=== PATIENT | female | born 1935 | race Caucasian/White ===

== ENCOUNTER 2021-10-17 15:21 | Outpatient (REF) | payer MEDICARE, SELFPAY | END 2021-10-17 15:22 | disposition home or self-care (01) | LOC: HO.LNP 15:21 | PROVIDERS: Visit Provider Physician Assistant | DX: N39.0 Urinary tract infection, site not specified (principal) | CPT/HCPCS: 87086; 87088; 87186 ==

== ENCOUNTER 2024-06-19 14:21 | Outpatient (REF) | payer MEDICARE, SELFPAY ==
[2024-06-19 15:59] LABS: MANUAL DIFF FLAG NO
[2024-06-19 16:23] LABS: Basophils Absolute Auto 0.1 X10*3/uL (0.0-0.2); Basophils Percent Auto 0.7 % (0-2); Eosinophils Absolute Auto 0.1 X10*3/uL (0.0-0.4); Hematocrit 36.9 % (37.0-47.0); Hemoglobin 12.2 g/dl (12.0-16.0); Imm Gran Abs Auto 0.04 X10*3/uL (0.00-0.03); Imm Gran Pct Auto 0.6 % (0.0-0.4); Lymphocytes Absolute Auto 2.6 X10*3/uL (1.2-4.9); Lymphocytes Percent Auto 37.7 % (20-40); Mean Corpuscular HGB Conc 33.1 g/dl (31.0-35.0); Mean Corpuscular Hemoglobin 30.6 pg (27.0-33.0); Mean Corpuscular Volume 92.5 fL (80.0-98.0); Mean Platelet Volume 10.1 fL (9.4-12.3); Monocytes Absolute Auto 0.6 X10*3/uL (0.1-1.2); Monocytes Percent Auto 8.4 % (2-11); Neutrophils Absolute Auto 3.5 x10*3/uL (2.0-8.3); Neutrophils Percent Auto 51.6 % (45-73); Platelet Count 253 X10*3/uL (160-400); Red Blood Count 3.99 X10*6/uL (4.20-5.50); Red Cell Distribution Width 12.6 % (11.0-16.0); White Blood Count 6.8 X10*3/uL (4.8-10.8)
[2024-06-19 16:49] LABS: Alanine Aminotransferase 10 U/L (0-31); Alkaline Phosphatase 59 U/L (39-117); Anion Gap 12 (12-20); Aspartate Amino Transferase 15 U/L (5-31); Bilirubin Total 0.5 mg/dL (0.0-1.0); Blood Urea Nitrogen 24 mg/dL (9-16); Calcium 9.3 mg/dL (8.4-10.2); Carbon Dioxide 30 mmol/L (22-29); Chloride 103 mmol/L (96-108); Estimated Glomerular Filt Rate > 60; Glucose Random 89 mg/dL (60-115); Potassium 3.6 mmol/L (3.3-5.1); Sodium 141 mmol/L (135-145); Total Protein 6.5 g/dL (6.5-8.0)
[2024-06-19 16:55] LABS: Vitamin D 25-OH Total 59.9 ng/mL (>30)
== END 2024-06-19 14:22 | disposition home or self-care (01) ==
LOC: HO.HMGCLDS 14:21
PROVIDERS: PCP Internal Medicine; Visit Provider Internal Medicine
DX: I10 Essential (primary) hypertension (principal); E78.00 Pure hypercholesterolemia, unspecified; K21.9 Gastro-esophageal reflux disease without esophagitis; R63.4 Abnormal weight loss; M81.0 Age-related osteoporosis without current pathological fracture
CPT/HCPCS: 36415; 80053; 82306; 85025

== ENCOUNTER 2024-07-31 12:57 | Outpatient (RCR) | payer MEDICARE, SELFPAY | END 2024-09-21 13:42 | disposition home or self-care (01) | LOC: HO.WCC 12:57 | PROVIDERS: PCP Internal Medicine; Visit Provider Surgery | DX: I87.332 Chronic venous hypertension (idiopathic) with ulcer and inflammation of left lower extremity (principal); L97.822 Non-pressure chronic ulcer of other part of left lower leg with fat layer exposed; G62.9 Polyneuropathy, unspecified; I10 Essential (primary) hypertension; Z79.2 Long term (current) use of antibiotics; Z79.899 Other long term (current) drug therapy | CPT/HCPCS: 11042; 99213 ==

== ENCOUNTER 2024-11-28 10:18 | Outpatient (REF) | payer MEDICARE, OTHER, SELFPAY ==
--- OUTSIDE RECORDS SUMMARY | 2024-11-28 12:21 | XMS_ITS | Data Portability ---
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 labs 11/05/2022 LDL 117; hdl 63; trig 100 bun 19, cr 0.62 hgb 13.0 vit D 42 tsh 2.07; T4 1.0 b12 > 2000 hgb 5.3 ppoling Not available 03/02/2023 10:30:47 11/16/2023 11/16/2023 Patient here tod ay for follow-up after urgent care visit on 11/11/2023. Patient tested positive for influenza A, negative for COVID, negative for RSV. Her x-ray was read as normal with no pneumonia. She was prescribed Tamiflu, Zofran, benzonatate Perles, she currently continues taking the benzonatate only. The patient did not take tamiflu due to symptoms starting 5 days prior to Urgent Care Visit. Patient nausea has mostly resolved. There is notation in the urgent care note and the patient does present with edema of the right lower leg and was advised to go to ER. I will order a stat ultrasound to rule out DVT and patient should proceed to have this testing done immediately. Patient does report she did recently travel on a plane was sitting for several hours. In the past on the right leg she had phlebitis, vein ligation, liset due to compound fracture in 1992. increase activity as tolerated RTO if symptoms do not improve. I will reach out based on DVT results if needed. Labs 11/08/2023 vit d 28 tsh 2.93 hdl 56 trig 100 ldl 100 gfr 85 cr 0.66 bun 18 wbc 6.3 hgb 12.1 covid in sep 2023 Provided patient with memory loss support group information on [facility]. Patient reports her has memory loss and she is having challenges managing. ksmarsh Not available 11/16/2023 10:20:35 01/03/2024 01/03/2024 Patient here tod dyllan with complaints of cough, sinus drainage, headache for 2 weeks. Patient had COVID in September 2023 and influenza A in October 2023 and now has a recent new virus causing upper respiratory symptoms. Patient has been taking her vitamin D as it was noted low on last lab work, and reports taking B12 hydrating and eating well. She does report chronic stress due to taking care of her . She does request antibiotic today for upper respiratory symptoms and to rule out UTI with her chronic incontinence. had covid sep 2023 influenza a oct 2023 ksmarsh Not available 01/03/2024 09:10:58 01/25/2024 01/25/2024 Patient here daniella mijares with her daughter for follow-up after emergency room visit for right knee pain. Patient has history of right side tibial liset from compound fracture in 1994. Patient had x-ray done of the right knee that indicated mild to moderate osteoarthritis, chondrocalcinosis of meniscal cartilage, possibly related to DJD, gout, or hydroxyapatite deposition disease, and partial visualization of a tibial intramedullary liset. On exam today pain is improved from UC visit with meloxicam. She still is positive for bakers cyst and has tenderness in posterior and medial knee, full extension, flexion to 90 degrees with some pain. Referral given to [facility] - requests new one today. pt vomited one time in office, declines nausea meds, took meloxicam with banana and has not felt good since. ksmarsh Not available 01/25/2024 12:38:51 Plan of Treatment Reminders Order Date Submit Date Provider Last Modified By Organization Details Last Modified Time Details Appointments None recorded. Lab CBC - to be done 6 months after order date 2022 023 [facility], [address], [place], [address], 3 19:07:35 venipunctu re - to be done 6 months after order date 2022 023 [facility], [address], [place], [address], 3 09:13:30 TSH, serum or plasma - to be done 6 months after order date 2022 023 [facility], [address], [place], [address], 3 19:07:33 T4, free, serum - to be done 6 months after order date 2022 023 [facility], [address], [place], [address], 3 19:07:32 CMP, serum or plasma - to be done 6 months after order date 2022 023 [facility], [address], [place], [address], 3 19:07:36 CK (creatine kinase), total, serum - to be done 6 months after order date 2022 023 [facility], [address], [place], [address], 3 19:07:36 lipid panel, serum - to be done 6 months after order date 2022 023 [facility], [address], [place], [address], 3 19:07:37 HbA1c (hemoglobi n A1c), blood - to be done 6 months after order date 2022 023 [facility], [address], [place], [address], 3 19:07:30 urinalysis , complete 2022 023 [facility], [address], [place], [address], 3 09:58:56 vitamin B12, serum - to be done 6 months after order date 2022 023 [facility], [address], [place], [address], 3 19:07:31 vitamin D, 25-hydroxy , total, serum - to be done 6 months after order date 2022 023 [facility], [address], [place], [address], 3 19:07:34 CMP, serum or plasma - to be done 6 months after order date 2022 023 [facility], [address], [place], [address], 4 12:33:33 lipid panel, serum - to be done 6 months after order date 2022 023 [facility], [address], [place], [address], 4 12:33:34 TSH, serum or plasma - to be done 6 months after order date 2022 023 [facility], [address], [place], [address], 4 12:33:36 CBC - to be done 6 months after order date 2022 023 [facility], [address], [place], [address], 4 12:33:32 venipunctu re - to be done 6 months after order date 2022 023 [facility], [address], [place], [address], 4 08:09:27 vitamin D, 25-hydroxy , total, serum - to be done 6 months after order date 2022 023 [facility], [address], [place], [address], 4 12:33:37 urinalysis , complete 2023 024 [facility], [address], [place], [address], 4 13:36:47 Referral orthopedic surgeon referral 2023 024 ATHENAFAX Not available 4 12:56:54 Procedures None recorded. Surgeries None recorded. Imaging MAMMO, screening, digital, bilateral - 3 D mammogram 2022 023 [email or web address] [facility] (Central Scheduling), [address], [address], [place], [address], 3 11:17:32 MAMMO, screening, digital, bilateral - 3 D mammogram 2022 023 [facility] (Central Scheduling), [address], [address], [place], [address], 4 08:03:13 US, duplex, venous, lower extremity, unilateral 2023 024 [place] [facility], [address], [address], [place], [address], 4 14:46:08 Medication Orders hydrochlor othiazide 12.5 mg tablet 2022 023 [place] [facility], [address], [address], [place], [place], [id number], 3 11:02:14 omeprazole 20 mg capsule,de layed release 2022 023 [place] [facility], [address], [address], [place], [place], [id number], 3 11:02:17 losartan 100 mg tablet 2022 023 [place] [facility], [address], [address], [place], [place], [id number], 3 11:02:16 dicyclomin e 10 mg capsule 2022 023 [facility], [address], [address], [place], [place], [id number], 3 11:02:17 estradiol 0.01% (0.1 mg/gram) vaginal cream 2022 023 [email or web address] [facility], [address], [address], [place], [place], [id number], 3 08:26:51 lovastatin 40 mg tablet 2022 023 [facility] [facility], [address], [address], [place], [place], [id number], 3 11:02:14 magnesium 100 mg (as glycinate) capsule 2022 023 ppoling Not available 3 10:38:11 Estrace 0.01% (0.1 mg/gram) vaginal cream 2022 023 [facility], [address] [place] [address], [address], [place], [address], 4 11:33:30 omeprazole 40 mg capsule,de layed release 2022 023 [facility], [address] [place] [address], [address], [place], [place], [id number], 4 11:41:06 Vitamin D3 50 mcg (2,000 unit) capsule 2022 023 ksmarsh Not available 4 10:02:57 cholecalci ferol (vitamin D3) 1,250 mcg (50,000 unit) capsule 2023 024 [facility], [address], [address], [place], [place], [id number], 4 10:03:13 doxycyclin e hyclate 100 mg capsule 2023 024 [email or web address] [id number], [place], [address], 4 11:11:43 fluticason e propionate 50 mcg/actuat ion nasal spray,susp ension 2023 024 [id number], [place], [address], 4 09:08:59 meloxicam 15 mg tablet 2023 024 [id number], [place], [address], 4 11:54:00 fluticason e propionate 50 mcg/actuat ion nasal spray,susp ension 2023 024 [id number], [place], [address], 4 11:46:49 Patient TargetsNo targets recorded. Patient Instructions Encounter Date Encounter Id Patient Instructions Last Modified By Organization Details Last Modified Time 11/11/2022 [id number] starting a weigh t loss plan: care instructions ppoling Not available 11/11/2022 11:01:55 hand arthritis: exercises ppoling Not available 11/11/2022 11:01:55 irritable bowel syndrome: care instructions ppoling Not available 11/11/2022 11:01:55 prediabetes: car e instructions ppoling Not available 11/11/2022 11:01:56 pernicious anemi a: care instructions ppoling Not available 11/11/2022 11:01:56 03/02/2023 [id number] irritable bowel syndrome: care instructions ppoling Not available 03/02/2023 10:37:42 starting a weigh t loss plan: care instructions ppoling Not available 03/02/2023 10:37:42 gastroesophageal reflux disease (GERD): care instructions ppoling Not available 03/02/2023 10:37:43 11/16/2023 [id number] -Follow the treatment plan that we discussed during your visit. -Please go to the nearest ED if you develop any acute medical emergencies such as: chest pain, SOB, severe abd pain, uncontrolled bleeding, severe/intractable pain or any neurological changes. ksmarsh Not available 11/16/2023 10:16:57 -Patient instruc shi to call the office with any healthcare/medicatio n concerns or questions. -Patient verbalized understanding of treatment plan and agreed to call or RTO with any questions or if they feel that the plan needs to be modified. -Use, dosage, and adverse side effects of medications discussed. ksmarsh Not available 11/16/2023 10:17:03 01/03/2024 [id number] Acute Sinusitis: Care Instructions ksmarsh Not available 01/03/2024 09:02:53 -Follow the treatment plan that we discussed during your visit. -Please go to the nearest ED if you develop any acute medical emergencies such as: chest pain, SOB, severe abd pain, uncontrolled bleeding, severe/intractable pain or any neurological changes. ksmarsh Not available 01/03/2024 09:11:00 -Patient instruc shi to call the office with any healthcare/medicatio n concerns or questions. -Patient verbalized understanding of treatment plan and agreed to call or RTO with any questions or if they feel that the plan needs to be modified. -Use, dosage, and adverse side effects of medications discussed. ksmarsh Not available 01/03/2024 09:11:02 01/25/2024 [id number] -Follow the treatment plan that we discussed during your visit. -Please go to the nearest ED if you develop any acute medical emergencies such as: chest pain, SOB, severe abd pain, uncontrolled bleeding, severe/intractable pain or any neurological changes. ksmarsh Not available 01/25/2024 12:42:57 -Patient instruc shi to call the office with any healthcare/medicatio n concerns or questions. -Patient verbalized understanding of treatment plan and agreed to call or RTO with any questions or if they feel that the plan needs to be modified. -Use, dosage, and adverse side effects of medications discussed. ksmarsh Not available 01/25/2024 12:43:06 Reason for Referral Orthopedic Surgeon Referral for Synovial cyst of right knee Referring Physician: Rosa Maria Mulligan, Family Medicine, Encounter Date: 01/25/2024 Results Created Date Observation Date Name Description Value Unit Range Abnormal Flag Note LastModifiedBy Organization Detail LastModifiedTime 11/05/1911/06/2022 A1C hemoglobin A1C 5.3 %_of_ total _HGB <5.7 normal For the purpo se of zafar guthrie for the prese nce of diabe johann: <5.7% Consi stent with the absen ce of diabe johann 5.7-6 .4% Consi stent with incre ased risk for diabe johann (pred iabet es) > or =6.5% Consi stent with diabe johann This assay resul t is consi stent with a decre ased risk of diabe johann. Curre ntly, no conse nsus exist s shari yu use of hemog lobin A1c for diagn osis of diabe johann in child tae. Accor ding to Ameri can Diabe johann Assoc iatio n (ADA) guide lines , hemog lobin A1c <7.0% repre sents optim al contr ol in non-p regna nt diabe tic patie nts. Diffe rent metri cs may apply to speci fic patie nt popul ation s. Stand ards of Medic al Care in Diabe johann(A DA). Not Available [facility] [address] [facility] [place], [address], 11/06/2022 09:17:27 11/05/19 23 11/06/2022 VITAM IN B-12 vitamin B12 >2000 pg/mL 200-11 00 high Not Available [facility] [address] [place], [address], 11/06/2022 09:17:29 11/05/19 23 11/06/2022 T4, FREE T4, free 1.0 NG/dL 0.8-1. 8 normal Not Available [facility] [address] [facility] [address] [place], [address], 11/06/2022 09:17:30 11/05/19 23 11/06/2022 TSH, THYRO ID STIMU LATIN G HORMO NE TSH 2.07 mIU/L 0.40-4 .50 normal Not Available [facility] [address] [place], [address], 11/06/2022 09:17:31 11/05/19 23 11/06/2022 VITAM IN D, 25-HY DROXY vitamin D,25-oh,tota l,ia 42 NG/mL 30-100 normal Vitam in D Statu s 25-OH Vitam in D: Defic iency : <20 ng/mL Insuf ficie ncy: 20 - 29 ng/mL Optim al: > or = 30 ng/mL For 25-OH Vitam in D testi ng on patie nts on D2-frey pplem entat ion and patie nts for whom quant itati on of D2 and D3 fract ions is requi red, the [employer] Assur eD(TM ) 25-OH VIT D, (D2,D 3), LC/MS /MS is recom elisabet d: order code 25803 (martin ents >2yrs ). See Note 1 Note 1 For addit ional infor reese cunningham e refer to http: //jose manuel umaña ics.c om/fa q/FAQ 199 (This link is being provi ded for infor ronan joaquin/ educjulia quezada purpo ses only. ) Not Available [facility] [address] [place], [address], 11/06/2022 09:17:33 11/05/19 23 11/06/2022 CBC W/ AUTOD IFF, COMPL ETE BLOOD COUNT white blood cell count 5.8 thous and/u L 3.8-10 .8 normal Not Available [facility] [address] [place], [address], 11/06/2022 09:17:34 11/05/19 23 11/06/2022 CBC W/ AUTOD IFF, COMPL ETE BLOOD COUNT red blood cell count 4.40 jh on/uL 3.80-5 .10 normal Not Available [facility], [place], [address], 11/06/2022 09:17:34 11/05/19 23 11/06/2022 CBC W/ AUTOD IFF, COMPL ETE BLOOD COUNT hemoglobin 13.0 g/dL 11.7-1 5.5 normal Not Available [facility], [place], [address], 11/06/2022 09:17:34 11/05/1911/06/2022 CBC W/ AUTOD IFF, COMPL ETE BLOOD COUNT hematocrit 39.3 % 35.0-4 5.0 normal Not Available [facility] [address], [place], [address], 11/06/2022 09:17:34 11/05/1911/06/2022 CBC W/ AUTOD IFF, COMPL ETE BLOOD COUNT MCV 89.3 fL 80.0-1 00.0 normal Not Available [facility], [place], [address], 11/06/2022 09:17:34 11/05/1911/06/2022 CBC W/ AUTOD IFF, COMPL ETE BLOOD COUNT MCH 29.5 pg 27.0-3 3.0 normal Not Available [facility], [place], [address], 11/06/2022 09:17:34 11/05/1911/06/2022 CBC W/ AUTOD IFF, COMPL ETE BLOOD COUNT MCHC 33.1 g/dL 32.0-3 6.0 normal Not Available [facility], [place], [address], 11/06/2022 09:17:34 11/05/19 23 11/06/2022 CBC W/ AUTOD IFF, COMPL ETE BLOOD COUNT RDW 12.4 % 11.0-1 5.0 normal Not Available [facility], [place], [address], 11/06/2022 09:17:34 11/05/19 23 11/06/2022 CBC W/ AUTOD IFF, COMPL ETE BLOOD COUNT platelet count 269 thous and/u L 140-40 0 normal Not Available [facility] [address], [place], [address], 11/06/2022 09:17:34 11/05/19 23 11/06/2022 CBC W/ AUTOD IFF, COMPL ETE BLOOD COUNT MPV 10.2 fL 7.5-12 .5 normal Not Available [facility] [address] [place] [address] [address], [place], [address], 11/06/2022 09:17:34 11/05/19 23 11/06/2022 CBC W/ AUTOD IFF, COMPL ETE BLOOD COUNT absolute neutrophils 2755 cells /uL 1500-7 800 normal Not Available [facility] [address] [place] [address] [address], [place], [address], 11/06/2022 09:17:34 11/05/19 23 11/06/2022 CBC W/ AUTOD IFF, COMPL ETE BLOOD COUNT absolute lymphocytes 2187 cells /uL 850-39 00 normal Not Available [facility] [address], [place], [address], 11/06/2022 09:17:34 11/05/19 23 11/06/2022 CBC W/ AUTOD IFF, COMPL ETE BLOOD COUNT absolute monocytes 597 cells /uL 200-95 0 normal Not Available [facility] [address] [place] [address] [address], [place], [address], 11/06/2022 09:17:34 11/05/19 23 11/06/2022 CBC W/ AUTOD IFF, COMPL ETE BLOOD COUNT absolute eosinophils 191 cells /uL 15-500 normal Not Available [facility] [address], [place], [address], 11/06/2022 09:17:34 11/05/19 23 11/06/2022 CBC W/ AUTOD IFF, COMPL ETE BLOOD COUNT absolute basophils 70 cells /uL 0-200 normal Not Available [facility] [address], [place], [address], 11/06/2022 09:17:34 11/05/19 23 11/06/2022 CBC W/ AUTOD IFF, COMPL ETE BLOOD COUNT neutrophils 47.5 % normal Not Available [facility] [address], [place], [address], 11/06/2022 09:17:34 11/05/19 23 11/06/2022 CBC W/ AUTOD IFF, COMPL ETE BLOOD COUNT lymphocytes 37.7 % normal Not Available [facility] [address], [place], [address], 11/06/2022 09:17:34 11/05/19 23 11/06/2022 CBC W/ AUTOD IFF, COMPL ETE BLOOD COUNT monocytes 10.3 % normal Not Available [facility] [address], [place], [address], 11/06/2022 09:17:34 11/05/19 23 11/06/2022 CBC W/ AUTOD IFF, COMPL ETE BLOOD COUNT eosinophils 3.3 % normal Not Available [facility] [address], [place], [address], 11/06/2022 09:17:34 11/05/19 23 11/06/2022 CBC W/ AUTOD IFF, COMPL ETE BLOOD COUNT basophils 1.2 % normal Not Available [facility] [address] [facility] [address], [place], [address], 11/06/2022 09:17:34 11/05/19 23 11/06/2022 CK creatine kinase, total 44 U/L 29-143 normal Not Available [facility] [address] [facility] [address], [place], [address], 11/06/2022 09:17:36 11/05/1911/06/2022 CMP, COMPR EHENS AMY METAB OLIC PANEL glucose 82 mg/dL 65-99 normal Fasti ng refer ence inter jason Not Available [facility] [address] [facility] [address], [place], [address], 11/06/2022 09:17:37 11/05/19 23 11/06/2022 CMP, COMPR EHENS AMY METAB OLIC PANEL urea nitrogen (BUN) 19 mg/dL 7-25 normal Not Available [facility] [address] [facility] [address], [place], [address], 11/06/2022 09:17:37 11/05/1911/06/2022 CMP, COMPR EHENS AMY METAB OLIC PANEL creatinine 0.62 mg/dL 0.60-0 .95 normal Not Available [facility] [address] [facility] [address], [place], [address], 11/06/2022 09:17:37 11/05/1911/06/2022 CMP, COMPR EHENS AMY METAB OLIC PANEL eGFR 87 mL/mi n/1.7 3m2 > or = 60 normal The eGFR is based on the CKD-E PI 2020 equat ion. To calcu late the new eGFR from a previ ous Creat inine or Cysta tin C resul t, go to https ://vero w.kid dion.o rg/pr ofess ional s/ kdoqi /gfr% 5Fcal culat or Not Available [facility] [address], [place], [address], 11/06/2022 09:17:37 11/05/19 23 11/06/2022 CMP, COMPR EHENS AMY METAB OLIC PANEL BUN/creatini ne ratio NOT APPLIC ABLE (calc ) 6-22 Not Available [facility] [address], [place], [address], 11/06/2022 09:17:37 11/05/19 23 11/06/2022 CMP, COMPR EHENS AMY METAB OLIC PANEL sodium 141 mmol/ L 135-14 6 normal Not Available [facility] [address], [place], [address], 11/06/2022 09:17:37 11/05/19 23 11/06/2022 CMP, COMPR EHENS AMY METAB OLIC PANEL potassium 4.2 mmol/ L 3.5-5. 3 normal Not Available [facility] [address], [place], [address], 11/06/2022 09:17:37 11/05/19 23 11/06/2022 CMP, COMPR EHENS AMY METAB OLIC PANEL chloride 103 mmol/ L 98-110 normal Not Available [facility] [address], [place], [address], 11/06/2022 09:17:37 11/05/19 23 11/06/2022 CMP, COMPR EHENS AMY METAB OLIC PANEL carbon dioxide 29 mmol/ L 20-32 normal Not Available [facility] [address], [place], [address], 11/06/2022 09:17:37 11/05/19 23 11/06/2022 CMP, COMPR EHENS AMY METAB OLIC PANEL calcium 9.0 mg/dL 8.6-10 .4 normal Not Available [facility] [address], [place], [address], 11/06/2022 09:17:37 11/05/1911/06/2022 CMP, COMPR EHENS AMY METAB OLIC PANEL protein, total 6.4 g/dL 6.1-8. 1 normal Not Available [facility] [address], [place], [address], 11/06/2022 09:17:37 11/05/1911/06/2022 CMP, COMPR EHENS AMY METAB OLIC PANEL albumin 4.0 g/dL 3.6-5. 1 normal Not Available [facility] [address] [place], [place] [address], [place], [address], 11/06/2022 09:17:37 11/05/1911/06/2022 CMP, COMPR EHENS AMY METAB OLIC PANEL globulin 2.4 g/dL_ (calc ) 1.9-3. 7 normal Not Available [facility] [address] [place] [address] [address], [place], [address], 11/06/2022 09:17:37 11/05/1911/06/2022 CMP, COMPR EHENS AMY METAB OLIC PANEL albumin/glob ulin ratio 1.7 (calc ) 1.0-2. 5 normal Not Available [facility] [address] [place], [place] [address], [place], [address], 11/06/2022 09:17:37 11/05/1911/06/2022 CMP, COMPR EHENS AMY METAB OLIC PANEL bilirubin, total 0.7 mg/dL 0.2-1. 2 normal Not Available [facility] [address] [place], [place] [address], [place], [address], 11/06/2022 09:17:37 11/05/19 23 11/06/2022 CMP, COMPR EHENS AMY METAB OLIC PANEL alkaline phosphatase 66 U/L 37-153 normal Not Available [facility] [address] [facility] [address] [address], [place], [address], 11/06/2022 09:17:37 11/05/19 23 11/06/2022 CMP, COMPR EHENS AMY METAB OLIC PANEL AST 13 U/L 10-35 normal Not Available [facility] [address] [facility] [address], [place], [address], 11/06/2022 09:17:37 11/05/19 23 11/06/2022 CMP, COMPR EHENS AMY METAB OLIC PANEL ALT 9 U/L 6-29 normal Not Available [facility] [address] [facility] [address], [place], [address], 11/06/2022 09:17:37 11/05/19 23 11/06/2022 LIPID PANEL REF DLDL cholesterol, total 201 mg/dL <200 high Not Available [facility] [address] [facility] [address], [place], [address], 11/06/2022 09:17:39 11/05/19 23 11/06/2022 LIPID PANEL REF DLDL HDL cholesterol 63 mg/dL > or = 50 normal Not Available [facility] [address] [facility] [address], [place], [address], 11/06/2022 09:17:39 11/05/19 23 11/06/2022 LIPID PANEL REF DLDL triglyceride s 100 mg/dL <150 normal Not Available [facility] [address] [facility] [address], [place], [address], 11/06/2022 09:17:39 11/05/19 23 11/06/2022 LIPID PANEL REF DLDL LDL-choleste rol 117 mg/dL _(fern c) high Refer ence range : <100 Sonia able range <100 mg/dL for prima ry preve ntion ; <70 mg/dL for patie nts with CHD or diabe tic patie nts with > or = 2 CHD risk facto rs. LDL-C is now calcu lated using the Tracy n-Hop kins calcu kenn n, which is a valid ated novel chiquio ailyn montañoi gigi cristiana r accur acy than the Fried roseline equat ion in the estim ation of LDL-C . Tracy foley SS et al. ESTELLA. 2013; 310(1 8): 2061- 2068 (http ://ed sumeetati on.[employer] jeramyAnchanto. Iotum/f aq/FA Q164) Not Available [facility] [address] [place], [address], 11/06/2022 09:17:39 11/05/1911/06/2022 LIPID PANEL REF DLDL chol/HDLC ratio 3.2 (calc ) <5.0 normal Not Available [facility] [address] [place], [address], 11/06/2022 09:17:39 11/05/19 23 11/06/2022 LIPID PANEL REF DLDL non HDL cholesterol 138 mg/dL _(fern c) <130 high For patie nts with diabe johann plus 1 major ASCVD risk facto r, treat ing to a non-H DL-C goal of <100 mg/dL (LDL- C of <70 mg/dL ) is consi dered a thera peuti c optio n. Not Available [facility] [address], [place], [address], 11/06/2022 09:17:39 11/05/19 23 11/07/2022 URINA LYSIS , COMPL ETE W/ REFLE X TO CULTU RE color YELLOW yellow normal Not Available [facility] [address] [facility] [address], [place], [address], 11/07/2022 10:10:22 11/05/19 23 11/07/2022 URINA LYSIS , COMPL ETE W/ REFLE X TO CULTU RE appearance TURBID clear abnormal Not Available [facility] [address] [place] [address] [address], [place], [address], 11/07/2022 10:10:22 11/05/19 23 11/07/2022 URINA LYSIS , COMPL ETE W/ REFLE X TO CULTU RE specific gravity 1.021 1.001- 1.035 normal Not Available [facility] [address] [place], [place] [address]y [address], [place], [address], 11/07/2022 10:10:22 11/05/19 23 11/07/2022 URINA LYSIS , COMPL ETE W/ REFLE X TO CULTU RE pH 5.5 5.0-8. 0 normal Not Available [facility] [address] [place] [address] [address], [place], [address], 11/07/2022 10:10:22 11/05/19 23 11/07/2022 URINA LYSIS , COMPL ETE W/ REFLE X TO CULTU RE glucose NEGATI VE negati ve normal Not Available [facility] [address] [place] [address] [address], [place], [address], 11/07/2022 10:10:22 11/05/19 23 11/07/2022 URINA LYSIS , COMPL ETE W/ REFLE X TO CULTU RE bilirubin NEGATI VE negati ve normal Not Available [facility] [address] [place] [address] [address], [place], [address], 11/07/2022 10:10:22 11/05/19 23 11/07/2022 URINA LYSIS , COMPL ETE W/ REFLE X TO CULTU RE ketones NEGATI VE negati ve normal Not Available [facility] [address] [place] [address] [address], [place], [address], 11/07/2022 10:10:22 11/05/19 23 11/07/2022 URINA LYSIS , COMPL ETE W/ REFLE X TO CULTU RE occult blood NEGATI VE negati ve normal Not Available [facility] [address] [place] [address] [address], [place], [address], 11/07/2022 10:10:22 11/05/19 23 11/07/2022 URINA LYSIS , COMPL ETE W/ REFLE X TO CULTU RE protein NEGATI VE negati ve normal Not Available [facility] [address] [place] [address] [address], [place], [address], 11/07/2022 10:10:22 11/05/19 23 11/07/2022 URINA LYSIS , COMPL ETE W/ REFLE X TO CULTU RE nitrite NEGATI VE negati ve normal Not Available [facility] [address] [place] [address] [address], [place], [address], 11/07/2022 10:10:22 11/05/19 23 11/07/2022 URINA LYSIS , COMPL ETE W/ REFLE X TO CULTU RE leukocyte esterase TRACE negati ve abnormal Not Available [facility] [address] [place] [address] [address], [place], [address], 11/07/2022 10:10:22 11/05/19 23 11/07/2022 URINA LYSIS , COMPL ETE W/ REFLE X TO CULTU RE WBC 6-10 /hpf < or = 5 abnormal Not Available [facility] [address] [place] [address] [address], [place], [address], 11/07/2022 10:10:22 11/05/19 23 11/07/2022 URINA LYSIS , COMPL ETE W/ REFLE X TO CULTU RE RBC 0-2 /hpf < or = 2 normal Not Available [facility] [address] [place], [address], 11/07/2022 10:10:22 11/05/19 23 11/07/2022 URINA LYSIS , COMPL ETE W/ REFLE X TO CULTU RE squamous epithelial cells 0-5 /hpf < or = 5 Not Available [facility] [address] [place] [address] [address] [place], [address], 11/07/2022 10:10:22 11/05/19 23 11/07/2022 URINA LYSIS , COMPL ETE W/ REFLE X TO CULTU RE bacteria NONE SEEN /hpf none seen normal Not Available [facility] [address] [place] [address], [address], 11/07/2022 10:10:22 11/05/19 23 11/07/2022 URINA LYSIS , COMPL ETE W/ REFLE X TO CULTU RE hyaline cast NONE SEEN /lpf none seen normal Not Available [facility] [address] [place] [address], [address], 11/07/2022 10:10:22 11/05/19 23 11/07/2022 URINA LYSIS , COMPL ETE W/ REFLE X TO CULTU RE note SEE NOTE This urine was may zed for the prese nce of WBC, RBC, bacte viola, casts , and other forme d eleme nts. Only those eleme nts seen were repor shi. Not Available [facility] [address] [place] [address] [address] [place], [address], 11/07/2022 10:10:22 11/05/19 23 11/07/2022 REFLE XIVE URINE CULTU RE reflexive urine culture SEE NOTE CULTU RE INDIC ATED - RESUL TS TO FOLLO W Not Available [facility] [address] [place] [address], [place], [address], 11/07/2022 10:10:23 11/05/19 23 11/07/2022 CULTU RE, URINE , ROUTI NE culture, urine, routine SEE NOTE CULTU RE, URINE , ROUTI NE Micro Numbe r: [id number] Test Statu s: Final Speci men Sourc e: Urine Speci men Quali ty: Adequ ate Resul t: Mixed genit al romulo isola shi. These super ficia l bacte viola are not indic ative of a urina ry tract infec tion. No furth er organ ism ident ifica tion is warra nted on this speci men. If clini gissell indic ated, recol lect clean -catc h, mid-s tream urine and trans mitchell immed iatel y to Urine Cultu re Trans port Tube. Not Available [facility] [address] [facility] [address] [place], [address], 11/07/2022 10:10:23 11/05/19 23 11/05/2022 VENIP UNCTU RE results Compl ete Not Available [facility] [address] [facility] [address] [place], [address], 11/05/2022 09:54:54 02/22/20 23 02/22/2023 A1C hemoglobin A1C 5.5 %_of_ total _HGB <5.7 normal For the purpo se of scremaddie peresg for the prese nce of diabe johann: <5.7% Consi stent with the absen ce of diabe johann 5.7-6 .4% Consi stent with incre ased risk for diabe johann (pred iabet es) > or =6.5% Consi stent with diabe johann This assay resul t is consi stent with a decre ased risk of diabe johann. Curre ntly, no conse nsus exist s shari yu use of hemog lobin A1c for diagn osis of diabe johann in child tae. Accor ding to Ameri can Diabe johann Assoc iatio n (ADA) guide lines , hemog lobin A1c <7.0% repre sents optim al contr ol in non-p regna nt diabe tic patie nts. Diffe taet carmen cs may apply to speci fic patie nt popul ation s. Stand ards of Medic al Care in Diabe johann(A DA). Not Available [facility] [address] [facility] [address], [place], [address], 02/22/2023 19:07:30 02/22/20 23 02/22/2023 VITAM IN B-12 vitamin B12 >2000 pg/mL 200-11 00 high Not Available [facility] [address], [place], [address], 02/22/2023 19:07:31 02/22/20 23 02/22/2023 T4, FREE T4, free 1.0 NG/dL 0.8-1. 8 normal Not Available [facility] [address], [place], [address], 02/22/2023 19:07:32 02/22/20 23 02/22/2023 TSH, THYRO ID STIMU LATIN G HORMO NE TSH 3.63 mIU/L 0.40-4 .50 normal Not Available [facility] [address] [facility] [address], [place], [address], 02/22/2023 19:07:33 02/22/2002/22/2023 VITAM IN D, 25-HY DROXY vitamin D,25-oh,tota l,ia 37 NG/mL 30-100 normal Vitam in D Statu s 25-OH Vitam in D: Defic iency : <20 ng/mL Insuf ficie ncy: 20 - 29 ng/mL Optim al: > or = 30 ng/mL For 25-OH Vitam in D testi ng on patie nts on D2-frey pplem entat ion and patie nts for whom quant itati on of D2 and D3 fract ions is requi red, the [employer] Assur eD(TM ) 25-OH VIT D, (D2,D 3), LC/MS /MS is recom elisabet d: order code 66796 (martin ents >2yrs ). See Note 1 Note 1 For addit ional infor reese cunningham refer to http: //jose manuel Mastia gnost ics.c om/fa q/FAQ 199 (This link is being provi ded for infor ronan joaquin/ educjulia quezada purpo ses only. ) Not Available [facility] [address], [place], [address], 02/22/2023 19:07:34 02/22/20 23 02/22/2023 CBC W/ AUTOD IFF, COMPL ETE BLOOD COUNT white blood cell count 6.6 thous and/u L 3.8-10 .8 normal Not Available [facility] [address] [place], [address], 02/22/2023 19:07:35 02/22/20 23 02/22/2023 CBC W/ AUTOD IFF, COMPL ETE BLOOD COUNT red blood cell count 4.36 jh on/uL 3.80-5 .10 normal Not Available [facility] [address] [place], [address], 02/22/2023 19:07:35 02/22/20 23 02/22/2023 CBC W/ AUTOD IFF, COMPL ETE BLOOD COUNT hemoglobin 13.0 g/dL 11.7-1 5.5 normal Not Available [facility] [address], [place], [address], 02/22/2023 19:07:35 02/22/20 23 02/22/2023 CBC W/ AUTOD IFF, COMPL ETE BLOOD COUNT hematocrit 38.9 % 35.0-4 5.0 normal Not Available [facility] [address], [place], [address], 02/22/2023 19:07:35 02/22/20 23 02/22/2023 CBC W/ AUTOD IFF, COMPL ETE BLOOD COUNT MCV 89.2 fL 80.0-1 00.0 normal Not Available [facility] [address], [place], [address], 02/22/2023 19:07:35 02/22/20 23 02/22/2023 CBC W/ AUTOD IFF, COMPL ETE BLOOD COUNT MCH 29.8 pg 27.0-3 3.0 normal Not Available [facility] [address], [place], [address], 02/22/2023 19:07:35 02/22/20 23 02/22/2023 CBC W/ AUTOD IFF, COMPL ETE BLOOD COUNT MCHC 33.4 g/dL 32.0-3 6.0 normal Not Available [facility] [address], [place], [address], 02/22/2023 19:07:35 02/22/20 23 02/22/2023 CBC W/ AUTOD IFF, COMPL ETE BLOOD COUNT RDW 12.6 % 11.0-1 5.0 normal Not Available [facility], [place], [address], 02/22/2023 19:07:35 02/22/20 23 02/22/2023 CBC W/ AUTOD IFF, COMPL ETE BLOOD COUNT platelet count 282 thous and/u L 140-40 0 normal Not Available [facility] [address], [place], [address], 02/22/2023 19:07:35 02/22/20 23 02/22/2023 CBC W/ AUTOD IFF, COMPL ETE BLOOD COUNT MPV 10.1 fL 7.5-12 .5 normal Not Available [facility] [address], [place], [address], 02/22/2023 19:07:35 02/22/20 23 02/22/2023 CBC W/ AUTOD IFF, COMPL ETE BLOOD COUNT absolute neutrophils 3544 cells /uL 1500-7 800 normal Not Available [facility] [address], [place], [address], 02/22/2023 19:07:35 02/22/20 23 02/22/2023 CBC W/ AUTOD IFF, COMPL ETE BLOOD COUNT absolute lymphocytes 2257 cells /uL 850-39 00 normal Not Available [facility] [address] [place], [place] [address]y [address], [place], [address], 02/22/2023 19:07:35 02/22/20 23 02/22/2023 CBC W/ AUTOD IFF, COMPL ETE BLOOD COUNT absolute monocytes 587 cells /uL 200-95 0 normal Not Available [facility] [address] [place], [place] [address]y [address], [place], [address], 02/22/2023 19:07:35 02/22/20 23 02/22/2023 CBC W/ AUTOD IFF, COMPL ETE BLOOD COUNT absolute eosinophils 158 cells /uL 15-500 normal Not Available [facility] [address] [place], [place] [address]y [address], [place], [address], 02/22/2023 19:07:35 02/22/20 23 02/22/2023 CBC W/ AUTOD IFF, COMPL ETE BLOOD COUNT absolute basophils 53 cells /uL 0-200 normal Not Available [facility] [address] [place], [place] [address]y [address], [place], [address], 02/22/2023 19:07:35 02/22/20 23 02/22/2023 CBC W/ AUTOD IFF, COMPL ETE BLOOD COUNT neutrophils 53.7 % normal Not Available [facility] [address] [facility] [address], [place], [address], 02/22/2023 19:07:35 02/22/20 23 02/22/2023 CBC W/ AUTOD IFF, COMPL ETE BLOOD COUNT lymphocytes 34.2 % normal Not Available [facility] [address] [place], [address], 02/22/2023 19:07:35 02/22/20 23 02/22/2023 CBC W/ AUTOD IFF, COMPL ETE BLOOD COUNT monocytes 8.9 % normal Not Available [facility] [address], [place], [address], 02/22/2023 19:07:35 02/22/20 23 02/22/2023 CBC W/ AUTOD IFF, COMPL ETE BLOOD COUNT eosinophils 2.4 % normal Not Available [facility] [address] [place], [address], 02/22/2023 19:07:35 02/22/20 23 02/22/2023 CBC W/ AUTOD IFF, COMPL ETE BLOOD COUNT basophils 0.8 % normal Not Available [facility] [address] [place] [address] [address] [place], [address], 02/22/2023 19:07:35 02/22/20 23 02/22/2023 CK creatine kinase, total 50 U/L 29-143 normal Not Available [facility] [address], [place], [address], 02/22/2023 19:07:35 02/22/20 23 02/22/2023 CMP, COMPR EHENS AMY METAB OLIC PANEL glucose 80 mg/dL 65-99 normal Fasti ng refer ence inter jason Not Available [facility] [address] [place], [place] [address]y [address], [place], [address], 02/22/2023 19:07:36 02/22/20 23 02/22/2023 CMP, COMPR EHENS AMY METAB OLIC PANEL urea nitrogen (BUN) 16 mg/dL 7-25 normal Not Available [facility] [address], [place], [address], 02/22/2023 19:07:36 02/22/20 23 02/22/2023 CMP, COMPR EHENS AMY METAB OLIC PANEL creatinine 0.63 mg/dL 0.60-0 .95 normal Not Available [facility] [address] [facility] [address], [place], [address], 02/22/2023 19:07:36 02/22/20 23 02/22/2023 CMP, COMPR EHENS AMY METAB OLIC PANEL eGFR 87 mL/mi n/1.7 3m2 > or = 60 normal The eGFR is based on the CKD-E PI 2020 equat ion. To calcu late the new eGFR from a previ ous Creat inine or Cysta tin C resul t, go to https ://vero ashley.jeff godoy/barrie han s/ kdoqi /gfr% 5Fcal culat or Not Available [facility] [address], [place], [address], 02/22/2023 19:07:36 02/22/2002/22/2023 CMP, COMPR EHENS AMY METAB OLIC PANEL BUN/creatini ne ratio NOT APPLIC ABLE (calc ) 6-22 Not Available [facility] [address], [place], [address], 02/22/2023 19:07:36 02/22/20 23 02/22/2023 CMP, COMPR EHENS AMY METAB OLIC PANEL sodium 140 mmol/ L 135-14 6 normal Not Available [facility] [address], [place], [address], 02/22/2023 19:07:36 02/22/20 23 02/22/2023 CMP, COMPR EHENS AMY METAB OLIC PANEL potassium 4.1 mmol/ L 3.5-5. 3 normal Not Available [facility] [address] [facility] [address], [place], [address], 02/22/2023 19:07:36 02/22/20 23 02/22/2023 CMP, COMPR EHENS AMY METAB OLIC PANEL chloride 102 mmol/ L 98-110 normal Not Available [facility] [address] [facility] [address], [place], [address], 02/22/2023 19:07:36 02/22/20 23 02/22/2023 CMP, COMPR EHENS AMY METAB OLIC PANEL carbon dioxide 33 mmol/ L 20-32 high Not Available [facility] [address] [facility] [address], [place], [address], 02/22/2023 19:07:36 02/22/20 23 02/22/2023 CMP, COMPR EHENS AMY METAB OLIC PANEL calcium 9.0 mg/dL 8.6-10 .4 normal Not Available [facility] [address] [facility] [address], [place], [address], 02/22/2023 19:07:36 02/22/2002/22/2023 CMP, COMPR EHENS AMY METAB OLIC PANEL protein, total 6.4 g/dL 6.1-8. 1 normal Not Available [facility] [address] [facility] [address], [place], [address], 02/22/2023 19:07:36 02/22/20 23 02/22/2023 CMP, COMPR EHENS AMY METAB OLIC PANEL albumin 4.2 g/dL 3.6-5. 1 normal Not Available [facility] [address] [facility] [address], [place], [address], 02/22/2023 19:07:36 02/22/20 23 02/22/2023 CMP, COMPR EHENS AMY METAB OLIC PANEL globulin 2.2 g/dL_ (calc ) 1.9-3. 7 normal Not Available [facility] [address] [facility] [address], [place], [address], 02/22/2023 19:07:36 02/22/20 23 02/22/2023 CMP, COMPR EHENS AMY METAB OLIC PANEL albumin/glob ulin ratio 1.9 (calc ) 1.0-2. 5 normal Not Available [facility] [address] [facility] [address], [place], [address], 02/22/2023 19:07:36 02/22/20 23 02/22/2023 CMP, COMPR EHENS AMY METAB OLIC PANEL bilirubin, total 0.6 mg/dL 0.2-1. 2 normal Not Available [facility] [address], [place], [address], 02/22/2023 19:07:36 02/22/20 23 02/22/2023 CMP, COMPR EHENS AMY METAB OLIC PANEL alkaline phosphatase 62 U/L 37-153 normal Not Available [facility] [address] [place], [address], 02/22/2023 19:07:36 02/22/20 23 02/22/2023 CMP, COMPR EHENS AMY METAB OLIC PANEL AST 15 U/L 10-35 normal Not Available [facility] [address], [place], [address], 02/22/2023 19:07:36 02/22/20 23 02/22/2023 CMP, COMPR EHENS AMY METAB OLIC PANEL ALT 11 U/L 6-29 normal Not Available [facility] [address] [facility] [address], [place], [address], 02/22/2023 19:07:36 02/22/20 23 02/22/2023 LIPID PANEL W/ CALCU LATED LDL cholesterol, total 198 mg/dL <200 normal Not Available [facility] [address] [facility] [address], [place], [address], 02/22/2023 19:07:37 02/22/20 23 02/22/2023 LIPID PANEL W/ CALCU LATED LDL HDL cholesterol 63 mg/dL > or = 50 normal Not Available [facility] [address] [facility] [address], [place], [address], 02/22/2023 19:07:37 02/22/20 23 02/22/2023 LIPID PANEL W/ CALCU LATED LDL triglyceride s 106 mg/dL <150 normal Not Available [facility] [address] [facility] [address], [place], [address], 02/22/2023 19:07:37 02/22/20 23 02/22/2023 LIPID PANEL W/ CALCU LATED LDL LDL-choleste rol 114 mg/dL _(fern c) high Refer ence range : <100 Sonia able range <100 mg/dL for prima ry preve ntion ; <70 mg/dL for patie nts with CHD or diabe tic patie nts with > or = 2 CHD risk facto rs. LDL-C is now calcu lated using the Tracy n-Hop kins jaymie hawk n, which is a valid ated novel eyad rangel than the Fried roseline equat ion in the estim ation of LDL-C . Tracy foley SS et al. ESTELLA. 2013; 310(1 9): 2061- 2068 (http ://ed sumeetati on.Qu Rosy hortonLumiers. com/f aq/FA Q164) Not Available [facility] [address] [facility] [address], [place], [address], 02/22/2023 19:07:37 02/22/2002/22/2023 LIPID PANEL W/ CALCU LATED LDL chol/HDLC ratio 3.1 (calc ) <5.0 normal Not Available [facility] [address] [facility] [address], [place], [address], 02/22/2023 19:07:37 02/22/20 23 02/22/2023 LIPID PANEL W/ CALCU LATED LDL non HDL cholesterol 135 mg/dL _(fern c) <130 high For patie nts with diabe johann plus 1 major ASCVD risk facto r, treat ing to a non-H DL-C goal of <100 mg/dL (LDL- C of <70 mg/dL ) is consi dered a thera peuti c optio n. Not Available [facility] [address] [facility] [address], [place], [address], 02/22/2023 19:07:37 02/22/2002/23/2023 URINA LYSIS , COMPL ETE W/ REFLE X TO CULTU RE color YELLOW yellow normal Not Available [facility] [address] [place], [address], 02/23/2023 09:58:55 02/22/20 23 02/23/2023 URINA LYSIS , COMPL ETE W/ REFLE X TO CULTU RE appearance TURBID clear abnormal Not Available [facility] [address] [facility] [address], [place], [address], 02/23/2023 09:58:55 02/22/20 23 02/23/2023 URINA LYSIS , COMPL ETE W/ REFLE X TO CULTU RE specific gravity 1.023 1.001- 1.035 normal Not Available [facility] [address] [facility] [address], [place], [address], 02/23/2023 09:58:55 02/22/20 23 02/23/2023 URINA LYSIS , COMPL ETE W/ REFLE X TO CULTU RE pH < OR = 5.0 5.0-8. 0 normal Not Available [facility] [address], [place], [address], 02/23/2023 09:58:55 02/22/20 23 02/23/2023 URINA LYSIS , COMPL ETE W/ REFLE X TO CULTU RE glucose NEGATI VE negati ve normal Not Available [facility] [address], [place], [address], 02/23/2023 09:58:55 02/22/20 23 02/23/2023 URINA LYSIS , COMPL ETE W/ REFLE X TO CULTU RE bilirubin NEGATI VE negati ve normal Not Available [facility] [address], [place], [address], 02/23/2023 09:58:55 02/22/20 23 02/23/2023 URINA LYSIS , COMPL ETE W/ REFLE X TO CULTU RE ketones NEGATI VE negati ve normal Not Available [facility] [address] [place] [address] [address], [place], [address], 02/23/2023 09:58:55 02/22/20 23 02/23/2023 URINA LYSIS , COMPL ETE W/ REFLE X TO CULTU RE occult blood NEGATI VE negati ve normal Not Available [facility] [address], [place], [address], 02/23/2023 09:58:55 02/22/20 23 02/23/2023 URINA LYSIS , COMPL ETE W/ REFLE X TO CULTU RE protein NEGATI VE negati ve normal Not Available [facility] [address] [place], [place] [address]y [address], [place], [address], 02/23/2023 09:58:55 02/22/20 23 02/23/2023 URINA LYSIS , COMPL ETE W/ REFLE X TO CULTU RE nitrite NEGATI VE negati ve normal Not Available [facility] [address] [place] [address] [address], [place], [address], 02/23/2023 09:58:55 02/22/20 23 02/23/2023 URINA LYSIS , COMPL ETE W/ REFLE X TO CULTU RE leukocyte esterase TRACE negati ve abnormal Not Available [facility] [address] [place] [address] [address], [place], [address], 02/23/2023 09:58:55 02/22/20 23 02/23/2023 URINA LYSIS , COMPL ETE W/ REFLE X TO CULTU RE WBC 0-5 /hpf < or = 5 normal Not Available [facility] [address] [place] [address] [address], [place], [address], 02/23/2023 09:58:55 02/22/20 23 02/23/2023 URINA LYSIS , COMPL ETE W/ REFLE X TO CULTU RE RBC 0-2 /hpf < or = 2 normal Not Available [facility] [facility] [address] [place] [address] [place], [address], 02/23/2023 09:58:55 02/22/20 23 02/23/2023 URINA LYSIS , COMPL ETE W/ REFLE X TO CULTU RE squamous epithelial cells 10-20 /hpf < or = 5 abnormal Not Available [facility] [address] [place] [address] [address], [place], [address], 02/23/2023 09:58:55 02/22/20 23 02/23/2023 URINA LYSIS , COMPL ETE W/ REFLE X TO CULTU RE bacteria FEW /hpf none seen abnormal Not Available [facility] [address] [facility] [address] [place], [address], 02/23/2023 09:58:55 02/22/20 23 02/23/2023 URINA LYSIS , COMPL ETE W/ REFLE X TO CULTU RE amorphous sediment MODERA TE /hpf none or few abnormal Not Available [facility] [address] [place] [address] 41 [place], [address], 02/23/2023 09:58:55 02/22/20 23 02/23/2023 URINA LYSIS , COMPL ETE W/ REFLE X TO CULTU RE hyaline cast NONE SEEN /lpf none seen normal Not Available [facility] [address] [place] [address] 41 [place], [address], 02/23/2023 09:58:55 02/22/20 23 02/23/2023 URINA LYSIS , COMPL ETE W/ REFLE X TO CULTU RE note SEE NOTE This urine was may zed for the prese nce of WBC, RBC, bacte viola, casts , and other forme d eleme nts. Only those eleme nts seen were repor shi. Not Available [facility] [address] [place] [address] 41 [place], [address], 02/23/2023 09:58:55 02/22/2002/23/2023 REFLE XIVE URINE CULTU RE reflexive urine culture SEE NOTE CULTU RE INDIC ATED - RESUL TS TO FOLLO W Not Available [facility] [address] [facility] [address] [place], [address], 02/23/2023 09:58:57 02/22/20 23 02/23/2023 CULTU RE, URINE , ROUTI NE culture, urine, routine SEE NOTE CULTU RE, URINE , ROUTI NE Micro Numbe r: [id number] Test Statu s: Final Speci men Sourc e: Urine Speci men Quali ty: Adequ ate Resul t: Mixed genit al romulo isola shi. These super ficia l bacte viola are not indic ative of a urina ry tract infec tion. No furth er organ ism ident ifica tion is warra nted on this speci men. If clini gissell indic ated, recol lect clean -catc h, mid-s tream urine and trans mitchell immed iatel y to Urine Cultu re Trans port Tube. Not Available [facility] [address] [place] [address] 41 [facility], [place], [address], 02/23/2023 09:58:58 02/22/2002/21/2023 VENIP UNCTU RE results Compl ete Not Available [facility] [address] [place] [address] 41 [place], [address], 02/21/2023 09:13:30 11/08/1911/09/2023 CBC (H/H, RBC, INDIC ES, WBC, PLT) white blood cell count 6.3 thous and/u L 3.8-10 .8 normal Not Available [facility] [address] [place] [address] 41 [place], [address], 11/09/2023 12:33:32 11/08/19 24 11/09/2023 CBC (H/H, RBC, INDIC ES, WBC, PLT) red blood cell count 4.04 jh on/uL 3.80-5 .10 normal Not Available [facility] [address] [place] [address] 41 [place], [address], 11/09/2023 12:33:32 11/08/19 24 11/09/2023 CBC (H/H, RBC, INDIC ES, WBC, PLT) hemoglobin 12.1 g/dL 11.7-1 5.5 normal Not Available [facility] [address] [place] [address] 41 [place], [address], 11/09/2023 12:33:32 11/08/19 24 11/09/2023 CBC (H/H, RBC, INDIC ES, WBC, PLT) hematocrit 36.4 % 35.0-4 5.0 normal Not Available [facility] [address], [place], [address], 11/09/2023 12:33:32 11/08/19 24 11/09/2023 CBC (H/H, RBC, INDIC ES, WBC, PLT) MCV 90.1 fL 80.0-1 00.0 normal Not Available [facility] [address] [facility] [address], [place], [address], 11/09/2023 12:33:32 11/08/19 24 11/09/2023 CBC (H/H, RBC, INDIC ES, WBC, PLT) MCH 30.0 pg 27.0-3 3.0 normal Not Available [facility] [address] [place], [place] [address]y [address], [place], [address], 11/09/2023 12:33:32 11/08/19 24 11/09/2023 CBC (H/H, RBC, INDIC ES, WBC, PLT) MCHC 33.2 g/dL 32.0-3 6.0 normal Not Available [facility] [address] [place], [place] [address]y [address], [place], [address], 11/09/2023 12:33:32 11/08/19 24 11/09/2023 CBC (H/H, RBC, INDIC ES, WBC, PLT) RDW 12.6 % 11.0-1 5.0 normal Not Available [facility] [address] [facility] [address], [place], [address], 11/09/2023 12:33:32 11/08/19 24 11/09/2023 CBC (H/H, RBC, INDIC ES, WBC, PLT) platelet count 253 thous and/u L 140-40 0 normal Not Available [facility] [address] [place], [place] [address]y [address], [place], [address], 11/09/2023 12:33:32 11/08/19 24 11/09/2023 CBC (H/H, RBC, INDIC ES, WBC, PLT) MPV 10.9 fL 7.5-12 .5 normal Not Available [facility] [address] [facility] [address], [place], [address], 11/09/2023 12:33:32 11/08/19 24 11/09/2023 CMP, COMPR EHENS AMY METAB OLIC PANEL glucose 85 mg/dL 65-99 normal Fasti ng refer ence inter jason Not Available [facility] [address] [facility] [address], [place], [address], 11/09/2023 12:33:33 11/08/19 24 11/09/2023 CMP, COMPR EHENS AMY METAB OLIC PANEL urea nitrogen (BUN) 18 mg/dL 7-25 normal Not Available [facility] [address] [facility] [address], [place], [address], 11/09/2023 12:33:33 11/08/19 24 11/09/2023 CMP, COMPR EHENS AMY METAB OLIC PANEL creatinine 0.66 mg/dL 0.60-0 .95 normal Not Available [facility] [address] [facility] [address], [place], [address], 11/09/2023 12:33:33 11/08/19 24 11/09/2023 CMP, COMPR EHENS AMY METAB OLIC PANEL eGFR 85 mL/mi n/1.7 3m2 > or = 60 normal Not Available [facility] [address] [facility] [address], [place], [address], 11/09/2023 12:33:33 11/08/19 24 11/09/2023 CMP, COMPR EHENS AMY METAB OLIC PANEL BUN/creatini ne ratio SEE NOTE: (calc ) 6-22 Not Repor shi: BUN and Creat inine are withi n refer ence range . Not Available [facility] [address] [facility] [address], [place], [address], 11/09/2023 12:33:33 11/08/19 24 11/09/2023 CMP, COMPR EHENS AMY METAB OLIC PANEL sodium 139 mmol/ L 135-14 6 normal Not Available [facility] [address] [facility] [address], [place], [address], 11/09/2023 12:33:33 11/08/19 24 11/09/2023 CMP, COMPR EHENS AMY METAB OLIC PANEL potassium 3.9 mmol/ L 3.5-5. 3 normal Not Available [facility] [address] [facility] [address], [place], [address], 11/09/2023 12:33:33 11/08/19 24 11/09/2023 CMP, COMPR EHENS AMY METAB OLIC PANEL chloride 102 mmol/ L 98-110 normal Not Available [facility] [address] [facility] [address], [place], [address], 11/09/2023 12:33:33 11/08/19 24 11/09/2023 CMP, COMPR EHENS AMY METAB OLIC PANEL carbon dioxide 28 mmol/ L 20-32 normal Not Available [facility] [address] [facility] [address], [place], [address], 11/09/2023 12:33:33 11/08/19 24 11/09/2023 CMP, COMPR EHENS AMY METAB OLIC PANEL calcium 8.9 mg/dL 8.6-10 .4 normal Not Available [facility] [address] [facility] [address], [place], [address], 11/09/2023 12:33:33 11/08/19 24 11/09/2023 CMP, COMPR EHENS AMY METAB OLIC PANEL protein, total 6.3 g/dL 6.1-8. 1 normal Not Available [facility] [address] [facility] [address], [place], [address], 11/09/2023 12:33:33 11/08/19 24 11/09/2023 CMP, COMPR EHENS AMY METAB OLIC PANEL albumin 4.0 g/dL 3.6-5. 1 normal Not Available [facility] [address] [facility] [address], [place], [address], 11/09/2023 12:33:33 11/08/19 24 11/09/2023 CMP, COMPR EHENS AMY METAB OLIC PANEL globulin 2.3 g/dL_ (calc ) 1.9-3. 7 normal Not Available [facility] [address], [place], [address], 11/09/2023 12:33:33 11/08/19 24 11/09/2023 CMP, COMPR EHENS AMY METAB OLIC PANEL albumin/glob ulin ratio 1.7 (calc ) 1.0-2. 5 normal Not Available [facility] [address], [place], [address], 11/09/2023 12:33:33 11/08/19 24 11/09/2023 CMP, COMPR EHENS AMY METAB OLIC PANEL bilirubin, total 0.7 mg/dL 0.2-1. 2 normal Not Available [facility] [address] [facility] [address], [place], [address], 11/09/2023 12:33:33 11/08/19 24 11/09/2023 CMP, COMPR EHENS AMY METAB OLIC PANEL alkaline phosphatase 70 U/L 37-153 normal Not Available [facility] [address], [place], [address], 11/09/2023 12:33:33 11/08/19 24 11/09/2023 CMP, COMPR EHENS AMY METAB OLIC PANEL AST 15 U/L 10-35 normal Not Available [facility] [address] [facility] [address], [place], [address], 11/09/2023 12:33:33 11/08/19 24 11/09/2023 CMP, COMPR EHENS AMY METAB OLIC PANEL ALT 9 U/L 6-29 normal Not Available [facility] [address] [facility] [address], [place], [address], 11/09/2023 12:33:33 11/08/19 24 11/09/2023 LIPID PANEL W/ CALCU LATED LDL cholesterol, total 176 mg/dL <200 normal Not Available [facility] [address] [facility] [address], [place], [address], 11/09/2023 12:33:34 11/08/19 24 11/09/2023 LIPID PANEL W/ CALCU LATED LDL HDL cholesterol 56 mg/dL > or = 50 normal Not Available [facility] [address] [facility] [address], [place], [address], 11/09/2023 12:33:34 11/08/19 24 11/09/2023 LIPID PANEL W/ CALCU LATED LDL triglyceride s 100 mg/dL <150 normal Not Available [facility] [address] [facility] [address], [place], [address], 11/09/2023 12:33:34 11/08/19 24 11/09/2023 LIPID PANEL W/ CALCU LATED LDL LDL-choleste rol 100 mg/dL _(fern c) high Refer ence range : <100 Sonia able range <100 mg/dL for prima ry preve ntion ; <70 mg/dL for patie nts with CHD or diabe tic patie nts with > or = 2 CHD risk facto rs. LDL-C is now calcu lated using the [facility] kins calcamandeep hawk n, which is a valid ated novel eyad rangel than the Fried roseline sepulveda ion in the estim ation of LDL-C . Tracy foley SS et al. ESTELLA. 2013; 310(1 9): 2061- 2068 (http ://ed ucati on.Qu estDi Yummy77. com/f aq/FA Q164) Not Available [facility] [address], [place], [address], 11/09/2023 12:33:34 11/08/19 24 11/09/2023 LIPID PANEL W/ CALCU LATED LDL chol/HDLC ratio 3.1 (calc ) <5.0 normal Not Available [facility] [address], [place], [address], 11/09/2023 12:33:34 11/08/19 24 11/09/2023 LIPID PANEL W/ CALCU LATED LDL non HDL cholesterol 120 mg/dL _(fern c) <130 normal For patie nts with diabe johann plus 1 major ASCVD risk facto r, treat ing to a non-H DL-C goal of <100 mg/dL (LDL- C of <70 mg/dL ) is consi dered a thera peqing c optio n. Not Available [facility] [address], [place], [address], 11/09/2023 12:33:34 11/08/19 24 11/09/2023 TSH, THYRO ID STIMU LATIN G HORMO NE TSH 2.93 mIU/L 0.40-4 .50 normal Not Available [facility] [address], [place], [address], 11/09/2023 12:33:35 11/08/19 24 11/09/2023 VITAM IN D, 25-HY DROXY vitamin D,25-oh,tota l,ia 28 NG/mL 30-100 low Vitam in D Statu s 25-OH Vitam in D: Defic iency : <20 ng/mL Insuf ficie ncy: 20 - 29 ng/mL Optim al: > or = 30 ng/mL For 25-OH Vitam in D testi ng on patie nts on D2-frey pplem entat ion and patie nts for whom quant itati on of D2 and D3 fract ions is requi red, the [facility] Assur eD(TM ) 25-OH VIT D, (D2,D 3), LC/MS /MS is recom elisabet d: order code 94061 (martin ents >2yrs ). See Note 1 Note 1 For addit ional infor reese cunningham refer to http: //jose manuel Samuels stDia gnost ics.c om/fa q/FAQ 199 (This link is being provi ded for infor ronan joaquin/ maria isabel quezada purpo ses only. ) Not Available [facility] [address] [place] [address] [address] [place], [address], 11/09/2023 12:33:36 11/08/19 24 11/08/2023 VENIP UNCTU RE results Compl ete Not Available [facility] [address] [place] [address] 41 [place], [address], 11/08/2023 08:09:27 01/03/20 24 01/06/2024 URINA LYSIS , COMPL ETE W/ REFLE X TO CULTU RE color YELLOW yellow normal Not Available [facility] [address] [facility] [address] [place], [address], 01/06/2024 12:37:34 01/03/20 24 01/06/2024 URINA LYSIS , COMPL ETE W/ REFLE X TO CULTU RE appearance TURBID clear abnormal Not Available [facility] [address] [place], [address], 01/06/2024 12:37:34 01/03/20 24 01/06/2024 URINA LYSIS , COMPL ETE W/ REFLE X TO CULTU RE specific gravity 1.021 1.001- 1.035 normal Not Available [facility] [address] [place] [address] [address] [facility], [place], [address], 01/06/2024 12:37:34 01/03/20 24 01/06/2024 URINA LYSIS , COMPL ETE W/ REFLE X TO CULTU RE pH 5.5 5.0-8. 0 normal Not Available [facility] [address] [place] [address] [address] [place], [address], 01/06/2024 12:37:34 01/03/20 24 01/06/2024 URINA LYSIS , COMPL ETE W/ REFLE X TO CULTU RE glucose NEGATI VE negati ve normal Not Available [facility] [address] [place] [address] [address] [place], [address], 01/06/2024 12:37:34 01/03/20 24 01/06/2024 URINA LYSIS , COMPL ETE W/ REFLE X TO CULTU RE bilirubin NEGATI VE negati ve normal Not Available [facility] [address] [place] [address], [address], 01/06/2024 12:37:34 01/03/20 24 01/06/2024 URINA LYSIS , COMPL ETE W/ REFLE X TO CULTU RE ketones TRACE negati ve abnormal Not Available [facility] [address] [place] [address], [address], 01/06/2024 12:37:34 01/03/20 24 01/06/2024 URINA LYSIS , COMPL ETE W/ REFLE X TO CULTU RE occult blood NEGATI VE negati ve normal Not Available [facility] [address] [place] [address], [address], 01/06/2024 12:37:34 01/03/20 24 01/06/2024 URINA LYSIS , COMPL ETE W/ REFLE X TO CULTU RE protein NEGATI VE negati ve normal Not Available [facility] [address] [place] [address] [address], [place], [address], 01/06/2024 12:37:34 01/03/20 24 01/06/2024 URINA LYSIS , COMPL ETE W/ REFLE X TO CULTU RE nitrite NEGATI VE negati ve normal Not Available [facility] [address] [place] [address] [address], [place], [address], 01/06/2024 12:37:34 01/03/20 24 01/06/2024 URINA LYSIS , COMPL ETE W/ REFLE X TO CULTU RE leukocyte esterase TRACE negati ve abnormal Not Available [facility] [address] [place] [address] [address], [place], [address], 01/06/2024 12:37:34 01/03/20 24 01/06/2024 URINA LYSIS , COMPL ETE W/ REFLE X TO CULTU RE WBC NONE SEEN /hpf < or = 5 normal Not Available [facility] [address] [place] [address] [address], [place], [address], 01/06/2024 12:37:34 01/03/20 24 01/06/2024 URINA LYSIS , COMPL ETE W/ REFLE X TO CULTU RE RBC 0-2 /hpf < or = 2 normal Not Available [facility] [address] [place] [address] [address], [place], [address], 01/06/2024 12:37:34 01/03/20 24 01/06/2024 URINA LYSIS , COMPL ETE W/ REFLE X TO CULTU RE squamous epithelial cells 0-5 /hpf < or = 5 Not Available [facility] [address] [place], [address], 01/06/2024 12:37:34 01/03/20 24 01/06/2024 URINA LYSIS , COMPL ETE W/ REFLE X TO CULTU RE bacteria NONE SEEN /hpf none seen normal Not Available [facility] [address] [place] [address] [address] [place], [address], 01/06/2024 12:37:34 01/03/20 24 01/06/2024 URINA LYSIS , COMPL ETE W/ REFLE X TO CULTU RE hyaline cast NONE SEEN /lpf none seen normal Not Available [facility] [address] [place] [address] [address] [place], [address], 01/06/2024 12:37:34 01/03/20 24 01/06/2024 URINA LYSIS , COMPL ETE W/ REFLE X TO CULTU RE note SEE NOTE This urine was may zed for the prese nce of WBC, RBC, bacte viola, casts , and other forme d eleme nts. Only those eleme nts seen were repor shi. Not Available [facility] [address] [place] [address] [address] [place], [address], 01/06/2024 12:37:34 01/03/20 24 01/06/2024 REFLE XIVE URINE CULTU RE reflexive urine culture SEE NOTE CULTU RE INDIC ATED - RESUL TS TO FOLLO W Not Available [facility] [address] [facility] [address] [place], [address], 01/06/2024 12:37:35 01/03/20 24 01/06/2024 CULTU RE, URINE , ROUTI NE culture, urine, routine SEE NOTE CULTU RE, URINE , ROUTI NE Micro Numbe r: [id number] Test Statu s: Final Speci men Sourc e: Urine Speci men Quali ty: Adequ ate Resul t: Less than 10,00 0 CFU/m L of singl e Gram posit amy organ ism isola shi. No furth er testi ng will be perfo rmed. If clini gissell indic ated, recol lecti on using a metho d to minim ize conta minat ion, with promp t trans mitchell to Urine Cultu re Trans port Tube, is recom elisabet d. Not Available [facility] [address], [place], [address], 01/06/2024 12:37:36 02/14/20 24 02/16/2024 A1C hemoglobin A1C 5.6 %_of_ total _HGB <5.7 normal For the purpo se of scree jerri for the prese nce of diabe johann: <5.7% Consi stent with the absen ce of diabe johann 5.7-6 .4% Consi stent with incre ased risk for diabe johann (pred iabet es) > or =6.5% Consi stent with diabe johann This assay resul t is consi stent with a decre ased risk of diabe johann. Curre ntly, no conse nsus exist s shari yu use of hemog lobin A1c for diagn osis of diabe johann in child tae. Accor ding to Ameri can Diabe johann Assoc iatio n (ADA) guide lines , hemog lobin A1c <7.0% repre sents optim al contr ol in non-p regna nt diabe tic patie nts. Diffe rent metri cs may apply to speci fic patie nt popul ation s. Stand ards of Medic al Care in Diabe johann(A DA). This test was perfo rmed on the [facility] platf orm. Effec tive 08/15, julia perkins in test platf orms from the [facility] to the [facility] may have shift ed HbA1c resul ts zainab red to histo rical resul ts. Based on labor atory valid ation testi ng condu cted at [facility] , the [facility] platf orm relat amy to the [facility] platf orm had an avera ge incre ase in HbA1c value of < or = 0.3%. This diffe rence is withi n accep shi varia bilit y estab lishe d by the [facility] Glyco hemog lobin Stand becky gaona Progr am. Note that not all indiv idual s will have had a shift in their resul ts and direc t zainab rison s betwe en histo rical and curre nt resul ts for testi ng condu cted on diffe rent platf orms is not recom elisabet d. Not Available [facility] [address], [place], [address], 02/16/2024 10:56:01 02/14/20 24 02/16/2024 VITAM IN B-12 vitamin B12 >2000 pg/mL 200-11 00 high Not Available [facility] [address], [place], [address], 02/16/2024 10:56:02 02/14/20 24 02/16/2024 TSH W/REF GARRET TO FT4 TSH w/reflex to FT4 2.42 mIU/L 0.40-4 .50 normal Not Available [facility] [address], [place], [address], 02/16/2024 10:56:03 02/14/20 24 02/16/2024 VITAM IN D, 25-HY DROXY vitamin D,25-oh,tota l,ia 36 NG/mL 30-100 normal Vitam in D Statu s 25-OH Vitam in D: Defic iency : <20 ng/mL Insuf ficie ncy: 20 - 29 ng/mL Optim al: > or = 30 ng/mL For 25-OH Vitam in D testi ng on patie nts on D2-frey pplem entat ion and patie nts for whom quant itati on of D2 and D3 fract ions is requi red, the [facility] Assur eD(TM ) 25-OH VIT D, (D2,D 3), LC/MS /MS is recom elisabet d: order code 88377 (martin ents >2yrs ). See Note 1 Note 1 For addit ional infor reese cunningham e refer to http: //[facility] romulo umaña ics.c om/fa q/FAQ 199 (This link is being provi ded for infor ronan joaquin/ educa ofe quezada purpo ses only. ) Not Available [facility] [address], [place], [address], 02/16/2024 10:56:04 02/14/20 24 02/16/2024 CBC W/ AUTOD IFF, COMPL ETE BLOOD COUNT white blood cell count 6.3 thous and/u L 3.8-10 .8 normal Not Available [facility] [address], [place], [address], 02/16/2024 10:56:05 02/14/20 24 02/16/2024 CBC W/ AUTOD IFF, COMPL ETE BLOOD COUNT red blood cell count 4.26 jh on/uL 3.80-5 .10 normal Not Available [facility] [address], [place], [address], 02/16/2024 10:56:05 02/14/20 24 02/16/2024 CBC W/ AUTOD IFF, COMPL ETE BLOOD COUNT hemoglobin 12.7 g/dL 11.7-1 5.5 normal Not Available [facility] [address], [place], [address], 02/16/2024 10:56:05 02/14/20 24 02/16/2024 CBC W/ AUTOD IFF, COMPL ETE BLOOD COUNT hematocrit 40.4 % 35.0-4 5.0 normal Not Available [facility] [address], [place], [address], 02/16/2024 10:56:05 02/14/20 24 02/16/2024 CBC W/ AUTOD IFF, COMPL ETE BLOOD COUNT MCV 94.8 fL 80.0-1 00.0 normal Not Available [facility] [address], [place], [address], 02/16/2024 10:56:05 02/14/20 24 02/16/2024 CBC W/ AUTOD IFF, COMPL ETE BLOOD COUNT MCH 29.8 pg 27.0-3 3.0 normal Not Available [facility] [address], [place], [address], 02/16/2024 10:56:05 02/14/20 24 02/16/2024 CBC W/ AUTOD IFF, COMPL ETE BLOOD COUNT MCHC 31.4 g/dL 32.0-3 6.0 low Not Available [facility] [address], [place], [address], 02/16/2024 10:56:05 02/14/20 24 02/16/2024 CBC W/ AUTOD IFF, COMPL ETE BLOOD COUNT RDW 12.9 % 11.0-1 5.0 normal Not Available [facility] [address], [place], [address], 02/16/2024 10:56:05 02/14/20 24 02/16/2024 CBC W/ AUTOD IFF, COMPL ETE BLOOD COUNT platelet count 303 thous and/u L 140-40 0 normal Not Available [facility] [address], [place], [address], 02/16/2024 10:56:05 02/14/20 24 02/16/2024 CBC W/ AUTOD IFF, COMPL ETE BLOOD COUNT MPV 10.6 fL 7.5-12 .5 normal Not Available [facility] [address], [place], [address], 02/16/2024 10:56:05 02/14/20 24 02/16/2024 CBC W/ AUTOD IFF, COMPL ETE BLOOD COUNT absolute neutrophils 2747 cells /uL 1500-7 800 normal Not Available [facility] [address], [place], [address], 02/16/2024 10:56:05 02/14/20 24 02/16/2024 CBC W/ AUTOD IFF, COMPL ETE BLOOD COUNT absolute lymphocytes 2652 cells /uL 850-39 00 normal Not Available [facility] [address], [place], [address], 02/16/2024 10:56:05 02/14/20 24 02/16/2024 CBC W/ AUTOD IFF, COMPL ETE BLOOD COUNT absolute monocytes 573 cells /uL 200-95 0 normal Not Available [facility], [place], [address], 02/16/2024 10:56:05 02/14/20 24 02/16/2024 CBC W/ AUTOD IFF, COMPL ETE BLOOD COUNT absolute eosinophils 258 cells /uL 15-500 normal Not Available [facility], [place], [address], 02/16/2024 10:56:05 02/14/20 24 02/16/2024 CBC W/ AUTOD IFF, COMPL ETE BLOOD COUNT absolute basophils 69 cells /uL 0-200 normal Not Available [facility] [address], [place], [address], 02/16/2024 10:56:05 02/14/20 24 02/16/2024 CBC W/ AUTOD IFF, COMPL ETE BLOOD COUNT neutrophils 43.6 % normal Not Available [facility] [address], [place], [address], 02/16/2024 10:56:05 02/14/20 24 02/16/2024 CBC W/ AUTOD IFF, COMPL ETE BLOOD COUNT lymphocytes 42.1 % normal Not Available [facility] [address], [place], [address], 02/16/2024 10:56:05 02/14/20 24 02/16/2024 CBC W/ AUTOD IFF, COMPL ETE BLOOD COUNT monocytes 9.1 % normal Not Available [facility] [facility] [address], [place], [address], 02/16/2024 10:56:05 02/14/20 24 02/16/2024 CBC W/ AUTOD IFF, COMPL ETE BLOOD COUNT eosinophils 4.1 % normal Not Available [facility] [address], [place], [address], 02/16/2024 10:56:05 02/14/20 24 02/16/2024 CBC W/ AUTOD IFF, COMPL ETE BLOOD COUNT basophils 1.1 % normal Not Available [facility] [address], [place], [address], 02/16/2024 10:56:05 02/14/20 24 02/16/2024 CMP, COMPR EHENS AMY METAB OLIC PANEL glucose 87 mg/dL 65-99 normal Fasti ng refer ence inter jason Not Available [facility] [address], [place], [address], 02/16/2024 10:56:06 02/14/20 24 02/16/2024 CMP, COMPR EHENS AMY METAB OLIC PANEL urea nitrogen (BUN) 17 mg/dL 7-25 normal Not Available [facility] [address], [place], [address], 02/16/2024 10:56:06 02/14/20 24 02/16/2024 CMP, COMPR EHENS AMY METAB OLIC PANEL creatinine 0.65 mg/dL 0.60-0 .95 normal Not Available [facility] [address], [place], [address], 02/16/2024 10:56:06 02/14/20 24 02/16/2024 CMP, COMPR EHENS AMY METAB OLIC PANEL eGFR 86 mL/mi n/1.7 3m2 > or = 60 normal Not Available [facility] [address], [place], [address], 02/16/2024 10:56:06 02/14/20 24 02/16/2024 CMP, COMPR EHENS AMY METAB OLIC PANEL BUN/creatini ne ratio SEE NOTE: (calc ) 6-22 Not Repor shi: BUN and Creat inine are withi n refer ence range . Not Available [facility] [address], [place], [address], 02/16/2024 10:56:06 02/14/20 24 02/16/2024 CMP, COMPR EHENS AMY METAB OLIC PANEL sodium 141 mmol/ L 135-14 6 normal Not Available [facility] [address], [place], [address], 02/16/2024 10:56:06 02/14/20 24 02/16/2024 CMP, COMPR EHENS AMY METAB OLIC PANEL potassium 4.0 mmol/ L 3.5-5. 3 normal Not Available [facility] [address], [place], [address], 02/16/2024 10:56:06 02/14/20 24 02/16/2024 CMP, COMPR EHENS AMY METAB OLIC PANEL chloride 103 mmol/ L 98-110 normal Not Available [facility] [address], [place], [address], 02/16/2024 10:56:06 02/14/20 24 02/16/2024 CMP, COMPR EHENS AMY METAB OLIC PANEL carbon dioxide 33 mmol/ L 20-32 high Not Available [facility] [address], [place], [address], 02/16/2024 10:56:06 02/14/20 24 02/16/2024 CMP, COMPR EHENS AMY METAB OLIC PANEL calcium 9.2 mg/dL 8.6-10 .4 normal Not Available [facility] [address], [place], [address], 02/16/2024 10:56:06 02/14/20 24 02/16/2024 CMP, COMPR EHENS AMY METAB OLIC PANEL protein, total 6.4 g/dL 6.1-8. 1 normal Not Available [facility] [address], [place], [address], 02/16/2024 10:56:06 02/14/20 24 02/16/2024 CMP, COMPR EHENS AMY METAB OLIC PANEL albumin 4.3 g/dL 3.6-5. 1 normal Not Available [facility] [address], [place], [address], 02/16/2024 10:56:06 02/14/20 24 02/16/2024 CMP, COMPR EHENS AMY METAB OLIC PANEL globulin 2.1 g/dL_ (calc ) 1.9-3. 7 normal Not Available [facility] [address], [place], [address], 02/16/2024 10:56:06 02/14/20 24 02/16/2024 CMP, COMPR EHENS AMY METAB OLIC PANEL albumin/glob ulin ratio 2.0 (calc ) 1.0-2. 5 normal Not Available [facility] [address], [place], [address], 02/16/2024 10:56:06 02/14/20 24 02/16/2024 CMP, COMPR EHENS AMY METAB OLIC PANEL bilirubin, total 0.7 mg/dL 0.2-1. 2 normal Not Available [facility] [address], [place], [address], 02/16/2024 10:56:06 02/14/20 24 02/16/2024 CMP, COMPR EHENS AMY METAB OLIC PANEL alkaline phosphatase 63 U/L 37-153 normal Not Available [facility] [address], [place], [address], 02/16/2024 10:56:06 02/14/20 24 02/16/2024 CMP, COMPR EHENS AMY METAB OLIC PANEL AST 14 U/L 10-35 normal Not Available [facility] [address], [place], [address], 02/16/2024 10:56:06 02/14/20 24 02/16/2024 CMP, COMPR EHENS AMY METAB OLIC PANEL ALT 9 U/L 6-29 normal Not Available [facility] [address] [facility] [address] [place], [address], 02/16/2024 10:56:06 02/14/20 24 02/16/2024 LIPID PANEL REF DLDL cholesterol, total 170 mg/dL <200 normal Not Available [facility] [address], [place], [address], 02/16/2024 10:56:08 02/14/20 24 02/16/2024 LIPID PANEL REF DLDL HDL cholesterol 55 mg/dL > or = 50 normal Not Available [facility] [address], [place], [address], 02/16/2024 10:56:08 02/14/20 24 02/16/2024 LIPID PANEL REF DLDL triglyceride s 126 mg/dL <150 normal Not Available [facility] [address] [place], [address], 02/16/2024 10:56:08 02/14/20 24 02/16/2024 LIPID PANEL REF DLDL LDL-choleste rol 92 mg/dL _(fern c) normal Refer ence range : <100 Sonia able range <100 mg/dL for prima ry preve ntion ; <70 mg/dL for patie nts with CHD or diabe tic patie nts with > or = 2 CHD risk facto rs. LDL-C is now calcu lated using the Tracy foley-Hop kins ninau kenn n, which is a valid ated novel eyad yu cristiana r accur acy than the Fried roseline equat ion in the estim ation of LDL-C . Tracy foley SS et al. ESTELLA. 2013; 310(1 9): 2061- 2068 (http ://ed sumeetati on.Tejinder Gallegos Yummy77. com/f aq/FA Q164) Not Available [facility] [address] [place], [address], 02/16/2024 10:56:08 02/14/20 24 02/16/2024 LIPID PANEL REF DLDL chol/HDLC ratio 3.1 (calc ) <5.0 normal Not Available [facility] [address], [place], [address], 02/16/2024 10:56:08 02/14/20 24 02/16/2024 LIPID PANEL REF DLDL non HDL cholesterol 115 mg/dL _(fern c) <130 normal For patie nts with diabe johann plus 1 major ASCVD risk facto r, treat ing to a non-H DL-C goal of <100 mg/dL (LDL- C of <70 mg/dL ) is consi vik rascono n. Not Available [facility] [address], [place], [address], 02/16/2024 10:56:08 02/14/20 24 02/14/2024 VENIP UNCTU RE results Compl ete Not Available [facility] [address], [place], [address], 02/14/2024 08:35:56 12/28/19 23 12/27/2022 MAMMO , scree jerri, digit al, bilat eral No observ ation record ed. [facility] [address] [place], [address], 03/02/2023 10:21:47 11/16/19 24 11/16/2023 US, duple x, venou s, lower extre mity, unila teral No observ ation record ed. [place] [facility] [address] [facility], [place], [address], 11/16/2023 17:44:55 11/16/19 24 11/16/2023 US, duple x, venou s, lower extre mity, unila teral No observ ation record ed. LUIS FELIPE [facility] [address] [place] [facility], [place], [address], 11/16/2023 17:44:56 11/17/19 24 07/21/2023 colon oscop y proce dure (PROC ) No observ ation record ed. [facility] Not Available 2023 08:23:10 11/17/19 24 07/21/2023 upper endos copy proce dure (EGD) (PROC ) No observ ation record ed. [facility] Not Available 2023 08:53:29 01/16/20 24 12/30/2023 MAMMO , scree jerri, digit al, bilat eral No observ ation record ed. LUIS FELIPE [facility] [address], [place], [address], 01/16/2024 18:12:18 Result Notes None recorded. Problems Name Problem SNOMED Code Status Onset Date Resolution Date Notes Provider Name and Address Organization Details Recorded Time Angina pectoris 634148122 Completed 08/26/2014 Shahla Ellsworth [facility] Physician [facility], [facility] 09:52:04 Female stress incontinenc e 13684998 [facility], [facility] 09:52:04 Essential hypertensio n 25274680 Completed 03/08/2016 Shahla Jodee [facility] Physician [facility], [facility] 09:52:04 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 [facility], [facility] 09:52:04 Hyperlipide erica 45367121 Active Jackie Rodriguez MD [address], [address] [place] [address] Physician [facility], [facility] 21:33:09 Fatigue 16913865 Completed 08/26/2014 Shahla Jodee [facility] Physician [facility], [facility] 09:52:04 Impaired fasting glycemia 979508617 Completed 08/26/2014 Shahla Jodee [facility] Physician [facility], [facility] 09:52:05 Vitamin B deficiency 07737378 Completed 08/26/2014 Shahla Jodee [facility] Physician [facility], [facility] 09:52:04 Disorder of thyroid gland 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 Shahla Jodee [facility] Physician [facility], [facility] 09:52:04 Dysphagia 06456364 Completed 03/08/2016 [facility] Physician [facility], [facility] 09:52:05 Stricture of esophagus 57734680 Completed 03/08/2016 Shahla Jodee null, [facility], [facility] 6 09:52:04 Gastroesoph ageal reflux disease 216778210 Active Jackie Rodriguez MD [address], [address] [place] [address] Physician Group, [facility] 6 21:33:09 Pure hypercholes terolemia 098989641 Completed 03/08/2016 Shahla Jodee null, [facility], [facility] 6 09:52:04 Benign essential hypertensio n 5688828 Completed 03/08/2016 Shahla Jodee null, [facility], [facility] 6 09:52:04 Urinary incontinenc e 107089539 Completed 03/08/2016 Shahla Jodee null, [facility], [facility] 6 09:52:05 Fatigue 39747809 Active Shahla Jodee null, [facility], [facility] 6 09:52:05 Impaired fasting glycemia 925348368 Active Shahla Jodee null, [facility], [facility] 6 09:52:05 Vitamin B deficiency 58359363 Active Shahla Jodee null, [facility], [facility] 6 09:52:04 Disorder of nail 78717459 Completed 03/08/2016 Shahla Jodee null, [facility], [facility] 6 09:52:04 Hypertensiv e disorder 56466828 Active Shahla Jodee null, [facility], [facility] 6 09:52:04 Venous varices 197404281 Completed 03/08/2016 Shahla Jodee null, [facility], [facility] 6 09:52:04 Urinary tract infectious disease 76876662 Completed 03/08/2016 Shahla Jodee null, [facility], [facility] 6 09:52:04 Vitamin D deficiency 22113014 Active Shahla Jodee null, [place] [facility], [facility] 6 09:52:04 Obesity 181526632 Completed 08/14/2020 Anny Rodriguez MD [address] [place], [address], [facility], [facility] 0 08:54:08 Decreased body mass index 5640528 Completed 08/14/2020 Anny Rodriguez MD [address], [place], [address], [facility], [facility] 0 08:54:02 Murmur 980287045 Active Shahla Ellsworth [facility], [facility] 6 09:52:05 Dilatation of aorta 31933693 Active Jackie Rodriguez MD [address], [place], [address], [facility], [facility] 6 21:33:09 Blood in urine 78513598 Active 2017 Anny Rodriguez MD [address], [place], [address], [facility], [facility] 8 17:04:41 Aortic aneurysm 46974622 Active 2017 Anny Rodriguez MD [address], [place], [address], [facility], [facility] 8 17:09:00 Aneurysm of thoracic aorta 941135648 Active 2018 MONICA Farley [address], [place], [address], [facility], [facility] 9 17:51:24 Problem Notes None recorded. Procedures Surgical History Date Name Laterality Status Provider Name and Address Organization Details Recorded Time 01/24 Cerumen Disimpaction Using instrumentation (PCP, WIC, Spec) completed ROSA MARIA MULLIGAN APRN [address], [place], [address], [facility], [facility] 4 11:54:35 01/15 mammography completed Anny Rodriguez MD [address], [place], [address], [facility], [facility] 4 17:42:50 07/26 Colonoscopy completed Anny Rodriguez MD [address], [place], [address], [facility], [facility] 3 17:11:54 03/02 Quality Functional Assessment completed Yareli Dima [facility], [facility] 3 10:00:47 03/02 Quality Medication Reviewed and Updated completed Yareli Dima [facility], [facility] 3 10:00:47 03/02 Quality BMI with follow up completed Elmer alvarez Dima [facility], [facility] 3 10:00:47 03/02 Quality Advanced Care Planning completed Yareli Dima [facility], [facility] 3 10:00:47 03/02 Quality Incontinence Screening completed Yareli Dima [facility], [facility] 3 10:00:47 03/02 Medicare AWV - Screening Schedule completed Yareli Dima [facility], [facility] 3 10:00:47 03/02 Quality Fall Risk Assessment completed Yareli Dima [facility], [facility] 3 10:00:47 03/03 Quality Functional Assessment completed Yareli Dima [facility], [facility] 2 16:32:55 03/03 Quality Medication Reviewed and Updated completed Yarlei Dima [facility], [facility] 2 16:32:55 03/03 Quality BMI with follow up completed Elmer alvarez Dima [facility], [facility] 2 16:32:55 03/03 Quality Advanced Care Planning completed Yareli Dima [place] [facility], [facility] 2 16:32:55 03/03 Quality Incontinence Screening completed Yareli Dima [facility], [facility] 2 16:32:55 03/03 Medicare AWV - Screening Schedule [facility] 2 16:32:55 03/03 Quality Fall Risk Assessment [facility], [facility] 2 16:32:55 12/21 Date of Last Mammogram [facility], [facility] 16:30:13 12/21 Dxa bone density axial completed Anny Rodriguez MD [address], [address], [facility] 2 16:34:24 03/02 Quality [facility], [facility] 16:05:10 03/02 Quality Medication Reviewed and Updated [facility], [facility] 16:05:10 03/02 Quality (DM or HTN) BP Diastolic < 80 completed [facility], [facility] 16:20:02 03/02 Medicare AWV Questionnaire completed Segunri kim [facility] Physician [facility], [facility] 16:18:52 03/02 Quality (DM or HTN ) BP Systolic < 130 completed [facility], [facility] 16:19:59 03/02 Pain Screening [facility], [facility] 16:18:42 03/02 Quality Fall Risk Assessment Low Risk [facility], [facility] 16:05:10 03/02 Quality BMI with follow up completed Elmer alvarez Dima [place] [facility], [facility] 1 16:05:10 03/02 Quality Advanced Care Planning completed Yareli Dima [place] [facility], [facility] 1 16:05:10 03/02 Quality Incontinence Screening completed Yareli Dima [place] [facility], [facility] 1 16:05:10 03/02 Medicare AWV - Screening Schedule completed Yareli Dima [place] [facility], [facility] 1 16:05:10 02/10 Quality Functional Assessment completed Yareli Dima [facility], [facility] 0 08:14:18 02/10 Quality Medication Reviewed and Updated completed Yareli Dima [facility], [facility] 0 08:14:17 02/10 Medicare AWV Questionnaire completed Elmer Davisregon [facility], [facility] 0 08:14:57 02/10 Quality Fall Risk Assessment Low Risk completed Yareli Dima [facility], [facility] 0 08:14:18 02/10 Quality BMI with follow up completed Elmer alvarez Dima [facility], [facility] 0 08:14:18 02/10 Quality Advanced Care Planning completed Yareli Dima [facility], [facility] 0 08:14:18 02/10 Quality Incontinence Screening completed Yareli Dima [facility], [facility] 0 08:14:18 02/10 Medicare AWV-Screening Schedule completed Yareli Dima [facility], [facility] 0 08:14:18 02/02 Quality Functional Assessment completed Corie Zamarripa [facility], [facility] 9 15:08:10 02/02 Quality Medication Reviewed and Updated completed Corie Zamarripa [facility], [facility] 9 15:08:10 02/02 Medicare AWV Questionnaire completed Corie Kidd [facility], [facility] 9 15:13:57 02/02 Quality Fall Risk Assessment Low Risk completed Corie Zamarripa [facility] 9 15:08:10 02/02 Quality BMI with follow up completed Corie Kidd [facility], [facility] 9 15:08:10 02/02 Quality Advanced Care Planning completed Corie Zamarripa [facility] 9 15:08:10 02/02 Quality Incontinence Screening completed Corie Zamarripa [facility] 9 15:08:10 02/13 Quality Functional Assessment completed Madan Almendarez [facility] 8 12:53:26 02/13 Quality Medication Reviewed and Updated completed Madan Almendarez [facility] 8 12:53:26 02/13 Medicare AWV Questionnaire completed Wallace Rodriguez MD [facility] [address], [address] 8 13:27:10 02/13 Quality Fall Risk Assessment Low Risk completed Madan Almendarez [facility] 8 12:53:26 02/13 Quality BMI with follow up completed Madan Almendarez [facility] 8 12:53:26 02/13 Quality Advanced Care Planning completed Madan Almendarez [facility] 8 12:53:26 02/13 Quality Incontinence Screening completed Madan Almendarez [facility] 8 12:53:26 02/11 Quality Pain Screening No Pain completed Shahla Ellsworth [facility] 7 07:39:07 02/11 Quality Functional Assessment completed [facility], [facility] 7 07:39:07 02/11 Quality Medication Reviewed and Updated completed [facility] Physician [facility], [facility] 7 07:39:07 02/11 Quality (DM or HTN) BP Diastolic < 80 completed [facility] Physician [facility], [facility] 7 07:39:07 02/11 Medicare AWV Questionnaire [place] [address], [address], [facility], [facility] 7 08:16:15 02/11 Quality Tobacco Non- User completed [facility] Physician [facility], [facility] 7 07:39:07 02/11 Quality (DM or HTN ) BP Systolic < 130 completed [facility] Physician [facility], [facility] 7 07:39:07 02/11 Quality Fall Risk Assessment Low Risk completed [facility] Physician [facility], [facility] 7 07:39:07 02/11 Quality BMI with follow up completed [facility], [facility] 7 07:39:07 02/11 Quality Advanced Care Planning completed [facility], [facility] 7 07:39:07 02/11 Quality Incontinence Screening completed [facility], [facility] 7 07:39:07 03/08 Quality Pain Screening No Pain completed Fayelauro Hoyt [facility] Physician [facility], [facility] 6 12:36:34 03/08 Quality Functional Assessment completed Faye Hoyt [facility], [facility] 6 12:36:34 03/08 Quality Medication Reviewed and Updated completed Faye Hoyt [facility], [facility] 6 12:36:34 03/08 Quality (DM or HTN) BP Diastolic < 80 completed Faye [facility] 6 12:36:35 03/08 Medicare AWV Questionnaire completed Wallace Rodriguez MD [address] [facility], [place], [address], [facility] 6 13:08:17 03/08 Quality Tobacco Non- User completed [facility] 6 12:36:35 03/08 Quality (DM or HTN ) BP Systolic < 130 completed [facility] 6 12:36:35 03/08 Quality Fall Risk Assessment Low Risk completed [facility] 6 12:36:35 03/08 Quality BMI with follow up completed [facility] 6 12:36:35 03/08 Quality Advanced Care Planning completed [facility] 6 12:36:35 03/08 Quality Incontinence Screening completed [facility] 6 12:36:35 03/08 Screening pap smear by phys completed Corie Zamarripa [facility] 9 15:11:34 02/25 Quality Pain Screening No Pain completed Jackie Rodriguez MD [address], [place], [address], [facility] 5 20:50:08 02/25 Quality Functional Assessment completed Jackie Rodriguez MD [address], [place], [address], [facility] 5 20:50:08 02/25 Quality Medication Reviewed and Updated completed Jackie Rodriguez MD [address], [place], [address], [facility] 5 20:50:08 02/25 Quality (DM or HTN) BP Diastolic < 80 completed MD Heidi Zheng[address], [place], [address], [facility], [facility] [facility] 5 20:50:08 02/25 Medicare AWV Questionnaire completed MD Heidi Jose [address], [place], [address], [facility], [facility] 5 20:51:36 02/25 Quality Tobacco Non- User completed MD Peyman Yang [address], [place], [address], [facility], [facility] 5 20:50:08 02/25 Quality (DM or HTN ) BP Systolic < 130 completed MD Peyman Zheng [address], [place], [address], [facility], [facility] 5 20:50:08 02/25 Quality Fall Risk Assessment Low Risk completed MD Peyman Zheng [address], [place], [address], [facility], [facility] 5 20:50:08 02/25 Quality BMI with follow up completed MD Heidi Jose cia[address], [place], [address], [facility], [facility] 5 20:50:08 02/25 Quality Advanced Care Planning completed MD Peyman [address], [place], [address], [facility], [facility] 5 20:50:09 02/25 Quality Incontinence Screening completed MD Peyman [address], [place], [address], [facility], [facility] 5 20:50:09 09/25 COLONOSCOPY (SURG) completed MD Peyman [address], [place], [address], [facility] Physician [facility], [facility] 5 18:07:33 02/04 Quality Pain Screening No Pain completed MD Peyman Zheng [address], [place], [address], [facility] Physician [facility], [facility] 4 12:26:13 02/04 Quality Functional Assessment completed MD [address], [place], [address], [facility] Physician [facility], [facility] 4 12:26:13 02/04 Quality Medication Reviewed and Updated completed MD Peyman [address], [place], [address], [facility] Physician [facility], [facility] 4 12:26:13 02/04 Quality (DM or HTN) BP Diastolic < 80 completed MD Peyman Zheng [address], [place], [address], [facility] Physician [facility], [facility] 4 12:26:13 02/04 Medicare AWV Questionnaire completed MD Peyman Jose cia [address], [place], [address], [facility] Physician [facility], [facility] 4 12:26:13 02/04 Quality Tobacco Non- User completed MD Peyman [address], [place], [address], [facility] Physician [facility], [facility] 4 12:26:13 02/04 Quality (DM or HTN ) BP Systolic < 130 completed MD Peyman [address], [place], [address], [facility] Physician [facility], [facility] 4 12:26:13 02/04 Quality Fall Risk Assessment Low Risk completed MD Peyman [address], [place], [address], [facility], [facility] 4 12:26:13 02/04 Quality BMI with follow up completed Wallace Rodriguez MD [address], [place], [address], [facility], [facility] 4 12:26:13 02/04 Quality Advanced Care Planning completed Jackie Rodriguez MD [address], [place], [address], [facility], [facility] 4 12:26:13 12/29 Cataract excision completed Lita Mika [facility], [facility] 4 10:36:50 04/30 Oral surgery completed [facility] Brennan [facility] 4 10:36:50 05/31 [facility], [facility] 4 10:36:50 10/31 D[facility] & [facility]ttage [facility] 4 10:36:50 03/31 Appendectomy completed [facility] Mika [facility], [facility] 4 10:36:50 12/01 Tonsillectomy completed Shahla Ellsworth [facility], [facility] 7 06:41:12 Vascular Surgery completed Alida Ch [facility], [facility] 2 16:30:15 EGD-Upper Endoscopy completed Don Cespedes [facility], [facility] 4 13:02:49 ESOPHAGOGASTRODUODEN OSCOPY (SURG) [facility], [facility] 4 08:16:15 Imaging Results Imaging Date Name Status LastModified by Organ [facility] Details LastModified Time 12/27/2022 MAMMO, screening, digital, bilateral completed ppoling [facility] [address] [place], [address], 03/02/2023 10:21:47 11/16/2023 US, duplex, venous, lower extremity, unilateral completed LUIS FELIPE [facility] [address] [place], [address], 11/16/2023 17:44:55 11/16/2023 US, duplex, venous, lower extremity, unilateral completed LUIS FELIPE [facility] [address] [place], [place], [address], 11/16/2023 17:44:56 07/21/2023 colonoscopy procedure (PROC) completed [facility] Information not available 11/17/2023 08:23:10 07/21/2023 upper endoscopy procedure (EGD) (PROC) completed [facility] Information not available 11/17/2023 08:53:29 12/30/2023 MAMMO, screening, digital, bilateral completed LUIS FELIPE [facility] [place] [address], [place], [address], 01/16/2024 18:12:18 Procedure Notes None recorded. Medical Equipment None Reported. Allergies Allergen ID Allergen Name Allergen Category Reaction Reaction Severity Criticality Documentation Date Start Date Code Code System Note Provider Name and Address Organization Details Recorded Time [id number] codeine medicatio n nausea severe Not available 08/30/2013 2670 RxNorm [facility]pedes [facility] 4 13:04:23 [id number] Demerol medicatio n other Not available Not available 08/30/2013 09203 1 RxNorm Corinna Lluch [facility], [facility] 9 11:03:02 [id number] morphine medicatio n other severe Not available 08/30/20131991 7052 RxNorm Ismerai Cespedes [facility], [facility] 4 13:04:23 [id number] Product containin g penicilli n and antibioti c (product) medicatio n itching rash Not available Not available Not available 08/30/2013 23980 05 SNOMED Ismerai Cespedes null, [place] - [facility] Physician [facility], [facility] 4 13:02:14 [id number] Elavil medicatio n other severe Not available 09/12/20141991 67813 RxNorm Ismerai Cespedes null, [place] - [facility] Physician [facility], [facility] 4 13:04:23 [id number] prednison e medicatio n other Not available Not available 11/13/2021 8640 RxNorm insom humberto and anxio Jackie Rodriguez MD [address] [facility] [address], [place], [address], [facility] - [facility] Physician [facility], [facility] 10:43:18 Medications Name Sig Start Date Stop Date Status Note LastModified by Organization Details LastModified Time compounded medication INSERT 1 GRAM INTRAVAGI MALORIE TWICE A WEEK 2023 active Not Available Not Available Not Avai lable losartan 50 mg tablet Take 1 tablet by mouth daily 02/11 completed Not Available Not Available Not Available tolterodine ER 2 mg capsule,ext ended release 24 hr Take 1 capsule every day by oral route for 30 days. active Not Available Not Available No t Available doxycycline hyclate 100 mg capsule TAKE 1 CAPSULE BY MOUTH TWICE A DAY active Not Available Not Available No t Available oxybutynin chloride ER 10 mg tablet,exte nded release 24 hr Take 1 tablet every day by oral route. active Not Available Not Available No t Available nystatin 100,000 unit/gram topical ointment 02/11 completed Not Available Not Available Not Available benzonatate 200 mg capsule TAKE 1 CAPSULE BY MOUTH UP TO THREE TIMES A DAY NEEDED FOR COUGH DO NOT CRUSH OR CHEW 01/02 completed Not Available Not Available Not Available tolterodine ER 4 mg capsule,ext ended release 24 hr 01/10 completed Not Available Not Available Not Available meloxicam 15 mg tablet Take 1 tablet every day by oral route after meal(s) for 30 days. active Not Available Not Available No t Available phenazopyri dine 200 mg tablet Take 1 tablet 3 times a day by oral route after meals for 2 days. 02/11 completed Not Available Not Available Not Available lovastatin 40 mg tablet TAKE 1 TABLET BY MOUTH DAILY active Not Available Not Available No t Available prednisone 5 mg tablet active Not Available Not Available Not Available Zithromax 250 mg tablet Take 2 tablets first day ,then 1 tablet daily x 4 days. 2012 active Not Available Not Available Not Avai lable ciprofloxac in 500 mg tablet Take 1 tablet every 12 hours by oral route for 7 days. 02/13 completed Not Available Not Available Not Available omeprazole 40 mg capsule,del ayed release TAKE 1 CAPSULE BY MOUTH DAILY 05/31 completed Not Available Not Available Not Available aspirin 81 mg tablet,boyd yed release Take 1 tablet every day by oral route. 02/02 completed Not Available Not Available Not Available Macrobid 100 mg capsule Take 1 capsule every 12 hours by oral route for 7 days. 03/03 completed Not Available Not Available Not Available ceftriaxone 1 gram solution for injection give 1 gram im now 02/02 completed Not Available Not Available Not Available cephalexin 500 mg capsule TAKE ONE CAPSULE BY MOUTH EVERY 12 HOURS FOR 7 DAYS 02/02 completed Not Available Not Available Not Available lidocaine 5 % topical patch 02/10 completed Not Available Not Available Not Available betamethaso ne dipropionat e 0.05 % topical cream active Not Available Not Available Not Available omeprazole 20 mg capsule,del ayed release TAKE 1 CAPSULE BY MOUTH EVERY DAY active Not Available Not Available No t Available hydroxyzine HCl 25 mg tablet Take 1 tablet every 8 hours by oral route. 03/03 completed Not Available Not Available Not Available magnesium 250 mg tablet Take 1 tablet every day by oral route. 03/02 completed Not Available Not Available Not Available ergocalcife rol (vitamin D2) 1,250 mcg (50,000 unit) capsule Take 1 capsule every week by oral route. 09/13 completed Not Available Not Available Not Available oxybutynin chloride 5 mg tablet Take 2 tablets every day by oral route. 02/11 completed Not Available Not Available Not Available losartan 100 mg tablet TAKE 1 TABLET BY MOUTH DAILY active Not Available Not Available No t Available fluticasone propionate 50 mcg/actuati on nasal spray,suspe nsion USE ONE SPRAY IN THE AFFECTED NOSTRIL TWICE A DAY active Not Available Not Available No t Available dicyclomine 10 mg capsule TAKE 1 CAPSULE BY MOUTH 3 TIMES A DAY NEEDED active Not Available Not Available No t Available Estrace 0.01% (0.1 mg/gram) vaginal cream Insert 1 g twice a week by vaginal route. 2022 active Not Available Not Available Not Avai lable Premarin 0.625 mg/gram vaginal cream Insert 1 g 2 times a week by vaginal route for 90 days. 11/13 completed Not Available Not Available Not Available Vesicare 5 mg tablet active Not Available Not Available No t Available hydrochloro thiazide 12.5 mg tablet TAKE 1 TABLET BY MOUTH EVERY OTHER DAY active Not Available Not Available No t Available cholecalcif guilherme (vitamin D3) 1,250 mcg (50,000 unit) capsule Take 1 capsule every week by oral route for 90 days. 2023 active Not Available Not Available Not Avai lable GaviLyte-G 236 gram-22.74 gram-6.74 gram-5.86 gram oral solution TAKE 4000 ML DIRECTED USE INSTRUCTE D BY PHYSICIAN S OFFICE FOR COLONOSCO PY 01/02 completed Not Available Not Available Not Available Prevnar 13 (PF) 0.5 mL intramuscul ar syringe TO BE ADMINISTE RED BY A PHARMACIS T active Not Available Not Available No t Available Suprep Bowel Prep Kit 17.5 gram-3.13 gram-1.6 gram oral solution 01/10 completed Not Available Not Available Not Available Vitamin B-12 5,[address] 1 tablet every other day by sublingua l route. 2020 active Not Available Not Available Not Avai lable Vitamin D3 50 mcg (2,000 unit) capsule Take 2 capsules every day by oral route. 11/16 completed Not Available Not Available Not Available ICaps AREDS active Not Available Not A vailable Not Available Vitamin D3 Complete 18 mg iron-800 mcg-150 mg tablet Take 1 tablet every day by oral route. 03/02 completed Not Available Not Available Not Available Fluzone High-Dose (PF) 180 mcg/0.5 mL intramuscul ar syringe TO BE ADMINISTE RED BY PHARMACIS T FOR IMMUNIZAT ION 01/10 completed Not Available Not Available Not Available Fluzone High-Dose 5924-2791 (PF) 180 mcg/0.5 mL intramuscul ar syringe ADM 0.5ML IM UTD 09/13 completed Not Available Not Available Not Available Shingrix (PF) 50 mcg/0.5 mL intramuscul ar suspension, kit 10/08 completed Not Available Not Available Not Available Fluad 2017- 65yr up(PF)45 mcg(15 mcgx3)/0.5 mL intramuscul ar syringe TO BE ADMINISTE RED BY PHARMACIS T FOR IMMUNIZAT ION 09/20 completed Not Available Not Available Not Available Imvexxy Maintenance Pack 4 mcg vaginal insert 02/10 completed Not Available Not Available Not Available Fluzone High-Dose (PF) 180 mcg/0.5 mL intramuscul ar syringe 10/08 completed Not Available Not Available Not Available magnesium 100 mg (as glycinate) capsule Take 1 capsule every day by oral route. 2022 active Not Available Not Available Not Avai lable Paxlovid 150 mg-100 mg tablets in a dose pack (Renal Dose) TAKE 2 TABLETS BY MOUTH TWICE A DAY STOP LOVASTATI N 11/16 completed Not Available Not Available Not Available Vitals Date Recorded Body height Provider Name an d Address Organization Details Last Updated DateTime 11/11/2022 165.1 cm Yareli Dima [facility] 11/11/2022 10:13:44 Date Recorded Respiratory rate Provider Name a nd Address Organization Details Last Updated DateTime 11/11/2022 16 /min Yareli Dima [facility] [employer] [facility], [facility] 11/11/2022 10:13:54 Date Recorded Body temperature Provider Name a nd Address Organization Details Last Updated DateTime 11/11/2022 97.2 [degF] Yareli Dima [facility] [employer] [facility], [facility] 11/11/2022 10:16:25 Date Recorded Body mass index (BMI) Body weight Provider Name and Address Organization Details Last Updated DateTime 11/11/2022 28.1 kg/m2 95572.11 g Yareli Dima [facility], [facility] 11/11/2022 10:16:29 Date Recorded Heart rate Provider Name an d Address Organization Details Last Updated DateTime 11/11/2022 79 /min Yareli Dima [place] - [facility], [facility] 11/11/2022 10:18:00 Date Recorded Oxygen saturation Oxygen saturation in Arterial blood by Pulse oximetry Provider Name and Address Organization Details Last Updated DateTime 11/11/2022 94 % 94 % Yareli Dima [place] - [facility], [facility] 11/11/2022 10:18:03 Date Recorded Body height Provider Name an d Address Organization Details Last Updated DateTime 03/02/2023 165.1 cm Yareli Dima [place] - [facility], [facility] 03/02/2023 10:00:50 Date Recorded Respiratory rate Provider Name a nd Address Organization Details Last Updated DateTime 03/02/2023 16 /min Yareli Dima [place] - [facility], [facility] 03/02/2023 10:01:07 Date Recorded Pain severity - 0-10 verbal numeric rating [Score] - Reported Provider Name and Address Organization Details Last Updated DateTime 03/02/2023 0 Yareli Dima [place] - [facility], [facility] 03/02/2023 10:01:11 Date Recorded Body mass index (BMI) Body weight Provider Name and Address Organization Details Last Updated DateTime 03/02/2023 28 kg/m2 90231.52 g [facility] [place] [facility], [facility] 03/02/2023 10:09:28 Date Recorded Body temperature Provider Name a nd Address Organization Details Last Updated DateTime 03/02/2023 97.6 [degF] Yareli Dima [place] - [facility], [facility] 03/02/2023 10:09:33 Date Recorded Oxygen saturation Oxygen saturation in Arterial blood by Pulse oximetry Provider Name and Address Organization Details Last Updated DateTime 03/02/2023 93 % 93 % Yareli Dima [place] - [facility], [facility] 03/02/2023 10:11:57 Date Recorded Heart rate Provider Name an d Address Organization Details Last Updated DateTime 03/02/2023 71 /min [facility] [place] [facility], [facility] 03/02/2023 10:12:00 Date Recorded Body height Provider Name an d Address Organization Details Last Updated DateTime 11/16/2023 165.1 cm Nataly Escobar [facility], [facility] 11/16/2023 09:35:18 Date Recorded Respiratory rate Provider Name a nd Address Organization Details Last Updated DateTime 11/16/2023 16 /min Nataly [facility], [facility] 11/16/2023 09:35:28 Date Recorded Pain severity - 0-10 verbal numeric rating [Score] - Reported Provider Name and Address Organization Details Last Updated DateTime 11/16/2023 0 Nataly [facility], [facility] 11/16/2023 09:35:33 Date Recorded Body temperature Provider Name a nd Address Organization Details Last Updated DateTime 11/16/2023 97.2 [degF] Nataly [facility] Physician [facility], [facility] 11/16/2023 09:36:18 Date Recorded Body mass index (BMI) Body weight Provider Name and Address Organization Details Last Updated DateTime 11/16/2023 27 kg/m2 58342.96 g Nataly [facility], [facility] 11/16/2023 09:36:40 Date Recorded Heart rate Provider Name an d Address Organization Details Last Updated DateTime 11/16/2023 77 /min Nataly Shawn [facility], [facility] 11/16/2023 09:42:59 Date Recorded Oxygen saturation Oxygen saturation in Arterial blood by Pulse oximetry Provider Name and Address Organization Details Last Updated DateTime 11/16/2023 99 % 99 % Nataly [facility], [facility] 11/16/2023 09:43:06 Date Recorded Body height Provider Name an d Address Organization Details Last Updated DateTime 01/03/2024 165.1 cm Nataly [facility] Physician [facility], [facility] 01/03/2024 08:36:50 Date Recorded Respiratory rate Provider Name a nd Address Organization Details Last Updated DateTime 01/03/2024 16 /min Natalyalpa Escobar [facility], [facility] 01/03/2024 08:37:03 Date Recorded Pain severity - 0-10 verbal numeric rating [Score] - Reported Provider Name and Address Organization Details Last Updated DateTime 01/03/2024 0 Nataly Escobar [facility] Physician [facility], [facility] 01/03/2024 08:37:08 Date Recorded Body mass index (BMI) Body weight Provider Name and Address Organization Details Last Updated DateTime 01/03/2024 27 kg/m2 63416.96 g Nataly [facility] Physician [facility], [facility] 01/03/2024 08:40:11 Date Recorded Body temperature Provider Name a nd Address Organization Details Last Updated DateTime 01/03/2024 98.3 [degF] Nataly [facility] Physician [facility], [facility] 01/03/2024 08:43:13 Date Recorded Heart rate Provider Name an d Address Organization Details Last Updated DateTime 01/03/2024 76 /min Nataly [facility], [facility] 01/03/2024 08:43:17 Date Recorded Oxygen saturation Oxygen saturation in Arterial blood by Pulse oximetry Provider Name and Address Organization Details Last Updated DateTime 01/03/2024 97 % 97 % Nataly [facility] Physician [facility], [facility] 01/03/2024 08:43:20 Date Recorded Body height Provider Name an d Address Organization Details Last Updated DateTime 01/25/2024 165.1 cm Nataly [facility], [facility] 01/25/2024 11:08:07 Date Recorded Respiratory rate Provider Name a nd Address Organization Details Last Updated DateTime 01/25/2024 16 /min Nataly [facility], [facility] 01/25/2024 11:08:19 Date Recorded Pain severity - 0-10 verbal numeric rating [Score] - Reported Provider Name and Address Organization Details Last Updated DateTime 01/25/2024 0 Nataly [facility] Physician [facility], [facility] 01/25/2024 11:08:26 Date Recorded Body mass index (BMI) Body weight Provider Name and Address Organization Details Last Updated DateTime 01/25/2024 27.7 kg/m2 92048.05 g Nataly Escobar [facility] Physician [facility], [facility] 01/25/2024 11:10:40 Date Recorded Body temperature Provider Name a nd Address Organization Details Last Updated DateTime 01/25/2024 98.2 [degF] Nataly [facility], [facility] 01/25/2024 11:11:33 Date Recorded Heart rate Provider Name an d Address Organization Details Last Updated DateTime 01/25/2024 80 /min Nataly Escobar [facility], [facility] 01/25/2024 11:16:57 Date Recorded Oxygen saturation Oxygen saturation in Arterial blood by Pulse oximetry Provider Name and Address Organization Details Last Updated DateTime 01/25/2024 99 % 99 % Nataly Escobar [facility], [facility] 01/25/2024 11:17:50 Date Recorded Systolic blood pressure Diastolic blood pressure Provider Name and Address Organization Details Last Updated DateTime 11/11/2022 124 mm[Hg] 72 mm[Hg] Yareli Ch [facility], [facility] 11/11/2022 10:18:08 Date Recorded Systolic blood pressure Diastolic blood pressure Provider Name and Address Organization Details Last Updated DateTime 03/02/2023 138 mm[Hg] 84 mm[Hg] Yareli Ch [facility], [facility] 03/02/2023 10:11:17 Date Recorded Systolic blood pressure Diastolic blood pressure Provider Name and Address Organization Details Last Updated DateTime 11/16/2023 137 mm[Hg] 76 mm[Hg] Nataly Escobar [facility], [facility] 11/16/2023 09:42:54 Date Recorded Systolic blood pressure Diastolic blood pressure Provider Name and Address Organization Details Last Updated DateTime 01/03/2024 130 mm[Hg] 80 mm[Hg] Nataly Escobar [facility], [facility] 01/03/2024 08:43:10 Date Recorded Systolic blood pressure Diastolic blood pressure Provider Name and Address Organization Details Last Updated DateTime 01/25/2024 136 mm[Hg] 80 mm[Hg] Nataly Escobar [facility], [facility] 01/25/2024 11:16:54 Social History Question Answer Notes LastModified by Organization Details LastModified Time Tobacco Smoking Status Never Smoker Kate stevens [facility], [facility] 08/30/2013 09:31:54 Do You Have An Advance Directive? Yes Information not available 01/22/2014 What Is Your Level Of Alcohol Consumption? Occasional Information not available 09/13/2016 What Is Your Level Of Caffeine Consumption? Moderate [email or web address] Information not available 08/14/2020 How Much Tobacco Do You Chew? None Information not available 01/22/2014 What Type Of Diet Are You Following? REGULAR [email or web address] Information not available 08/14/2020 Which Illicit Or Recreational Drugs Have You Used? Denies Information not available 09/13/2016 Do You Or Have You Ever Used E-cigarettes Or Vape? 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 Information not available 01/22/2014 How Many Days In The Past Year Have You Had A Heavy Drinking Consumption (4+ Female, 5+ Male)? 0 - Information not available 03/02/2023 Alcohol Use Less Than 1 Per Month Social Drinker rhaley Information not available 10/04/2013 Year Quit Tobacco Use 0 Information not available 08/26/2014 Marital Status 1 Girl, 3 Boys API-27 Inform ation not available 03/02/2023 What Was The Date Of Your Most Recent Tobacco Screening? 01/03/2024 [email or web address] Information not available 01/03/2024 What Is Your Relationship Status? Information not available 11/13/2021 Are You Sexually Active? No Information not available 03/02/2021 At What Age Did You Start Smoking Tobacco? 0 Information not available 03/03/2022 Do You Or Have You Ever Used Smokeless Tobacco? Never Used Smokeless Tobacco Information not available 10/08/2019 How Much Tobacco Do You Smoke? No Information not available 02/04/2014 How Many Years Have You Smoked Tobacco? 0 Information not available 03/03/2022 Sex: Female Functional Status Question Answer Note LastModified by Organizat ion Details LastModified Time What is your exercise level? Moderate walking, aerobics in pool Information not available 02/04/2014 Mental Status None recorded. Family History Relationship Description Onset Age of this Age Resolved Age Notes LastModified by Organization Details LastModified Time Son Seizure 12 API-27 Not available 09:59:53 Son Scoliosis deformity of spine 16 API-27 Not available 2022 09:59:53 Mother Carotid artery finding 80 82 ppoling Not available 2014 20:49:04 Mother Hypertensive disorder plluch Not available 2018 11:03:17 Mother Diabetes mellitus plluch Not available 2018 11:03:17 Mother Hypothyroidi sm plluch Not available 2018 11:03:17 Mother Malignant tumor of breast 55 82 ppoling Not available 2014 20:49:04 Mother Cerebrovascu lar accident 81 82 ppoling Not available 20:49:04 Mother Atrial fibrillation plluch Not available 11:03:17 Mother Psoriasis Not availab le 03/03/2022 16:30:12 Father Angina pectoris 50 77 ppoling Not available 2014 20:49:04 Father Polyp of colon 50 77 ppoling Not available 2014 20:49:04 Father Glaucoma 70 77 ppoling Not available 02/25/2015 20:49:04 Father Gout 70 77 ppoling Not available 20:49:04 Father Hypertensive disorder plluch Not available 2018 11:03:17 Father Malignant tumor of colon API-27 Not available 2022 09:59:53 Brother Hypertensive disorder plluch Not available 2018 11:03:17 Brother Kidney disease 40 API-27 Not available 2022 09:59:53 Daughter Scoliosis deformity of spine 20 API-27 Not available 2022 09:59:53 Daughter Fibrocystic disease of breast 20 API-27 Not available 2022 09:59:53 Sister Depressive disorder 40 API-27 Not available 2022 09:59:53 Sister Hypertensive disorder Not available 2021 16:30:12 Unspecified Relation Seizure plluch Not available 9 11:03:17 Medical History Condition Response Cancer (location) N Other N Gout N Kidney Stones N Measles/Mumps Y Sexually Transmitted Disease N Depression N Prostate Problems N Parkinson's N Paralysis N Headaches/Migraines Y Cardiac Pacemaker/defibrillator N Arthritis Y Infertility N Crohn's Disease N HIV/AIDS N Stroke/TIA N Kidney Disease N Gallbladder disease N High blood pressure Y Alcohol Overuse N Blood Thinner Treatment N Nervous Breakdown N Martínez's Esophagus N Urinary Problems Y Gastritis N Back pain N Rheumatic Fever N Bleeding Disorder N Osteopenia/Osteoporosis N Asthma N Ostomies (location) N Seizures N Jaundice N Hepatitis N Past Reacton to Contrast Media N Cirrhosis N Chicken Pox N Allergies (other than meds) Y Thyroid Disease N Emphysema/COPD N Vascular Disease N Rash/Skin Condition N Amputation (location) N Nerve Damage / Neuropathy N Sleep disorder/Insomnia N Heart disease / Heart Attack N High Cholesterol Y Colon Problems N Serious Injuries N Memory Loss/Alzheimer's N Congestive heart failure N Falls N Hormone Replacement N Anemia N Colon Polyps Y Hospitalizations (other than operations) N Diabetes N Cardiac Arrhythmias /irregular heart rat e N Anxiety/Stress N Vision Problems Y Erectile / Sexual Dysfunction N Sleep Apnea N GERD/Ulcer Y Gynecological History Statement/Question Response If Post Menopausal, Age at Menopause 39 Date of Last Mammogram 12/21/2021 None Current Control Method None Age at Menarche 39 Age at First Child 22 None Obstetrics History GPAL:G 4 P 4 0 0 0 Type Value Full Term 4 Total 4 Immunizations Vaccine Type Date Status Note Provider Nam e and Address Organization Details Recorded Time Influenza, high-dose, trivalent, PF 8 completed Not Available [facility] 11/15/2023 01:11:02 Influenza, split virus, quadrivalent, PF 5 [facility] 01/29/2019 15:03:16 Influenza, high-dose, trivalent, PF 9 completed Not Available [facility] 11/15/2023 01:11:02 zoster recombinant 9 completed Not Available [facility] 11/15/2023 01:11:02 zoster recombinant 9 completed Not Available [facility] 11/15/2023 01:11:02 Influenza, split virus, trivalent, preservative 9 completed Neeta stevens [facility] 09/12/2014 13:22:23 Influenza, split virus, trivalent, preservative 7 completed Neeta stevens [facility] Physician [facility], [facility] 09/12/2014 13:22:23 pneumococcal, unspecified formulation 4 completed Neeta Cespedes null, [facility] Physician [facility], [facility] 09/12/2014 13:22:23 zoster live 2 completed Shahla Ellsworth null, [facility] Physician [facility], [facility] 02/11/2017 06:37:48 zoster live 1 completed Shahla Jodee null, [facility] Physician [facility], [facility] 02/11/2017 06:37:48 Influenza, split virus, quadrivalent, PF 4 completed Not Available [facility] 12/01/2019 02:11:14 zoster recombinant 9 completed Madan Almendarez null, [facility], [facility] 08/14/2020 07:57:55 Influenza, split virus, quadrivalent, preservative 0 completed Not Available [facility] 11/15/2023 01:11:02 COVID-19, mRNA, LNP-S, PF, 100 mcg/0.5mL dose or 50 mcg/0.25mL dose 1 completed Yareli Dima null, [facility], [facility] 03/02/2021 16:04:23 COVID-19, mRNA, LNP-S, PF, 100 mcg/0.5mL dose or 50 mcg/0.25mL dose 1 completed Yareli Dima null, [facility], [facility] 03/02/2021 16:04:23 COVID-19, mRNA, LNP-S, PF, 100 mcg/0.5mL dose or 50 mcg/0.25mL dose 1 completed Not Available [facility] 11/15/2023 01:11:02 Influenza, split virus, quadrivalent, preservative 1 completed Not Available [facility] 11/15/2023 01:11:02 COVID-19, mRNA, LNP-S, PF, 100 mcg/0.5mL dose or 50 mcg/0.25mL dose 2 completed Yareli Dima null, [facility] Physician [facility], [facility] 03/03/2022 16:28:36 influenza, unspecified formulation 2 completed Not Available [facility] 11/15/2023 01:11:02 SARS-COV-2 (COVID-19) vaccine, UNSPECIFIED 2 completed Not Available [facility] 11/15/2023 01:11:02 Pneumococcal conjugate PCV 13 6 completed Not Available [facility] 11/15/2023 01:11:02 Influenza, high-dose, trivalent, PF 3 completed Not Available [facility] 11/17/2019 02:40:25 zoster recombinant 3 completed Not Available [facility] 11/15/2023 01:11:02 influenza, unspecified formulation 3 completed Not Available [facility] 11/15/2023 01:11:02 SARS-COV-2 (COVID-19) vaccine, UNSPECIFIED 3 completed Not Available [facility] 11/15/2023 01:11:02 Influenza, high-dose, trivalent, PF 4 completed Not Available [facility] 11/15/2023 01:11:02 Influenza, high-dose, trivalent, PF 6 completed Madan stevens [facility] Physician [facility], [facility] 08/14/2020 07:57:55 zoster live 1 completed Not Available [facility] 11/15/2023 01:11:02 Influenza, split virus, quadrivalent, preservative 7 completed Not Available [facility] 11/15/2023 01:11:02 Influenza, split virus, trivalent, preservative 0 completed Neeta stevens [facility] Physician [facility], [facility] 09/12/2014 13:22:23 Influenza, split virus, trivalent, PF 2 completed Neeta stevens [facility], [facility] 09/12/2014 13:22:23 Past Encounters Encounter ID Performer Location Encounter Start Date Encounter Closed Date Diagnosis/Indication Diagnosis SNOMED-CT Code Diagnosis ICD10 Code Diagnosis Note [id number] [facility] DE[facility]TE AYALA [address] [place] [address] 08/31/2013 07:11:45 08/31/2013 10:12:50 Fatigue 26560160 Hyperlipidemia 50650936 Impaired f asting glycemia 791406262 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 Will use symptomati c treatment. Tylenol or advil for pain or fever unless contraindi cated. Mucinex and/or Robitussin -DM as needed for cough/liss estion. Increase fluids, rest. Use, dose, and adverse effects of medication discussed. Begin antibiotic with worsening symptoms or no improvemen t. Call or return with concerns. [id number] [facility] [address] [address] 01/10/2014 16:09:57 01/10/2014 16:29:19 Dysphagia 52391849 Small meals, no meats, soft foods only. Referred to GI. 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 Referred to GI. Gastroesop hageal reflux disease 773645015 Continue Omeprazole , add Zantac at bedtime. Call with concerns. [id number] Iza Mcmanus [address] [place] [address] 01/22/2014 10:13:06 01/22/2014 11:47:34 Dysphagia 60070277 Gastroesop hageal reflux disease 095157520 [id number] Neeta Cespedes [facility] [address] [address] [id number] 02/04/2014 11:23:15 02/04/2014 12:52:39 Adult health examination [id number] Medicare Annual Wellness Visit done today. 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 400986495 Vitamin B deficiency 25732156 Disorder o f thyroid gland 42791290 [id number] [facility] [address] [id number] 08/26/2014 06:56:06 08/26/2014 08:13:09 Pure hypercholesterolemia 590317127 Chronic, controlled , continue same, follow up as scheduled Fasting blood work prior to next visit in 90 days Benign ess ential hypertension 9732018 Chronic, controlled , continue same, follow up as scheduled Fasting blood work prior to next visit in 90 days Screening mammography 83739971 Screening for malignant neoplasm of colon 693167455 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 [id number] Faye Hoyt [address] [address] 09/12/2014 12:50:08 09/12/2014 13:29:11 Family history of malignant neoplasm of gastrointestinal tract 043860304 [id number] [facility] DE[facility] Jared [address] [address] 02/25/2015 07:24:17 02/25/2015 08:04:51 Body mass index 30+ - obesity 912449122 weight issues discussed and informatio n on weight loss given. Needs follow up on weight control as scheduled. Education handout on diets given. Exercise counseling done. Will arrange referral for dietitian, nutritioni st, Physical/o ccupationa l therapy as needed or desired. Also will consider pharmaceut ical and supplement al interventi ons Obesity 599716508 see BM I above for details Adult heal th examination 667878075 Medicare Annual Wellness Visit done today. 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 840690966 Vitamin B deficiency 84464381 Disorder o f thyroid gland 33653603 Disorder of nail 65830061 Hypertensive disorder 70451698 [id number] Jackie Rodriguez MD [facility] [address] [address] 09/05/2015 07:17:19 09/05/2015 08:07:47 Active or passive immunization 949107355 Z23 Essential hypertension 40762153 I10 Screening mammography 24 263322 Z12.31 Fatigue 23705310 R53.83 Hyperlipidemia 97166433 E78.5 Impaired f asting glycemia 546142199 R73.01 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 s/p vein ligation, then injections . now back again. Urinary tr act infectious disease 00422194 N39.0 Vitamin D deficiency 347 60344 E55.9 [id number] Jackie Rodriguez MD [address] [address] 03/08/2016 12:34:11 03/08/2016 13:29:28 Adult health examination 798517928 Z00.00 Medicare Annual Wellness Visit done today. Body mass index 30+ - obesity 088657662 Z68.32 weight issues discussed and informatio n on weight loss given. Needs follow up on weight control as scheduled. Education handout on diets given. Exercise counseling done. Will arrange referral for dietitian, nutritioni st, Physical/o ccupationa l therapy as needed or desired. Also will consider pharmaceut ical and supplement al interventi ons Depression screening 171 158463 Z13.89 Obesity 876323663 E66.9 see BMI above for details Decreased body mass index 6967125 Z68.1 BMI less than 19. Review Mini Nutritiona l Screen if necessary. 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 714980248 M85.80 Screening for malignant neoplasm of cervix 810574108 Z12.4 Murmur 374646199 R01.1 Fatigue 16070468 R53.83 Hyperlipidemia 45064406 E78.5 Impaired f asting glycemia 664755452 R73.01 Vitamin B deficiency 479 75208 E53.8 Disorder o f thyroid gland 42120493 E07.9 Vitamin D deficiency 347 45526 E55.9 Hypertensive disorder 38 455483 I10 Administra tion of pneumococcal vaccine 91532437 Z23 [id number] [facility] [address] [id number] 09/13/2016 09:48:20 09/13/2016 10:51:01 Body mass index 30+ - obesity 849349503 Z68.31 weight issues discussed and informatio n on weight loss given. Needs follow up on weight control as scheduled. Education handout on diets given. Exercise counseling done. Will arrange referral for dietitian, nutritioni st, Physical/o ccupationa l therapy as needed or desired. Also will consider pharmaceut ical and supplement al interventi ons Obesity 728543336 E66.9 see BMI above for details Essential hypertension 49580259 I10 Dilatation of aorta 2666 0001 I71.9 Gastroesop hageal reflux disease 463020801 K21.9 Hyperlipidemia 61502633 E78.5 [id number] MONICA Farley [place] [address] [address] 01/10/2017 09:06:20 01/10/2017 09:44:18 Urinary tract infectious disease 34217320 N39.0 Acute episode will continue to monitor Dysuria 06106137 R30.0 Acute episode will continue to monitor [id number] Jackie Rodriguez MD [place] [address] [address] 02/11/2017 07:31:51 02/11/2017 08:29:32 Adult health examination 986371061 Z00.00 Annual Wellness Visit done today Depression screening 171 678967 Z13.89 PHQ-9 depression screening done due to positive response in AWV depression screening Follow up as scheduled. Normal bod y mass index 12595487 Z68.23 BMI on chart and recorded for quality measure documentat ion Atrophic vaginitis 17543 000 N95.2 Menopausal syndrome 1237 66172 N95.9 due in sep with mammoi Pain in left knee 068893 8182 16226 M25.562 Screening mammography 24 803973 Z12.31 due in september; Urinary incontinence 165 209091 R32 trial of Detrol [place]. Fatigue 70226125 R53.83 Hyperlipidemia 85748819 E78.5 Impaired f asting glycemia 761191014 R73.01 Vitamin B deficiency 479 23109 E53.8 Disorder o f thyroid gland 82019593 E07.9 Vitamin D deficiency 347 42547 E55.9 Urinary tr act infectious disease 10814575 N39.0 [id number] Jackie Rodriguez MD [facility] [address] [address] 09/13/2017 14:32:43 09/13/2017 15:50:53 Atrophic vaginitis 37885553 N95.2 restart cream -- getting more utis. Hypertensive disorder 38 856679 I10 HTN -- currently stable. continue with low salt. encouraged exercise. continue current meds. Fatigue 37553290 R53.83 Hyperlipidemia 93685321 E78.5 high cholestero l - instructed pt to do low fat diet. pt to increase exercise routine. continue current meds. repeat in 6 months. Impaired f asting glycemia 703427496 R73.01 impaired sugars int he past -- encouraged low sugar diet and exercise - no need for meds at this time Vitamin B deficiency 479 75506 E53.8 Disorder o f thyroid gland 32991703 E07.9 abnormal thyroid levels in the past -- not currently on meds -- continue to watch full thyroid panel. Vitamin D deficiency 347 87282 E55.9 Low B12 and vitamin D levels in the past -- continue to recheck levels and advise on supplement s as needed. Gastroesop hageal reflux disease 070264451 K21.9 continue PPI, reduce caffiene, etoh. no nsaids; Urinary tr act infectious disease 55433212 N39.0 restart cream -- keep close monitoring . Screening mammography 24 246332 Z12.31 Menopausal syndrome 1237 72360 N95.9 [id number] Anny Rodriguez MD [facility] [address] [address] 02/09/2018 16:32:32 02/09/2018 17:15:10 Urinary incontinence 953354540 R32 Aortic aneurysm 54052052 I71.2 Urinary tr act infectious disease 53255240 N39.0 Blood in urine 72541870 R31.9 [id number] JackieMD CATE Chu [facility] [address] [place] [address] 02/13/2018 12:53:01 02/13/2018 13:47:01 Adult health examination 314420843 Z00.00 Annual Wellness Visit done today Body mass index 30+ - obesity 088395937 Z68.31 weight issues discussed and informatio n on weight loss given. Needs follow up on weight control as scheduled. Education handout on diets given. Exercise counseling done. Will arrange referral for dietitian, nutritioni st, Physical/o ccupationa l therapy as needed or desired. Also will consider pharmaceut ical and supplement al interventi ons Obesity 356341804 E66.9 see BMI above for details Diet education 61404162 Z71.3 as above Depression screening 171 404951 Z13.89 PHQ-9 depression screening done due to positive response in AWV depression screening Follow up as scheduled. Urinary tr act infectious disease 58368601 N39.0 restart cream -- keep close monitoring . 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 work on balance. repeat every 2 years. Screening mammography 24 328168 Z12.31 Fatigue 72935022 R53.83 Hyperlipidemia 31143874 E78.5 high cholestero l - instructed pt to do low fat diet. pt to increase exercise routine. continue current meds. repeat in 6 months. Impaired f asting glycemia 092040186 R73.01 impaired sugars int he past -- encouraged low sugar diet and exercise - no need for meds at this time Vitamin B deficiency 479 51877 E53.8 Disorder o f thyroid gland 04424247 E07.9 abnormal thyroid levels in the past -- not currently on meds -- continue to watch full thyroid panel. Vitamin D deficiency 347 85653 E55.9 Low B12 and vitamin D levels in the past -- continue to recheck levels and advise on supplement s as needed. [id number] MD CATE Zheng [facility] [place] [address] [place] [address] 09/20/2018 10:02:15 09/20/2018 10:45:20 Body mass index 30+ - obesity 939972037 Z68.31 weight issues discussed and informatio n on weight loss given. Needs follow up on weight control as scheduled. Education handout on diets given. Exercise counseling done. Will arrange referral for dietitian, nutritioni st, Physical/o ccupationa l therapy as needed or desired. Also will consider pharmaceut ical and supplement al interventi ons Obesity 237496810 E66.9 see BMI above for details Diet education 51322521 Z71.3 as above Irritable bowel syndrome 54743017 K58.9 trail of new med. reduce stress. Gastroesop hageal reflux disease 774854301 K21.9 continue PPI, reduce caffiene, etoh. no nsaids;Kaylan nge your eating habits. It? s best to eat several small meals instead of two or three large meals. After you eat, wait 2 to 3 hours before you lie down. Chocolate, mint, and alcohol can make GERD worse. Spicy foods, foods that have a lot of acid (like tomatoes and oranges), and coffee can make GERD symptoms worse in some people. If your symptoms are worse after you eat a certain food, you may want to stop eating that food to see if your symptoms get better. Do not smoke or chew tobacco. Smoking can make GERD worse. If you need help quitting, talk to your doctor about stop-smoki ng programs and medicines. These can increase your chances of quitting for good.If you have GERD symptoms at night, raise the head of your bed 6 to 8 inches by putting the frame on blocks or placing a foam wedge under the head of your mattress. (Adding extra pillows does not work.)Do not wear tight clothing around your middle.Los e weight if you need to. Losing just 5 to 10 pounds can help. Atrophic vaginitis 35812 000 N95.2 recurrent uti. pt deciding between premarin cream and suppositor ies. Fatigue 84940025 R53.83 Hyperlipidemia 48771780 E78.5 high cholestero l - instructed pt to do low fat diet. pt to increase exercise routine. continue current meds. repeat in 6 months. Impaired f asting glycemia 182901022 R73.01 impaired sugars int he past -- encouraged low sugar diet and exercise - no need for meds at this time Vitamin B deficiency 479 65008 E53.8 Disorder o f thyroid gland 59859537 E07.9 abnormal thyroid levels in the past -- not currently on meds -- continue to watch full thyroid panel. Vitamin D deficiency 347 08384 E55.9 Low B12 and vitamin D levels in the past -- continue to recheck levels and advise on supplement s as needed. Urinary tr act infectious disease 10329949 N39.0 restart cream -- keep close monitoring . 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 Diet education 95116039 Z71.3 as above Body mass index 30+ - obesity 066206945 E66.9 Z68.30 weight issues discussed and informatio n on weight loss given. Needs follow up on weight control as scheduled. Education handout on diets given. Exercise counseling done. Will arrange referral for dietitian, nutritioni st, Physical/o ccupationa l therapy as needed or desired. Also will consider pharmaceut ical and supplement al interventi ons Obesity 710955667 E66.9 see BMI above for details Gastroesop hageal reflux disease 733803415 K21.9 continue PPI, reduce caffiene, etoh. no nsaids;Kaylan nge your eating habits. It? s best to eat several small meals instead of two or three large meals. After you eat, wait 2 to 3 hours before you lie down. Chocolate, mint, and alcohol can make GERD worse. Spicy foods, foods that have a lot of acid (like tomatoes and oranges), and coffee can make GERD symptoms worse in some people. If your symptoms are worse after you eat a certain food, you may want to stop eating that food to see if your symptoms get better. Do not smoke or chew tobacco. Smoking can make GERD worse. If you need help quitting, talk to your doctor about stop-smoki ng programs and medicines. These can increase your chances of quitting for good.If you have GERD symptoms at night, raise the head of your bed 6 to 8 inches by putting the frame on blocks or placing a foam wedge under the head of your mattress. (Adding extra pillows does not work.)Do not wear tight clothing around your middle.Los e weight if you need to. Losing just 5 to 10 pounds can help. Backache 467192966 M54.9 Pain in lower limb 85137 006 M79.669 Knee pain 03777457 M25.5 69 Abnormal gait 13205605 R 26.9 Polyp of colon 69907324 K63.5 Aneurysm o f thoracic aorta 526065558 I71.2 Fatigue 99800641 R53.83 Hyperlipidemia 22321318 E78.5 high cholestero l - instructed pt to do low fat diet. pt to increase exercise routine. continue current meds. repeat in 6 months. Impaired f asting glycemia 961870824 R73.01 impaired sugars int he past -- encouraged low sugar diet and exercise - no need for meds at this time Vitamin B deficiency 479 61858 E53.8 Disorder o f thyroid gland 67267076 E07.9 abnormal thyroid levels in the past -- not currently on meds -- continue to watch full thyroid panel. Vitamin D deficiency 347 12486 E55.9 Low B12 and vitamin D levels in the past -- continue to recheck levels and advise on supplement s as needed. Administra tion of viral vaccine 73605737 Z23 Varicella Zoster vaccine discussed including indication s, risks and benefits. [id number] Jackie Rodriguez MD [facility] [address] [place] [address] 10/08/2019 15:55:23 10/08/2019 16:39:13 Atrophic vaginitis 34448128 N95.2 recurrent uti. pt deciding between premarin cream and suppositor ies. Renewal of prescription 272838935 Z76.0 Screening mammography 24 787464 Z12.31 Bone density finding 385 762592 M85.9 osteopenia - encouraged weight bearing exercise, encouraged calcium and vitamin D supplement ation. work on balance. repeat every 2 years. Polyp of colon 40267765 K63.5 Essential hypertension 32734180 I10 HTN -- currently stable. continue with low salt. encouraged exercise. continue current meds. Fatigue 88111192 R53.83 Hyperlipidemia 78497970 E78.5 high cholestero l - reviewed labs in detail with pt; explained the importance of keep HDL high and LDL and triglyceri de levels low. discussed [place] [employer] n guidelines . instructed pt to do low fat diet. pt to increase exercise routine. continue current meds. pt tolerating cholestero l medication s well at this time. LIver function normal and CK levels normal. repeat labs in 6 months. Impaired f asting glycemia 282115563 R73.01 impaired sugars int he past -- encouraged low sugar diet and exercise - no need for meds at this time Vitamin B deficiency 479 18464 E53.8 Disorder o f thyroid gland 75704914 E07.9 abnormal thyroid levels in the past -- not currently on meds -- continue to watch full thyroid panel. Vitamin D deficiency 347 74765 E55.9 Low B12 and vitamin D levels in the past -- continue to recheck levels and advise on supplement s as needed. Gastroesop hageal reflux disease 628889516 K21.9 continue PPI, reduce caffiene, etoh. no nsaids;Kaylan nge your eating habits. It? s best to eat several small meals instead of two or three large meals. After you eat, wait 2 to 3 hours before you lie down. Chocolate, mint, and alcohol can make GERD worse. Spicy foods, foods that have a lot of acid (like tomatoes and oranges), and coffee can make GERD symptoms worse in some people. If your symptoms are worse after you eat a certain food, you may want to stop eating that food to see if your symptoms get better. Do not smoke or chew tobacco. Smoking can make GERD worse. If you need help quitting, talk to your doctor about stop-smoki ng programs and medicines. These can increase your chances of quitting for good.If you have GERD symptoms at night, raise the head of your bed 6 to 8 inches by putting the frame on blocks or placing a foam wedge under the head of your mattress. (Adding extra pillows does not work.)Do not wear tight clothing around your middle.Los e weight if you need to. Losing just 5 to 10 pounds can help. [id number] CHRISTOPH Carlson [address] [address] 10/15/2019 10:59:01 10/15/2019 16:37:27 Irritable bowel syndrome 19510895 K58.9 Would suggest daily [facility] Screening for malignant neoplasm of colon 501730138 Z12.11 I had a lengthy discussion with this patient concerning the risk and benefits of a colonoscop y at an advanced age. Patient was given opportunit y to ask questions She has decided to defer colonoscop y at this time. She would advise should she become symptomati c a colonoscop y would be indicated. [id number] CHRISTOPH Barrett [facility] [address] [address] 11/20/2019 12:25:09 11/20/2019 12:53:39 Shoulder strain 933653759 S46.911A new no trauma, alternate heat, ice, tylenol for pain.send in lidocaine patches. If worsening/ persistent may need imaging and or PT. Currently declining Muscle pain 23900293 M79 .10 ne [id number] Jackie Rodriguez MD [facility] [address] [address] 02/11/2020 08:07:58 02/11/2020 09:56:45 Adult health examination 033787111 Z00.00 Annual Wellness Visit done today Increased body mass index 67229224 Z68.29 elevated BMI. Discussed diet and better therapeuti c lifestyle changes. Diet education 93479517 Z71.3 as above Renewal of prescription 126640619 Z76.0 Polyp of colon 43936264 K63.5 pt was seen by gastro -- deferred colonopscy -- now is thinking about getting it. told her i worried about her age -- [place]. Pain of le ft shoulder joint 1811275705 5964012 M25.512 Vitamin D deficiency 347 32816 E55.9 Low B12 and vitamin D levels in the past -- continue to recheck levels and advise on supplement s as needed. Fatigue 47351124 R53.83 Hyperlipidemia 94576331 E78.5 high cholestero l - reviewed labs in detail with pt; explained the importance of keep HDL high and LDL and triglyceri de levels low. discussed [place] [employer] n guidelines . instructed pt to do low fat diet. pt to increase exercise routine. continue current meds. pt tolerating cholestero l medication s well at this time. LIver function normal and CK levels normal. repeat labs in 6 months. Impaired f asting glycemia 786622474 R73.01 impaired sugars int he past -- encouraged low sugar diet and exercise - no need for meds at this time Vitamin B deficiency 479 01734 E53.8 Disorder o f thyroid gland 10438296 E07.9 abnormal thyroid levels in the past -- not currently on meds -- continue to watch full thyroid panel. Essential hypertension 17695844 I10 HTN -- currently stable. continue with low salt. encouraged exercise. continue current meds. [id number] Anny Rodriguez MD [place] [id number] [facility] [address] [place] [address] 08/14/2020 07:38:42 08/14/2020 09:27:00 Polyp of colon 69201476 K63.5 pt was seen by gastro -- deferred colonopscy -- now is thinking about getting it. told her i worried about her age -- [place]. Vitamin D deficiency 347 16938 E55.9 Low B12 and vitamin D levels in the past -- continue to recheck levels and advise on supplement s as needed. Fatigue 64015706 R53.83 Hyperlipidemia 74729288 E78.5 high cholestero l - reviewed labs in detail with pt; explained the importance of keep HDL high and LDL and triglyceri de levels low. discussed [place] [employer] n guidelines . instructed pt to do low fat diet. pt to increase exercise routine. continue current meds. pt tolerating cholestero l medication s well at this time. LIver function normal and CK levels normal. repeat labs in 6 months. Impaired f asting glycemia 835018369 R73.01 impaired sugars int he past -- encouraged low sugar diet and exercise - no need for meds at this time Vitamin B deficiency 479 95769 E53.8 Disorder o f thyroid gland 15420596 E07.9 abnormal thyroid levels in the past -- not currently on meds -- continue to watch full thyroid panel. Essential hypertension 75929019 I10 HTN -- currently stable. continue with low salt. encouraged exercise. continue current meds. Dilatation of aorta 2666 0001 I71.2 Adult heal th examination 110322887 Z00.00 Routine prevention - sunscreen, seatbelts, healthy diet and exericse, labs, vaccine update and follow up. Discussed end-of-lif e issues and reviewed body mass index. 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 Hypertensive disorder 38 771057 I10 HTN -- currently stable. continue with low salt. encouraged exercise. continue current meds. Increased body mass index 15272184 Z68.29 elevated BMI. Discussed diet and better therapeuti c lifestyle changes. Diet education 77018480 Z71.3 as above Renewal of prescription 543709290 Z76.0 Vitamin D deficiency 347 40179 E55.9 Low B12 and vitamin D levels in the past -- continue to recheck levels and advise on supplement s as needed. Cobalamin deficiency 190 214531 E53.8 low vitamin B levels - encouraged b12 otc supplement . repeat in 6 months. Fatigue 33243252 R53.83 ? source of fatigue. discussed lifestyle changes to help . watch labs to rule out anemia, thyroid disease. Hyperlipidemia 39329250 E78.2 high cholestero l - reviewed labs in detail with pt; explained the importance of keep HDL high and LDL and triglyceri de levels low. discussed [place] [employer] n guidelines . instructed pt to do low fat diet. pt to increase exercise routine. continue current meds. pt tolerating cholestero l medication s well at this time. LIver function normal and CK levels normal. repeat labs in 6 months. Impaired f asting glycemia 511041952 R73.01 impaired sugars int he past -- encouraged low sugar diet and exercise - no need for meds at this time Vitamin B deficiency 479 29301 E53.8 [id number] CHRISTOPH Barrett [facility] [address] [address] 06/10/2021 12:00:13 06/10/2021 15:59:21 Contact dermatitis caused by urushiol from [employer] [facility] 709379680 L25.5 new improving Insomnia 330762219 G47.0 0 new Restlessne ss and agitation 976269853 R45.1 new [id number] Jackie Rodriguez MD [facility] [address] [address] 11/13/2021 10:08:08 11/13/2021 11:08:03 Disorder of thyroid gland 58546519 E07.9 abnormal thyroid levels in the past -- not currently on meds -- continue to watch full thyroid panel.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 Hypertensive disorder 38 670658 I10 HTN -- currently stable. continue with low salt. encouraged exercise. continue current meds.Chron ic and stable. Dilatation of aorta 2666 0001 I77.819 Chronic and stable. following with cardiology -- keep BPs under control. Hand pain 13409640 M79.6 41 New Complaint/ Diagnosis -- suggested wearing wrist splints -- then ortho if not better. 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 Urinary tr act infectious disease 87710362 N39.0 pt with history of recurrent utis. repeat urine with next blood draw to assure no infection at this time. discussed hygiene, encouraged plenty of water. Fatigue 64951707 R53.83 complaint of fatigue is chronic and stable. questionab le source of fatigue. discussed lifestyle changes to help. watch labs to rule out anemia. Hyperlipidemia 97019924 E78.2 chronic and stable. high cholestero l levels, pt understand s that by not having controlled cholestero l levels there is an increased risk of cardiovasc ular disease. I reviewed labs in detail with pt, I explained the importance of keeping the HDL high and LDL and triglyceri de levels low. I discussed the [place] [employer] n guidelines . I instructed pt to do low fat diet. pt is to increase exercise routine. pt is to repeat labs in 6 months time.Revie wed labs with the patient: continue lovastatin 40 mg a day.LDL 121Trig 90HDL 64 Impaired f asting glycemia 823137819 R73.01 chronic and stable. impaired sugars in the past/ I encouraged low sugar diet and exercise. No need for medication at this time. Hgba1c reviewed with pt. Vitamin B deficiency 479 19954 E53.8 chronic and stable b12 levels -- found to be low in the past. encouraged continued b12 supplement ation. labs reviewed:: B12 Vitamin D deficiency 347 38578 E55.9 chronic and stable. low vitamin D levels in the past. explained that low vitamin D levels in the past could be linked to osteopenia /osteoporo sis and cancer risk and heart disease. continue to support vitamin D supplemena tion. reviewed vitamin D labs today: Essential hypertension 67547858 I10 HTN -- Chronic and stable.con tinue with low salt. encouraged exercise. continue current meds. Atrophic vaginitis 31625 000 N95.2 explained the pathology of atrophic vaginitis. explained the risk of incontinen ce and recurrent UTIs; discussed the use of vaginal creams to help with treatment. Screening mammography 24 763569 Z12.31 Menopausal and postmenopausal disorders 148579510 N95.8 pt is post-menop ausal. pt with history of reduced bone density in the past -- needs to be repeated every 2 years. encouraged calcium and vitamin D supplement ation. encouraged plenty of weight bearing exercise -- encouraged to work on balance. 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 Increased body mass index 66743836 Z68.28 elevated BMI. Discussed diet and better therapeuti c lifestyle changes. Diet education 19338902 Z71.3 as above Hand pain 32185845 M79.6 41 Chronic and stable. seeing dr whitmore = better with splints.frey ggested wearing wrist splints -- then ortho if not better. Hypertensive disorder 38 165254 I10 HTN -- currently stable. continue with low salt. encouraged exercise. continue current meds.Chron ic and stable. continue losartan 100 mg a day labs 02/24/22tri g 147; LDL 115, HDL 52tsh 4.95; T4 1.2b12 too high.hga1c 5.6 Carpal anali laurita syndrome 49813116 G56.01 Chronic and stable. seen by ortho -- start with wrist splints --followp as needed. Dilatation of aorta 2666 0001 I77.819 Chronic and stable. keep BPs under control. continue with cholestero l managment. Urinary tr act infectious disease 53044645 N39.0 pt with history of recurrent utis. repeat urine with next blood draw to assure no infection at this time. discussed hygiene, encouraged plenty of water.no infection on current sample Fatigue 69088096 R53.83 complaint of fatigue is chronic and stable. questionab le source of fatigue. discussed lifestyle changes to help. watch labs to rule out anemia. Hyperlipidemia 42790041 E78.2 chronic and stable. high cholestero l levels, pt understand s that by not having controlled cholestero l levels there is an increased risk of cardiovasc ular disease. I reviewed labs in detail with pt, I explained the importance of keeping the HDL high and LDL and triglyceri de levels low. I discussed the [place] [employer] n guidelines . I instructed pt to do low fat diet. pt is to increase exercise routine. pt is to repeat labs in 6 months time.Revie wed labs with the patient: continue lovastatin 40 mg a day.labs 02/24/22tri g 147; LDL 115, HDL 52tsh 4.95; T4 1.2b12 too high.hga1c 5.6 Impaired f asting glycemia 524458850 R73.01 chronic and stable. impaired sugars in the past/ I encouraged low sugar diet and exercise. No need for medication at this time. Hgba1c reviewed with pt. Vitamin B deficiency 479 13285 E53.8 chronic and stable b12 levels -- found to be low in the past. encouraged continued b12 supplement ation. labs reviewed:: B12 Vitamin D deficiency 347 34932 E55.9 chronic and stable. low vitamin D levels in the past. explained that low vitamin D levels in the past could be linked to osteopenia /osteoporo sis and cancer risk and heart disease. continue to support vitamin D supplemena tion. reviewed vitamin D labs today: Essential hypertension 16739802 I10 HTN -- Chronic and stable.con tinue with low salt. encouraged exercise. continue current meds. Atrophic vaginitis 27693 000 N95.2 explained the pathology of atrophic vaginitis. explained the risk of incontinen ce and recurrent UTIs; discussed the use of vaginal creams to help with treatment. pt wants premarin cream -- only will bring forms to fill out to get free. Menopausal and postmenopausal disorders 854915168 N95.8 pt is post-menop ausal. pt with history of reduced bone density in the past -- needs to be repeated every 2 years. encouraged calcium and vitamin D supplement ation. encouraged plenty of weight bearing exercise -- encouraged to work on balance. Screening mammography 24 748730 Z12.31 continue with yearly mammograms , encouraged monthly self breast exams. 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 Atrophic vaginitis 82665 000 N95.2 explained the pathology of atrophic vaginitis. explained the risk of incontinen ce and recurrent UTIs; discussed the use of vaginal creams to help with treatment. pt wants premarin cream -- only will bring forms to fill out to get free. Essential hypertension 95699470 I10 HTN -- Chronic and stable.con tinue with low salt. encouraged exercise. continue current meds.navjot nue hctz 12.5 mg every other day Hyperlipidemia 92701325 E78.2 chronic and stable. high cholestero l levels, pt understand s that by not having controlled cholestero l levels there is an increased risk of cardiovasc ular disease. I reviewed labs in detail with pt, I explained the importance of keeping the HDL high and LDL and triglyceri de levels low. I discussed the [place] [employer] n guidelines . I instructed pt to do low fat diet. pt is to increase exercise routine. pt is to repeat labs in 6 months time.Revie wed labs with the patient: continue lovastatin 40 mg a day.labs 02/24/22tri g 147; LDL 115, HDL 52tsh 4.95; T4 1.2b12 too high.hga1c 5.6 Female str ess incontinence 02561780 N39.3 Increased body mass index 67401320 Z68.28 elevated BMI. Discussed diet and better therapeuti c lifestyle changes. Diet education 04010138 Z71.3 as above Hand pain 99229238 M79.6 41 Chronic and stable. seeing dr whitmore = better with splints.frey ggested wearing wrist splints -- then ortho if not better. Carpal anali laurita syndrome 26902218 G56.01 Chronic and stable. seen by ortho -- start with wrist splints --followp as needed. Dilatation of aorta 2666 0001 I77.819 Chronic and stable. keep BPs under control. continue with cholestero l managment. Urinary tr act infectious disease 90689470 N39.0 pt with history of recurrent utis. repeat urine with next blood draw to assure no infection at this time. discussed hygiene, encouraged plenty of water.no infection on current sample Fatigue 78423447 R53.83 complaint of fatigue is chronic and stable. questionab le source of fatigue. discussed lifestyle changes to help. watch labs to rule out anemia. Impaired f asting glycemia 261929837 R73.01 chronic and stable. impaired sugars in the past/ I encouraged low sugar diet and exercise. No need for medication at this time. Hgba1c reviewed with pt. Vitamin B deficiency 479 41767 E53.8 chronic and stable b12 levels -- found to be low in the past. encouraged continued b12 supplement ation. labs reviewed:: B12 Vitamin D deficiency 347 89814 E55.9 chronic and stable. low vitamin D levels in the past. explained that low vitamin D levels in the past could be linked to osteopenia /osteoporo sis and cancer risk and heart disease. continue to support vitamin D supplemena tion. reviewed vitamin D labs today: Menopausal and postmenopausal disorders 223763640 N95.8 pt is post-menop ausal. pt with history of reduced bone density in the past -- needs to be repeated every 2 years. encouraged calcium and vitamin D supplement ation. encouraged plenty of weight bearing exercise -- encouraged to work on balance.de xa scan 12/2021 -1.8; Screening mammography 24 501749 Z12.31 continue with yearly mammograms , encouraged monthly self breast exams. 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 - seen by hand specialist . [id number] Jackie Rodriguez MD [address] [facility] [address] [place] [address] 03/02/2023 09:59:50 03/02/2023 10:53:49 Adult health examination 372763063 Z00.00 Annual Wellness Visit done today Increased body mass index 86572274 Z68.28 elevated BMI. Discussed diet and better therapeuti c lifestyle changes. Diet education 31961307 Z71.3 as above Female str ess incontinence 31085881 N39.3 Chronic and stable. use premarin cream. Hypertensive disorder 38 092391 I10 HTN -- currently stable. continue with low salt. encouraged exercise. continue current meds.Chron ic and stable. continue losartan 100 mg a day labs 02/21/23UA dirty -- culture negldl 114; trig 106; hdl 63bun 16, cr 0.63hgb 13.0vit D 37tsh 3.63; T4 1.0b12 >2000hgb a1c 5.5 Atrophic vaginitis 16717 000 N95.2 explained the pathology of atrophic vaginitis. explained the risk of incontinen ce and recurrent UTIs; discussed the use of vaginal creams to help with treatment. wants to send to [facility]. Essential hypertension 76731878 I10 HTN -- Chronic and stable.con tinue with low salt. encouraged exercise. continue current meds.navjot nue hctz 12.5 mg every other day Hyperlipidemia 44848298 E78.2 chronic and stable. high cholestero l levels, pt understand s that by not having controlled cholestero l levels there is an increased risk of cardiovasc ular disease. I reviewed labs in detail with pt, I explained the importance of keeping the HDL high and LDL and triglyceri de levels low. I discussed the [place] [employer] n guidelines . I instructed pt to do low fat diet. pt is to increase exercise routine. pt is to repeat labs in 6 months time.Revie wed labs with the patient: continue lovastatin 40 mg a day. labs 02/21/23UA dirty -- culture negldl 114; trig 106; hdl 63bun 16, cr 0.63hgb 13.0vit D 37tsh 3.63; T4 1.0b12 >2000hgb a1c 5.5 Hand pain 52001317 M79.6 41 Chronic and stable. seeing dr whitmore = better with splints.frey ggested wearing wrist splints -- then ortho if not better. 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 seen by ortho -- start with wrist splints --followp as needed. Dilatation of aorta 2666 0001 I77.819 Chronic and stable. keep BPs under control. continue with cholestero l managment. Fatigue [id number] R53.83 complaint of fatigue is chronic and stable. questionab le source of fatigue. discussed lifestyle changes to help. watch labs to rule out anemia. Vitamin D deficiency [phone] [id number] E55.9 chronic and stable. low vitamin D levels in the past. explained that low vitamin D levels in the past could be linked to osteopenia /osteoporo sis and cancer risk and heart disease. continue to support vitamin D supplemena tion. increase vitamin D 4,000 units a day. reviewed vitamin D labs today:labs 02/21/23UA dirty -- culture negldl 114; trig 106; hdl 63bun 16, cr 0.63hgb 13.0vit D 37tsh 3.63; T4 1.0b12 >2000hgb a1c 5.5 Menopausal and postmenopausal disorders [id number] N95.8 pt is post-menop ausal. pt with history of reduced bone density in the past -- needs to be repeated every 2 years. encouraged calcium and vitamin D supplement ation. encouraged plenty of weight bearing exercise -- encouraged to work on balance.de xa scan 12/2021 -1.8; Screening mammography [id number] Z12.31 continue with yearly mammograms , encouraged monthly self breast exams. Irritable bowel syndrome [id number] K58.9 Chronic and exacerbati on -- using PRN, diarrhea less -[place] Gastroesop hageal reflux disease [id number] K21.9 continue PPI, reduce caffiene, etoh. no nsaids;Kaylan nge your eating habits.rachel l [place] -- increase omeprazole to 40 mg while waiting for EGD. It? s best to eat several small meals instead of two or three large meals. After you eat, wait 2 to 3 hours before you lie down. Chocolate, mint, and alcohol can make GERD worse. Spicy foods, foods that have a lot of acid (like tomatoes and oranges), and coffee can make GERD symptoms worse in some people. If your symptoms are worse after you eat a certain food, you may want to stop eating that food to see if your symptoms get better. Do not smoke or chew tobacco. Smoking can make GERD worse. If you need help quitting, talk to your doctor about stop-smoki ng programs and medicines. These can increase your chances of quitting for good. If you have GERD symptoms at night, raise the head of your bed 6 to 8 inches by putting the frame on blocks or placing a foam wedge under the head of your mattress. (Adding extra pillows does not work.) Do not wear tight clothing around your middle. Lose weight if you need to. Losing just 5 to 10 pounds can help. [id number] ROSA MARIA MULLIGAN APRN [facility] [address] [address] 11/16/2023 09:33:15 11/16/2023 10:12:36 Influenza caused by Influenza A virus [id number] J09.X2 stable, with some fatigue, continue benzonatat e, RTO if symptoms. Localized swelling of right lower leg [id number] R22.41 Acute problem -- new onset edema and pain in lower extremity -- rule out DVT immediatel y. check stat dopplers. pt to go directly and then wait for further instructio ns. Advised patient not to massage the area until we know the status. Active or passive immunization [id number] Z23 Patient will get at pharmacy Vitamin D deficiency [phone] 17849 E55.9 Chronic with exacerbati on. Start supplement ation below. Recheck labs in February at annual wellness. Labs 11/08/2023vi t d 28tsh 2.93hdl 56 trig 100 ldl 100gfr 85 cr 0.66 bun 18wbc 6.3 hgb 12.1 Anxiety 62376186 F41.9 Chronic uncontroll ed. Tiki sevilla patient stress due to 's memory loss. Provided patient with memory loss support group alem Mata. Patient reports her has memory loss and she is having challenges managing. Dilatation of aorta 2666 0001 I77.819 Chronic stable, continue lovastatin 40 mg tablet, continue lipid-lowe ring diet, monitor blood pressure keep within tight control. 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 Incontinen ce persists as discussed at prior appointmen t rule out UTI with recent dizziness. Acute sinusitis [id number] J01.90 New acute problem, unstable. Patient complains of acute sinusitis and headache symptoms x 2 weeks with request for antibiotic prescripti on. Advised patient on prescribed medication , to take antibiotic s with food/probi otics, fluid hydration, ice packs to sinuses as needed, and OTC medication s for symptomati c relief (Tylenol, mucinex, antihistam nga, cough medication , throat lozenges, saline nasal spray) as needed Posterior rhinorrhea [phone] R09.82 Acute, new problem. Start fluticason e 50 mcg per actuation nasal spray, return to office if symptoms not improved. [id number] ROSA MARIA MULLIGAN APRN [address] [place] [address] 01/25/2024 10:59:05 01/25/2024 12:14:08 Pain of right knee joint [id number] M25.561 Acute, new problem, uncontroll ed, continue meloxicam after meal only. Rest, ice/heat and keep brace on knee. Risks of NSAIDs including cardiovasc ular, GI, and renal risk reviewed with patient. Patient plans to follow up with orthopedic in [place] [facility]. Synovial c yst of right knee [id number] 23562 M71.21 Acute, new problem, uncontroll ed, continue meloxicam after meal only. Follow up with ortho for possible drainage of bakers cyst. Posterior rhinorrhea [phone] R09.82 Acute, new problem ongoing since sinusitis visit 2 weeks ago, she completed abx as ordered still w/ sinus drainage and mild sinus headache. Start fluticason e 50 mcg per actuation nasal spray, return to office if symptoms not improved. Impacted c erumen of bilateral ears [id number] 308288 H61.23 bilateral ears cleaned in office today. Health Concerns Section Related Observation LastModified by Organization Detai ls LastModified Time None Recorded Concern Status LastModified by Organization Details LastModified Time None Recorded Advance Directives Directive Y: Payers Encounter Date Sequence Insurance Name Policy Number Policy Gregory Covered Member ID Gregory Member ID Guarantor Name 11/11/2022 1 [facility] (MEDICARE REPLACEMENT/A DVANTAGE - PPO) [id number] Albina A Alcorn [id number] Albina A Dionne 03/02/2023 1 [facility] (MEDICARE REPLACEMENT/A DVANTAGE - PPO) [id number] Albina A Alcorn [id number] Albina Julia Alcorn 11/16/2023 1 [facility] (MEDICARE REPLACEMENT/A DVANTAGE - PPO) [id number] Albina A Alcorn [id number] Albina Shieldsidan 01/03/2024 1 [facility] (MEDICARE REPLACEMENT/A DVANTAGE - PPO) [id number] Albina Caaln [id number] Albina Caaln 01/25/2024 1 [facility] (MEDICARE REPLACEMENT/A DVANTAGE - PPO) [id number] Albina Shieldsidan [id number] Albina Caaln Notes Date Note Type Note Provider Name and Address Organization Details Recorded Time 3 text/html DyslipidemiaReported bypatient.Complications due to diagnosis:no complicatons Presenting symptoms/method of diagnosis:asymptomatic / coincidental finding on test Interventions:no interventions Current therapy:medication list reviewed; using diet and exercise; using other therapeutic lifestyle changes; no side effects from medication Current control and compliance:usually well controlled, asymptomatic; usually compliant with regimen; exercising regularly; eating healthy meals Current Symptoms/Concerns:none stated; no myalgias; no chest pain; no shortness of breath; no fatigue; no headaches; no blurred vision; no edema; no claudicationNotes:good levels -- still watching diet. lost weight on purpose.Hypertension/Hype rtensive diseasesReported bypatient.Complications due to HTN:no complicatons Presenting symptoms/method of dx:asymptomatic / elevated BP found on routine blood pressure check Current therapy:medication list reviewed; using diet and exercise; using other therapeutic lifestyle changes; no side effects from medications Current control and compliance:usually well controlled; usually compliant with regimen; checks bp regularly with home monitor; exercising regularly; eating healthy meals Current Symptoms/Concerns:none stated; no chest pain; no shortness of breath; no fatigue; no headaches; no blurred vision; no edema; no abdominal pain; no palpatations; no coughNotes:not checking BPs ; no headaches. no dizzy, no chest pain while working. [place] left shoulder pain -- going to pool. comes and goes -- taking aleve. carpal tunnel finger -- right hand tingling still -- had injection. right handed; going to have surgery -- pt delcines surgery+ tinglkig and numbness in hands. imp;roved -- wrist splints and injection. declines surgery -- ibs -- occassional dicyclonine. fecal incontience.osteopenia -- 12/2021 -1.8; Jackie Rodriguez MD [address] [address], [place], [address], [facility] - [facility], [facility] 11/11/2022 11:15:28 3 text/html DyslipidemiaReported bypatient.Complications due to diagnosis:no complicatons Presenting symptoms/method of diagnosis:asymptomatic / coincidental finding on test Interventions:no interventions Current therapy:medication list reviewed; using diet and exercise; using other therapeutic lifestyle changes; no side effects from medication Current control and compliance:usually well controlled, asymptomatic; usually compliant with regimen; exercising regularly; eating healthy meals Current Symptoms/Concerns:none stated; no myalgias; no chest pain; no shortness of breath; no fatigue; no headaches; no blurred vision; no edema; no claudicationNotes:good levels -- still watching diet. lost weight on purpose.Hypertension/Hype rtensive diseasesReported bypatient.Complications due to HTN:no complicatons Presenting symptoms/method of dx:asymptomatic / elevated BP found on routine blood pressure check Current therapy:medication list reviewed; using diet and exercise; using other therapeutic lifestyle changes; no side effects from medications Current control and compliance:usually well controlled; usually compliant with regimen; checks bp regularly with home monitor; exercising regularly; eating healthy meals Current Symptoms/Concerns:none stated; no chest pain; no shortness of breath; no fatigue; no headaches; no blurred vision; no edema; no abdominal pain; no palpatations; no coughNotes:not checking BPs ; no headaches. no dizzy, no chest pain while working.Medicare Annual Wellness VisitReported bypatient.Visit type:subsequent Medicare Annual Wellness visit PMH/FH/Rx and Social History Review:updated EMR in appropriate tabs; other providers updated ANNUAL WELLNESS VISIT QUESTIONNAIRE ?Patient reported changes/additions to Medical Care Team ?dr. West, [facility], Dr Danelle Martinez, [facility], [place], [place], Dr Davie Horton, [address], [place], [place] ?What is the Patient's living arrangements?Live with Spouse ?What type of residence does the Patient live in?Condo ?How many stories (floors) to the Patient's residence?Single Story (1 floor) ?Does the Patient have smoke / CO detectors in the home?Yes ?Does the Patient use any of the following Respirator Machines?Nebulizer - No ?Oxygen - No ?CPAP/BiPAP - No ?Is the Patient able to afford his/her medications?Yes with assistance ?What type of transportation does the Patient use?I use my own car ?Has the Patient had a weight change in the past 6 months?No ?What type of diet the patient is currently following?Regular ?What best describes the Patient's level of Physical activity?Moderate ?Does the Patient use Tobacco Products?No ?Has the Patient seen a Dentist in the last 12 months?Yes ?Does the Patient always use a seat belt routinely?Yes ?Does the Patient use sunscreen routinely?Yes ?Does the Patient wear a helmet when riding a bicycle/motorcycle?Do Not Ride ?Is the Patient sexually active?No ?How would the patient rate their health compared to others your age?Better ?How would the patient rate their health today compared to last year?Same ?Does the Patient have Pain?No ?Is the patient using narcotics/opioids for pain?No ?How much urinary incontinence does the Patient experience?Moderate ?Does the Patient or people around the Patient have concerns about the Patient's hearing?Currently wear hearing aids ?Does the Patient or people around the Patient have concerns about the Patient's vision?No ?Does the Patient use any of the following for mobility assistance?Cane - No ?Crutches - No ?Walker - No ?Wheelchair/Scooter - No ?In the past year has the Patient had concerns about balance or walking or feeling unsteady on his/her feet?No ?In the past year has the Patient had a fall?No ?STEADI Fall Risk Assessment ?I have fallen in the past year. - No ?I use or have been advised to use a cane or walker to get around safely. - No ?Sometimes I feel unsteady when I am walking. - No ?I steady myself by holding onto furniture when walking at home - No ?I am worried about falling. - No ?I need to push with my hands to stand up from a chair. - No ?I have some trouble stepping up onto a curb. - No ?I often have to lafleur to the toilet. - Yes ?I have lost some feeling in my feet. - No ?I take medicine that sometimes makes me feel light-headed or more tired than usual - No ?I take medicine to help me sleep or improve my mood. - No ?I often feel sad or depressed. - No ?Does the Patient's home have any trip hazards like throw rugs or uneven floors?No ?Does the Patient need assistance with Bathing/Toileting/Eating ?Bathing/Grooming - No ?Toileting - No ?Eating - No ?Does the Patient or the people around the Patient have concerns about his/her memory?No ?Does the Patient have an Advance Directive (Living Will)?Yes ?PHQ Score ?Mild depression, (5). Imported from [place] on 03/02/2023 pressure in chest with eating and coughing, s/p dilation -- [place] pain -- going to pool. comes and goes -- taking aleve. carpal tunnel finger -- right hand tingling still -- had injection. right handed; going to have surgery -- pt delcines surgery+ tinglkig and numbness in hands. imp;roved -- wrist splints and injection. declines surgery -- ibs -- occassional dicyclonine. fecal incontience.osteopenia -- 12/2021 -1.8; Jackie Rodriguez MD [address] [facility] [address], [place], [address], [facility] - [facility], [employer] 03/02/2023 10:52:05 4 text/html Follow upReported bypatient.Reason for visit:follow up of urgent care clinic visit; follow up, Labs - urgent care follow up 11/11/23 patient when to the urgent care due to flu symptoms. Patient states her right leg has been swollen since 11/11/23. Severity:better Current status:well controlled/stable Current control and compliance:compliant with regimen Current symptoms/concerns:none stated Actions due to side effects:continued Rx Result of action:no change in side effects Labs/EKG reviewed:Urgent care note Imaging reviewed:chest x-ray; Chest x-ray normal, positive for influenza A, negative for COVID, negative for RSV Urgent care advised patient to go to hospital for stat ultrasound patient did not and is requesting imaging today. Here for check up on chronic diseases listed in A/P. Chronicity, stability, and current/changed plans for each chronic disease are listed in the A/P section. Patient is doing well, without side effects, on current medication regimen for these conditions, reviewed today in detail, and listed in the A/P section. ROSA MARIA MULLIGAN, ANODE WORKER [address] [facility] [address], [place], [address], [facility] - [facility], [facility] 11/16/2023 10:21:25 text/html Cough / ColdReported bypatient.Reason for visit:acute complaint Quality:productive Sputum Quality:yellow; quantity moderate Severity:moderate 7/10 Duration:multiple times per day Onset/Timing:abrupt;2 weeks ago Context:usual activity Alleviating factors:cough syrup; OTC medications; rest Associated Symptoms:congestion;cold/ flu like symptoms;sore throat;post nasal drip;rhinorrhea;facial pain;sinus pressureSinusitis/Allergy Reported bypatient.Onset/Timing:ab rupt onset Location:headache;sinus pain nasal;thick phlegm in throat;constantly clearing the throat;nasal discharge from both nostrils Quality:aching;congested; colored phlegm;throbbing Duration:constant Severity:current pain 5/10; moderate;limits daily activities Context:worse with seasonal allergen exposure Alleviating factors:nothing gives relief Aggravating factors:worse with certain sleeping positions Associated Symptoms:no hematemesis;nasal discharge;feeling of strangulation This visit was conducted via our telehealth video visit service. Provider location: {{in office* at home If other - freetype location}} Patient location: {{at home address on file* in provider's office If other - freetype location}} Visit Participants in addition to provider and patient: {{none* free type names of additional participants & their relationship to patient}} Patient has given verbal consent to telehealth visit. Complete medication reconciliation was performed at the start of the telehealth visit. ROSA MARIA MULLIGAN APRN [address], [place], [address], [facility], [facility] 01/03/2024 09:13:20 text/html Follow upReported bypatient.Reason for visit:follow-up after emergency room visit Severity:moderate 5/10 Current status:uncontrolled Current control and compliance:compliant with regimen Current symptoms/concerns:symptom atic of condition Actions due to side effects:continued Rx Result of action:no change in side effects ROSA MARIA MULLIGAN APRN [address], [place], [address], [facility], [facility] 01/25/2024 12:43:55 OBGyn Episode No OBEpisode recorded.
[2024-11-28 13:34] LABS: MANUAL DIFF FLAG NO
[2024-11-28 13:52] LABS: Basophils Absolute Auto 0.1 X10*3/uL (0.0-0.2); Basophils Percent Auto 1.2 % (0-2); Eosinophils Absolute Auto 0.3 X10*3/uL (0.0-0.4); Eosinophils Percent Auto 4.4 % (0-4); Hematocrit 37.8 % (37.0-47.0); Hemoglobin 12.2 g/dl (12.0-16.0); Imm Gran Abs Auto 0.03 X10*3/uL (0.00-0.03); Imm Gran Pct Auto 0.5 % (0.0-0.4); Lymphocytes Absolute Auto 2.8 X10*3/uL (1.2-4.9); Lymphocytes Percent Auto 49.1 % (20-40); Mean Corpuscular HGB Conc 32.3 g/dl (31.0-35.0); Mean Corpuscular Hemoglobin 29.6 pg (27.0-33.0); Mean Corpuscular Volume 91.7 fL (80.0-98.0); Mean Platelet Volume 9.9 fL (9.4-12.3); Monocytes Absolute Auto 0.5 X10*3/uL (0.1-1.2); Neutrophils Percent Auto 35.8 % (45-73); Platelet Count 260 X10*3/uL (160-400); Red Blood Count 4.12 X10*6/uL (4.20-5.50); Red Cell Distribution Width 12.6 % (11.0-16.0); White Blood Count 5.6 X10*3/uL (4.8-10.8)
[2024-11-28 14:12] LABS: Alanine Aminotransferase 13 U/L (0-31); Albumin Level 3.9 g/dL (3.5-5.0); Alkaline Phosphatase 63 U/L (39-117); Anion Gap 8 (12-20); Aspartate Amino Transferase 24 U/L (5-31); Bilirubin Total 0.4 mg/dL (0.0-1.0); Blood Urea Nitrogen 18 mg/dL (9-16); Calcium 8.3 mg/dL (8.4-10.2); Carbon Dioxide 30 mmol/L (22-29); Chloride 103 mmol/L (96-108); Cholesterol 192 mg/dL (<200); Estimated Glomerular Filt Rate > 60; Glucose Fasting 81 mg/dL (60-99); HDL Cholesterol 57 mg/dL (>40); LDL Cholesterol Calculated 118 mg/dL (<100); Potassium 3.5 mmol/L (3.3-5.1); Sodium 137 mmol/L (135-145); Total Protein 6.6 g/dL (6.5-8.0); Triglycerides 86 mg/dL (<150)
[2024-11-28 14:30] LABS: Vitamin D 25-OH Total 74.5 ng/mL (>30)
== END 2024-11-28 10:19 | disposition home or self-care (01) ==
LOC: HO.HMGCLDS 10:18
PROVIDERS: PCP Internal Medicine; Visit Provider Internal Medicine
DX: Z00.00 Encounter for general adult medical examination without abnormal findings (principal); I10 Essential (primary) hypertension; E78.00 Pure hypercholesterolemia, unspecified; K21.9 Gastro-esophageal reflux disease without esophagitis
CPT/HCPCS: 36415; 80053; 80061; 82306; 85025

== ENCOUNTER 2024-12-24 13:04 | Outpatient (REF) | payer MEDICARE, SELFPAY ==
[2024-12-24 16:22] LABS: Appearance Urine Clear; Color Urine Yellow; Glucose Urine UA Negative (Negative); Leukocyte Esterase Urine Moderate (2+) (Negative); Nitrite Urine Negative (Negative); UMIC TRIGGER UACC YES; Urine Blood Small (1+) (Negative); Urine Ketones Negative (Negative); Urine Protein Trace mg/dL (Neg-Trace)
[2024-12-24 16:27] LABS: Bacteria Urine None Seen (None Seen); Hyaline Casts Urine 0-2 /LPF (0-2); UACC Culture Trigger YES; WBC Urine >50 /HPF (0-5)
== END 2024-12-24 13:05 | disposition home or self-care (01) ==
LOC: HO.HMGCLDS 13:04
PROVIDERS: PCP Internal Medicine; Visit Provider Internal Medicine
DX: R30.0 Dysuria (principal)
CPT/HCPCS: 81001; 87086

== ENCOUNTER 2025-04-17 09:06 | Outpatient (AMB) | payer MEDICARE, OTHER, SELFPAY ==
--- NOTE | 2025-04-17 09:07 | A.OFFPC_ITS ---
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 Accompanied by: Self / Same As Patient Allergies amitriptyline (From Elavil) Allergy (Verified 04/17/25 09:10) Agitated meperidine (Demerol) Allergy (Verified 04/17/25 09:10) Anaphylaxis morphine Allergy (Verified 04/17/25 09:10) Hallucinations Penicillins Allergy (Verified 04/17/25 09:10) Rash prednisone Adverse Reaction (Mild, Verified 04/17/25 09:10) Anxiety HPI HPI Comments History of Present Illness Details 89-year-old female with history of hyper tension, IBS, hyperlipidemia, GERD, osteopenia presents to the office today for management of chronic conditions and to establish care as well as for evaluation of concerns. Hypertension-blood pressure in the office elevated today at 154/80. She feels this is secondary to increased pain as well as new providers. Reviewed last chart with old PCP and blood pressure was well-controlled at 124/80 at that visit. She is compliant with losartan 100 mg daily, hydrochlorothiazide 12.5 mg daily. IBS-stable on dicyclomine Hyperlipidemia-on lovastatin 40 mg daily GERD-stable on omeprazole Osteopenia-performs weight-bearing exercise and takes vitamin-D. Last DEXA scan performed in [place], will request records Concerns: For last 10 days, has been experiencing pain over the left SI joint. Denies any injury. There is radiation into the left upper back and around to the groin. No radiation into the legs. No saddle anesthesia, paresthesias, weakness. She is able to ambulate without difficulty. Does have history of similar pain about 15 years ago but feels this is more intense. Rates the pain an 8/10 at its worst. Taking Tylenol as well as bio cream gel with some improvement to 4/10. Pain is worse when lying down and improves with walking or sitting. She does also have chronic bilateral knee pain. Health maintenance: Will request last mammogram and DEXA scan from Dr. Carolynn Hester from [place] in [place] where she resides in winter time ROS: General: No fevers, malaise, unintentional weight loss Cardiovascular: No chest pain, palpitations, or leg edema Respiratory: No shortness of breath, wheezing, cough GI: See HPI : See HPI MSK: See HPI Neuro: See HPI Skin: No rashes or lesions EXAM: Constitutional - Awake and Alert, No apparent distress Eyes - PERRL Cardiovascular - S1S2, RRR, No edema Respiratory - Normal lung expansion, Normal respiratory effort, No respiratory distress, CTA bilaterally Extremities - no calf tenderness bilaterally, no swelling MSK: No midline tenderness of the lumbar spine or paraspinal tenderness. There is focal tenderness over the left SI joint radiating into the left groin. Negative straight leg raises. There is pain exacerbation with external rotation of the hip. Otherwise full range of motion Skin - Warm/Dry Neurological - Alert & oriented x3. Sensation intact. 5/5 strength in the bilateral lower extremities. 2+ patellar reflexes Psychological - Appropriate affect [facility] Medical History (Updated 04/17/25 @ 09:40 by CHRISTOPH Covarrubias) IBS (irritable bowel syndrome) Osteopenia History of colon polyps GERD (gastroesophageal reflux disease) Hyperlipidemia Hypertension SI (sacroiliac) joint dysfunction Questionnaire PHQ-9 Over the last 2 weeks, how often have you been bothered by any of the following problems? 1. Little interest or pleasure in doing things: several days 2. Feeling down, depressed, or hopeless: not at all 3. Trouble falling or staying asleep, or sleeping too much: more than half the days 4. Feeling tired or having little energy: more than half the days 5. Poor appetite or overeating: several days 6. Feeling bad about yourself - or that you are a failure or have let yourself or your family down: not at all 7. Trouble concentrating on things, such as reading the newspaper or watching television: several days 8. Moving or speaking so slowly that other people could have noticed. Or the opposite - being so fidgety or restless that you have been moving around a lot more than usual: not at all 9. Thoughts that you would be better off or of hurting yourself in some way: not at all Total score: 7 Source: Developed by Drs. Juan Jackson, Vanessa Melendez, King Sierra and colleagues, with an educational ricky from [employer]. Thrive Questionnaire Date Thrive assessed: 04/17/25 I am a: Patient What is your living situation today?: I have a steady place to live Within the past 12 months, did the food you bought not last and you didn't have the money to get more?: Never true Within the past 12 months, did you worry whether your food would run out before you got money to buy more?: Never true Do you have trouble paying for medicines?: No Do you have trouble getting transportation to medical appointments?: No Do you have trouble paying your heating and electricity bill?: No Do you have trouble taking care of your child, family member or friend?: No Do you have trouble with day-to-day activities such as bathing, preparing meals, shopping, managing finances, etc.?: No Are you currently unemployed and looking for a job?: No Are you interested in more education?: No Please select the resources that you would like help with: None THRIVE Score: 0 DWAIN-7 AMB Questionnaire DWAIN-7 Feeling nervous, anxious, or on edge: 0 = Not at all Not being able to stop or control worryin = Not at all Worrying too much about different things: 0 = Not at all Trouble relaxin = Several days Being so restless that it is hard to sit still: 1 = Several days Becoming easily annoyed or irritable: 0 = Not at all Feeling afraid as if something awful might happen: 0 = Not at all Total DWAIN-7 score (0-4 normal; 5-9 mild; 10-14 moderate; 15-21 severe): 2 Source: Developed by Drs. Juan Jackson, Vanessa Melendez, King Sierra and colleagues, with an educational ricky from [employer]. Physical exam (Primary Care) Vital Signs: Last Vital Signs Temp 97.3 F 04/17/25 09:11 Pulse 70 04/17/25 09:11 Resp 14 04/17/25 09:11 BP 182/88 H 04/17/25 09:11 Pulse Ox 99 04/17/25 09:11 Oxygen Delivery Method Room Air 04/17/25 09:11 BMI result Body Mass Index 26.8 PHQ-9: PHQ-9 Score PHQ-9: Total score 7 04/17/25 09:35 Thrive Assessment: Date of Thrive Assessment Date Thrive assessed 04/17/25 04/17/25 09:35 Coding Level of Care Code New Pt Level 4 (05659) Complex EM visit Add On G2211 Diagnoses SI (sacroiliac) joint dysfunction M53.3 Hypertension I10 Hyperlipidemia E78.5 GERD (gastroesophageal reflux disease) K21.9 History of colon polyps Z86.0100 Osteopenia M85.80 IBS (irritable bowel syndrome) K58.9 Assessment & Plan Assessment & Plan (1) SI (sacroiliac) joint dysfunction: Code(s): M53.3 - Sacrococcygeal disorders, not elsewhere classified Category: Medical Plan: Recommend ibuprofen 600 mg every 6 hours as needed for pain. She is also given a short course of tizanidine to use as needed for muscle strain/spasm. Counseled on side effects of this medication. Refer to physical therapy. Can continue with topical analgesics. (2) Hypertension: Code(s): I10 - Essential (primary) hypertension Category: Medical Plan: Uncontrolled, likely secondary to pain. Reviewed past blood pressures from prior PCP with blood pressure 126/70 just 4 months ago. She will continue on hydrochlorothiazide 12.5 mg and losartan 100 mg daily. Monitor blood pressures at home. She had blood pressures be elevated above 140/90, contact the office. Low-sodium diet. We will evaluate renal function electrolyte levels (3) Hyperlipidemia: Code(s): E78.5 - Hyperlipidemia, unspecified Category: Medical Plan: Lipid panel ordered. Continue lovastatin 40 mg daily. Recommend diet low in saturated fats and highly processed foods. (4) GERD (gastroesophageal reflux disease): Code(s): K21.9 - Gastro-esophageal reflux disease without esophagitis Category: Medical Plan: Stable. (5) History of colon polyps: Code(s): Z86.0100 - Personal history of colon polyps, unspecified Category: Medical (6) Osteopenia: Code(s): M85.80 - Other specified disorders of bone density and structure, unspecified site Category: Medical Plan: Will request most recent DEXA scan result from PCP in [place]. Continue with regular weight-bearing exercise as well as vitamin-D supplementation. Will check vitamin-D level today. (7) IBS (irritable bowel syndrome): Code(s): K58.9 - Irritable bowel syndrome, unspecified Category: Medical Plan: Stable. Continue dicyclomine Plan Follow-up in the office in 4-6 months. Continue medications as prescribed. Elapsed be completed prior to next visit. Orders: Orders PT Evaluation and Treatment Today M53.3 - Sacrococcygeal disorders, not elsewhere classified Basic Metabolic Panel 4 Months E78.5 - Hyperlipidemia, unspecified, I10 - Ess ential (primary) hypertension, M85.80 - Other specified disorders of bone density and structure, unspecified site Lipid Panel 4 Months E78.5 - Hyperlipidemia, unspecified, I10 - Essential (primary) hypertension, M85.80 - Other specified disorders of bone density and structure, unspecified site Vitamin D 25-OH Total 4 Months E78.5 - Hyperlipidemia, unspecified, I10 - Essential (primary) hypertension, M85.80 - Other specified disorders of bone density and structure, unspecified site Complete Blood Count Auto Diff 4 Months E78.5 - Hyperlipidemia, unspecified, I10 - Essential (primary) hypertension, M85.80 - Other specified disorders of bone density and structure, unspecified site Medications: New ibuprofen 600 mg PO Q6H PRN 30 tabs 0RF pain tizanidine 4 mg PO Q8H PRN 20 caps 0RF muscle spasticity
[2025-04-17 09:11] VITALS: BP 182/88; PULSE 70; RESP 14; TEMP 36.3; O2SAT 99; BMI 26.8
--- OUTSIDE RECORDS SUMMARY | 2025-04-17 09:49 | XMS_ITS | Data Portability ---
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 labs 11/05/2022 [...] available 11/16/2023 10:20:35 01/03/2024 01/03/2024 Patient here toailyn ay with complaints of cough, sinus drainage, headache [...] available 01/03/2024 09:10:58 01/25/2024 01/25/2024 Patient here toailyn ay with her daughter for follow-up after emergency [...] good since. ksmarsh Not available 01/25/2024 12:38:51 02/07/2025 02/07/2025 labs 02/14/2024 - - needs new labs -- ordered. labs 02/21/23 UA dirty -- culture neg ldl 114; trig 106; hdl 63 bun 16, cr 0.63 hgb 13.0 vit D 37 tsh 3.63; T4 1.0 b12 >2000 hgb a1c 5.5 knee - grandson - PT. ppoling Not available 02/08/2025 12:07:11 Plan of Treatment Reminders Order Date Submit Date Provider Last Modified By Organization Details Last Modified Time Details Appointments LAB 2024 09:20A M LAB DEONTE BARCLAY Not available Not available Not available ESTABLISH ED OV 30 2024 11:00A M ROSA MARIA MULLIGAN, PRISON OFFICER Not available Not available Not available Lab venipunct ure - to be done 6 months after order date 2024 025 [facility], [address], [place], [address], 02/12/2025 10:02:00 CBC 2024 025 [facility], [address], [place], [address], 02/12/2025 14:35:50 TSH, serum or plasma 2024 025 [facility], [address], [place], [address], 02/12/2025 15:52:54 T4, free, serum 2024 025 [facility], [address], [place], [address], 02/12/2025 15:52:51 CBC [email or web address] [facility], [address], [place], [address], 03/14/2025 08:06:04 CMP, serum or plasma 2024 025 [facility], [address], [place], [address], 02/12/2025 16:34:17 lipid panel, serum 2024 025 [facility], [address], [place], [address], 02/12/2025 16:34:23 urinalysi s, complete 2024 025 [facility], [address], [place], [address], 02/12/2025 14:58:26 HbA1c (hemoglob in A1c), blood 2024 025 [facility], [address], [place], [address], 02/12/2025 14:29:32 vitamin B12, serum 2024 025 [facility], [address], [place], [address], 02/12/2025 15:52:48 vitamin D, 25-hydrox y, total, serum 2024 025 [facility], [address], [place], [address], 02/12/2025 15:52:56 urinalysi s, complete 2023 024 [facility], [address], [place], [address], 01/06/2024 13:36:47 CMP, serum or plasma - to be done 6 months after order date 2022 023 [place] [facility], [address], [place], [address], 11/09/2023 12:33:33 lipid panel, serum - to be done 6 months after order date 2022 023 [facility], [address], [place], [address], 11/09/2023 12:33:34 TSH, serum or plasma - to be done 6 months after order date 2022 023 [place] [facility], [address], [place], [address], 11/09/2023 12:33:36 CBC - to be done 6 months after order date 2022 023 [place] [facility], [address], [place], [address], 11/09/2023 12:33:32 venipunct ure - to be done 6 months after order date 2022 023 [place] [facility], [address], [place], [address], 11/08/2023 08:09:27 vitamin D, 25-hydrox y, total, serum - to be done 6 months after order date 2022 023 [place] [facility], [address], [place], [address], 11/09/2023 12:33:37 Referral orthopedi c surgeon referral 2023 024 [facility] Not available 01/25/2024 12:56:54 Procedures None recorded. Surgeries None recorded. Imaging MAMMO, screening , digital, bilateral - 3 D mammogram 2024 025 [facility]t Mri, [address], [address], [place], [address], 02/13/2025 14:06:32 bone density - 33504 Bone Density 2024 025 [facility] 3t Mri, [address], [address], [place], [address], 02/19/2025 11:10:25 US, duplex, venous, lower extremity , unilatera l 2023 024 [facility], [address], [address], [place], [address], 11/16/2023 14:46:08 MAMMO, screening , digital, bilateral - 3 D mammogram 2022 023 [facility] (Central Scheduling), [address], [address], [place], [address], 01/16/2024 08:03:13 Medication Orders compounde d medicatio n 2024 025 [facility], [address], [address], [place], [address], 02/07/2025 17:41:53 valacyclo vir 1 gram tablet 2024 025 [facility][id number], [address], [place], [address], 02/07/2025 15:59:22 meloxicam 15 mg tablet 2023 024 [id number], [place], [address], 02/07/2025 15:21:29 fluticaso ne propionat e 50 mcg/actua tion nasal spray,lion pension 2023 024 [id number] [address], [place], [address], 01/25/2024 11:46:49 doxycycli ne hyclate 100 mg capsule 2023 024 [id number] [address], [place], [address], 02/07/2025 15:21:11 fluticaso ne propionat e 50 mcg/actua tion nasal spray,lion pension 2023 024 [place] [id number], [place], [address], 01/03/2024 09:08:59 cholecalc iferol (vitamin D3) 1,250 mcg (50,000 unit) capsule 2023 024 LUIS FEL[place] [facility], [address] [place] [address], [address], [place], [place], [id number], 11/16/2023 10:03:13 magnesium 100 mg (as glycinate ) capsule 2022 023 ppoling Not available 03/02/2023 10:38:11 Estrace 0.01% (0.1 mg/gram) vaginal cream [address] [facility], [address] [place] [address], [address], [place], [address], 02/07/2025 15:21:13 omeprazol e 40 mg capsule,d elayed release 2022 023 [place] [address] [facility], [address], [address], [place], [place], [id number], 05/31/2024 11:41:06 Vitamin D3 50 mcg (2,000 unit) capsule 2022 023 ksmarsh Not available 11/16/2023 10:02:57 Patient TargetsNo targets recorded. Patient Instructions Encounter Date Encounter Id Patient Instructions Last Modified By Organization Details Last Modified Time 03/02/2023 [id number] irritable bowel syndrome: care instructions ppoling Not available 03/02/2023 10:37:42 starting a weigh t loss plan: care instructions ppoling Not available 03/02/2023 10:37:42 gastroesophageal reflux disease (GERD): care instructions ppoling Not available 03/02/2023 10:37:43 11/16/2023 [id number] -Follow the treatment plan that we discussed [...] discussed. ksmarsh Not available 11/16/2023 10:17:03 01/03/2024 [id number] Acute Sinusitis: Care Instructions ksmarsh Not available [...] discussed. ksmarsh Not available 01/03/2024 09:11:02 01/25/2024 [id number] -Follow the treatment plan that we discussed during your visit. -Please go to the nearest ED if you develop any acute medical emergencies such as: chest pain, SOB, severe abd pain, uncontrolled bleeding, severe/intractable pain or any neurological changes. ksmar Not available 01/25/2024 12:42:57 -Patient instruc shi to call the office with any healthcare/medicatio n concerns or questions. -Patient verbalized understanding of treatment plan and agreed to call or RTO with any questions or if they feel that the plan needs to be modified. -Use, dosage, and adverse side effects of medications discussed. ksmarsh Not available 01/25/2024 12:43:06 02/07/2025 [id number] starting a weigh t loss plan: care instructions ppoling Not available 02/07/2025 15:59:18 irritable bowel syndrome: care instructions ppoling Not available 02/07/2025 15:59:18 gastroesophageal reflux disease (GERD): care instructions ppoling Not available 02/07/2025 15:59:17 prediabetes: car e instructions ppoling Not available 02/07/2025 15:59:18 pernicious anemi a: care instructions ppoling Not available 02/07/2025 15:59:18 SCREENING SCHEDULE DEPRESSION SCREENING: A Depression Screening Assessment was conducted, with staff-assisted depression care supports during this encounter and all actions of this assessment and time elements of up to 15 minutes were met. COLORECTAL CANCER SCREENING: Colonoscopy, average risk, every 10 years unless advised differently by provider CERVICAL CANCER SCREENING - PAP (female only): no longer recommended due to hysterectomy, age, and/or low risk unless advised differently by provider BREAST CANCER SCREENING: Mammogram: recommended annually unless advised differently by provider OSTEOPOROSIS SCREENING - Bone density (female only): At age 65 and every 2 years or as advised by your provider CARDIOVASCULAR RISK SCREENING - AAA screening (male only): Recommended once per lifetime, if personal history of smoking greater than 100 cigs and age 65-75 VACCINE RECOMMENDATIONS: (except if you have experienced severe allergic reaction [e.g. anaphylaxis] after a previous dose/a component of these vaccines OR otherwise advised by your provider not to receive it) Covid vaccine: vaccine recommended per guidelines Influenza vaccine: recommended annually Pneumococcal Vaccine: vaccine recommended per guidelines Shingles vaccine - Shingrix: vaccine recommended per guidelines Tetanus vaccine: recommended every 10 years Not available 02/07/2025 15:24:07 Reason for Referral Orthopedic Surgeon Referral for Synovial cyst of right knee Referring Physician: Rosa Maria Mulligan, Family Medicine, Encounter Date: 01/25/2024 Results Created Date Observation Date Name Description Value Unit Range Abnormal Flag Note LastModifiedBy Organization Detail LastModifiedTime 02/22/2002/22/2023 A1C hemoglobin A1C 5.5 %_of_ total _HGB [...] johann. Curre ntly, no conse nsus exist juan antonio yu use of hemog lobin A1c for [...] Care in Diabe johann(A DA). Not Available [facility] [address] [facility] [facility] [address] [place], [address], 02/22/2023 19:07:30 02/22/20 23 02/22/2023 VITAM IN B-12 vitamin B12 >2000 pg/mL 200-11 00 high Not Available [facility] [address], [place], [address], 02/22/2023 19:07:31 02/22/20 23 02/22/2023 T4, FREE T4, free 1.0 NG/dL 0.8-1. 8 normal Not Available [facility] [address] [place], [address], 02/22/2023 19:07:32 02/22/20 23 02/22/2023 TSH, THYRO ID STIMU LATIN G HORMO NE TSH 3.63 mIU/L 0.40-4 .50 normal Not Available [facility] [address] [place], [address], 02/22/2023 19:07:33 02/22/20 23 02/22/2023 VITAM IN D, 25-HY DROXY vitamin D,25-oh,tota [...] /MS is recom elisabet d: order code 95179 (martin ents >2yrs ). See Note 1 Note 1 For addit ional infor reese cunningham refer to http: //[facility] romulo Mastia gnost ics.c om/fa q/FAQ 199 (This link is being provi ded for infor ronan joaquin/ educsanchez quezada purpo ses only. ) Not Available [facility] [address], [place], [address], 02/22/2023 19:07:34 02/22/20 23 02/22/2023 CBC W/ AUTOD IFF, COMPL ETE BLOOD COUNT white blood cell count 6.6 thous and/u L 3.8-10 .8 normal Not Available [facility] [address], [place], [address], 02/22/2023 19:07:35 02/22/20 23 02/22/2023 CBC W/ AUTOD IFF, COMPL ETE BLOOD COUNT red blood cell count 4.36 jh on/uL 3.80-5 .10 normal Not Available [facility] [address], [place], [address], 02/22/2023 19:07:35 02/22/20 23 02/22/2023 CBC W/ AUTOD IFF, COMPL ETE BLOOD COUNT hemoglobin 13.0 g/dL 11.7-1 5.5 normal Not Available [facility] [address], [place], [address], 02/22/2023 19:07:35 02/22/20 23 02/22/2023 CBC W/ AUTOD IFF, COMPL ETE BLOOD COUNT hematocrit 38.9 % 35.0-4 5.0 normal Not Available [facility] [address], [place], [address], 02/22/2023 19:07:35 02/22/20 23 02/22/2023 CBC W/ AUTOD IFF, COMPL ETE BLOOD COUNT MCV 89.2 fL 80.0-1 00.0 normal Not Available [facility] [address], [place], [address], 02/22/2023 19:07:35 02/22/20 23 02/22/2023 CBC W/ AUTOD IFF, COMPL ETE BLOOD COUNT MCH 29.8 pg 27.0-3 3.0 normal Not Available [facility] [address], [place], [address], 02/22/2023 19:07:35 02/22/20 23 02/22/2023 CBC W/ AUTOD IFF, COMPL ETE BLOOD COUNT MCHC 33.4 g/dL 32.0-3 6.0 normal Not Available [facility] [address], [place], [address], 02/22/2023 19:07:35 02/22/20 23 02/22/2023 CBC W/ AUTOD IFF, COMPL ETE BLOOD COUNT RDW 12.6 % 11.0-1 5.0 normal Not Available [facility], [place], [address], 02/22/2023 19:07:35 02/22/2002/22/2023 CBC W/ AUTOD IFF, COMPL ETE BLOOD COUNT platelet count 282 thous and/u L 140-40 0 normal Not Available [facility] [facility] [address], [place], [address], 02/22/2023 19:07:35 02/22/20 23 02/22/2023 CBC W/ AUTOD IFF, COMPL ETE BLOOD COUNT MPV 10.1 fL 7.5-12 .5 normal Not Available [facility], [place], [address], 02/22/2023 19:07:35 02/22/20 23 02/22/2023 CBC W/ AUTOD IFF, COMPL ETE BLOOD COUNT absolute neutrophils 3544 cells /uL 1500-7 800 normal Not Available [facility], [place], [address], 02/22/2023 19:07:35 02/22/2002/22/2023 CBC W/ AUTOD IFF, COMPL ETE BLOOD COUNT absolute lymphocytes 2257 cells /uL 850-39 00 normal Not Available [facility], [place], [address], 02/22/2023 19:07:35 02/22/20 23 02/22/2023 CBC W/ AUTOD IFF, COMPL ETE BLOOD COUNT absolute monocytes 587 cells /uL 200-95 0 normal Not Available [facility], [place], [address], 02/22/2023 19:07:35 02/22/20 23 02/22/2023 CBC W/ AUTOD IFF, COMPL ETE BLOOD COUNT absolute eosinophils 158 cells /uL 15-500 normal Not Available [facility], [place], [address], 02/22/2023 19:07:35 02/22/20 23 02/22/2023 CBC W/ AUTOD IFF, COMPL ETE BLOOD COUNT absolute basophils 53 cells /uL 0-200 normal Not Available [facility] [address] [place] [address] [address], [place], [address], 02/22/2023 19:07:35 02/22/20 23 02/22/2023 CBC W/ AUTOD IFF, COMPL ETE BLOOD COUNT neutrophils 53.7 % normal Not Available [facility], [place], [address], 02/22/2023 19:07:35 02/22/20 23 02/22/2023 CBC W/ AUTOD IFF, COMPL ETE BLOOD COUNT lymphocytes 34.2 % normal Not Available [facility] [address] [place] [address] [address], [place], [address], 02/22/2023 19:07:35 02/22/20 23 02/22/2023 CBC W/ AUTOD IFF, COMPL ETE BLOOD COUNT monocytes 8.9 % normal Not Available [facility] [address], [place], [address], 02/22/2023 19:07:35 02/22/20 23 02/22/2023 CBC W/ AUTOD IFF, COMPL ETE BLOOD COUNT eosinophils 2.4 % normal Not Available [facility] [address] [facility] [address], [place], [address], 02/22/2023 19:07:35 02/22/20 23 02/22/2023 CBC W/ AUTOD IFF, COMPL ETE BLOOD COUNT basophils 0.8 % normal Not Available [facility] [address] [facility] [address], [place], [address], 02/22/2023 19:07:35 02/22/20 23 02/22/2023 CK creatine kinase, total 50 U/L 29-143 normal Not Available [facility] [address], [place], [address], 02/22/2023 19:07:35 02/22/20 23 02/22/2023 CMP, COMPR EHENS AMY METAB OLIC PANEL glucose 80 mg/dL 65-99 normal Fasti ng refer ence inter jason Not Available [facility] [address], [place], [address], 02/22/2023 19:07:36 02/22/20 23 02/22/2023 CMP, COMPR EHENS AMY METAB OLIC PANEL urea nitrogen (BUN) 16 mg/dL 7-25 normal Not Available [facility] [address] [place], [place] [address], [place], [address], 02/22/2023 19:07:36 02/22/20 23 02/22/2023 CMP, COMPR EHENS AMY METAB OLIC PANEL creatinine 0.63 mg/dL 0.60-0 .95 normal Not Available [facility] [address], [place], [address], 02/22/2023 19:07:36 02/22/20 23 02/22/2023 CMP, COMPR EHENS AMY METAB OLIC PANEL eGFR 87 mL/mi n/1.7 3m2 > or = 60 normal The eGFR is based on the CKD-E PI 2020 eduardaat charles. To calcu late the new eGFR from a previ ous Creat inine or Cysta tin C resul t, go to https ://vero w.faye bauery.o rg/pr kasie sotoal s/ kdoqi /gfr% 5Fcal culat or Not Available [facility] [address], [place], [address], 02/22/2023 19:07:36 02/22/20 23 02/22/2023 CMP, COMPR EHENS AMY METAB OLIC PANEL BUN/creatini ne ratio NOT APPLIC ABLE (calc ) 6-22 Not Available [facility] [address], [place], [address], 02/22/2023 19:07:36 02/22/20 23 02/22/2023 CMP, COMPR EHENS AMY METAB OLIC PANEL sodium 140 mmol/ L 135-14 6 normal Not Available [facility] [address], [place], [address], 02/22/2023 19:07:36 02/22/20 23 02/22/2023 CMP, COMPR EHENS AMY METAB OLIC PANEL potassium 4.1 mmol/ L 3.5-5. 3 normal Not Available [facility] [address], [place], [address], 02/22/2023 19:07:36 02/22/20 23 02/22/2023 CMP, COMPR EHENS AMY METAB OLIC PANEL chloride 102 mmol/ L 98-110 normal Not Available [facility] [address], [place], [address], 02/22/2023 19:07:36 02/22/20 23 02/22/2023 CMP, COMPR EHENS AMY METAB OLIC PANEL carbon dioxide 33 mmol/ L 20-32 high Not Available [facility] [address], [place], [address], 02/22/2023 19:07:36 02/22/20 23 02/22/2023 CMP, COMPR EHENS AMY METAB OLIC PANEL calcium 9.0 mg/dL 8.6-10 .4 normal Not Available [facility] [address], [place], [address], 02/22/2023 19:07:36 02/22/20 23 02/22/2023 CMP, COMPR EHENS AMY METAB OLIC PANEL protein, total 6.4 g/dL 6.1-8. 1 normal Not Available [facility] [address], [place], [address], 02/22/2023 19:07:36 02/22/20 23 02/22/2023 CMP, COMPR EHENS AMY METAB OLIC PANEL albumin 4.2 g/dL 3.6-5. 1 normal Not Available [facility], [place], [address], 02/22/2023 19:07:36 02/22/20 23 02/22/2023 CMP, COMPR EHENS AMY METAB OLIC PANEL globulin 2.2 g/dL_ (calc ) 1.9-3. 7 normal Not Available [facility] [address] [place] [address] [address], [place], [address], 02/22/2023 19:07:36 02/22/20 23 02/22/2023 CMP, COMPR EHENS AMY METAB OLIC PANEL albumin/glob ulin ratio 1.9 (calc ) 1.0-2. 5 normal Not Available [facility] [address] [place] [address] [address], [place], [address], 02/22/2023 19:07:36 02/22/20 23 02/22/2023 CMP, COMPR EHENS AMY METAB OLIC PANEL bilirubin, total 0.6 mg/dL 0.2-1. 2 normal Not Available [facility] [address], [place], [address], 02/22/2023 19:07:36 02/22/20 23 02/22/2023 CMP, COMPR EHENS AMY METAB OLIC PANEL alkaline phosphatase 62 U/L 37-153 normal Not Available [facility] [address], [place], [address], 02/22/2023 19:07:36 02/22/20 23 02/22/2023 CMP, COMPR EHENS AMY METAB OLIC PANEL AST 15 U/L 10-35 normal Not Available [facility] [address] [facility] [facility] [address], [place], [address], 02/22/2023 19:07:36 02/22/20 23 02/22/2023 CMP, COMPR EHENS AMY METAB OLIC PANEL ALT 11 U/L 6-29 normal Not Available [facility] [address] [facility] [facility] [address], [place], [address], 02/22/2023 19:07:36 02/22/20 23 02/22/2023 LIPID PANEL W/ CALCU LATED LDL cholesterol, total 198 mg/dL <200 normal Not Available [facility] [address] [facility] [facility] [address], [place], [address], 02/22/2023 19:07:37 02/22/20 23 02/22/2023 LIPID PANEL W/ CALCU LATED LDL HDL cholesterol 63 mg/dL > or = 50 normal Not Available [facility] [address] [facility] [facility] [address], [place], [address], 02/22/2023 19:07:37 02/22/20 23 02/22/2023 LIPID PANEL W/ CALCU LATED LDL triglyceride s 106 mg/dL <150 normal Not Available [facility] [address] [place], [address], 02/22/2023 19:07:37 02/22/20 23 02/22/2023 LIPID PANEL [...] n, which is a valid ated novel metho d provi ding cristiana r accur acy than the Fried roseline equat ion in the estim ation of LDL-C . Tracy foley SS et al. ESTELLA. 2013; 310(1 9): 2061- 2068 (http ://ed ucati on.Qu jeramyTriton Algae Innovations. com/f aq/FA Q164) Not Available [facility] [address] [facility] [address] [place], [address], 02/22/2023 19:07:37 02/22/20 23 02/22/2023 LIPID PANEL W/ CALCU LATED LDL chol/HDLC ratio 3.1 (calc ) <5.0 normal Not Available [facility] [address] [facility] [address], [place], [address], 02/22/2023 19:07:37 02/22/20 23 02/22/2023 LIPID PANEL W/ CALCU LATED LDL non HDL cholesterol 135 mg/dL _(fern c) <130 high For patie nts with diabe johann plus 1 major ASCVD risk facto r, treat ing to a non-H DL-C goal of <100 mg/dL (LDL- C of <70 mg/dL ) is consi dered a thera peuti c optio n. Not Available [facility] [address], [place], [address], 02/22/2023 19:07:37 02/22/2002/23/2023 URINA LYSIS , COMPL ETE W/ REFLE X TO CULTU RE color YELLOW yellow normal Not Available [facility] [address] [place] [address] [address], [place], [address], 02/23/2023 09:58:55 02/22/20 23 02/23/2023 URINA LYSIS , COMPL ETE W/ REFLE X TO CULTU RE appearance TURBID clear abnormal Not Available [facility] [address] [place] [address] [address], [place], [address], 02/23/2023 09:58:55 02/22/20 23 02/23/2023 URINA LYSIS , COMPL ETE W/ REFLE X TO CULTU RE specific gravity 1.023 1.001- 1.035 normal Not Available [facility] [address] [place] [address] [address] [place], [address], 02/23/2023 09:58:55 02/22/20 23 02/23/2023 URINA LYSIS , COMPL ETE W/ REFLE X TO CULTU RE pH < OR = 5.0 5.0-8. 0 normal Not Available [facility] [address] [place] [address] [address] [place], [address], 02/23/2023 09:58:55 02/22/20 23 02/23/2023 URINA LYSIS , COMPL ETE W/ REFLE X TO CULTU RE glucose NEGATI VE negati ve normal Not Available [facility] [address] [place] [address] [address] [facility], [place], [address], 02/23/2023 09:58:55 02/22/20 23 02/23/2023 URINA LYSIS , COMPL ETE W/ REFLE X TO CULTU RE bilirubin NEGATI VE negati ve normal Not Available [facility] [address] [place] [address] [address], [place], [address], 02/23/2023 09:58:55 02/22/20 23 02/23/2023 URINA LYSIS , COMPL ETE W/ REFLE X TO CULTU RE ketones NEGATI VE negati ve normal Not Available [facility] [address] [place] [address] [address], [place], [address], 02/23/2023 09:58:55 02/22/20 23 02/23/2023 URINA LYSIS , COMPL ETE W/ REFLE X TO CULTU RE occult blood NEGATI VE negati ve normal Not Available [facility] [address] [place] [address] [address], [place], [address], 02/23/2023 09:58:55 02/22/20 23 02/23/2023 URINA LYSIS , COMPL ETE W/ REFLE X TO CULTU RE protein NEGATI VE negati ve normal Not Available [facility] [address] [place] [address] [address], [place], [address], 02/23/2023 09:58:55 02/22/20 23 02/23/2023 URINA LYSIS , COMPL ETE W/ REFLE X TO CULTU RE nitrite NEGATI VE negati ve normal Not Available [facility] [address] [place] [address] [address], [place], [address], 02/23/2023 09:58:55 02/22/20 23 02/23/2023 URINA LYSIS , COMPL ETE W/ REFLE X TO CULTU RE leukocyte esterase TRACE negati ve abnormal Not Available [facility] [address] [place] [address] [address], [place], [address], 02/23/2023 09:58:55 02/22/20 23 02/23/2023 URINA LYSIS , COMPL ETE W/ REFLE X TO CULTU RE WBC 0-5 /hpf < or = 5 normal Not Available [facility] [address] [place] [address] By, [place], [address], 02/23/2023 09:58:55 02/22/20 23 02/23/2023 URINA LYSIS , COMPL ETE W/ REFLE X TO CULTU RE RBC 0-2 /hpf < or = 2 normal Not Available [facility] [address] [place] [address] By, [place], [address], 02/23/2023 09:58:55 02/22/20 23 02/23/2023 URINA LYSIS , COMPL ETE W/ REFLE X TO CULTU RE squamous epithelial cells 10-20 /hpf < or = 5 abnormal Not Available [facility] [address] [place] [address] [place], [address], 02/23/2023 09:58:55 02/22/20 23 02/23/2023 URINA LYSIS , COMPL ETE W/ REFLE X TO CULTU RE bacteria FEW /hpf none seen abnormal Not Available [facility] [address] [place] [address] [place], [address], 02/23/2023 09:58:55 02/22/20 23 02/23/2023 URINA LYSIS , COMPL ETE W/ REFLE X TO CULTU RE amorphous sediment MODERA TE /hpf none or few abnormal Not Available [facility] [address] [place] [address] By, [place], [address], 02/23/2023 09:58:55 02/22/20 23 02/23/2023 URINA LYSIS , COMPL ETE W/ REFLE X TO CULTU RE hyaline cast NONE SEEN /lpf none seen normal Not Available [facility] [address] [place] [address] By, [place], [address], 02/23/2023 09:58:55 02/22/20 23 02/23/2023 URINA LYSIS , COMPL ETE W/ REFLE X TO CULTU RE note SEE NOTE This urine was may zed for the prese nce of WBC, RBC, bacte viola, casts , and other forme d eleme nts. Only those eleme nts seen were repor shi. Not Available [facility] [address] [facility] [address], [place], [address], 02/23/2023 09:58:55 02/22/20 23 02/23/2023 REFLE XIVE URINE CULTU RE reflexive urine culture SEE NOTE CULTU RE INDIC ATED - RESUL TS TO FOLLO W Not Available [facility] [address] [facility] [address], [place], [address], 02/23/2023 09:58:57 02/22/2002/23/2023 CULTU RE, URINE , ROUTI NE culture, urine, routine SEE NOTE CULTU RE, URINE , ROUTI NE Micro Numbe r: [id number] Test Statu s: Final Speci men [...] Cultu re Trans port Tube. Not Available [facility] [address], [place], [address], 02/23/2023 09:58:58 02/22/2002/21/2023 VENIP UNCTU RE results Compl ete Not Available [facility] [address], [place], [address], 02/21/2023 09:13:30 11/08/19 24 11/09/2023 CBC (H/H, RBC, INDIC ES, WBC, PLT) white blood cell count 6.3 thous and/u L 3.8-10 .8 normal Not Available [facility] [address], [place], [address], 11/09/2023 12:33:32 11/08/19 24 11/09/2023 CBC (H/H, RBC, INDIC ES, WBC, PLT) red blood cell count 4.04 jh on/uL 3.80-5 .10 normal Not Available [facility] [address] [place], [place] [address]y [address], [place], [address], 11/09/2023 12:33:32 11/08/19 24 11/09/2023 CBC (H/H, RBC, INDIC ES, WBC, PLT) hemoglobin 12.1 g/dL 11.7-1 5.5 normal Not Available [facility] [address] [place], [place] [address]y [address], [place], [address], 11/09/2023 12:33:32 11/08/19 24 11/09/2023 CBC (H/H, RBC, INDIC ES, WBC, PLT) hematocrit 36.4 % 35.0-4 5.0 normal Not Available [facility] [address] [place], [place] [address]y [address] [place], [address], 11/09/2023 12:33:32 11/08/19 24 11/09/2023 CBC (H/H, RBC, INDIC ES, WBC, PLT) MCV 90.1 fL 80.0-1 00.0 normal Not Available [facility] [address] [place], [place] [address]y [address], [place], [address], 11/09/2023 12:33:32 11/08/19 24 11/09/2023 CBC (H/H, RBC, INDIC ES, WBC, PLT) MCH 30.0 pg 27.0-3 3.0 normal Not Available [facility] [address] [place] [address] [address], [place], [address], 11/09/2023 12:33:32 11/08/19 24 11/09/2023 CBC (H/H, RBC, INDIC ES, WBC, PLT) MCHC 33.2 g/dL 32.0-3 6.0 normal Not Available [facility] [address] [facility] [address], [place], [address], 11/09/2023 12:33:32 11/08/19 24 11/09/2023 CBC (H/H, RBC, INDIC ES, WBC, PLT) RDW 12.6 % 11.0-1 5.0 normal Not Available [facility] [address] [facility] [address], [place], [address], 11/09/2023 12:33:32 11/08/19 24 11/09/2023 CBC (H/H, RBC, INDIC ES, WBC, PLT) platelet count 253 thous and/u L 140-40 0 normal Not Available [facility] [address] [facility] [address], [place], [address], 11/09/2023 12:33:32 11/08/19 24 11/09/2023 CBC (H/H, RBC, INDIC ES, WBC, PLT) MPV 10.9 fL 7.5-12 .5 normal Not Available [facility] [address] [facility] 41 [place], [address], 11/09/2023 12:33:32 11/08/19 24 11/09/2023 CMP, COMPR EHENS AMY METAB OLIC PANEL glucose 85 mg/dL 65-99 normal Fasti ng refer ence inter jason Not Available [facility] [address] [facility] [address], [place], [address], 11/09/2023 12:33:33 11/08/19 24 11/09/2023 CMP, COMPR EHENS AMY METAB OLIC PANEL urea nitrogen (BUN) 18 mg/dL 7-25 normal Not Available [facility] [address] [facility] [address], [place], [address], 11/09/2023 12:33:33 11/08/19 24 11/09/2023 CMP, COMPR EHENS AMY METAB OLIC PANEL creatinine 0.66 mg/dL 0.60-0 .95 normal Not Available [facility] [address] [facility] [address], [place], [address], 11/09/2023 12:33:33 11/08/19 24 11/09/2023 CMP, COMPR EHENS AMY METAB OLIC PANEL eGFR 85 mL/mi n/1.7 3m2 > or = 60 normal Not Available [facility] [address] [facility] [address] [place], [address], 11/09/2023 12:33:33 11/08/19 24 11/09/2023 CMP, COMPR EHENS AMY METAB OLIC PANEL BUN/creatini ne ratio SEE NOTE: (calc ) 6-22 Not Repor shi: BUN and Creat inine are withi n refer ence range . Not Available [facility] [address] [facility] [address], [place], [address], 11/09/2023 12:33:33 11/08/19 24 11/09/2023 CMP, COMPR EHENS AMY METAB OLIC PANEL sodium 139 mmol/ L 135-14 6 normal Not Available [facility] [address] [facility] [address] [place], [address], 11/09/2023 12:33:33 11/08/19 24 11/09/2023 CMP, COMPR EHENS AMY METAB OLIC PANEL potassium 3.9 mmol/ L 3.5-5. 3 normal Not Available [facility] [address] [facility] [address], [place], [address], 11/09/2023 12:33:33 11/08/19 24 11/09/2023 CMP, COMPR EHENS AMY METAB OLIC PANEL chloride 102 mmol/ L 98-110 normal Not Available [facility] [address] [facility] [address], [place], [address], 11/09/2023 12:33:33 11/08/19 24 11/09/2023 CMP, COMPR EHENS AMY METAB OLIC PANEL carbon dioxide 28 mmol/ L 20-32 normal Not Available [facility] [address] [facility] [address], [place], [address], 11/09/2023 12:33:33 11/08/19 24 11/09/2023 CMP, COMPR EHENS AYM METAB OLIC PANEL calcium 8.9 mg/dL 8.6-10 .4 normal Not Available [facility] [address] [facility] [address], [place], [address], 11/09/2023 12:33:33 11/08/19 24 11/09/2023 CMP, COMPR EHENS AMY METAB OLIC PANEL protein, total 6.3 g/dL 6.1-8. 1 normal Not Available [facility] [address] [facility] [address], [place], [address], 11/09/2023 12:33:33 11/08/19 24 11/09/2023 CMP, COMPR EHENS AMY METAB OLIC PANEL albumin 4.0 g/dL 3.6-5. 1 normal Not Available [facility] [address] [facility] [address], [place], [address], 11/09/2023 12:33:33 11/08/19 24 11/09/2023 CMP, COMPR EHENS AMY METAB OLIC PANEL globulin 2.3 g/dL_ (calc ) 1.9-3. 7 normal Not Available [facility] [address] [facility] [address], [place], [address], 11/09/2023 12:33:33 11/08/19 24 11/09/2023 CMP, COMPR EHENS AMY METAB OLIC PANEL albumin/glob ulin ratio 1.7 (calc ) 1.0-2. 5 normal Not Available [facility] [address] [facility] [address], [place], [address], 11/09/2023 12:33:33 11/08/19 24 11/09/2023 CMP, COMPR EHENS AMY METAB OLIC PANEL bilirubin, total 0.7 mg/dL 0.2-1. 2 normal Not Available [facility] [address] [facility] [address], [place], [address], 11/09/2023 12:33:33 11/08/19 24 11/09/2023 CMP, COMPR EHENS AMY METAB OLIC PANEL alkaline phosphatase 70 U/L 37-153 normal Not Available [facility] [address] [facility] [address], [place], [address], 11/09/2023 12:33:33 11/08/19 24 11/09/2023 CMP, COMPR EHENS AMY METAB OLIC PANEL AST 15 U/L 10-35 normal Not Available [facility] [address] [facility] [address] [place], [address], 11/09/2023 12:33:33 11/08/19 24 11/09/2023 CMP, COMPR EHENS AMY METAB OLIC PANEL ALT 9 U/L 6-29 normal Not Available [facility] [address] [facility] [address] [place], [address], 11/09/2023 12:33:33 11/08/19 24 11/09/2023 LIPID PANEL W/ CALCU LATED LDL cholesterol, total 176 mg/dL <200 normal Not Available [facility] [address], [place], [address], 11/09/2023 12:33:34 11/08/19 24 11/09/2023 LIPID PANEL W/ CALCU LATED LDL HDL cholesterol 56 mg/dL > or = 50 normal Not Available [facility] [address], [place], [address], 11/09/2023 12:33:34 11/08/19 24 11/09/2023 LIPID PANEL W/ CALCU LATED LDL triglyceride s 100 mg/dL <150 normal Not Available [facility] [address], [place], [address], 11/09/2023 12:33:34 11/08/19 24 11/09/2023 LIPID PANEL [...] n, which is a valid ated novel metho d provi ding cristiana r accur acy than the Fried roseline equat ion in the estim ation of LDL-C . Tracy foley SS et al. ESTELLA. 2013; 310(1 9): 2061- 2068 (http ://ed ucati on.Qu Rosy boldUnderline. llc. com/f aq/FA Q164) Not Available [facility] [address], [place], [address], 11/09/2023 12:33:34 11/08/19 24 11/09/2023 LIPID PANEL W/ CALCU LATED LDL chol/HDLC ratio 3.1 (calc ) <5.0 normal Not Available [facility] [address], [place], [address], 11/09/2023 12:33:34 11/08/19 24 11/09/2023 LIPID PANEL W/ CALCU LATED LDL non HDL cholesterol 120 mg/dL _(fern c) <130 normal For patie nts with diabe johann plus 1 major ASCVD risk facto r, treat ing to a non-H DL-C goal of <100 mg/dL (LDL- C of <70 mg/dL ) is consi dered a thera peuttricia c optio n. Not Available [facility] [address], [place], [address], 11/09/2023 12:33:34 11/08/19 24 11/09/2023 TSH, THYRO ID STIMU LATIN G HORMO NE TSH 2.93 mIU/L 0.40-4 .50 normal Not Available [facility] [address], [place], [address], 11/09/2023 12:33:35 11/08/19 24 11/09/2023 VITAM IN D, 25-HY DROXY vitamin D,25-oh,mayi kern 28 NG/mL 30-100 low Vitam in D [...] /MS is recom elisabet d: order code 94158 (martin ents >2yrs ). See Note 1 Note 1 For addit ional infor reese cunningham e refer to http: //jose manuel foley.Que stDia gnost ics.c om/fa q/FAQ 199 (This link is being provi ded for infor matio nal/ educa ofe l purpo ses only. ) Not Available [facility] [address] [place] [address] [address] [facility], [place], [address], 11/09/2023 12:33:36 11/08/19 24 11/08/2023 VENIP UNCTU RE results Compl ete Not Available [facility] [address] [place] [address], [place], [address], 11/08/2023 08:09:27 01/03/20 24 01/06/2024 URINA LYSIS , COMPL ETE W/ REFLE X TO CULTU RE color YELLOW yellow normal Not Available [facility] [address] [place] [address] [address] [facility], [place], [address], 01/06/2024 12:37:34 01/03/20 24 01/06/2024 URINA LYSIS , COMPL ETE W/ REFLE X TO CULTU RE appearance TURBID clear abnormal Not Available [facility] [address] [place] [address], [address], 01/06/2024 12:37:34 01/03/20 24 01/06/2024 URINA LYSIS , COMPL ETE W/ REFLE X TO CULTU RE specific gravity 1.021 1.001- 1.035 normal Not Available [facility] [address] [place] [address], [address], 01/06/2024 12:37:34 01/03/20 24 01/06/2024 URINA LYSIS , COMPL ETE W/ REFLE X TO CULTU RE pH 5.5 5.0-8. 0 normal Not Available [facility] [address] [place] [address] [address] [facility], [place], [address], 01/06/2024 12:37:34 01/03/20 24 01/06/2024 URINA LYSIS , COMPL ETE W/ REFLE X TO CULTU RE glucose NEGATI VE negati ve normal Not Available [facility] [address] [place] [address] [address], [place], [address], 01/06/2024 12:37:34 01/03/20 24 01/06/2024 URINA LYSIS , COMPL ETE W/ REFLE X TO CULTU RE bilirubin NEGATI VE negati ve normal Not Available [facility] [address] [place] [address] [address], [place], [address], 01/06/2024 12:37:34 01/03/20 24 01/06/2024 URINA LYSIS , COMPL ETE W/ REFLE X TO CULTU RE ketones TRACE negati ve abnormal Not Available [facility] [address] [place] [address] [address], [place], [address], 01/06/2024 12:37:34 01/03/20 24 01/06/2024 URINA LYSIS , COMPL ETE W/ REFLE X TO CULTU RE occult blood NEGATI VE negati ve normal Not Available [facility] [address] [place] [address] [address], [place], [address], 01/06/2024 12:37:34 01/03/20 24 01/06/2024 URINA LYSIS , COMPL ETE W/ REFLE X TO CULTU RE protein NEGATI VE negati ve normal Not Available [facility] [address] [place] [address] [address] [facility], [place], [address], 01/06/2024 12:37:34 01/03/20 24 01/06/2024 URINA LYSIS , COMPL ETE W/ REFLE X TO CULTU RE nitrite NEGATI VE negati ve normal Not Available [facility] [address] [place] [address] [address], [place], [address], 01/06/2024 12:37:34 01/03/20 24 01/06/2024 URINA LYSIS , COMPL ETE W/ REFLE X TO CULTU RE leukocyte esterase TRACE negati ve abnormal Not Available [facility] [address] [place] [address] [address], [place], [address], 01/06/2024 12:37:34 01/03/20 24 01/06/2024 URINA LYSIS , COMPL ETE W/ REFLE X TO CULTU RE WBC NONE SEEN /hpf < or = 5 normal Not Available [facility] [address] [place] [address] [address], [place], [address], 01/06/2024 12:37:34 01/03/20 24 01/06/2024 URINA LYSIS , COMPL ETE W/ REFLE X TO CULTU RE RBC 0-2 /hpf < or = 2 normal Not Available [facility] [address] [place] [address] [address], [place], [address], 01/06/2024 12:37:34 01/03/20 24 01/06/2024 URINA LYSIS , COMPL ETE W/ REFLE X TO CULTU RE squamous epithelial cells 0-5 /hpf < or = 5 Not Available [facility] [address] [place] [address] By, [place], [address], 01/06/2024 12:37:34 01/03/20 24 01/06/2024 URINA LYSIS , COMPL ETE W/ REFLE X TO CULTU RE bacteria NONE SEEN /hpf none seen normal Not Available [facility] [address] [place] [address] By, [place], [address], 01/06/2024 12:37:34 01/03/20 24 01/06/2024 URINA LYSIS , COMPL ETE W/ REFLE X TO CULTU RE hyaline cast NONE SEEN /lpf none seen normal Not Available [facility] [address] [place] [address] [address], [place], [address], 01/06/2024 12:37:34 01/03/20 24 01/06/2024 URINA LYSIS , COMPL ETE W/ REFLE X TO CULTU RE note SEE NOTE This urine was may zed for the prese nce of WBC, RBC, bacte viola, casts , and other forme d eleme nts. Only those eleme nts seen were repor shi. Not Available [facility] [address] [facility] [address], [place], [address], 01/06/2024 12:37:34 01/03/20 24 01/06/2024 REFLE XIVE URINE CULTU RE reflexive urine culture SEE NOTE CULTU RE INDIC ATED - RESUL TS TO FOLLO W Not Available [facility] [address] [facility] [address], [place], [address], 01/06/2024 12:37:35 01/03/20 24 01/06/2024 CULTU RE, [...] Tube, is recom elisabet d. Not Available [facility] [address] [facility] [address], [place], [address], 01/06/2024 12:37:36 02/14/20 24 02/16/2024 A1C hemoglobin A1C 5.6 %_of_ total _HGB <5.7 normal For the purpo se of zafar peresg for the prese nce of diabe johann: <5.7% Consi stent with the absen ce of diabe johann 5.7-6 .4% Consi stent with incre ased risk for diabe johann (pred iabet es) > or =6.5% Consi stent with diabe johann This assay resul t is consi stent with a decre ased risk of diabe johann. Curre ntly, no conse nsus exist s regar gigi use of hemog lobin A1c for diagn [...] This test was perfo rmed on the [facility] c503 platf orm. Effec tive 08/15, a sigifredo e in test platf orms from the [facility] to the [facility] c503 may have shift ed HbA1c resul ts zainab red to histo rical resul ts. Based on labor atory valid ation testi ng condu cted at [facility] , the [facility] platf orm relat amy to the [facility] platf orm had an avera ge incre ase in HbA1c value of < or = 0.3%. This diffe rence is withi n accep shi varia bilit y estab lishe d by the Natio nal [employer] hemog lobin Stand ardiz ation Progr am. Note that not all indiv idual s will have had a shift in their resul ts and direc t zainab rison s betwe en histo rical and curre nt resul ts for testi ng condu cted on diffe rent platf orms is not recom elisabet d. Not Available [facility] [address] [place], [address], 02/16/2024 10:56:01 02/14/20 24 02/16/2024 VITAM IN B-12 vitamin B12 >2000 pg/mL 200-11 00 high Not Available [facility] [address], [place], [address], 02/16/2024 10:56:02 02/14/20 24 02/16/2024 TSH W/REF GARRET TO FT4 TSH w/reflex to FT4 2.42 mIU/L 0.40-4 .50 normal Not Available [facility] [address], [place], [address], 02/16/2024 10:56:03 02/14/20 24 02/16/2024 VITAM IN [...] /MS is recom elisabet d: order code 54515 (martin ents >2yrs ). See Note 1 Note 1 For addit ional infor reese cunningham refer to http: //jose manuel Samuels stDia gnost ics.c om/fa q/FAQ 199 (This link is being provi ded for infor ronan joaquin/ maria isabel quezada purpo ses only. ) Not Available [facility] [address], [place], [address], 02/16/2024 10:56:04 02/14/20 24 02/16/2024 CBC W/ AUTOD IFF, COMPL ETE BLOOD COUNT white blood cell count 6.3 thous and/u L 3.8-10 .8 normal Not Available [facility] [address], [place], [address], 02/16/2024 10:56:05 02/14/20 24 02/16/2024 CBC W/ AUTOD IFF, COMPL ETE BLOOD COUNT red blood cell count 4.26 jh on/uL 3.80-5 .10 normal Not Available [facility] [address], [place], [address], 02/16/2024 10:56:05 02/14/20 24 02/16/2024 CBC W/ AUTOD IFF, COMPL ETE BLOOD COUNT hemoglobin 12.7 g/dL 11.7-1 5.5 normal Not Available [facility] [address], [place], [address], 02/16/2024 10:56:05 02/14/20 24 02/16/2024 CBC W/ AUTOD IFF, COMPL ETE BLOOD COUNT hematocrit 40.4 % 35.0-4 5.0 normal Not Available [facility] [address], [place], [address], 02/16/2024 10:56:05 02/14/20 24 02/16/2024 CBC W/ AUTOD IFF, COMPL ETE BLOOD COUNT MCV 94.8 fL 80.0-1 00.0 normal Not Available [facility] [address], [place], [address], 02/16/2024 10:56:05 02/14/20 24 02/16/2024 CBC W/ AUTOD IFF, COMPL ETE BLOOD COUNT MCH 29.8 pg 27.0-3 3.0 normal Not Available [facility] [address], [place], [address], 02/16/2024 10:56:05 02/14/20 24 02/16/2024 CBC W/ AUTOD IFF, COMPL ETE BLOOD COUNT MCHC 31.4 g/dL 32.0-3 6.0 low Not Available [facility] [address], [place], [address], 02/16/2024 10:56:05 02/14/20 24 02/16/2024 CBC W/ AUTOD IFF, COMPL ETE BLOOD COUNT RDW 12.9 % 11.0-1 5.0 normal Not Available [facility] [address], [place], [address], 02/16/2024 10:56:05 02/14/20 24 02/16/2024 CBC W/ AUTOD IFF, COMPL ETE BLOOD COUNT platelet count 303 thous and/u L 140-40 0 normal Not Available [facility] [address], [place], [address], 02/16/2024 10:56:05 02/14/20 24 02/16/2024 CBC W/ AUTOD IFF, COMPL ETE BLOOD COUNT MPV 10.6 fL 7.5-12 .5 normal Not Available [facility] [address], [place], [address], 02/16/2024 10:56:05 02/14/20 24 02/16/2024 CBC W/ AUTOD IFF, COMPL ETE BLOOD COUNT absolute neutrophils 2747 cells /uL 1500-7 800 normal Not Available [facility] [address], [place], [address], 02/16/2024 10:56:05 02/14/20 24 02/16/2024 CBC W/ AUTOD IFF, COMPL ETE BLOOD COUNT absolute lymphocytes 2652 cells /uL 850-39 00 normal Not Available [facility] [address], [place], [address], 02/16/2024 10:56:05 02/14/20 24 02/16/2024 CBC W/ AUTOD IFF, COMPL ETE BLOOD COUNT absolute monocytes 573 cells /uL 200-95 0 normal Not Available [facility] [address], [place], [address], 02/16/2024 10:56:05 02/14/20 24 02/16/2024 CBC W/ AUTOD IFF, COMPL ETE BLOOD COUNT absolute eosinophils 258 cells /uL 15-500 normal Not Available [facility] [address], [place], [address], 02/16/2024 10:56:05 02/14/20 24 02/16/2024 CBC W/ AUTOD IFF, COMPL ETE BLOOD COUNT absolute basophils 69 cells /uL 0-200 normal Not Available [facility] [address], [place], [address], 02/16/2024 10:56:05 02/14/20 24 02/16/2024 CBC W/ AUTOD IFF, COMPL ETE BLOOD COUNT neutrophils 43.6 % normal Not Available [facility] [address], [place], [address], 02/16/2024 10:56:05 02/14/20 24 02/16/2024 CBC W/ AUTOD IFF, COMPL ETE BLOOD COUNT lymphocytes 42.1 % normal Not Available [facility] [address], [place], [address], 02/16/2024 10:56:05 02/14/20 24 02/16/2024 CBC W/ AUTOD IFF, COMPL ETE BLOOD COUNT monocytes 9.1 % normal Not Available [facility] [address], [place], [address], 02/16/2024 10:56:05 02/14/20 24 02/16/2024 CBC W/ AUTOD IFF, COMPL ETE BLOOD COUNT eosinophils 4.1 % normal Not Available [facility] [address], [place], [address], 02/16/2024 10:56:05 02/14/20 24 02/16/2024 CBC W/ AUTOD IFF, COMPL ETE BLOOD COUNT basophils 1.1 % normal Not Available [facility] [address] [facility] [address], [place], [address], 02/16/2024 10:56:05 02/14/20 24 02/16/2024 CMP, COMPR EHENS AMY METAB OLIC PANEL glucose 87 mg/dL 65-99 normal Fasti ng refer ence inter jason Not Available [facility] [address] [facility] [address], [place], [address], 02/16/2024 10:56:06 02/14/20 24 02/16/2024 CMP, COMPR EHENS AMY METAB OLIC PANEL urea nitrogen (BUN) 17 mg/dL 7-25 normal Not Available [facility] [address] [facility] [address], [place], [address], 02/16/2024 10:56:06 02/14/20 24 02/16/2024 CMP, COMPR EHENS AMY METAB OLIC PANEL creatinine 0.65 mg/dL 0.60-0 .95 normal Not Available [facility] [address] [facility] [address] [place], [address], 02/16/2024 10:56:06 02/14/20 24 02/16/2024 CMP, COMPR EHENS AMY METAB OLIC PANEL eGFR 86 mL/mi n/1.7 3m2 > or = 60 normal Not Available [facility] [address] [facility] [address], [place], [address], 02/16/2024 10:56:06 02/14/20 24 02/16/2024 CMP, COMPR EHENS AMY METAB OLIC PANEL BUN/creatini ne ratio SEE NOTE: (calc ) 6-22 Not Repor shi: BUN and Creat inine are withi n refer ence range . Not Available [facility] [address] [facility] [address], [place], [address], 02/16/2024 10:56:06 02/14/20 24 02/16/2024 CMP, COMPR EHENS AMY METAB OLIC PANEL sodium 141 mmol/ L 135-14 6 normal Not Available [facility] [address] [facility] [address], [place], [address], 02/16/2024 10:56:06 02/14/20 24 02/16/2024 CMP, COMPR EHENS AMY METAB OLIC PANEL potassium 4.0 mmol/ L 3.5-5. 3 normal Not Available [facility] [address] [facility] [address], [place], [address], 02/16/2024 10:56:06 02/14/20 24 02/16/2024 CMP, COMPR EHENS AMY METAB OLIC PANEL chloride 103 mmol/ L 98-110 normal Not Available [facility] [address] [facility] [address], [place], [address], 02/16/2024 10:56:06 02/14/20 24 02/16/2024 CMP, COMPR EHENS AMY METAB OLIC PANEL carbon dioxide 33 mmol/ L 20-32 high Not Available [facility] [address] [facility] [address], [place], [address], 02/16/2024 10:56:06 02/14/20 24 02/16/2024 CMP, COMPR EHENS AMY METAB OLIC PANEL calcium 9.2 mg/dL 8.6-10 .4 normal Not Available [facility] [address], [place], [address], 02/16/2024 10:56:06 02/14/20 24 02/16/2024 CMP, COMPR EHENS AMY METAB OLIC PANEL protein, total 6.4 g/dL 6.1-8. 1 normal Not Available [facility] [address] [facility] [address], [place], [address], 02/16/2024 10:56:06 02/14/20 24 02/16/2024 CMP, COMPR EHENS AMY METAB OLIC PANEL albumin 4.3 g/dL 3.6-5. 1 normal Not Available [facility] [address] [facility] [address], [place], [address], 02/16/2024 10:56:06 02/14/20 24 02/16/2024 CMP, COMPR EHENS AMY METAB OLIC PANEL globulin 2.1 g/dL_ (calc ) 1.9-3. 7 normal Not Available [facility] [address], [place], [address], 02/16/2024 10:56:06 02/14/20 24 02/16/2024 CMP, COMPR EHENS AMY METAB OLIC PANEL albumin/glob ulin ratio 2.0 (calc ) 1.0-2. 5 normal Not Available [facility] [address], [place], [address], 02/16/2024 10:56:06 02/14/20 24 02/16/2024 CMP, COMPR EHENS AMY METAB OLIC PANEL bilirubin, total 0.7 mg/dL 0.2-1. 2 normal Not Available [facility] [address] [facility] [address] [place], [address], 02/16/2024 10:56:06 02/14/20 24 02/16/2024 CMP, COMPR EHENS AMY METAB OLIC PANEL alkaline phosphatase 63 U/L 37-153 normal Not Available [facility] [address], [place], [address], 02/16/2024 10:56:06 02/14/20 24 02/16/2024 CMP, COMPR EHENS AMY METAB OLIC PANEL AST 14 U/L 10-35 normal Not Available [facility] [address] [facility] [address], [place], [address], 02/16/2024 10:56:06 02/14/20 24 02/16/2024 CMP, COMPR EHENS AMY METAB OLIC PANEL ALT 9 U/L 6-29 normal Not Available [facility] [address] [facility] [address], [place], [address], 02/16/2024 10:56:06 02/14/20 24 02/16/2024 LIPID PANEL REF DLDL cholesterol, total 170 mg/dL <200 normal Not Available [facility] [address] [place] [address] [address] [place], [address], 02/16/2024 10:56:08 02/14/20 24 02/16/2024 LIPID PANEL REF DLDL HDL cholesterol 55 mg/dL > or = 50 normal Not Available [facility] [address] [address] [place], [address], 02/16/2024 10:56:08 02/14/20 24 02/16/2024 LIPID PANEL REF DLDL triglyceride s 126 mg/dL <150 normal Not Available [facility] [address] [place] [address], [address], 02/16/2024 10:56:08 02/14/20 24 02/16/2024 LIPID PANEL REF DLDL LDL-choleste rol 92 mg/dL _(fern c) normal Refer ence range : <100 Sonai able range <100 mg/dL for prima ry preve ntion ; <70 mg/dL for patie nts with CHD or diabe tic patie nts with > or = 2 CHD risk facto rs. LDL-C is now calcu lated using the Tracy n-Hop kins calcu latio n, which is a valid ated novel metho d provi ding cristiana r accur acy than the Fried roseline equat ion in the estim ation of LDL-C . Tracy n SS et al. ESTELLA. 2013; 310(1 9): 2061- 2068 (http ://ed ucati on.Qu Rosy hortonSimplify. com/f aq/FA Q164) Not Available [facility] [address] [facility] [address], [place], [address], 02/16/2024 10:56:08 02/14/20 24 02/16/2024 LIPID PANEL REF DLDL chol/HDLC ratio 3.1 (calc ) <5.0 normal Not Available [facility] [address] [facility] [address], [place], [address], 02/16/2024 10:56:08 02/14/20 24 02/16/2024 LIPID PANEL REF DLDL non HDL cholesterol 115 mg/dL _(fern c) <130 normal For patie nts with diabe johann plus 1 major ASCVD risk facto r, treat ing to a non-H DL-C goal of <100 mg/dL (LDL- C of <70 mg/dL ) is consi farazd sanchez parker optio n. Not Available [facility] [address] [facility] [address], [place], [address], 02/16/2024 10:56:08 02/14/20 24 02/14/2024 VENIP UNCTU RE results Compl ete Not Available [facility] [address] [facility] [address], [place], [address], 02/14/2024 08:35:56 02/13/20 25 02/12/2025 A1C hemoglobin A1C 5.2 % 4.3 - 5.6 ADA Recom elisabet d guide lines for HgbA1 C%: 5.7-6 .4% Predi abeti c < 7.0% Reaso nable glyce ford goal for non-p regna nt adult s < 8.0% Appro priat e for patie nts with hypog lycem ia or advan erika micro /macr o vascu lar compl icati ons Not Available [facility] [address] [facility] [address], [place], [address], 02/12/2025 14:29:32 02/13/20 25 02/12/2025 A1C estimated average glucose 103 mg/dL 97 - 140 Not Available [facility] [address] [facility] [address], [place], [address], 02/12/2025 14:29:32 02/13/20 25 02/12/2025 CBC W/ AUTOD IFF, COMPL ETE BLOOD COUNT WBC 4.9 K/uL 3.6 - 10.0 Not Available [facility] [address] [facility] [address], [place], [address], 02/12/2025 14:35:50 02/13/20 25 02/12/2025 CBC W/ AUTOD IFF, COMPL ETE BLOOD COUNT RBC 4.2 M/uL 3.9 - 5.0 Not Available [facility] [address] [facility] [address], [place], [address], 02/12/2025 14:35:50 02/13/20 25 02/12/2025 CBC W/ AUTOD IFF, COMPL ETE BLOOD COUNT hemoglobin 12.7 g/dL 12.0 - 15.0 Not Available [facility] [address] [facility] [address], [place], [address], 02/12/2025 14:35:50 02/13/20 25 02/12/2025 CBC W/ AUTOD IFF, COMPL ETE BLOOD COUNT hematocrit 37.7 % 35.0 - 45.0 Not Available [facility] [address] [facility] [address], [place], [address], 02/12/2025 14:35:50 02/13/20 25 02/12/2025 CBC W/ AUTOD IFF, COMPL ETE BLOOD COUNT MCV 90.9 fL 80.0 - 99.0 Not Available [facility] [address], [place], [address], 02/12/2025 14:35:50 02/13/20 25 02/12/2025 CBC W/ AUTOD IFF, COMPL ETE BLOOD COUNT MCH 30.5 pg 27.0 - 33.0 Not Available [facility] [address], [place], [address], 02/12/2025 14:35:50 02/13/20 25 02/12/2025 CBC W/ AUTOD IFF, COMPL ETE BLOOD COUNT MCHC 33.5 g/dL 32.0 - 37.5 Not Available [facility], [place], [address], 02/12/2025 14:35:50 02/13/20 25 02/12/2025 CBC W/ AUTOD IFF, COMPL ETE BLOOD COUNT RDW 13.6 % 11.0 - 15.0 Not Available [facility], [place], [address], 02/12/2025 14:35:50 02/13/20 25 02/12/2025 CBC W/ AUTOD IFF, COMPL ETE BLOOD COUNT nucleated RBC 0 % 0 - 2 Not Available [facility] [address], [place], [address], 02/12/2025 14:35:50 02/13/20 25 02/12/2025 CBC W/ AUTOD IFF, COMPL ETE BLOOD COUNT platelet 235 K/uL 140 - 440 Not Available [facility], [place], [address], 02/12/2025 14:35:50 02/13/20 25 02/12/2025 CBC W/ AUTOD IFF, COMPL ETE BLOOD COUNT MPV 8.3 fL 7.4 - 10.4 Not Available [facility] [address], [place], [address], 02/12/2025 14:35:50 02/13/20 25 02/12/2025 CBC W/ AUTOD IFF, COMPL ETE BLOOD COUNT neutrophil, percentage 42.0 % Not Available [facility] [address], [place], [address], 02/12/2025 14:35:50 02/13/20 25 02/12/2025 CBC W/ AUTOD IFF, COMPL ETE BLOOD COUNT lymphocyte, percentage 44.5 % Not Available [facility], [place], [address], 02/12/2025 14:35:50 02/13/20 25 02/12/2025 CBC W/ AUTOD IFF, COMPL ETE BLOOD COUNT monocyte, percentage 8.8 % Not Available [facility], [place], [address], 02/12/2025 14:35:50 02/13/20 25 02/12/2025 CBC W/ AUTOD IFF, COMPL ETE BLOOD COUNT eosinophil, percentage 3.5 % Not Available [facility] [address], [place], [address], 02/12/2025 14:35:50 02/13/20 25 02/12/2025 CBC W/ AUTOD IFF, COMPL ETE BLOOD COUNT basophil, percentage 1.2 % Not Available [facility], [place], [address], 02/12/2025 14:35:50 02/13/20 25 02/12/2025 CBC W/ AUTOD IFF, COMPL ETE BLOOD COUNT neutrophil, absolute 2.0 K/uL 1.5 - 7.5 Not Available [facility] [address], [place], [address], 02/12/2025 14:35:50 02/13/20 25 02/12/2025 CBC W/ AUTOD IFF, COMPL ETE BLOOD COUNT lymphocyte, absolute 2.2 K/uL 0.8 - 4.0 Not Available [facility] [address], [place], [address], 02/12/2025 14:35:50 02/13/20 25 02/12/2025 CBC W/ AUTOD IFF, COMPL ETE BLOOD COUNT monocyte, absolute 0.4 K/uL 0.1 - 1.0 Not Available [facility] [address] [place], [place] [address], [place], [address], 02/12/2025 14:35:50 02/13/20 25 02/12/2025 CBC W/ AUTOD IFF, COMPL ETE BLOOD COUNT eosinophil, absolute 0.2 K/uL 0.1 - 1.0 Not Available [facility] [address] [place], [place] [address], [place], [address], 02/12/2025 14:35:50 02/13/20 25 02/12/2025 CBC W/ AUTOD IFF, COMPL ETE BLOOD COUNT basophil, absolute 0.1 K/uL 0.0 - 0.2 Not Available [facility] [address] [facility] [address], [place], [address], 02/12/2025 14:35:50 02/13/20 25 02/12/2025 URINA LYSIS , COMPL ETE W/ REFLE X TO CULTU RE color YELLOW yellow Not Available [facility] [address], [place], [address], 02/12/2025 14:58:26 02/13/20 25 02/12/2025 URINA LYSIS , COMPL ETE W/ REFLE X TO CULTU RE appearance CLEAR clear, cloudy Not Available [facility] [address] [place] [address] [address] [facility], [place], [address], 02/12/2025 14:58:26 02/13/20 25 02/12/2025 URINA LYSIS , COMPL ETE W/ REFLE X TO CULTU RE specific gravity 1.021 1.005- 1.030 Not Available [facility] [address] [place] [address] [address] [facility], [place], [address], 02/12/2025 14:58:26 02/13/20 25 02/12/2025 URINA LYSIS , COMPL ETE W/ REFLE X TO CULTU RE pH 5.5 5.0-8. 0 Not Available [facility] [address] [place] [address], [place], [address], 02/12/2025 14:58:26 02/13/20 25 02/12/2025 URINA LYSIS , COMPL ETE W/ REFLE X TO CULTU RE glucose, urine NEGATI VE mg/dL negati ve Not Available [facility] [address] [place] [address], [address], 02/12/2025 14:58:26 02/13/20 25 02/12/2025 URINA LYSIS , COMPL ETE W/ REFLE X TO CULTU RE bilirubin NEGATI VE mg/dL negati ve Not Available [facility] [address] [place] [address], [place], [address], 02/12/2025 14:58:26 02/13/20 25 02/12/2025 URINA LYSIS , COMPL ETE W/ REFLE X TO CULTU RE ketone NEGATI VE mg/dL negati ve Not Available [facility] [address] [place] [address] [address], [place], [address], 02/12/2025 14:58:26 02/13/20 25 02/12/2025 URINA LYSIS , COMPL ETE W/ REFLE X TO CULTU RE urobilinogen NORMAL E.U./ dL normal Not Available [facility] [address] [place] [address] [address], [place], [address], 02/12/2025 14:58:26 02/13/20 25 02/12/2025 URINA LYSIS , COMPL ETE W/ REFLE X TO CULTU RE protein NEGATI VE mg/dL negati ve Not Available [facility] [address] [place] [address] [address], [place], [address], 02/12/2025 14:58:26 02/13/20 25 02/12/2025 URINA LYSIS , COMPL ETE W/ REFLE X TO CULTU RE nitrite NEGATI VE negati ve Not Available [facility] [address] [place] [address] [address] [facility], [place], [address], 02/12/2025 14:58:26 02/13/20 25 02/12/2025 URINA LYSIS , COMPL ETE W/ REFLE X TO CULTU RE blood, urine NEGATI VE mg/dL negati ve Not Available [facility] [address] [place] [address], [place], [address], 02/12/2025 14:58:26 02/13/20 25 02/12/2025 URINA LYSIS , COMPL ETE W/ REFLE X TO CULTU RE leukocytes NEGATI VE meagan/u L negati ve A micro scopi c will refle x for: > or = trace blood , > or = 25 leuko cytes , + Nitri johann or > or = 1+ prote in. Urine cultu re will refle x when any of the follo wing crite viola is met: + Nitri johann > or = 75 leuko cytes > or = 6 WBC/h pf Many bacte viola and/o r any amoun t of yeast on micro scopi c. Not Available [facility] [address], [place], [address], 02/12/2025 14:58:26 02/13/20 25 02/12/2025 URINA LYSIS , COMPL ETE W/ REFLE X TO CULTU RE WBC, urine 0-5 /uL 0-5 Not Available [facility] [address] [place], [place] [address]y [address], [place], [address], 02/12/2025 14:58:26 02/13/20 25 02/12/2025 URINA LYSIS , COMPL ETE W/ REFLE X TO CULTU RE RBC, urine 4-10 /uL 0-3 abnormal Not Available [facility] [address] [place] [address] [address], [place], [address], 02/12/2025 14:58:26 02/13/20 25 02/12/2025 URINA LYSIS , COMPL ETE W/ REFLE X TO CULTU RE mucus, urine MODERA TE none seen abnormal Not Available [facility] [address] [place], [place] [address]y [address], [place], [address], 02/12/2025 14:58:26 02/13/20 25 02/12/2025 URINA LYSIS , COMPL ETE W/ REFLE X TO CULTU RE urine squamous epithelial 0-10 0-10 Not Available [facility] [address] [place], [place] [address]y [address], [place], [address], 02/12/2025 14:58:26 02/13/20 25 02/12/2025 VITAM IN B-12 vitamin B-12 >2000 pg/mL 232 - 1245 high Not Available [facility] [address] [place] [address] [address], [place], [address], 02/12/2025 15:52:48 02/13/20 25 02/12/2025 T4, FREE free T4 1.060 NG/dL 0.930 - 1.770 Not Available [facility] [address], [place], [address], 02/12/2025 15:52:50 02/13/20 25 02/12/2025 TSH, THYRO ID STIMU LATIN G HORMO NE TSH 3.1700 uIU/m L 0.2700 - 4.2000 Not Available [facility] [address], [place], [address], 02/12/2025 15:52:54 02/13/20 25 02/12/2025 VITAM IN D, 25-HY DROXY vitamin D, 25 hydroxy 42.60 NG/mL 30.00 - 100.00 The [place] Found ation consi ders level s < 30 ng/mL to be insuf ficie nt or defic ient. Not Available [facility] [address] [facility] [address], [place], [address], 02/12/2025 15:52:56 02/13/20 25 02/12/2025 CMP, COMPR EHENS AMY METAB OLIC PANEL glucose 85 mg/dL 70 - 100 Not Available [facility] [address] [facility] [address] [place], [address], 02/12/2025 16:34:17 02/13/20 25 02/12/2025 CMP, COMPR EHENS AMY METAB OLIC PANEL BUN 19 mg/dL 7 - 25 Not Available [facility] [address] [place], [address], 02/12/2025 16:34:17 02/13/20 25 02/12/2025 CMP, COMPR EHENS AMY METAB OLIC PANEL creatinine 0.6 mg/dL 0.6 - 1.3 Not Available [facility] [address] [facility] [address], [place], [address], 02/12/2025 16:34:17 02/13/20 25 02/12/2025 CMP, COMPR EHENS AMY METAB OLIC PANEL BUN/creatini ne ratio 30 calc 10 - 25 high Not Available [facility] [address] [facility] [address], [place], [address], 02/12/2025 16:34:17 02/13/20 25 02/12/2025 CMP, COMPR EHENS AMY METAB OLIC PANEL GFR 86 mL/mi n/1.7 3m^2 >60 GFR < 60 mL/mi n for 3 or more month s may be indic ative of Kidne y Sreekantha se. The GFR is based on the CKD-E PI 2020 equat ion. Not Available [facility] [address] [facility] [address], [place], [address], 02/12/2025 16:34:17 02/13/20 25 02/12/2025 CMP, COMPR EHENS AMY METAB OLIC PANEL sodium 142 mmol/ L 135 - 145 Not Available [facility] [address] [facility] [address], [place], [address], 02/12/2025 16:34:17 02/13/20 25 02/12/2025 CMP, COMPR EHENS AMY METAB OLIC PANEL potassium 4.2 mmol/ L 3.5 - 5.5 Not Available [facility] [address] [facility] [address], [place], [address], 02/12/2025 16:34:17 02/13/20 25 02/12/2025 CMP, COMPR EHENS AMY METAB OLIC PANEL chloride 102 mmol/ L 100 - 115 Not Available [facility] [address] [facility] [address], [place], [address], 02/12/2025 16:34:17 02/13/20 25 02/12/2025 CMP, COMPR EHENS AMY METAB OLIC PANEL CO2 32 mmol/ L 21 - 33 Not Available [facility] [address] [facility] [address], [place], [address], 02/12/2025 16:34:17 02/13/20 25 02/12/2025 CMP, COMPR EHENS AMY METAB OLIC PANEL calcium 8.6 mg/dL 8.8 - 10.6 low Not Available [facility] [address], [place], [address], 02/12/2025 16:34:17 02/13/2002/12/2025 CMP, COMPR EHENS AMY METAB OLIC PANEL total protein 6.1 g/dL 6.2 - 8.6 low Not Available [facility] [address] [facility] [address], [place], [address], 02/12/2025 16:34:17 02/13/20 25 02/12/2025 CMP, COMPR EHENS AMY METAB OLIC PANEL globulin 2.2 g/dL 1.3 - 4.0 Not Available [facility] [address], [place], [address], 02/12/2025 16:34:17 02/13/20 25 02/12/2025 CMP, COMPR EHENS AMY METAB OLIC PANEL albumin 4.0 g/dL 3.5 - 5.7 Not Available [facility] [address], [place], [address], 02/12/2025 16:34:17 02/13/20 25 02/12/2025 CMP, COMPR EHENS AMY METAB OLIC PANEL A/G ratio 1.8 calc 1.0 - 2.8 Not Available [facility] [address], [place], [address], 02/12/2025 16:34:17 02/13/20 25 02/12/2025 CMP, COMPR EHENS AMY METAB OLIC PANEL AST (SGOT) 15 U/L 13 - 39 Not Available [facility] [address] [facility] [address] [place], [address], 02/12/2025 16:34:17 02/13/20 25 02/12/2025 CMP, COMPR EHENS AMY METAB OLIC PANEL ALT (SGPT) 9 U/L 7 - 52 Not Available [facility] [address] [facility] [address], [place], [address], 02/12/2025 16:34:17 02/13/20 25 02/12/2025 CMP, COMPR EHENS AMY METAB OLIC PANEL alkaline phosphatase 60 U/L 20 - 128 Not Available [facility] [address] [facility] [address] [place], [address], 02/12/2025 16:34:17 02/13/20 25 02/12/2025 CMP, COMPR EHENS AMY METAB OLIC PANEL total bilirubin 0.6 mg/dL 0.3 - 1.0 Not Available [facility] [address] [facility] [address] [place], [address], 02/12/2025 16:34:17 02/13/20 25 02/12/2025 LIPID PANEL REF DLDL cholesterol 184 mg/dL <200 Expec shi resul ts for Adult s: Total Marge stero l: Risk class ifica tion < 200 mg/dL Sonia able 200-2 39 mg/dL Borde rline high >240 mg/dL High Not Available [facility] [address] [facility] [address] [place], [address], 02/12/2025 16:34:23 02/13/20 25 02/12/2025 LIPID PANEL REF DLDL triglyceride 73 mg/dL 30 - 150 Not Available [facility] [address] [facility] [address] [place], [address], 02/12/2025 16:34:23 02/13/20 25 02/12/2025 LIPID PANEL REF DLDL HDL cholestrol 69 mg/dL >=50 Not Available [facility] [address] [facility] [address], [place], [address], 02/12/2025 16:34:23 02/13/20 25 02/12/2025 LIPID PANEL REF DLDL LDL calculated 100 mg/dL 0 - 99 high Not Available [facility] [address] [facility] [address], [place], [address], 02/12/2025 16:34:23 02/13/20 25 02/12/2025 LIPID PANEL REF DLDL chol/HDL risk ratio 3 calc < 5.0 Optim al Not Available [facility] [address] [facility] [address] [place], [address], 02/12/2025 16:34:23 02/13/20 25 02/12/2025 LIPID PANEL REF DLDL non-HDL cholesterol 115 mg/dL <130 Sonia able < 130 mg/dL Not Available [facility] [facility] [address] [facility], [place], [address], 02/12/2025 16:34:23 02/13/20 25 02/12/2025 VENIP UNCTU RE results Compl ete Not Available [facility] [address] [place] [address] [address] [place], [address], 02/12/2025 10:02:00 11/16/19 24 11/16/2023 sofie BLACK venou s, lower extre mity, unila teral No observ ation record ed. LUIS FELIPE [facility] [address] [facility], [place], [address], 11/16/2023 17:44:55 11/16/19 24 11/16/2023 US, duple x, venou s, lower extre mity, unila teral No observ ation record ed. [facility] [address] [place], [place], [address], 11/16/2023 17:44:56 11/17/19 24 07/21/2023 colon oscop y proce dure (PROC ) No observ ation record ed. BARCODE Not Available 2023 08:23:10 11/17/19 24 07/21/2023 upper endos copy proce dure (EGD) (PROC ) No observ ation record ed. BARCODE Not Available 2023 08:53:29 01/16/20 24 12/30/2023 MAMMO , scree jerri, digit al, bilat eral No observ ation record ed. LUIS FELIPE [facility] [address], [place], [address], 01/16/2024 18:12:18 02/14/20 25 02/13/2025 MAMMO , scree jerri, digit al, bilat eral No observ ation record ed. LUIS [facility] ([place] [address], [place], [address], 02/13/2025 23:05:26 02/20/20 25 02/13/2025 bone densi ty No observ ation record ed. LUIS FELIPE [facility] ([place]) [address] [facility], [place], [address], 02/19/2025 23:22:59 Result Notes None recorded. Problems Name Problem SNOMED Code Status Onset Date Resolution Date Notes Provider Name and Address Organization Details Recorded Time Angina pectoris 564661917 Completed 08/26/2014 Shahla stevens [facility], [facility] 6 09:52:04 Female stress incontinenc e 64471898 Active Shahla stevens [facility], [facility] 09:52:04 Essential hypertensio n 64947459 Completed 03/08/2016 Shahla stevens [facility], [facility] 6 09:52:04 Disorder of bone and articular cartilage 165175873 [facility], [facility] 6 09:52:04 Hyperlipide erica 55110073 Active Jackie Rodriguez MD [address], [place], [address], [facility], [facility] 6 21:33:09 Fatigue 73695785 Completed 08/26/2014 [facility], [facility] 6 09:52:04 Impaired fasting glycemia 048773648 Completed 08/26/2014 [facility], [facility] 6 09:52:05 Vitamin B deficiency 29897091 Completed 08/26/2014 [facility], [facility] 6 09:52:04 Disorder of thyroid gland 06248737 [facility], [facility] 6 09:52:04 Dysphagia 34522032 Completed 03/08/2016 [facility], [facility] 6 09:52:05 Stricture of esophagus 42224526 Completed 03/08/2016 [facility], [facility] 6 09:52:04 Gastroesoph ageal reflux disease 007674754 Active Jackie Rodriguez MD [address], [place], [address], [facility], [facility] 6 21:33:09 Pure hypercholes terolemia 064450496 Completed 03/08/2016 [facility], [facility] 6 09:52:04 Benign essential hypertensio n 0680950 Completed 03/08/2016 [facility] Physician [facility], [facility] 6 09:52:04 Urinary incontinenc e 869462850 Completed 03/08/2016 Shahla Jodee null, [facility], [facility] 6 09:52:05 Fatigue 69990094 Active Shahla Jodee null, [facility], [facility] 6 09:52:05 Impaired fasting glycemia 475268367 Active Shahla Jodee null, [facility], [facility] 6 09:52:05 Vitamin B deficiency 20553735 Active Shahla Jodee null, [facility], [facility] 6 09:52:04 Disorder of nail 86450253 Completed 03/08/2016 Shahla Jodee null, [facility], [facility] 6 09:52:04 Hypertensiv e disorder 02410816 Active Shahla Jodee null, [facility], [facility] 6 09:52:04 Venous varices 362070705 Completed 03/08/2016 Shahla Jodee null, [facility], [facility] 6 09:52:04 Urinary tract infectious disease 12482153 Completed 03/08/2016 Shahla Jodee null, [facility], [facility] 6 09:52:04 Vitamin D deficiency 14187021 Active Shahla Jodee null, [facility], [facility] 6 09:52:04 Obesity 408453130 Completed 08/14/2020 Anny Rodriguez MD [address], [place], [address], [facility], [facility] 0 08:54:08 Decreased body mass index 8834639 Completed 08/14/2020 Anny Rodriguez MD [address], [place], [address], [facility], [facility] 0 08:54:02 Murmur 812695677 Active Shahla Jodee null, [facility], [facility] 6 09:52:05 Dilatation of aorta 46038689 Active MD Heidi Zheng[address], [place], [address], [facility], [facility] 6 21:33:09 Blood in urine 11529660 Active 2017 MD Heidi Coates[address], [place], [address], [facility], [facility] 8 17:04:41 Aortic aneurysm 59197638 Active [address], [place], [address], [facility], [facility] 8 17:09:00 Aneurysm of thoracic aorta 240317562 Active 2018 MONICA Farley [address], [place], [address], [facility], [facility] 9 17:51:24 Problem Notes None recorded. Procedures Surgical History Date Name Laterality Status Provider Name and Address Organization Details Recorded Time 02/19 bone density study, dual photon absorptiometry completed ROSA MARIA MULLIGAN APRN [address], [place], [address], [facility] Physician [facility], [facility] 5 17:13:59 02/13 mammography completed MD Heidi Zheng[address], [place], [address], [facility] Physician [facility], [facility] 5 17:48:07 02/07 Quality Functional Assessment completed MD [address], [place], [address], [facility], [facility] 5 15:39:47 02/07 Quality Medication Reviewed and Updated completed MD Peyman [address], [place], [address], [facility], [facility] 5 15:39:47 02/07 Quality BMI with follow up completed MD [address], [place], [address], [facility] Physician [facility], [facility] 5 15:39:47 02/07 Quality Advanced Care Planning completed Yareli Dima [facility], [facility] 15:24:07 02/07 Quality Incontinence Screening completed Yareli Dima [facility], [facility] 15:24:07 02/07 Cerumen Disimpaction Lavage Only (PCP, WIC, Spec) completed Jackie Rodriguez MD [address], [place], [address], [facility], [facility] 5 12:09:10 02/07 Medicare AWV - Screening Schedule completed Jackie Rodriguez MD [address], [place], [address], [facility], [facility] 5 15:39:47 02/07 Quality Fall Risk Assessment completed Jackie Rodriguez MD [address], [place], [address], [facility], [facility] 5 15:39:47 02/07 G2211 completed MD Heidi Zheng[address], [place], [address], [facility], [facility] 5 12:06:11 02/07 Medicare AWV Subsequent completed Alida bradford [facility], [facility] 5 15:24:07 01/24 Cerumen Disimpaction Using instrumentation (PCP, WIC, Spec) completed SOY ESTEBAN [address], [place], [address], [facility], [facility] 4 11:54:35 01/15 mammography completed MD [address], [place], [address], [facility], [facility] 4 17:42:50 07/26 Colonoscopy completed Anny Rodriguez MD [address], [place], [address], [facility], [facility] 3 17:11:54 07/21 esophagogastroduodenoscopy completed Wallace Rodriguez MD [address], [place], [address], [facility], [facility] 5 15:54:39 03/02 Quality Functional Assessment [facility], [facility] 3 10:00:47 03/02 Quality Medication Reviewed and Updated completed [facility], [facility] 3 10:00:47 03/02 Quality BMI with follow up completed Segunri kim [facility] Physician [facility], [facility] 3 10:00:47 03/02 Quality Advanced Care Planning [facility], [facility] 3 10:00:47 03/02 Quality Incontinence Screening completed Yareli Dima [facility], [facility] 3 10:00:47 03/02 Medicare AWV - Screening Schedule completed [facility], [facility] 3 10:00:47 03/02 Quality Fall Risk Assessment completed Yareli Dima [facility], [facility] 3 10:00:47 03/03 Quality Functional Assessment completed Yareli Dima [facility], [facility] 2 16:32:55 03/03 Quality Medication Reviewed and Updated completed Yareli Dima [facility], [facility] 2 16:32:55 03/03 Quality BMI with follow up completed Gabri kim Dima [facility], [facility] 2 16:32:55 03/03 Quality Advanced Care Planning completed Yareli Dima [facility], [facility] 2 16:32:55 03/03 Quality Incontinence Screening completed Yareli Dima [facility], [facility] 2 16:32:55 03/03 Medicare AWV - Screening Schedule completed Yareli Dima [facility], [facility] 2 16:32:55 03/03 Quality Fall Risk Assessment completed Yareli Dima [facility], [facility] 2 16:32:55 12/21 Date of Last Mammogram completed Yareli Dima [facility], [facility] 2 16:30:13 03/02 Quality Functional Assessment completed Yareli Dima [facility], [facility] 16:05:10 03/02 Quality Medication Reviewed and Updated completed Yareli Dima [facility], [facility] 16:05:10 03/02 Quality (DM or HTN) BP Diastolic < 80 completed Yareli Dima [facility], [facility] 16:20:02 03/02 Medicare AWV Questionnaire completed Elmer Ch [facility], [facility] 16:18:52 03/02 Quality (DM or HTN ) BP Systolic < 130 completed Yareli Dima [facility], [facility] 16:19:59 03/02 Pain Screening completed Yareli Dima [facility], [facility] 16:18:42 03/02 Quality Fall Risk Assessment Low Risk completed Yareli Dima [facility], [facility] 16:05:10 03/02 Quality BMI with follow up completed Elmer alvarez Dima [facility], [facility] 1 16:05:10 03/02 Quality Advanced Care Planning completed Yareli Dima [facility], [facility] 1 16:05:10 03/02 Quality Incontinence Screening completed Yareli Dima [facility], [facility] 1 16:05:10 03/02 Medicare AWV - Screening Schedule completed Yareli Dima [facility], [facility] 1 16:05:10 02/10 Quality Functional Assessment completed Yareli Dima [facility], [facility] 0 08:14:18 02/10 Quality Medication Reviewed and Updated completed Yareli Dima [facility], [facility] 0 08:14:17 02/10 Medicare AWV Questionnaire completed Elmer Davisregon [facility], [facility] 0 08:14:57 02/10 Quality Fall Risk Assessment Low Risk completed Yareli Dima [facility], [facility] 0 08:14:18 02/10 Quality BMI with follow up completed Elmer Davisregon [facility], [facility] 0 08:14:18 02/10 Quality Advanced Care Planning completed Yareli Dima [facility], [facility] 0 08:14:18 02/10 Quality Incontinence Screening completed Yareli Dima [facility], [facility] 0 08:14:18 02/10 Medicare AWV-Screening Schedule completed Yareli Dima [facility], [facility] 0 08:14:18 02/02 Quality Functional Assessment completed Corie Zamarripa [facility], [facility] 9 15:08:10 02/02 Quality Medication Reviewed and Updated completed Corie Zamarripa [facility], [facility] 9 15:08:10 02/02 Medicare AWV Questionnaire completed Corie Kidd [facility], [facility] 9 15:13:57 02/02 Quality Fall Risk Assessment Low Risk completed Corie Zamarripa [facility], [facility] 9 15:08:10 02/02 Quality BMI with follow up completed Corie Kidd [facility], [facility] 9 15:08:10 02/02 Quality Advanced Care Planning completed Corie Zamarripa [facility], [facility] 9 15:08:10 02/02 Quality Incontinence Screening completed Corie Zamarripa [facility], [facility] 9 15:08:10 02/13 Quality Functional Assessment completed Madan Almendarez [facility], [facility] 8 12:53:26 02/13 Quality Medication Reviewed and Updated completed Madan Almendarez [facility] 8 12:53:26 02/13 Medicare AWV Questionnaire completed Wallace Rodriguez MD [address], [address] Phys[facility], [facility] 8 13:27:10 02/13 Quality Fall Risk Assessment Low Risk completed Madan Almendarez [facility], [facility] 8 12:53:26 02/13 Quality BMI with follow up completed Madan Almendarez [facility], [facility] 8 12:53:26 02/13 Quality Advanced Care Planning completed Madan Almendarez [facility], [facility] 8 12:53:26 02/13 Quality Incontinence Screening completed Madan Almendarez [facility], [facility] 8 12:53:26 02/11 Quality Pain Screening No Pain completed Shahla Ellsworth [facility], [facility] 7 07:39:07 02/11 Quality Functional Assessment completed Sahhla Ellsworth [facility], [facility] 7 07:39:07 02/11 Quality Medication Reviewed and Updated completed [facility], [facility] 7 07:39:07 02/11 Quality (DM or HTN) BP Diastolic < 80 completed [facility], [facility] 7 07:39:07 02/11 Medicare AWV Questionnaire completed Wallace Rodriguez MD [address], [address], [facility], [facility] 7 08:16:15 02/11 Quality Tobacco Non- User completed [facility], [facility] 7 07:39:07 02/11 Quality (DM or HTN ) BP Systolic < 130 completed [facility], [facility] 7 07:39:07 02/11 Quality Fall Risk Assessment Low Risk completed [facility], [facility] 7 07:39:07 02/11 Quality BMI with follow up completed [facility] Physician [facility], [facility] 7 07:39:07 02/11 Quality Advanced Care Planning completed [facility], [facility] 7 07:39:07 02/11 Quality Incontinence Screening completed [facility], [facility] 7 07:39:07 03/08 Quality Pain Screening No Pain completed Faye Hoyt [facility], [facility] 6 12:36:34 03/08 Quality Functional Assessment completed Faye Hoyt [facility], [facility] 6 12:36:34 03/08 Quality Medication Reviewed and Updated completed Faye Hoyt [facility], [facility] 6 12:36:34 03/08 Quality (DM or HTN) BP Diastolic < 80 completed Faye Hoyt [facility], [facility] 6 12:36:35 03/08 Medicare AWV Questionnaire completed Wallace Rodriguez MD [address], [place], [address], [facility], [facility] 6 13:08:17 03/08 Quality Tobacco Non- User completed Faye [facility] 6 12:36:35 03/08 Quality (DM or HTN ) BP Systolic < 130 completed Faye [facility] 6 12:36:35 03/08 Quality Fall Risk Assessment Low Risk completed [facility] 6 12:36:35 03/08 Quality BMI with follow up completed Faye [facility] 6 12:36:35 03/08 Quality Advanced Care Planning completed Faye [facility] 6 12:36:35 03/08 Quality Incontinence Screening completed Faye [facility] 6 12:36:35 03/08 Screening pap smear by phys completed Corie Zamarripa [facility] 9 15:11:34 02/25 Quality Pain Screening No Pain completed Jackie Rodriguez MD [address], [place], [address], [facility] 5 20:50:08 02/25 Quality Functional Assessment completed MD Heidi [address], [place], [address], [facility], [facility] 5 20:50:08 02/25 Quality Medication Reviewed and Updated completed MD [address], [place], [address], [facility] 5 20:50:08 02/25 Quality (DM or HTN) BP Diastolic < [address], [place], [address], [facility] Physician [facility], [facility] 5 20:50:08 02/25 Medicare AWV Questionnaire completed MD [address], [place], [address], [facility], [facility] 5 20:51:36 02/25 Quality Tobacco Non- User completed MD [address], [place], [address], [facility], [facility] 5 20:50:08 02/25 Quality (DM or HTN ) BP Systolic < [address], [place], [address], [facility], [facility] 5 20:50:08 02/25 Quality Fall Risk Assessment Low Risk completed MD Peyman [address], [place], [address], [facility], [facility] 5 20:50:08 02/25 Quality BMI with follow up completed MD [address], [place], [address], [facility], [facility] 5 20:50:08 02/25 Quality Advanced Care Planning completed MD Peyman [address], [place], [address], [facility], [facility] 5 20:50:09 02/25 Quality Incontinence Screening completed MD [address], [place], [address], [facility], [facility] 5 20:50:09 09/25 COLONOSCOPY (SURG) completed MD [address], [place], [address], [facility], [facility] 5 18:07:33 02/04 Quality Pain Screening No Pain completed MD Heidi [address], [place], [address], [facility], [facility] 4 12:26:13 02/04 Quality Functional Assessment completed MD [address], [place], [address], [facility], [facility] 4 12:26:13 02/04 Quality Medication Reviewed and Updated completed MD [address], [place], [address], [facility], [facility] 4 12:26:13 02/04 Quality (DM or HTN) BP Diastolic < 80 completed MD [address], [place], [address], [facility], [facility] 4 12:26:13 02/04 Medicare AWV Questionnaire completed MD Heidi Jose [address], [place], [address], [facility], [facility] 4 12:26:13 02/04 Quality Tobacco Non- User completed MD Peyman [address], [place], [address], [facility], [facility] 4 12:26:13 02/04 Quality (DM or HTN ) BP Systolic < 130 completed MD [address], [place], [address], [facility], [facility] 4 12:26:13 02/04 Quality Fall Risk Assessment Low Risk completed MD [address], [place], [address], [facility], [facility] 4 12:26:13 02/04 Quality BMI with follow up completed Wallace Rodriguez MD [address], [place], [address], [facility], [facility] 4 12:26:13 02/04 Quality Advanced Care Planning completed Jackie Rodriguez MD [address], [place], [address], [facility], [facility] 4 12:26:13 12/29 Cataract excision completed [facility] 4 10:36:50 04/30 Oral surgery completed [facility] 4 10:36:50 05/31 Hysterectomy completed [facility] 4 10:36:50 10/31 Dilation & curettage completed [facility] 4 10:36:50 03/31 Appendectomy completed [facility] 4 10:36:50 12/01 Tonsillectomy completed Shahla Ellsworth [facility] 7 06:41:12 Vascular Surgery completed Alida Ch [facility] 2 16:30:15 EGD-Upper Endoscopy completed Don Cespedes [facility] 4 13:02:49 ESOPHAGOGASTRODUODEN OSCOPY (SURG) completed [facility] 4 08:16:15 Imaging Results None recorded. Procedure Notes None recorded. Medical Equipment None Reported. Allergies Allergen ID Allergen Name Allergen Category Reaction Reaction Severity Criticality Documentation Date Start Date Code Code System Note Provider Name and Address Organization Details Recorded Time 600935 codeine medicatio n nausea severe Not available 08/30/2013 2670 RxNorm Ismerai Cespedes [facility], [facility] 4 13:04:23 348206 Demerol medicatio n other Not available Not available 08/30/2013 19557 1 RxNorm Corinna Gaming [facility] 9 11:03:02 288485 morphine medicatio n other severe Not available 08/30/20131991 7052 RxNorm [place] [facility] 4 13:04:23 062022 Product containin g penicilli n (product) medicatio n itching rash Not available Not available Not available 08/30/2013 73770 8001 SNOMED Neeta Medellinos [facility] 4 13:02:14 0079098 meloxicam medicatio n Not available Not available [facility] 02/07/2025 33927 RxNorm Jackie Rodrigeuz MD [address], [place], [address] 5 15:47:58 643673 Elavil medicatio n other severe Not available 09/12/20141991 59055 RxNorm [place] [facility] 4 13:04:23 978331 prednison e medicatio n other Not available Not available 11/13/2021 8640 RxNorm insom humberto and anxio Jackie Rodriguez MD [address], [place], [address], [facility], [facility] 2 10:43:18 Medications Name Sig Start Date Stop Date Status Note LastModified by Organization Details LastModified Time compounded medication INSERT 1 GRAM INTRAVAGI MALORIE TWICE A WEEK 2024 active Not Available Not Available Not Avai lable compounded medication INSERT 1 GRAM INTRAVAGI MALORIE [...] 1 CAPSULE BY MOUTH TWICE A DAY 02/07 completed Not Available Not Available Not Available oxybutynin chloride ER 10 mg tablet,exte [...] completed Not Available Not Available Not Available valacyclovi r 1 gram tablet TAKE 1 TABLET BY MOUTH EVERY 12 HOURS NEEDED active Not Available Not Available No t Available tolterodine ER 4 mg capsule,ext ended release 24 hr 01/10 completed Not Available Not Available Not Available meloxicam 15 mg tablet Take 1 tablet every day by oral route after meal(s) for 30 days. 02/07 completed Not Available Not Available Not Available phenazopyri dine 200 mg tablet Take [...] completed Not Available Not Available Not Available nitrofurant oin macrocrysta l 100 mg capsule TAKE 1 CAPSULE BY MOUTH 3 TIMES A DAY 02/07 completed Not Available Not Available Not Available [...] g twice a week by vaginal route. 02/07 completed Not Available Not Available Not Available Premarin 0.625 mg/gram vaginal cream Insert 1 [...] Available Not Available Not Available Fluzone High-Dose 0022-0098 (PF) 180 mcg/0.5 mL intramuscul ar syringe TO BE ADMINISTE RED BY PHARMACIS T FOR IMMUNIZAT ION 01/10 completed Not Available Not Available Not Available Fluzone High-Dose 5389-2524 (PF) 180 mcg/0.5 mL intramuscul ar syringe [...] Available Not Available Not Available Fluzone High-Dose 2019-20 (PF) 180 mcg/0.5 mL intramuscul ar syringe 10/08 completed Not Available Not Available Not Available magnesium 100 mg (as glycinate) capsule Take 1 capsule every day by oral route. 2022 active Not Available Not Available Not Avai lable Paxlovid 150 mg-100 mg tablets in a dose pack (Moderate Renal Dose) TAKE 2 TABLETS BY MOUTH TWICE A DAY STOP LOVASTATI N 11/16 completed Not Available Not Available Not Available Vitals Date Recorded Body height Respiratory rate Body temperature Body mass index (BMI) Body weight Heart rate Oxygen saturation Oxygen saturation in Arterial blood by Pulse oximetry Systolic blood pressure Diastolic blood pressure Provider Name and Address Organization Details Last Updated DateTime 4 165.1 cm 16 /min 97.2 [degF] 27 kg/m2 90619.9 6 g 77 /min 99 % 99 % 137 mm[Hg] 76 mm[Hg] Nataly Escobar [facility], [facility] 4 09:42:54 Date Recorded Body height Respiratory rate Body mass index (BMI) Body weight Body temperature Heart rate Oxygen saturation Oxygen saturation in Arterial blood by Pulse oximetry Systolic blood pressure Diastolic blood pressure Provider Name and Address Organization Details Last Updated DateTime 4 165.1 cm 16 /min 27 kg/m2 73867.9 6 g 98.3 [degF] 76 /min 97 % 97 % 130 mm[Hg] 80 mm[Hg] Nataly Escobar [facility], [facility] 4 08:43:10 Date Recorded Body height Respiratory rate Body mass index (BMI) Body weight Body temperature Heart rate Oxygen saturation Oxygen saturation in Arterial blood by Pulse oximetry Systolic blood pressure Diastolic blood pressure Provider Name and Address Organization Details Last Updated DateTime 4 165.1 cm 16 /min 27.7 kg/m2 82339.0 5 g 98.2 [degF] 80 /min 99 % 99 % 136 mm[Hg] 80 mm[Hg] Nataly Escobar [facility], [facility] 4 11:16:54 Date Recorded Body height Respiratory rate Body temperature Body mass index (BMI) Body weight Heart rate Oxygen saturation Oxygen saturation in Arterial blood by Pulse oximetry Systolic blood pressure Diastolic blood pressure Provider Name and Address Organization Details Last Updated DateTime 5 165.1 cm 16 /min 97.7 [degF] 27 kg/m2 24339.6 8 g 76 /min 97 % 97 % 124 mm[Hg] 74 mm[Hg] [facility] 15:23:51 Date Recorded Body height Respiratory rate Body mass index (BMI) Body weight Body temperature Oxygen saturation Oxygen saturation in Arterial blood by Pulse oximetry Heart rate Systolic blood pressure Diastolic blood pressure Provider Name and Address Organization Details Last Updated DateTime 3 165.1 cm 16 /min 28 kg/m2 64085.5 2 g 97.6 [degF] 93 % 93 % 71 /min 138 mm[Hg] 84 mm[Hg] [facility] 10:11:17 Social History Question Answer Notes LastModified by [facility] Details LastModified Time Tobacco Smoking Status Never Smoker [facility] 08/30/2013 09:31:54 Do You Have An Advance Directive? Yes Information not available 01/22/2014 What Is Your Level Of Caffeine Consumption? Moderate [email or web address] Information not available 08/14/2020 How Much Tobacco Do You Chew? None Information not available 01/22/2014 What Type Of Diet Are You Following? REGULAR [email or web address] Information not available 08/14/2020 Which Illicit Or Recreational Drugs Have You Used? Denies Information not available 09/13/2016 Education 12 [email or web address] Information no t available 03/02/2023 How Many Days In The Past Year Have You Had A Heavy Drinking Consumption (4+ Female, 5+ Male)? 0 API-27 Information not available 03/02/2023 Alcohol Use Less Than 1 Per Month Social Drinker [email or web address] Information not available 10/04/2013 Year Quit Tobacco Use 0 Information not available 08/26/2014 Marital Status 1 Girl, 3 Boys [email or web address]-27 Information not available 03/02/2023 What Was The Date Of Your Most Recent Tobacco Screening? 02/07/2025 Information not available 02/07/2025 What Is Your Relationship Status? Information not available 02/07/2025 Are You Sexually Active? No Information not available 03/02/2021 At What Age Did You Start Smoking Tobacco? 0 Information not available 03/03/2022 How Much Tobacco Do You Smoke? No Information not available 02/04/2014 How Many Years Have You Smoked Tobacco? 0 Information not available 03/03/2022 Sex: Female Functional Status Question Answer Note LastModified by Organizat ion Details LastModified Time What is your level of alcohol consumption? Occasional Information not available 09/13/2016 Do you or have you ever used smokeless tobacco? 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 Never used electronic cigarettes Information not available 10/08/2019 What is your exercise level? Moderate walking, aerobics in pool Information not available 02/04/2014 Mental Status None recorded. Family History Relationship Description Onset Age of this Age Resolved Age Notes LastModified by Organization Details LastModified Time Son Seizure 12 [email or web address] Not available 09:59:53 Son Scoliosis deformity of spine 16 [email or web address]-27 Not available 2024 15:12:17 Mother Carotid artery finding 80 82 ppoling [...] Malignant tumor of colon [email or web address] Not available 2024 15:12:18 Brother Hypertensive disorder [email or web address] Not available 2018 11:03:17 Brother Kidney disease 40 [email or web address] Not available 2024 15:12:18 Daughter Scoliosis deformity of spine 20 - Not available 2024 15:12:18 Daughter Fibrocystic disease of breast 20 - Not available 2024 15:12:18 Sister Depressive disorder 40 [email or web address]-27 Not available 2024 15:12:18 Sister Hypertensive disorder Not available 2021 16:30:12 Unspecified Relation Seizure [email or web address] Not available 9 11:03:17 Medical History Condition Response Cancer (location) N Other N Gout N Thyroid Disease N Kidney Stones N Measles/Mumps Y Emphysema/COPD N Sexually Transmitted Disease N Depression N Prostate Problems N Vascular Disease N Rash/Skin Condition N Amputation (location) N Parkinson's N Paralysis N Headaches/Migraines Y Cardiac Pacemaker/defibrillator N Nerve Damage / Neuropathy N Arthritis Y Sleep disorder/Insomnia N Infertility N Heart disease / Heart Attack N Crohn's Disease N HIV/AIDS N Stroke/TIA N Colon Problems N High Cholesterol Y Serious Injuries N Kidney Disease N Memory Loss/Alzheimer's N Gallbladder disease N High blood pressure Y Congestive heart failure N Falls N Alcohol Overuse N Blood Thinner Treatment N Hormone Replacement N Nervous Breakdown N Martínez's Esophagus N Anemia N Urinary Problems Y Colon Polyps Y Gastritis N Hospitalizations (other than operations) N Back pain N Diabetes N Rheumatic Fever N Bleeding Disorder N Cardiac Arrhythmias /irregular heart rat e N Osteopenia/Osteoporosis N Anxiety/Stress N Asthma N Vision Problems Y Erectile / Sexual Dysfunction N Ostomies (location) N Seizures N Jaundice N Sleep Apnea N Hepatitis N Past Reacton to [employer] N Cirrhosis N GERD/Ulcer Y Chicken Pox N Allergies (other than meds) Y Gynecological History Statement/Question Response If Post [...] high-dose, trivalent, PF 8 completed Not Available [facility] 11/15/2023 01:11:02 Influenza, split virus, quadrivalent, PF 5 completed Zhanna Barth null, [facility], [facility] 01/29/2019 15:03:16 Influenza, high-dose, trivalent, PF 9 completed Not Available [facility] 11/15/2023 01:11:02 zoster recombinant 9 completed Not Available [facility] 11/15/2023 01:11:02 zoster recombinant 9 completed Not Available [facility] 11/15/2023 01:11:02 Influenza, split virus, trivalent, preservative 9 completed Ismerai Cespedes null, [facility], [facility] 09/12/2014 13:22:23 Influenza, split virus, trivalent, preservative 7 completed Ismerai Cespedes null, [facility], [facility] 09/12/2014 13:22:23 pneumococcal, unspecified formulation 4 completed Ismerai Cespedes null, [facility], [facility] 09/12/2014 13:22:23 zoster live 2 completed Shahlalakhwinder Ellswroth null, [facility], [facility] 02/11/2017 06:37:48 zoster live 1 completed Shahla Jodee null, [facility], [facility] 02/11/2017 06:37:48 Influenza, split virus, quadrivalent, PF 4 completed Not Available [facility] 12/01/2019 02:11:14 zoster recombinant 9 completed Madan Almendarez null, [facility], [facility] 08/14/2020 07:57:55 Influenza, split virus, quadrivalent, preservative 0 completed Not Available [facility] 11/15/2023 01:11:02 COVID-19, mRNA, LNP-S, PF, 100 mcg/0.5mL dose or 50 mcg/0.25mL dose 1 completed Yareli Dima null, [facility], [facility] 03/02/2021 16:04:23 COVID-19, mRNA, LNP-S, PF, 100 mcg/0.5mL dose or 50 mcg/0.25mL dose 1 completed Yareli Dima null, [facility], [facility] 03/02/2021 16:04:23 COVID-19, mRNA, LNP-S, PF, 100 mcg/0.5mL dose or 50 mcg/0.25mL dose 1 completed Not Available [facility] 11/15/2023 01:11:02 Influenza, split virus, quadrivalent, preservative 1 completed Not Available [facility] 11/15/2023 01:11:02 COVID-19, mRNA, LNP-S, PF, 100 mcg/0.5mL dose or 50 mcg/0.25mL dose 2 completed Yareli Dima null, [facility], [facility] 03/03/2022 16:28:36 influenza, unspecified formulation 2 completed Not Available [facility] 11/15/2023 01:11:02 SARS-COV-2 (COVID-19) vaccine, UNSPECIFIED 2 completed Not Available [facility] 11/15/2023 01:11:02 Pneumococcal conjugate PCV 13 6 completed Not Available [facility] 11/15/2023 01:11:02 Influenza, high-dose, trivalent, PF 3 completed Not Available [facility] 11/17/2019 02:40:25 zoster recombinant 3 completed Not Available [facility] 11/15/2023 01:11:02 influenza, unspecified formulation 3 completed Not Available [facility] 11/15/2023 01:11:02 SARS-COV-2 (COVID-19) vaccine, UNSPECIFIED 3 completed Not Available [facility] 11/15/2023 01:11:02 Influenza, high-dose, trivalent, PF 4 completed [facility] Available [facility] 11/15/2023 01:11:02 Influenza, high-dose, trivalent, PF 6 [facility] 08/14/2020 07:57:55 zoster live 1 completed Not Available [facility] 11/15/2023 01:11:02 influenza, unspecified formulation 4 completed MD Peyman Zheng [address], [place], [address], [facility] Physician [facility], [facility] 02/07/2025 15:51:25 SARS-COV-2 (COVID-19) vaccine, UNSPECIFIED 4 completed MD Peyman Zheng [facility] [address], [place], [address], [facility] Physician [facility], [facility] 02/07/2025 15:51:44 Pneumococcal conjugate PCV20, polysaccharide [id number] conjugate, adjuvant, PF 5 completed MD Peyman Zheng [address], [place], [address], [facility] Physician [facility], [facility] 02/07/2025 15:52:52 Respiratory syncytial virus (RSV) MAB, unspecified 4 completed MD Peyman Zheng [facility] [address], [place], [address], [facility] Physician [facility], [facility] 02/07/2025 15:53:13 Influenza, split virus, quadrivalent, preservative 7 completed Not Available [facility] 11/15/2023 01:11:02 Influenza, split virus, trivalent, preservative 0 completed Neeta stevens, [facility], [facility] 09/12/2014 13:22:23 Influenza, split virus, trivalent, PF 2 completed [facility] Cespedes [place], [place] - [facility], [facility] 09/12/2014 13:22:23 Past Encounters Encounter ID Performer Location Encounter Start Date Encounter Closed Date Diagnosis/Indication Diagnosis SNOMED-CT Code Diagnosis ICD10 Code Diagnosis Note [id number] Jackie Rodriguez MD [place] [address] [address] 08/31/2013 07:11:45 08/31/2013 10:12:50 Fatigue 65343024 Hyperlipidemia 98092156 Impaired f asting glycemia 479494410 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 Will use symptomati c treatment. Tylenol or advil for pain or fever unless contraindi cated. Mucinex and/or Robitussin -DM as needed for cough/liss estion. Increase fluids, rest. Use, dose, and adverse effects of medication discussed. Begin antibiotic with worsening symptoms or no improvemen t. Call or return with concerns. [id number] MONICA Romero [place] [address] [address] 01/10/2014 16:09:57 01/10/2014 16:29:19 Dysphagia [id number] Small meals, no meats, soft foods only. Referred to GI. 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 Referred to GI. Gastroesop hageal reflux disease 554708720 Continue Omeprazole , add Zantac at bedtime. Call with concerns. [id number] Mariano Sewell MD [address],[facility] [address] [place] [address] 01/22/2014 10:13:06 01/22/2014 11:47:34 Dysphagia 30952691 Gastroesop hageal reflux disease 901732324 [id number] Jackie Rodriguez MD [place] [address] [id number] 02/04/2014 11:23:15 02/04/2014 12:52:39 Adult health examination [id number] Medicare Annual Wellness Visit done today. 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 608218657 Vitamin B deficiency 69467803 Disorder o f thyroid gland 66420420 [id number] Jackie Rodriguez MD [place] [address] [address] 08/26/2014 06:56:06 08/26/2014 08:13:09 Pure hypercholesterolemia 736086678 Chronic, controlled , continue same, follow up as scheduled Fasting blood work prior to next visit in 90 days Benign ess ential hypertension 0322108 Chronic, controlled , continue same, follow up as scheduled Fasting blood work prior to next visit in 90 days Screening mammography 58957689 Screening for malignant neoplasm of colon 242573030 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 [id number] CHRISTOPH Carlson [address] [address] 09/12/2014 12:50:08 09/12/2014 13:29:11 Family history of malignant neoplasm of gastrointestinal tract 655495452 [id number] Jackie Rodriguez MD [place] [address] [address] 02/25/2015 07:24:17 02/25/2015 08:04:51 Body mass index 30+ - obesity 707438443 weight issues discussed and informatio n on weight loss given. Needs follow up on weight control as scheduled. Education handout on diets given. Exercise counseling done. Will arrange referral for dietitian, nutritioni st, Physical/o ccupationa l therapy as needed or desired. Also will consider pharmaceut ical and supplement al interventi ons Obesity 305172008 see BM I above for details Adult heal th examination 266742948 Medicare Annual Wellness Visit done today. 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 415045459 Vitamin B deficiency 70588432 Disorder o f thyroid gland 03035543 Disorder of nail 21891561 Hypertensive disorder 00869534 [id number] [facility] [address] [facility] [address] [address] 09/05/2015 07:17:19 09/05/2015 08:07:47 Active or passive immunization 232699995 Z23 Essential hypertension 13664646 I10 Screening mammography 24 389073 Z12.31 Fatigue 62276008 R53.83 Hyperlipidemia 25124767 E78.5 Impaired f asting glycemia 755042496 R73.01 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 s/p vein ligation, then injections . now back again. Urinary tr act infectious disease 71479190 N39.0 Vitamin D deficiency 347 46873 E55.9 [id number] Jackie Rodriguez MD [facility] [address] [address] 03/08/2016 12:34:11 03/08/2016 13:29:28 Adult health examination 253148373 Z00.00 Medicare Annual Wellness Visit done today. Body mass index 30+ - obesity 359011766 Z68.32 weight issues discussed and informatio n on weight loss given. Needs follow up on weight control as scheduled. Education handout on diets given. Exercise counseling done. Will arrange referral for dietitian, nutritioni st, Physical/o ccupationa l therapy as needed or desired. Also will consider pharmaceut ical and supplement al interventi ons Depression screening 171 433588 Z13.89 Obesity 849470123 E66.9 see BMI above for details Decreased body mass index 2099243 Z68.1 BMI less than 19. Review Mini Nutritiona l Screen if necessary. 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 069582447 M85.80 Screening for malignant neoplasm of cervix 342129617 Z12.4 Murmur 237736624 R01.1 Fatigue 80196105 R53.83 Hyperlipidemia 27824287 E78.5 Impaired f asting glycemia 951205839 R73.01 Vitamin B deficiency 479 99874 E53.8 Disorder o f thyroid gland 51468456 E07.9 Vitamin D deficiency 347 44111 E55.9 Hypertensive disorder 38 493290 I10 Administra tion of pneumococcal vaccine 49847254 Z23 [id number] Jackie Rodriguez MD [facility] [address] [address] 09/13/2016 09:48:20 09/13/2016 10:51:01 Body mass index 30+ - obesity 855718287 Z68.31 weight issues discussed and informatio n on weight loss given. Needs follow up on weight control as scheduled. Education handout on diets given. Exercise counseling done. Will arrange referral for dietitian, nutritioni st, Physical/o ccupationa l therapy as needed or desired. Also will consider pharmaceut ical and supplement al interventi ons Obesity 145444880 E66.9 see BMI above for details Essential hypertension 27849579 I10 Dilatation of aorta 2666 0001 I71.9 Gastroesop hageal reflux disease 818048148 K21.9 Hyperlipidemia 98450053 E78.5 [id number] MONICA Farley [facility] [address] [address] 01/10/2017 09:06:20 01/10/2017 09:44:18 Urinary tract infectious disease 40224826 N39.0 Acute episode will continue to monitor Dysuria 11101223 R30.0 Acute episode will continue to monitor [id number] Jackie Rodriguez MD [facility] [place]DR[place]GE [address] [place] [address] 02/11/2017 07:31:51 02/11/2017 08:29:32 Adult health examination 250016005 Z00.00 Annual Wellness Visit done today Depression screening 171 799118 Z13.89 PHQ-9 depression screening done due to positive response in [facility] depression screening Follow up as scheduled. Normal bod y mass index 03701776 Z68.23 BMI on chart and recorded for quality measure documentat ion Atrophic vaginitis 55076 000 N95.2 Menopausal syndrome 1237 07641 N95.9 due in sep with mammoi Pain in left knee 883279 0721 83585 M25.562 Screening mammography 24 765103 Z12.31 due in september; Urinary incontinence 165 713377 R32 trial of Detrol [place]. Fatigue 77649427 R53.83 Hyperlipidemia 13603210 E78.5 Impaired f asting glycemia 811529283 R73.01 Vitamin B deficiency 479 55672 E53.8 Disorder o f thyroid gland 83513507 E07.9 Vitamin D deficiency 347 16114 E55.9 Urinary tr act infectious disease 60954981 N39.0 [id number] Jackie Rodriguez MD [address] [address] 09/13/2017 14:32:43 09/13/2017 15:50:53 Atrophic vaginitis 44950527 N95.2 restart cream -- getting more utis. Hypertensive disorder 38 569771 I10 HTN -- currently stable. continue with low salt. encouraged exercise. continue current meds. Fatigue 88096299 R53.83 Hyperlipidemia 05577504 E78.5 high cholestero l - instructed pt to do low fat diet. pt to increase exercise routine. continue current meds. repeat in 6 months. Impaired f asting glycemia 671012438 R73.01 impaired sugars int he past -- encouraged low sugar diet and exercise - no need for meds at this time Vitamin B deficiency 479 23368 E53.8 Disorder o f thyroid gland 33206224 E07.9 abnormal thyroid levels in the past -- not currently on meds -- continue to watch full thyroid panel. Vitamin D deficiency 347 93504 E55.9 Low B12 and vitamin D levels in the past -- continue to recheck levels and advise on supplement s as needed. Gastroesop hageal reflux disease 703411909 K21.9 continue PPI, reduce caffiene, etoh. no nsaids; Urinary tr act infectious disease 76652944 N39.0 restart cream -- keep close monitoring . Screening mammography 24 515515 Z12.31 Menopausal syndrome 1237 72869 N95.9 [id number] Anny Rodriguez MD [facility] [place]ena CORTESAilyn ELIANE [address] [address] 02/09/2018 16:32:32 02/09/2018 17:15:10 Urinary incontinence 078413467 R32 Aortic aneurysm 96309222 I71.2 Urinary tr act infectious disease 01866442 N39.0 Blood in urine 74257183 R31.9 [id number] Jackie Rodrgiuez MD [facility] [place] [address] [facility] [address] [place] [address] 02/13/2018 12:53:01 02/13/2018 13:47:01 Adult health examination 539157757 Z00.00 Annual Wellness Visit done today Body mass index 30+ - obesity 740148836 Z68.31 weight issues discussed and informatio n on weight loss given. Needs follow up on weight control as scheduled. Education handout on diets given. Exercise counseling done. Will arrange referral for dietitian, nutritioni st, Physical/o ccupationa l therapy as needed or desired. Also will consider pharmaceut ical and supplement al interventi ons Obesity 239415035 E66.9 see BMI above for details Diet education 78859863 Z71.3 as above Depression screening 171 533953 Z13.89 PHQ-9 depression screening done due to positive response in [facility] depression screening Follow up as scheduled. Urinary tr act infectious disease [id number] N39.0 restart cream -- keep close monitoring . 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 work on balance. repeat every 2 years. Screening mammography 24 090220 Z12.31 Fatigue 07111671 R53.83 Hyperlipidemia 85415922 E78.5 high cholestero l - instructed pt to do low fat diet. pt to increase exercise routine. continue current meds. repeat in 6 months. Impaired f asting glycemia 678325584 R73.01 impaired sugars int he past -- encouraged low sugar diet and exercise - no need for meds at this time Vitamin B deficiency 479 92634 E53.8 Disorder o f thyroid gland 76699712 E07.9 abnormal thyroid levels in the past -- not currently on meds -- continue to watch full thyroid panel. Vitamin D deficiency 347 07578 E55.9 Low B12 and vitamin D levels in the past -- continue to recheck levels and advise on supplement s as needed. [id number] Jackie Rodriguez MD [address] ELIANE CASTRO [address] [address] 09/20/2018 10:02:15 09/20/2018 10:45:20 Body mass index 30+ - obesity 973857931 Z68.31 weight issues discussed and informatio n on weight loss given. Needs follow up on weight control as scheduled. Education handout on diets given. Exercise counseling done. Will arrange referral for dietitian, nutritioni st, Physical/o ccupationa l therapy as needed or desired. Also will consider pharmaceut ical and supplement al interventi ons Obesity 045918288 E66.9 see BMI above for details Diet education 94985278 Z71.3 as above Irritable bowel syndrome 25573717 K58.9 trail of new med. reduce stress. Gastroesop hageal reflux disease 785685334 K21.9 continue PPI, reduce caffiene, etoh. no nsaids;Kaylan nge your eating habits. It s best to eat several small meals [...] to 10 pounds can help. Atrophic vaginitis 14784 000 N95.2 recurrent uti. pt deciding between premarin cream and suppositor ies. Fatigue 83337650 R53.83 Hyperlipidemia 55418670 E78.5 high cholestero l - instructed pt to do low fat diet. pt to increase exercise routine. continue current meds. repeat in 6 months. Impaired f asting glycemia 385870968 R73.01 impaired sugars int he past -- encouraged low sugar diet and exercise - no need for meds at this time Vitamin B deficiency 479 54285 E53.8 Disorder o f thyroid gland 25731647 E07.9 abnormal thyroid levels in the past -- not currently on meds -- continue to watch full thyroid panel. Vitamin D deficiency 347 12050 E55.9 Low B12 and vitamin D levels in the past -- continue to recheck levels and advise on supplement s as needed. Urinary tr act infectious disease 42430715 N39.0 restart cream -- keep close monitoring . [id number] MONICA Farley [facility] [address] [place] [address] 01/29/2019 14:55:16 01/30/2019 07:22:27 Urinary tract infectious disease 74184790 N39.0 Acute episode will continue to monitor Dysuria 70313371 R30.0 Acute episode will continue to monitor Aneurysm o f thoracic aorta 844776713 I71.2 chronic controlled , continue regimen as directed and monitor for disease progressio n, aggressive ly treat blood pressure and take statins as prescribed [id number] Jackie Rodriguez MD [facility] [address] [place] [address] 02/02/2019 15:02:09 02/06/2019 09:08:51 Adult health examination 931031760 Z00.00 Annual Wellness Visit done today Depression screening 171 614029 Z13.89 PHQ-9 depression screening done due to positive response in [facility] depression screening Follow up as scheduled. Diet education 88310460 Z71.3 as above Body mass index 30+ - obesity 726802321 E66.9 Z68.30 weight issues discussed and informatio n on weight loss given. Needs follow up on weight control as scheduled. Education handout on diets given. Exercise counseling done. Will arrange referral for dietitian, nutritioni st, Physical/o ccupationa l therapy as needed or desired. Also will consider pharmaceut ical and supplement al interventi ons Obesity 461182277 E66.9 see BMI above for details Gastroesop hageal reflux disease 094552945 K21.9 continue PPI, reduce caffiene, etoh. no nsaids;Kaylan nge your eating habits. It s best to eat several small meals [...] 5 to 10 pounds can help. Backache 055841670 M54.9 Pain in lower limb 31020 006 M79.669 Knee pain 45647399 M25.5 69 Abnormal gait 16128732 R 26.9 Polyp of colon 86175401 K63.5 Aneurysm o f thoracic aorta 242474263 I71.2 Fatigue 36811465 R53.83 Hyperlipidemia 95986278 E78.5 high cholestero l - instructed pt to do low fat diet. pt to increase exercise routine. continue current meds. repeat in 6 months. Impaired f asting glycemia 218784548 R73.01 impaired sugars int he past -- encouraged low sugar diet and exercise - no need for meds at this time Vitamin B deficiency 479 46010 E53.8 Disorder o f thyroid gland 96090206 E07.9 abnormal thyroid levels in the past -- not currently on meds -- continue to watch full thyroid panel. Vitamin D deficiency 347 38859 E55.9 Low B12 and vitamin D levels in the past -- continue to recheck levels and advise on supplement s as needed. Administra tion of viral vaccine 90010385 Z23 Varicella Zoster vaccine discussed including indication s, risks and benefits. [id number] Jackie Rodriguez MD [place] [id number] [facility] [address] [place] [address] 10/08/2019 15:55:23 10/08/2019 16:39:13 Atrophic vaginitis 13099548 N95.2 recurrent uti. pt deciding between premarin cream and suppositor ies. Renewal of prescription 695266245 Z76.0 Screening mammography 24 226937 Z12.31 Bone density finding 385 342399 M85.9 osteopenia - encouraged weight bearing exercise, encouraged calcium and vitamin D supplement ation. work on balance. repeat every 2 years. Polyp of colon 11189108 K63.5 Essential hypertension 32024475 I10 HTN -- currently stable. continue with low salt. encouraged exercise. continue current meds. Fatigue 80007893 R53.83 Hyperlipidemia 72633221 E78.5 high cholestero l - reviewed labs in detail with pt; explained the importance of keep HDL high and LDL and triglyceri de levels low. discussed [place] [employer] n guidelines . instructed pt to do low fat diet. pt to increase exercise routine. continue current meds. pt tolerating cholestero l medication s well at this time. LIver function normal and CK levels normal. repeat labs in 6 months. Impaired f asting glycemia 523103240 R73.01 impaired sugars int he past -- encouraged low sugar diet and exercise - no need for meds at this time Vitamin B deficiency 479 99358 E53.8 Disorder o f thyroid gland 54214635 E07.9 abnormal thyroid levels in the past -- not currently on meds -- continue to watch full thyroid panel. Vitamin D deficiency 347 45402 E55.9 Low B12 and vitamin D levels in the past -- continue to recheck levels and advise on supplement s as needed. Gastroesop hageal reflux disease 752968376 K21.9 continue PPI, reduce caffiene, etoh. no nsaids;Kaylan nge your eating habits. It s best to eat several small meals [...] just 5 to 10 pounds can help. [id number] CHRISTOPH Carlson [address] [place] [address] 10/15/2019 10:59:01 10/15/2019 16:37:27 Irritable bowel syndrome 91836018 K58.9 Would suggest daily [employer] Screening for malignant neoplasm of colon 175189841 Z12.11 I had a lengthy discussion with this patient concerning the risk and benefits of a colonoscop y at an advanced age. Patient was given opportunit y to ask questions She has decided to defer colonoscop y at this time. She would advise should she become symptomati c a colonoscop y would be indicated. [id number] CHRISTOPH Barrett [facility] [address] [facility] [address] [place] [address] 11/20/2019 12:25:09 11/20/2019 12:53:39 Shoulder strain 717924319 S46.911A new no trauma, alternate heat, ice, tylenol for pain.send in lidocaine patches. If worsening/ persistent may need imaging and or PT. Currently declining Muscle pain 67944657 M79 .10 ne [id number] Jackie Rodriguez MD [facility] [address] [place] [address] 02/11/2020 08:07:58 02/11/2020 09:56:45 Adult health examination 919370824 Z00.00 Annual Wellness Visit done today Increased body mass index 53421508 Z68.29 elevated BMI. Discussed diet and better therapeuti c lifestyle changes. Diet education 03437878 Z71.3 as above Renewal of prescription 846662014 Z76.0 Polyp of colon 02539266 K63.5 pt was seen by gastro -- deferred colonopscy -- now is thinking about getting it. told her i worried about her age -- [place]. Pain of le ft shoulder joint 9146529693 9772710 M25.512 Vitamin D deficiency 347 39418 E55.9 Low B12 and vitamin D levels in the past -- continue to recheck levels and advise on supplement s as needed. Fatigue 55250925 R53.83 Hyperlipidemia 78818110 E78.5 high cholestero l - reviewed labs in detail with pt; explained the importance of keep HDL high and LDL and triglyceri de levels low. discussed [place] [employer] n guidelines . instructed pt to do low fat diet. pt to increase exercise routine. continue current meds. pt tolerating cholestero l medication s well at this time. LIver function normal and CK levels normal. repeat labs in 6 months. Impaired f asting glycemia 228731470 R73.01 impaired sugars int he past -- encouraged low sugar diet and exercise - no need for meds at this time Vitamin B deficiency 479 23870 E53.8 Disorder o f thyroid gland 03677603 E07.9 abnormal thyroid levels in the past -- not currently on meds -- continue to watch full thyroid panel. Essential hypertension 93714311 I10 HTN -- currently stable. continue with low salt. encouraged exercise. continue current meds. [id number] Anny Rodriguez MD [facility] [address] [place] [address] 08/14/2020 07:38:42 08/14/2020 09:27:00 Polyp of colon 67645116 K63.5 pt was seen by gastro -- deferred colonopscy -- now is thinking about getting it. told her i worried about her age -- [place]. Vitamin D deficiency 347 14262 E55.9 Low B12 and vitamin D levels in the past -- continue to recheck levels and advise on supplement s as needed. Fatigue 22874740 R53.83 Hyperlipidemia 69108496 E78.5 high cholestero l - reviewed labs in detail with pt; explained the importance of keep HDL high and LDL and triglyceri de levels low. discussed [place] [employer] n guidelines . instructed pt to do low fat diet. pt to increase exercise routine. continue current meds. pt tolerating cholestero l medication s well at this time. LIver function normal and CK levels normal. repeat labs in 6 months. Impaired f asting glycemia 347140613 R73.01 impaired sugars int he past -- encouraged low sugar diet and exercise - no need for meds at this time Vitamin B deficiency 479 71448 E53.8 Disorder o f thyroid gland 03643408 E07.9 abnormal thyroid levels in the past -- not currently on meds -- continue to watch full thyroid panel. Essential hypertension 12147359 I10 HTN -- currently stable. continue with low salt. encouraged exercise. continue current meds. Dilatation of aorta 2666 0001 I71.2 Adult heal th examination 199913560 Z00.00 Routine prevention - sunscreen, seatbelts, healthy diet and exericse, labs, vaccine update and follow up. Discussed end-of-lif e issues and reviewed body mass index. Screening mammography 24 109204 Z12.31 Senile osteopenia 260672 06 M85.80 [id number] Jackie Rodriguez MD [facility] [place] [address] [facility] [address] [place] [address] 03/02/2021 15:49:33 03/02/2021 17:05:55 Adult health examination 416547057 Z00.00 Annual Wellness Visit done today Disorder o f thyroid gland 12235428 E07.9 abnormal thyroid levels in the past -- not currently on meds -- continue to watch full thyroid panel. Hypertensive disorder 38 101345 I10 HTN -- currently stable. continue with low salt. encouraged exercise. continue current meds. Increased body mass index 71199232 Z68.29 elevated BMI. Discussed diet and better therapeuti c lifestyle changes. Diet education 64789539 Z71.3 as above Renewal of prescription 895085851 Z76.0 Vitamin D deficiency 347 40978 E55.9 Low B12 and vitamin D levels in the past -- continue to recheck levels and advise on supplement s as needed. Cobalamin deficiency 190 728542 E53.8 low vitamin B levels - encouraged b12 otc supplement . repeat in 6 months. Fatigue 02615946 R53.83 ? source of fatigue. discussed lifestyle changes to help . watch labs to rule out anemia, thyroid disease. Hyperlipidemia 28810892 E78.2 high cholestero l - reviewed labs in detail with pt; explained the importance of keep HDL high and LDL and triglyceri de levels low. discussed [place] [employer] n guidelines . instructed pt to do low fat diet. pt to increase exercise routine. continue current meds. pt tolerating cholestero l medication s well at this time. LIver function normal and CK levels normal. repeat labs in 6 months. Impaired f asting glycemia 409537206 R73.01 impaired sugars int he past -- encouraged low sugar diet and exercise - no need for meds at this time Vitamin B deficiency 479 47130 E53.8 [id number] CHRISTOPH Barrett [facility] [address] [address] 06/10/2021 12:00:13 06/10/2021 15:59:21 Contact dermatitis caused by urushiol from [employer] [facility] 881301336 L25.5 new improving Insomnia 932230818 G47.0 0 new Restlessne ss and agitation 862311415 R45.1 new [id number] Jackie Rodriguez MD [facility] [address] [address] 11/13/2021 10:08:08 11/13/2021 11:08:03 Disorder of thyroid gland 77732817 E07.9 abnormal thyroid levels in the past -- not currently on meds -- continue to watch full thyroid panel.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 Hypertensive disorder 38 726262 I10 HTN -- currently stable. continue with low salt. encouraged exercise. continue current meds.Chron ic and stable. Dilatation of aorta 1486 0001 I77.819 Chronic and stable. following with cardiology -- keep BPs under control. Hand pain 68518436 M79.6 41 New Complaint/ Diagnosis -- suggested wearing wrist splints -- then ortho if not better. 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 Urinary tr act infectious disease 91275947 N39.0 pt with history of recurrent utis. repeat urine with next blood draw to assure no infection at this time. discussed hygiene, encouraged plenty of water. Fatigue 33667983 R53.83 complaint of fatigue is chronic and stable. questionab le source of fatigue. discussed lifestyle changes to help. watch labs to rule out anemia. Hyperlipidemia 39074628 E78.2 chronic and stable. high cholestero l levels, pt understand s that by not having controlled cholestero l levels there is an increased risk of cardiovasc ular disease. I reviewed labs in detail with pt, I explained the importance of keeping the HDL high and LDL and triglyceri de levels low. I discussed the [place] [employer] n guidelines . I instructed pt to do low fat diet. pt is to increase exercise routine. pt is to repeat labs in 6 months time.Revie wed labs with the patient: continue lovastatin 40 mg a day.LDL 121Trig 90HDL 64 Impaired f asting glycemia 759096763 R73.01 chronic and stable. impaired sugars in the past/ I encouraged low sugar diet and exercise. No need for medication at this time. Hgba1c reviewed with pt. Vitamin B deficiency 479 01864 E53.8 chronic and stable b12 levels -- found to be low in the past. encouraged continued b12 supplement ation. labs reviewed:: B12 Vitamin D deficiency 347 63931 E55.9 chronic and stable. low vitamin D levels in the past. explained that low vitamin D levels in the past could be linked to osteopenia /osteoporo sis and cancer risk and heart disease. continue to support vitamin D supplemena tion. reviewed vitamin D labs today: Essential hypertension 22790325 I10 HTN -- Chronic and stable.con tinue with low salt. encouraged exercise. continue current meds. Atrophic vaginitis 27137 000 N95.2 explained the pathology of atrophic vaginitis. explained the risk of incontinen ce and recurrent UTIs; discussed the use of vaginal creams to help with treatment. Screening mammography 24 764521 Z12.31 Menopausal and postmenopausal disorders 620772797 N95.8 pt is post-menop ausal. pt with history of reduced bone density in the past -- needs to be repeated every 2 years. encouraged calcium and vitamin D supplement ation. encouraged plenty of weight bearing exercise -- encouraged to work on balance. 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 Increased body mass index 92419271 Z68.28 elevated BMI. Discussed diet and better therapeuti c lifestyle changes. Diet education 90293635 Z71.3 as above Hand pain 22576124 M79.6 41 Chronic and stable. seeing dr whitmore = better with splints.frey ggested wearing wrist splints -- then ortho if not better. Hypertensive disorder 38 771068 I10 HTN -- currently stable. continue with low salt. encouraged exercise. continue current meds.Chron ic and stable. continue losartan 100 mg a day labs 02/24/22tri g 147; LDL 115, HDL 52tsh 4.95; T4 1.2b12 too high.hga1c 5.6 Carpal anali laurita syndrome 80091722 G56.01 Chronic and stable. seen by ortho -- start with wrist splints --followp as needed. Dilatation of aorta 2666 0001 I77.819 Chronic and stable. keep BPs under control. continue with cholestero l managment. Urinary tr act infectious disease 68664570 N39.0 pt with history of recurrent utis. repeat urine with next blood draw to assure no infection at this time. discussed hygiene, encouraged plenty of water.no infection on current sample Fatigue 51166586 R53.83 complaint of fatigue is chronic and stable. questionab le source of fatigue. discussed lifestyle changes to help. watch labs to rule out anemia. Hyperlipidemia 39887903 E78.2 chronic and stable. high cholestero l levels, pt understand s that by not having controlled cholestero l levels there is an increased risk of cardiovasc ular disease. I reviewed labs in detail with pt, I explained the importance of keeping the HDL high and LDL and triglyceri de levels low. I discussed the [place] [employer] n guidelines . I instructed pt to do low fat diet. pt is to increase exercise routine. pt is to repeat labs in 6 months time.Revie wed labs with the patient: continue lovastatin 40 mg a day.labs 02/24/22tri g 147; LDL 115, HDL 52tsh 4.95; T4 1.2b12 too high.hga1c 5.6 Impaired f asting glycemia 393939463 R73.01 chronic and stable. impaired sugars in the past/ I encouraged low sugar diet and exercise. No need for medication at this time. Hgba1c reviewed with pt. Vitamin B deficiency 479 77819 E53.8 chronic and stable b12 levels -- found to be low in the past. encouraged continued b12 supplement ation. labs reviewed:: B12 Vitamin D deficiency 347 80598 E55.9 chronic and stable. low vitamin D levels in the past. explained that low vitamin D levels in the past could be linked to osteopenia /osteoporo sis and cancer risk and heart disease. continue to support vitamin D supplemena tion. reviewed vitamin D labs today: Essential hypertension 07336536 I10 HTN -- Chronic and stable.con tinue with low salt. encouraged exercise. continue current meds. Atrophic vaginitis 68436 000 N95.2 explained the pathology of atrophic vaginitis. explained the risk of incontinen ce and recurrent UTIs; discussed the use of vaginal creams to help with treatment. pt wants premarin cream -- only will bring forms to fill out to get free. Menopausal and postmenopausal disorders 883420365 N95.8 pt is post-menop ausal. pt with history of reduced bone density in the past -- needs to be repeated every 2 years. encouraged calcium and vitamin D supplement ation. encouraged plenty of weight bearing exercise -- encouraged to work on balance. Screening mammography 24 779639 Z12.31 continue with yearly mammograms , encouraged monthly self breast exams. 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 Atrophic vaginitis 71722 000 N95.2 explained the pathology of atrophic vaginitis. explained the risk of incontinen ce and recurrent UTIs; discussed the use of vaginal creams to help with treatment. pt wants premarin cream -- only will bring forms to fill out to get free. Essential hypertension 83743033 I10 HTN -- Chronic and stable.con tinue with low salt. encouraged exercise. continue current meds.navjot nue hctz 12.5 mg every other day Hyperlipidemia 55653409 E78.2 chronic and stable. high cholestero l levels, pt understand s that by not having controlled cholestero l levels there is an increased risk of cardiovasc ular disease. I reviewed labs in detail with pt, I explained the importance of keeping the HDL high and LDL and triglyceri de levels low. I discussed the [place] [employer] n guidelines . I instructed pt to do low fat diet. pt is to increase exercise routine. pt is to repeat labs in 6 months time.Revie wed labs with the patient: continue lovastatin 40 mg a day.labs 02/24/22tri g 147; LDL 115, HDL 52tsh 4.95; T4 1.2b12 too high.hga1c 5.6 Female str ess incontinence 42171278 N39.3 Increased body mass index 71025986 Z68.28 elevated BMI. Discussed diet and better therapeuti c lifestyle changes. Diet education 32274909 Z71.3 as above Hand pain 60671548 M79.6 41 Chronic and stable. seeing dr whitmore = better with splints.frey ggested wearing wrist splints -- then ortho if not better. 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 seen by ortho -- start with wrist splints --followp as needed. Dilatation of aorta 2666 0001 I77.819 Chronic and stable. keep BPs under control. continue with cholestero l managment. Urinary tr act infectious disease 01228474 N39.0 pt with history of recurrent utis. repeat urine with next blood draw to assure no infection at this time. discussed hygiene, encouraged plenty of water.no infection on current sample Fatigue 36609662 R53.83 complaint of fatigue is chronic and stable. questionab le source of fatigue. discussed lifestyle changes to help. watch labs to rule out anemia. Impaired f asting glycemia 682784241 R73.01 chronic and stable. impaired sugars in the past/ I encouraged low sugar diet and exercise. No need for medication at this time. Hgba1c reviewed with pt. Vitamin B deficiency 479 09402 E53.8 chronic and stable b12 levels -- found to be low in the past. encouraged continued b12 supplement ation. labs reviewed:: B12 Vitamin D deficiency 347 62533 E55.9 chronic and stable. low vitamin D levels in the past. explained that low vitamin D levels in the past could be linked to osteopenia /osteoporo sis and cancer risk and heart disease. continue to support vitamin D supplemena tion. reviewed vitamin D labs today: Menopausal and postmenopausal disorders 605997956 N95.8 pt is post-menop ausal. pt with history of reduced bone density in the past -- needs to be repeated every 2 years. encouraged calcium and vitamin D supplement ation. encouraged plenty of weight bearing exercise -- encouraged to work on balance.de xa scan 12/2021 -1.8; Screening mammography 24 334110 Z12.31 continue with yearly mammograms , encouraged monthly self breast exams. 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 - seen by hand specialist . [id number] Jackie Rodriguez MD [facility] [address] [facility] [address] [place] [address] 03/02/2023 09:59:50 03/02/2023 10:53:49 Adult health examination [id number] Z00.00 Annual Wellness Visit done today Increased body mass index 03135360 Z68.28 elevated BMI. Discussed diet and better therapeuti c lifestyle changes. Diet education 40628342 Z71.3 as above Female str ess incontinence 50190240 N39.3 Chronic and stable. use premarin cream. Hypertensive disorder 38 632139 I10 HTN -- currently stable. continue with low salt. encouraged exercise. continue current meds.Chron ic and stable. continue losartan 100 mg a day labs 02/21/23UA dirty -- culture negldl 114; trig 106; hdl 63bun 16, cr 0.63hgb 13.0vit D 37tsh 3.63; T4 1.0b12 >2000hgb a1c 5.5 Atrophic vaginitis 29576 000 N95.2 explained the pathology of atrophic vaginitis. explained the risk of incontinen ce and recurrent UTIs; discussed the use of vaginal creams to help with treatment. wants to send to [facility]. Essential hypertension 26302220 I10 HTN -- Chronic and stable.con tinue with low salt. encouraged exercise. continue current meds.navjot nue hctz 12.5 mg every other day Hyperlipidemia 88042933 E78.2 chronic and stable. high cholestero l levels, pt understand s that by not having controlled cholestero l levels there is an increased risk of cardiovasc ular disease. I reviewed labs in detail with pt, I explained the importance of keeping the HDL high and LDL and triglyceri de levels low. I discussed the [place] [employer] n guidelines . I instructed [...] T4 1.0b12 >2000hgb a1c 5.5 Hand pain 09937900 M79.6 41 Chronic and stable. seeing dr whitmore = better with splints.frey ggested wearing wrist splints -- then ortho if not better. Carpal anali laurita syndrome 57623240 G56.01 Chronic and stable. seen by ortho -- start with wrist splints --followp as needed. Dilatation of aorta 2666 0001 I77.819 Chronic and stable. keep BPs under control. continue with cholestero l managment. Fatigue 79378107 R53.83 complaint of fatigue is chronic and stable. questionab le source of fatigue. discussed lifestyle changes to help. watch labs to rule out anemia. Vitamin D deficiency 347 89713 E55.9 chronic and stable. low vitamin D [...] >2000hgb a1c 5.5 Menopausal and postmenopausal disorders 079896932 N95.8 pt is post-menop ausal. pt with history of reduced bone density in the past -- needs to be repeated every 2 years. encouraged calcium and vitamin D supplement ation. encouraged plenty of weight bearing exercise -- encouraged to work on balance.de xa scan 12/2021 -1.8; Screening mammography 24 823799 Z12.31 continue with yearly mammograms , encouraged monthly self breast exams. Irritable bowel syndrome 01550817 K58.9 Chronic and exacerbati on -- using PRN, diarrhea less [place] Gastroesop hageal reflux disease 272908367 K21.9 continue PPI, reduce caffiene, etoh. no nsaids;Kaylan nge your eating habits.rachel l [place] -- increase omeprazole to 40 mg while waiting for EGD. It s best to eat several small meals [...] just 5 to 10 pounds can help. [id number] [facility] [address] [place] [address] 11/16/2023 09:33:15 11/16/2023 10:12:36 Influenza caused by Influenza A virus 359679033 J09.X2 stable, with some fatigue, continue benzonatat e, RTO if symptoms. Localized swelling of right lower leg [id number] 0279171 R22.41 Acute problem -- new onset edema and pain in lower extremity -- rule out DVT immediatel y. check stat dopplers. pt to go directly and then wait for further instructio ns. Advised patient not to massage the area until we know the status. Active or passive immunization 655057038 Z23 Patient will get at pharmacy Vitamin D deficiency 347 89861 E55.9 Chronic with exacerbati on. Start supplement ation below. Recheck labs in February at annual wellness. Labs 11/08/2023vi t d 28tsh 2.93hdl 56 trig 100 ldl 100gfr 85 cr 0.66 bun 18wbc 6.3 hgb 12.1 Anxiety 01724255 F41.9 Chronic uncontroll ed. Tiki g patient stress due to 's memory loss. Provided patient with memory loss support group alem Mata. Patient reports her has memory loss and she is having challenges managing. Dilatation of aorta 2666 0001 I77.819 Chronic stable, continue lovastatin 40 mg tablet, continue lipid-lowe ring diet, monitor blood pressure keep within tight control. [id number] ROSA MARIA MULLIGAN APRN [facility] [address] [place] [address] 01/03/2024 08:35:56 01/03/2024 10:37:04 Recurrent urinary tract infection 225964961 N39.0 Chronic, stable. Incontinen ce persists as discussed at prior appointmen t rule out UTI with recent dizziness. Acute sinusitis 08448785 J01.90 New acute problem, unstable. Patient complains [...] nasal spray) as needed Posterior rhinorrhea 758 86916 R09.82 Acute, new problem. Start fluticason e 50 mcg per actuation nasal spray, return to office if symptoms not improved. [id number] ROSA MARIA MULLIGAN APRN [facility] [address] [address] [place] [address] 01/25/2024 10:59:05 01/25/2024 12:14:08 Pain of right knee joint 8435776239 11974 M25.561 Acute, new problem, uncontroll ed, continue meloxicam after meal only. Rest, ice/heat and keep brace on knee. Risks of NSAIDs including cardiovasc ular, GI, and renal risk reviewed with patient. Patient plans to follow up with orthopedic in [place] and [facility]. Synovial c yst of right knee [id number] 77845 M71.21 Acute, new problem, uncontroll ed, continue meloxicam after meal only. Follow up with ortho for possible drainage of bakers cyst. Posterior rhinorrhea 758 42946 R09.82 Acute, new problem ongoing since sinusitis visit 2 weeks ago, she completed abx as ordered still w/ sinus drainage and mild sinus headache. Start fluticason e 50 mcg per actuation nasal spray, return to office if symptoms not improved. Impacted c erumen of bilateral ears 2405512856 036607 H61.23 bilateral ears cleaned in office today. [id number] Jackie Rodriguez MD [facility] [place] [place] [address] 02/07/2025 14:56:45 02/07/2025 16:30:34 Adult health examination 855996849 Z00.00 Medicare Annual Wellness Visit done today. Body mass index 25-29 - overweight 113024820 Z68.27 Weight issues discussed and informatio n on weight loss given. Needs follow up on weight control as scheduled. Chronic, Stable Increased body mass index 76107466 Z68.28 elevated BMI. Discussed diet and better therapeuti c lifestyle changes. Diet education 64735040 Z71.3 as above Female str ess incontinence 47564230 N39.3 Chronic and stable. use premarin cream. Hypertensive disorder 38 840060 I10 HTN -- currently stable. continue with low salt. encouraged exercise. continue current meds.Chron ic and stable. continue losartan 100 mg a day labs 02/14/2024 -- needs new labs -- ordered.la bs 02/21/23UA dirty -- culture negldl 114; trig 106; hdl 63bun 16, cr 0.63hgb 13.0vit D 37tsh 3.63; T4 1.0b12 >2000hgb a1c 5.5 Atrophic vaginitis 22710 000 N95.2 explained the pathology of atrophic vaginitis. explained the risk of incontinen ce and recurrent UTIs; discussed the use of vaginal creams to help with treatment. [facility] Essential hypertension 45296533 I10 HTN -- Chronic and stable.con tinue with low salt. encouraged exercise. continue current meds.navjot nue hctz 12.5 mg every other daycontinu e losartan 100 mg a day. Hyperlipidemia 64201720 E78.2 chronic and stable. high cholestero l levels, pt understand s that by not having controlled cholestero l levels there is an increased risk of cardiovasc ular disease. I reviewed labs in detail with pt, I explained the importance of keeping the HDL high and LDL and triglyceri de levels low. I discussed the [place] [employer] n guidelines . I instructed pt to do low fat diet. pt is to increase exercise routine. pt is to repeat labs in 6 months time.Revie wed labs with the patient: continue lovastatin 40 mg a day. labs 02/14/2024 -- needs new labs -- ordered.la bs 02/21/23UA dirty -- culture negldl 114; trig 106; hdl 63bun 16, cr 0.63hgb 13.0vit D 37tsh 3.63; T4 1.0b12 >2000hgb a1c 5.5 Hand pain 94671729 M79.6 41 Chronic and stable. seeing dr whitmore = better with splints.frey ggested wearing wrist splints -- then ortho if not better. Carpal anali laurita syndrome 45966873 G56.01 Chronic and stable. seen by ortho -- start with wrist splints --followp as needed. Dilatation of aorta 2666 0001 I77.819 Chronic and stable. keep BPs under control. continue with cholestero l managment. Fatigue 54505217 R53.83 complaint of fatigue is chronic and stable. questionab le source of fatigue. discussed lifestyle changes to help. watch labs to rule out anemia. Vitamin D deficiency 347 24909 E55.9 chronic and stable. low vitamin D levels in the past. explained that low vitamin D levels in the past could be linked to osteopenia /osteoporo sis and cancer risk and heart disease. continue to support vitamin D supplemena tion. increase vitamin D 4,000 units a day. reviewed vitamin D labs today: labs 02/14/2024 -- needs new labs -- ordered.la bs 02/21/23UA dirty -- culture negldl 114; trig 106; hdl 63bun 16, cr 0.63hgb 13.0vit D 37tsh 3.63; T4 1.0b12 >2000hgb a1c 5.5 Menopausal and postmenopausal disorders 500611606 N95.8 pt is post-menop ausal. pt with history of reduced bone density in the past -- needs to be repeated every 2 years. encouraged calcium and vitamin D supplement ation. encouraged plenty of weight bearing exercise -- encouraged to work on balance.de xa scan 12/2021 -1.8; Screening mammography 984224 Z12.31 continue with yearly mammograms , encouraged monthly self breast exams. Irritable bowel syndrome 83404000 K58.9 Chronic and exacerbati on -- using PRN, diarrhea less -[place] Gastroesop hageal reflux disease 551921793 K21.9 continue PPI, reduce caffiene, etoh. no nsaids;Kaylan nge your eating habits.rachel l [place] -- increase omeprazole to 40 mg while waiting for EGD. It s best to eat several small meals [...] just 5 to 10 pounds can help. 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 Impaired f asting glycemia 349368844 R73.01 chronic and stable. impaired sugars in the past/ I encouraged low sugar diet and exercise. No need for medication at this time. Hgba1c reviewed with pt. Vitamin B deficiency 479 75290 E53.8 chronic and stable b12 levels - found to be low in the past, but now with normal levels. encouraged continued b12 supplement ation. labs reviewed:: Urinary tr act infectious disease 20268624 N39.0 pt with history of recurrent utis. .chronic and stable. repeat urine with next blood draw to assure no infection at this time. discussed hygiene, encouraged plenty of water. 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 - have on hand. Impacted c erumen in left ear [id number] 784030 H61.22 New Complaint/ Diagnosis cleaned out today. Pain of bi lateral knee joints 6325814045 15366 M25.561 M25.562 New Complaint/ Diagnosis - pt getting PT from grandson -- declines ortho or PT referral. Health Concerns Section Related Observation LastModified by Organization Detai ls LastModified Time None Recorded Concern Status LastModified by Organization Details LastModified Time None Recorded Advance Directives Directive Y: Payers Insurance Date Sequence Insurance Name Policy Number Policy Gregory Covered Member ID Gregory Member ID Guarantor Name 11/18/2019 2 [facility] [facility] (MEDICARE REPLACEMENT PPO) [id number] Albina Shieldsidan [id number] Albina Bradford [place] 03/29/2025 2 [facility] (MEDICARE SUPPLEMENT) Albina Bradford [place] [id number] Albina Bradford [place] 03/29/2025 1 [place] Albina [place] [id number] Albina Bradford [place] 02/06/2025 1 [facility] (MEDICARE REPLACEMENT/A DVANTAGE - PPO) [id number] Albina Shieldsidan [id number] Albina Shieldsidan 11/18/2019 1 [facility] [id number] Albina Shieldsidan [id number] Albina Bradford [place] Notes Date Note Type Note Provider Name [...] other providers updated ANNUAL WELLNESS VISIT QUESTIONNAIRE Patient reported changes/additions to Medical Care Team dr. West, [facility], Dr Danelle Martinez, [place] [facility], [place], [place], Dr Davie Horton, [place], [place] What is the Patient's living arrangements? Live with Spouse What type of residence does the Patient live in? Condo How many stories (floors) to the Patient's residence? Single Story (1 floor) Does the Patient have smoke / CO detectors in the home? Yes Does the Patient use any of the following Respirator Machines? Nebulizer - No Oxygen - No CPAP/BiPAP - No Is the Patient able to afford his/her medications? Yes with assistance What type of transportation does the Patient use? I use my own car Has the Patient had a weight change in the past 6 months? No What type of diet the patient is currently following? Regular What best describes the Patient's level of Physical activity? Moderate Does the Patient use Tobacco Products? No Has the Patient seen a Dentist in the last 12 months? Yes Does the Patient always use a seat belt routinely? Yes Does the Patient use sunscreen routinely? Yes Does the Patient wear a helmet when riding a bicycle/motorcycle? Do Not Ride Is the Patient sexually active? No How would the patient rate their health compared to others your age? Better How would the patient rate their health today compared to last year? Same Does the Patient have Pain? No Is the patient using narcotics/opioids for pain? No How much urinary incontinence does the Patient experience? Moderate Does the Patient or people around the Patient have concerns about the Patient's hearing? Currently wear hearing aids Does the Patient or people around the Patient have concerns about the Patient's vision? No Does the Patient use any of the following for mobility assistance? Cane - No Crutches - No Walker - No Wheelchair/Scooter - No In the past year has the Patient had concerns about balance or walking or feeling unsteady on his/her feet? No In the past year has the Patient had a fall? No STEADI Fall Risk Assessment I have fallen in the past year. - No I use or have been advised to use a cane or walker to get around safely. - No Sometimes I feel unsteady when I am walking. - No I steady myself by holding onto furniture when walking at home - No I am worried about falling. - No I need to push with my hands to stand up from a chair. - No I have some trouble stepping up onto a curb. - No I often have to lafleur to the toilet. - Yes I have lost some feeling in my feet. - No I take medicine that sometimes makes me feel light-headed or more tired than usual - No I take medicine to help me sleep or improve my mood. - No I often feel sad or depressed. - No Does the Patient's home have any trip hazards like throw rugs or uneven floors? No Does the Patient need assistance with Bathing/Toileting/Eating Bathing/Grooming - No Toileting - No Eating - No Does the Patient or the people around the Patient have concerns about his/her memory? No Does the Patient have an Advance Directive (Living Will)? Yes PHQ Score Mild depression, (5). Imported from [place] on 03/02/2023 pressure in chest with eating [...] incontience.osteopenia -- 12/2021 -1.8; Jackie Rodriguez MD [address] [facility] [address], [place], [address], [facility], [facility] 03/02/2023 10:52:05 4 text/html Follow upReported bypatient.Reason [...] in the A/P section. ROSA MARIA MULLIGAN, PRISON OFFICER [address] [address], [place], [address], [facility], [facility] 11/16/2023 10:21:25 4 text/html Cough / ColdReported bypatient.Reason for visit:acute [...] our telehealth video visit service. Provider location: in office Patient location: at home address on file Visit Participants in addition to provider and patient: none Patient has given verbal consent to telehealth visit. Complete medication reconciliation was performed at the start of the telehealth visit. ROSA MARIA MULLIGANSOY [address], [place], [address], [facility], [employer] 01/03/2024 09:13:20 4 text/html Follow upReported bypatient.Reason for visit:follow-up after emergency room visit Severity:moderate 03/09 Current status:uncontrolled Current control and compliance:compliant with regimen Current symptoms/concerns:symptom atic of condition Actions due to side effects:continued Rx Result of action:no change in side effects ROSA MARIA MULLIGANSOY [address], [place], [address], [facility] 01/25/2024 12:43:55 5 text/html DyslipidemiaReported bypatient.Complications due to diagnosis:no complicatons [...] EMR in appropriate tabs; other providers updated Home Environmentlives with alone Home Safetysmoke detector in home; CO detector in home; no smokers in home; safe jay Utilities/Financial Needsable to afford medications 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 DMEnone Mobilityno assistive devices needed Diet and Nutritionregular diet Weightno weight change Physical Activityregular exercise Current Level of PainNo pain: 0/10 Opioid Use and Risks of Opioid Use DisordersNo opioid use Behavioral Historyreviewed in social history; no drug use; never a smoker Health Compared to Age Groupbetter Health Since Last Visitimproved health Hearingno loss of hearing Visionno vision problems Memory Lapses or Lossno memory lapses or loss A PHQ2/9 was conducted during this encounter and all the actions of this assessment and time elements of up to 15 minutes were met. -- going into assisted living. [facility]. pressure in chest with eating and coughing, [...] incontience.osteopenia -- 12/2021 -1.8; Jackie Rodriguez MD [address] [facility] [address], [place], [address], [facility], [facility] 02/08/2025 12:10:04 OBGyn Episode No OBEpisode recorded.
== END 2025-04-17 09:44 | disposition home or self-care (01) ==
LOC: HO.HMCHD 09:07
PROVIDERS: PCP Internal Medicine; Visit Provider Physician Assistant
DX: M53.3 Sacrococcygeal disorders, not elsewhere classified (principal); I10 Essential (primary) hypertension; E78.5 Hyperlipidemia, unspecified; K21.9 Gastro-esophageal reflux disease without esophagitis; Z86.0100 Personal history of colon polyps, unspecified; M85.80 Other specified disorders of bone density and structure, unspecified site; K58.9 Irritable bowel syndrome, unspecified

== ENCOUNTER → 2025-04-17 09:06 | Outpatient (BNVA) | payer MEDICARE, OTHER, SELFPAY | PROVIDERS: PCP Internal Medicine; Visit Provider Physician Assistant | DX: M53.3 Sacrococcygeal disorders, not elsewhere classified (principal); I10 Essential (primary) hypertension; E78.5 Hyperlipidemia, unspecified; K21.9 Gastro-esophageal reflux disease without esophagitis; M85.80 Other specified disorders of bone density and structure, unspecified site; K58.9 Irritable bowel syndrome, unspecified; Z86.0100 Personal history of colon polyps, unspecified; Z79.899 Other long term (current) drug therapy; Z13.30 Encounter for screening examination for mental health and behavioral disorders, unspecified | CPT/HCPCS: 96127; 99202 ==

== ENCOUNTER 2025-05-22 10:23 | Outpatient (AMB) | payer MEDICARE, OTHER, SELFPAY ==
--- OUTSIDE RECORDS SUMMARY | 2023-12-20 20:00 | XMS_ITS | Continuity of Care Document ---
Author Organization [facility] Address [facility] [place] [address] Phone Care Team Providers Care Supervisor Records Change Name Role Phone Clovis Edwards OD Unavailable Unavaila ble Allergies, Adverse Reactions, Alerts Substance Reaction Status Criticality codeine Active No Information Penicillins Active No Information normorphine Active No Information meperidine Active No Information WARNIN allergy(ies) could not be collected because the type is not supported. Please contact the source practice for further details. Advance Directives Directive Yes / No Effective Date File Name No Information Encounters Encounter Description Practice Location Reason(s) For Visit Diagnoses Date Provider Providers Copied on Encounter [facility], [address] [place] [address], [id number] , [place] tel: [phone] [place] January QES Presbyopia Dec- 4 Grace Clovis Oliverio. [address], [place], [id number], [place]. [phone] [facility], [address] [place] [address], [id number] , [place] tel: [phone] Lorenzo Piper QES Vitreous degeneration, bilateralNonexud ative age-related macular degeneration, bilateral, intermediate dry stage Mar-0 2 Victorina Forrester. [address] [facility] , [place], [address], [place]. tel:[phone] [facility], [address] [place] [address], [id number] , [place] tel: [phone] [facility] Location Other secondary cataract, left eyeVitreous degeneration, bilateralDry eye syndrome of bilateral lacrimal glandsNonexudati ve age-related macular degeneration, bilateral, intermediate dry stage - 1 [employer] [place], [address], [place]. tel: [phone] [facility], [place], [id number] , [place] tel: [phone] [facility] Location Vitreous degeneration, bilateralNonexud ative age-related macular degeneration, bilateral, intermediate dry stageDry eye syndrome of bilateral lacrimal glandsOther secondary cataract, left eye 9 [facility]. [facility] [place], [address], [place]. tel: [phone] [facility], [address] [place], [place], [id number] , [place] tel: [phone] [facility] Location Nonexudative age-related macular degeneration, bilateral, intermediate dry stageDry eye syndrome of bilateral lacrimal glandsOther secondary cataract, left eyeVitreous degeneration, bilateral 0 9 [facility]. [facility] [place], [address], [place]. tel: [phone] [facility], [place], [id number] , [place] tel: [phone] [facility] Location Nonexudative age-related macular degeneration, bilateral, intermediate dry stageDry eye syndrome of bilateral lacrimal glandsVitreous degeneration, bilateralOther secondary cataract, left eye Dec-0 -201 8 [employer] [place], [address], [place]. tel: [phone] [facility], [place], [id number] , [place] tel: [phone] [facility] Location Vitreous degeneration, bilateralOther secondary cataract, left eyeDry eye syndrome of bilateral lacrimal glandsNonexudati ve age-related macular degeneration, bilateral, intermediate dry stage 7 [facility] [facility]. [facility] [place], [address], [place]. [phone] [facility], [place], [place], [id number] , [place] tel: [phone] [facility] Location Nonexudative age-related macular degenerationOthe r secondary cataract, left eyeVitreous degeneration, bilateralDry eye syndrome of bilateral lacrimal glands Dec-0 4-201 5 [employer]. [address] [place] [address], [facility], [place]. tel:[phone] [facility], [place] [place], [place], [id number] , [place] tel: [phone] [facility] Location Other secondary cataract, left eyeNonexudative age-related macular degenerationVitr eous degeneration, bilateral Oct-2 9-201 4 [facility] [place] [address], [facility], . tel:-[phone] [facility], [place], [id number] , [place] tel: [phone] [facility] Location Dry eye syndrome of right lacrimal glandVitreous degeneration, bilateralMacular Degeneration AR DryVitreous Detachment DegeneratAfter Cataract Obscuring VADry Eye SyndromePseudoph joe 1-201 4 [employer]. [address] [place] [address], [facility], . [phone] Family History Family Member Type Diagnosis Age At Onset Mother Biological Problem (finding) Fhx of diabetes me llitus Father Biological Problem (finding) Fhx of glaucoma Payers Payer name Insurance type Covered libertarian ID Authoriza tion(s) No Information Social History Type Description Quantity Date Captured Comments Sex Female Smoking Status No Information Chief Complaint And Reason For Visit No Information Reason For Referral Reason For Referral No Information History Of Present Illness Encounter Date Complaint History Of Prese nt Illness No Information Functional Status Date Functional Assessmen t No Information Instructions Date Instruction Additional Infor blaier Impression/Plan Related to Presb yopia Impression/Plan Related to Diagn osis Description: Intermediate stage nonexudative age-related macular degeneration of both eyes \nDiagnosis Code: 362.51 Impression/Plan Related to Diagn osis Description: PVD (posterior vitreous detachment), both eyes \nDiagnosis Code: 379.21 Impression/Plan Related to Diagn osis Description: 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 \nDiagnosis Code: 375.15 Impression/Plan Related to Diagn osis Description: PVD (posterior vitreous detachment), both eyes \nDiagnosis Code: 379.21 Impression/Plan Related to Diagn osis Description: Posterior capsular opacification visually significant of left eye \nDiagnosis Code: 366.53 Impression/Plan Related to Diagn osis Description: Intermediate stage nonexudative age-related macular degeneration of both eyes \nDiagnosis Code: 362.51 Impression/Plan Related to Diagn osis Description: Intermediate stage nonexudative age-related macular degeneration of both eyes \nDiagnosis Code: 362.51 Impression/Plan Related to Diagn osis Description: 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 \nDiagnosis Code: 375.15 Impression/Plan Related to Diagn osis Description: PVD (posterior vitreous detachment), both eyes \nDiagnosis Code: 379.21 Impression/Plan Related to Diagn osis Description: Posterior capsular opacification visually significant of left eye \nDiagnosis Code: 366.53 Impression/Plan Related to Diagn osis Description: 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 \nDiagnosis Code: 375.15 Impression/Plan Related to Diagn osis Description: PVD (posterior vitreous detachment), both eyes \nDiagnosis Code: 379.21 Impression/Plan Related to Diagn osis Description: Posterior capsular opacification visually significant of left eye \nDiagnosis Code: 366.53 Impression/Plan Related to Diagn osis Description: Intermediate stage nonexudative age-related macular degeneration of both eyes \nDiagnosis Code: 362.51 Impression/Plan Related to Diagn osis Description: 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 \nDiagnosis Code: 375.15 Impression/Plan Related to Diagn osis Description: PVD (posterior vitreous detachment), both eyes \nDiagnosis Code: 379.21 Impression/Plan Related to Diagn osis Description: Posterior capsular opacification visually significant of left eye \nDiagnosis Code: 366.53 Impression/Plan Related to Diagn osis Description: Nonexudative age-related macular degeneration, bilateral, intermediate dry stage \nDiagnosis Code: 362.51 Impression/Plan Related to Diagn osis Description: PVD (posterior vitreous detachment), both eyes \nDiagnosis Code: 379.21 Impression/Plan Related to Diagn osis Description: Posterior capsular opacification visually significant of left eye \nDiagnosis Code: 366.53 Impression/Plan Related to Diagn osis Description: 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 \nDiagnosis Code: 375.15 Impression/Plan Related to Diagn osis Description: Nonexudative age-related macular degeneration, bilateral, intermediate dry stage \nDiagnosis Code: 362.51 Impression/Plan Related to Diagn osis Description: 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 \nDiagnosis Code: 375.15 Impression/Plan Related to Diagn osis Description: Posterior capsular opacification visually significant of left eye \nDiagnosis Code: 366.53 Impression/Plan Related to Diagn osis Description: PVD (posterior vitreous detachment), both eyes \nDiagnosis Code: 379.21 Impression/Plan Related to Diagn osis Description: Age-related macular degeneration, dry, both eyes \nDiagnosis Code: 362.51 Impression/Plan Related to Diagn osis Description: PVD (posterior vitreous detachment), both eyes \nDiagnosis Code: 379.21 Impression/Plan Related to Diagn osis Description: Posterior capsular opacification visually significant of left eye \nDiagnosis Code: 366.53 Impression/Plan Related to Diagn osis Description: Age-related macular degeneration, dry, both eyes \nDiagnosis Code: 362.51 Impression/Plan Related to Diagn osis Description: PVD VITREOUS DEGENERATION OU \nDiagnosis Code: 379.21 Impression/Plan Related to Diagn osis Description: OPC/PCO AFTER CATARACT OBSCURING [facility] OS \nDiagnosis Code: 366.53 Impression/Plan Related to Diagn osis Description: DRY EYE SYNDROME OF RIGHT LACRIMAL GLAND \nDiagnosis Code: 375.15 Impression/Plan Related to Diagn osis Description: PSEUDOPHAKIA OU \nDiagnosis Code: V43.1 Impression/Plan Related to Diagn osis Description: ASHOK TEAR FILM INSUFFICIENCY (UNSPECIFIED) OD \nDiagnosis Code: 375.15 Impression/Plan Related to Diagn osis Description: PVD, BOTH EYES \nDiagnosis Code: 379.21 Impression/Plan Related to Diagn osis Description: DGNRATN NONEXUDATIVE SENILE MACULAR (MILD, OD>OS) OU \nDiagnosis Code: 362.51 Assessments Type Assessment Date No Information Patient Care Teams Name Effective Dates (start - stop) Status Members No Information
[2025-05-22 08:40] VITALS: BP 140/82; PULSE 68; TEMP 36.4; O2SAT 98; BMI 26.5
--- NOTE | 2025-05-22 08:40 | MHC.PC.OV ---
Vital Signs 05/22/25 08:40 Height 5 ft 5 in Weight 159 lb BMI 26.5 BP 140/82 H Blood Pressure Location Lt brachial Position Sitting Pulse 68 Pulse Source Pulse Oximeter Temp 97.5 F Temp Source Axillary Pulse Oximetry (%) 98 Oxygen Delivery Method Room Air Intake Visit Reasons: sick visit Electronic Test Technician Required: No Accompanied by: Self / Same As Patient Allergies amitriptyline (From Elavil) Allergy (Verified 05/22/25 08:41) Agitated meperidine (Demerol) Allergy (Verified 05/22/25 08:41) Anaphylaxis morphine Allergy (Verified 05/22/25 08:41) Hallucinations Penicillins Allergy (Verified 05/22/25 08:41) Rash prednisone Adverse Reaction (Mild, Verified 05/22/25 08:41) Anxiety Tobacco use date assessed: 05/22/25 Fall risk assessment: No Falls in past year Last assessed Fall Risk: 05/22/25 Dental Screening Dental Screen Date: 05/22/25 Did you have a dental visit in the last 12 months?: Yes Did you have a dental problem in the last 6 months where you did not have access to dental care?: No [facility] Medical History (Updated 05/22/25 @ 10:32 by Yoseph Gonzáles MD) Atrial fibrillation IBS (irritable bowel syndrome) Osteopenia History of colon polyps GERD (gastroesophageal reflux disease) Hyperlipidemia Hypertension SI (sacroiliac) joint dysfunction Family History (Updated 05/22/25 @ 10:35 by Loulou Coppola MA) Mother No problems noted. Father No problems noted. Social History Housing: House Patient Tobacco Use Status: Never used Tobacco e-Cigarette/Vaping Use: Never Used service: No Current occupational status: retired Cognitive needs: No Hearing needs: Yes (bilateral hearing aids) Vision needs: Yes (reading glasses) Questionnaire PHQ-9 Over the last 2 weeks, how often have you been bothered by any of the following problems? 1. Little interest or pleasure in doing things: not at all 2. Feeling down, depressed, or hopeless: several days (comes and goes) 3. Trouble falling or staying asleep, or sleeping too much: not at all 4. Feeling tired or having little energy: nearly every day (no energy) 5. Poor appetite or overeating: several days (comes and goes) 6. Feeling bad about yourself - or that you are a failure or have let yourself or your family down: not at all 7. Trouble concentrating on things, such as reading the newspaper or watching television: not at all 8. Moving or speaking so slowly that other people could have noticed. Or the opposite - being so fidgety or restless that you have been moving around a lot more than usual: not at all 9. Thoughts that you would be better off or of hurting yourself in some way: not at all Total score: 5 Source: Developed by Drs. Juan Jackson, Vanessa Melendez, King Sierra and colleagues, with an educational ricky from [employer]. Thrive Questionnaire Date Thrive assessed: 05/22/25 I am a: Patient Within the past 12 months, did the food you bought not last and you didn't have the money to get more?: Never true Within the past 12 months, did you worry whether your food would run out before you got money to buy more?: Never true Do you have trouble paying for medicines?: No Do you have trouble getting transportation to medical appointments?: No Do you have trouble paying your heating and electricity bill?: No Do you have trouble taking care of your child, family member or friend?: No Do you have trouble with day-to-day activities such as bathing, preparing meals, shopping, managing finances, etc.?: No Are you currently unemployed and looking for a job?: No Are you interested in more education?: No THRIVE Score: 0 AUDIT C Alcohol Use Questionnaire (AUDIT-C) 1. How often do you have a drink containing alcohol?: Monthly or less 2. How many drinks containing alcohol do you have on a typical day when you are drinking?: 1 or 2 3. How often do you have six or more drinks on one occasion?: Less than monthly Total Score: 2 DWAIN-7 AMB Questionnaire DWAIN-7 Date DWAIN - 7 assessed: 05/22/25 Feeling nervous, anxious, or on edge: 1 = Several days Not being able to stop or control worryin = Not at all Worrying too much about different things: 0 = Not at all Trouble relaxin = Not at all Being so restless that it is hard to sit still: 0 = Not at all Becoming easily annoyed or irritable: 0 = Not at all Feeling afraid as if something awful might happen: 0 = Not at all Total DWAIN-7 score (0-4 normal; 5-9 mild; 10-14 moderate; 15-21 severe): 1 Source: Developed by Drs. Juan Jackson, Vanessa Melendez, King Sierra and colleagues, with an educational ricky from [employer]. Physical exam (Primary Care) Vital Signs: Last Vital Signs Temp 97.5 F 05/22/25 08:40 Pulse 68 05/22/25 08:40 BP 140/82 H 05/22/25 08:40 Pulse Ox 98 05/22/25 08:40 Oxygen Delivery Method Room Air 05/22/25 08:40 BMI result Body Mass Index 26.5 Tobacco/Smoking Status: Tobacco use Status Tobacco use date assessed 05/22/25 05/22/25 08:42 Patient Tobacco Use Status Never used Tobacco 05/22/25 08:42 e-Cigarette/Vaping Use Never Used 05/22/25 08:42 PHQ-9: PHQ-9 Score PHQ-9: Total score 5 05/22/25 10:36 Thrive Assessment: Date of Thrive Assessment Date Thrive assessed 05/22/25 05/22/25 08:42 Coding Level of Care Code New Pt Level 4 (83662) Complex EM visit Add On G2211 Diagnoses Atrial fibrillation I48.91 Assessment & Plan Assessment & Plan (1) Atrial fibrillation: Code(s): I48.91 - Unspecified atrial fibrillation Category: Medical Plan: History of Present Illness - The patient is an 89-year-old female presenting with fecal incontinence and changes in bowel habits. - She has a history of Irritable Bowel Syndrome (IBS) and reports repeated diarrhea with pencil-thin stools since early March. - Medications for a urinary tract infection in October and sciatica in March may have contributed to her symptoms. - The patient experiences nocturnal bowel movements without sensation, leading to fecal incontinence. - She wears pads due to frequent staining and occasional explosive diarrhea. - Her medical history includes colon polyps and a family history of colon cancer, with her last colonoscopy in July 2023. - She avoids certain foods like cereal and coffee, suspecting they may worsen her symptoms. 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 - She is a [place] resident and is currently staying until December. Review of Systems - Gastrointestinal: Reports repeated diarrhea, pencil-thin stools, nocturnal bowel movements, fecal incontinence, and occasional explosive diarrhea. - Genitourinary: Reports nocturnal voiding without increased frequency during the day. Physical Exam General: Cooperative and healthy appearing Nutritional Appearance: Well nourished Orientation/consciousness: Patient oriented x3 Limitations: No limitations Head: Normal to inspection General: Appearance normal, both eyes and all related structures Neck: Normal visual inspection Chest: Normal palpation of entire chest wall Respiratory: N ormal respiratory effort Neurology: Patient oriented x3, fecal incontinence noted. Results Plan 1. Irritable Bowel Syndrome (Ibs) - Continue dicyclomine and add Lomotil for symptom management. - Avoid potential dietary triggers such as cereal and coffee. - Follow-up in two weeks to assess response to treatment. 2. Fecal Incontinence - Initiate Lomotil to manage symptoms. - Blood work to be conducted to rule out other causes. - Referral to refining still operator for further evaluation in July. Discussion Notes I discussed with the patient the management of her IBS and fecal incontinence, including the continuation of dicyclomine and the addition of Lomotil. We talked about avoiding dietary triggers and the importance of follow-up in two weeks to evaluate the treatment's effectiveness. I also explained the need for blood work and the referral to a refining still operator for further evaluation in July. Patient Instructions - Continue taking dicyclomine and start Lomotil as prescribed. - Avoid foods that may trigger symptoms, such as cereal and coffee. - Complete blood work as directed. - Schedule a follow-up appointment in two weeks. - Attend the refining still operator appointment in July. Orders: Orders Basic Metabolic Panel Today I48.91 - Unspecified atrial fibrillation Liver Panel Today I48.91 - Unspecified atrial fibrillation Complete Blood Count no Diff Today I48.91 - Unspecified atrial fibrillation Lipid Panel Today I48.91 - Unspecified atrial fibrillation Thyroid Stimulating Hormone Today I48.91 - Unspecified atrial fibrillation UA and rflx microscopic Today I48.91 - Unspecified atrial fibrillation Medications: New diphenoxylate-atropine 2.5-0.025 mg (Lomotil) 1 tab PO BID PRN 14 tabs 0RF diarrhea
--- OUTSIDE RECORDS SUMMARY | 2025-05-22 11:31 | XMS_ITS | Clinical Summary ---
Author Organization Patient Business Ser [facility] Address [address] [place] [address] Care Team Providers Care Welding Equipment Repairer Name Role Phone Camryn Hawk Primary Care Provider [phone] Encounters Date Type Department Care Team Description 05/15/2025 Telephone Gastroenterology - [address] [place] [phone] Estelle Bay MD consut appointment from Last 3 Months Social History Tobacco Use Types Packs/Day Years Used Date Smoking Tobacco: Never Assessed Comments Unknown Sex and Gender Information Value Date Recorded Sex Assigned at Not on file Legal Sex Female 6:27 AM EST Gender Identity Not on file Sexual Orientation Not on file Plan of Treatment Upcoming Encounters Date Type Department Care Team (Late st Contact Info) Description 07/15/2025 3:10 PM EDT Office Visit Gastroenterology - [address] [place] [phone] Concetta Hebert PA [address] [place] [phone] Health Maintenance Due Date Last Done Comments DTaP,Tdap,and Td Vaccines (1 - Tdap) 1954 Pneumococcal Vaccine: 50+ Ye ars (1 of 1 - PCV) 1987 Zoster Vaccines (1 of 2) 1987 RSV Immunization Adult Patie nts (1 - 1-dose 75+ series) 2012 Falls Risk Assessment 10/03/2022 Medicare Annual Wellness Visit 10/03/2022 Osteoporosis Screening (Bone Density Screening) 10/03/2022 Social Influencers of Health Screening 10/03/2022 COVID-19 Vaccine (1 - 2023-2 5 season) 2024 Depression Screening 10/31/2024 Influenza Vaccine (#1) 2025 HIB Vaccines Aged Out No longer eligi ble based on patient's age to complete this topic HPV Vaccines Aged Out No longer eligi ble based on patient's age to complete this topic Hepatitis A Vaccines Aged Out No long er eligible based on patient's age to complete this topic Hepatitis B Vaccines Aged Out No long er eligible based on patient's age to complete this topic IPV Vaccines Aged Out No longer eligi ble based on patient's age to complete this topic MMR Vaccines Aged Out No longer eligi ble based on patient's age to complete this topic Meningococcal ACWY Vaccine Aged Out N o longer eligible based on patient's age to complete this topic Meningococcal B Vaccine Aged Out No l onger eligible based on patient's age to complete this topic RSV Immunization Patients Un stephanie 20 months Aged Out No longer eligible b ased on patient's age to complete this topic Varicella Vaccines Aged Out No longer eligible based on patient's age to complete this topic Insurance MEDICARE [facility] Care Teams Welding Equipment Repairer Relationship Specialty Start Date End Date Camryn Hawk PA [address] [place] [phone] PCP - General Physician Beauty School Instructor 05/15/25
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
--- OUTSIDE RECORDS SUMMARY | 2025-05-22 11:31 | XMS_ITS | Patient Health Record ---
Author Organization [facility] Address [address] [place] [phone] Care Team Providers Care Cognos Consultant Name Role Phone NONE, NONE Primary Care Provider Darron Granger Jr Unavailable [phone] Reason For Referral No Information Plan Of Treatment No Information
--- OUTSIDE RECORDS SUMMARY | 2025-05-22 11:31 | XMS_ITS | Data Portability ---
Author Organization ID - Treater, [employer], [facility] Address [address] [place] [address] Care Team Providers Care Utility Technician Name Role Phone ANNY RODRIGUEZ Primary Care Provider [phone] JACKIE RODRIGUEZ Referring Provider [phone] MATTHEW ARAUJO OTHER JUAN F COOL OTHER JACKIE RODRIGUEZ Primary Care Provider [phone] Assessment Encounter Date Assessment Date Assessment LastModified by Organization Details LastModified Time 03/02/2023 03/02/2023 labs 02/21/23 UA dirty -- culture neg ldl 114; trig 106; hdl 63 bun 16, cr 0.63 hgb 13.0 vit D 37 tsh 3.63; T4 1.0 b12 >2000 hgb a1c 5.5 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 Not available Not available Not available Lab venipunct ure - to be done 6 months after order date 2024 025 [facility], [address], [place], [address], 02/12/2025 10:02:00 CBC 2024 025 [facility], [address], [place], [address], 02/12/2025 14:35:50 TSH, serum or plasma 2024 025 [facility], [address], [place], [address], 02/12/2025 15:52:54 T4, free, serum 2024 025 [facility], [address], [place], [address], 02/12/2025 15:52:51 CBC 2024 025 [facility], [address], [place], [address], 03/14/2025 08:06:04 CMP, serum or plasma 2024 025 [facility], [address], [place], [address], 02/12/2025 16:34:17 lipid panel, serum 2024 025 [facility], [address], [place], [address], 02/12/2025 16:34:23 urinalysi s, complete 2024 025 [facility], [address], [place], [address], 02/12/2025 14:58:26 HbA1c (hemoglob in A1c), blood 2024 025 [facility], [address], [place], [address], 02/12/2025 14:29:32 vitamin B12, serum 2024 025 [facility], [address], [place], [address], 02/12/2025 15:52:48 vitamin D, 25-hydrox y, total, serum 2024 025 [facility], [address], [place], [address], 02/12/2025 15:52:56 urinalysi s, complete 2023 024 [facility], [address], [place], [address], 01/06/2024 13:36:47 CMP, serum or plasma - to be done 6 months after order date 2022 023 [facility], [address], [place], [address], 11/09/2023 12:33:33 lipid panel, serum - to be done 6 months after order date 2022 023 [facility], [address], [place], [address], 11/09/2023 12:33:34 TSH, serum or plasma - to be done 6 months after order date 2022 023 [facility], [address], [place], [id number], 11/09/2023 12:33:36 CBC - to be done 6 months after order date 2022 023 [place] [facility], [address], [place], [address], 11/09/2023 12:33:32 venipunct ure - to be done 6 months after order date 2022 023 [place] [facility], [address], [place], [address], 11/08/2023 08:09:27 vitamin D, 25-hydrox y, total, serum - to be done 6 months after order date 2022 023 [facility], [address], [place], [address], 11/09/2023 12:33:37 Referral orthopedi c surgeon referral 2023 024 ATHENAFAX Not available 01/25/2024 12:56:54 Procedures None recorded. Surgeries None recorded. Imaging MAMMO, screening , digital, bilateral - 3 D mammogram 2024 025 [facility] Tiffanie Olivarez 3t Mri, [address], [address], [place], [address], 02/13/2025 14:06:32 bone density - 21916 Bone Density 2024 025 [facility] Tiffanie Olivarez 3t Mri, [address], [address], [place], [id number], 02/19/2025 11:10:25 US, duplex, venous, lower extremity , unilatera l 2023 024 [facility], [address], [address], [place], [address], 11/16/2023 14:46:08 MAMMO, screening , digital, bilateral - 3 D mammogram 2022 023 [facility] (Central Scheduling), [address], [address], [place], [address], 01/16/2024 08:03:13 Medication Orders compounde d medicatio n 2024 025 [facility], [address], [address], [place], [address], 02/07/2025 17:41:53 valacyclo vir 1 gram tablet 2024 025 [id number], [address], [place], [address], 02/07/2025 15:59:22 meloxicam 15 mg tablet 2023 024 [id number], [place], [address], 02/07/2025 15:21:29 fluticaso ne propionat e 50 mcg/actua tion nasal spray,lion pension 2023 024 LUIS FELIPE [id number] [facility] , [place], [address], 01/25/2024 11:46:49 doxycycli ne hyclate 100 mg capsule 2023 024 [id number] [facility] , [place], [address], 02/07/2025 15:21:11 fluticaso ne propionat e 50 mcg/actua tion nasal spray,lion pension 2023 024 LUIS FELIPE [id number] [address] [place] [address] , [place], [address], 01/03/2024 09:08:59 cholecalc iferol (vitamin D3) 1,250 mcg (50,000 unit) capsule 2023 024 LUIS FELIPE [facility], [address] [place] [address], [address], [place], [place], [id number], 11/16/2023 10:03:13 magnesium 100 mg (as glycinate ) capsule 2022 023 ppoling Not available 03/02/2023 10:38:11 Estrace 0.01% (0.1 mg/gram) vaginal cream [address] [facility] [address] [facility], [address] [place] [address], [address], [place], [address], 02/07/2025 15:21:13 omeprazol e 40 mg capsule,d elayed release 2022 023 [facility], [address], [address], [place], [place], [id number], 05/31/2024 11:41:06 Vitamin D3 50 mcg (2,000 unit) capsule 2022 023 ksmarsh Not available 11/16/2023 10:02:57 Patient TargetsNo targets recorded. Patient Instructions Encounter Date Encounter Id Patient Instructions Last Modified By Organization Details Last Modified Time 03/02/2023 [id number] irritable bowel syndrome: care instructions ppoling Not available 03/02/2023 10:37:42 starting a weigh t loss plan: care instructions ppoling Not available 03/02/2023 10:37:42 gastroesophageal reflux disease (GERD): care instructions ppoling Not available 03/02/2023 10:37:43 11/16/2023 [id number] -Follow the treatment plan that we discussed [...] discussed. ksmarsh Not available 11/16/2023 10:17:03 01/03/2024 [id number] Acute Sinusitis: Care Instructions ksmarsh Not available [...] discussed. ksmarsh Not available 01/03/2024 09:11:02 01/25/2024 [id number] -Follow the treatment plan that we discussed [...] discussed. ksmarsh Not available 01/25/2024 12:43:06 02/07/2025 [id number] starting a weigh t loss plan: care [...] Care in Diabe johann(A DA). Not Available [facility] [address] [place], [address], 02/22/2023 19:07:30 02/22/20 23 02/22/2023 VITAM IN B-12 vitamin B12 >2000 pg/mL 200-11 00 high Not Available [facility] [address], [place], [address], 02/22/2023 19:07:31 02/22/20 23 02/22/2023 T4, FREE T4, free 1.0 NG/dL 0.8-1. 8 normal Not Available [facility] [address], [place], [address], 02/22/2023 19:07:32 02/22/20 23 02/22/2023 TSH, THYRO ID STIMU LATIN G HORMO NE TSH 3.63 mIU/L 0.40-4 .50 normal Not Available [facility] [address], [place], [address], 02/22/2023 19:07:33 02/22/20 23 02/22/2023 VITAM IN [...] /MS is recom elisabet d: order code 42370 (martin ents >2yrs ). See Note 1 Note 1 For addit ional infor reese cunningham e refer to http: //jose manuel Mastia gnost ics.c om/fa q/FAQ 199 (This link is being provi ded for infor ronan joaquin/ educjulia quezada purpo ses only. ) Not Available [facility] [address], [place], [address], 02/22/2023 19:07:34 02/22/2002/22/2023 CBC W/ AUTOD IFF, COMPL ETE BLOOD COUNT white blood cell count 6.6 thous and/u L 3.8-10 .8 normal Not Available [facility] [address], [place], [address], 02/22/2023 19:07:35 02/22/2002/22/2023 CBC W/ AUTOD IFF, COMPL ETE BLOOD COUNT red blood cell count 4.36 jh on/uL 3.80-5 .10 normal Not Available [facility] [address], [place], [address], 02/22/2023 19:07:35 02/22/20 23 02/22/2023 CBC W/ AUTOD IFF, COMPL ETE BLOOD COUNT hemoglobin 13.0 g/dL 11.7-1 5.5 normal Not Available [facility], [place], [address], 02/22/2023 19:07:35 02/22/20 23 02/22/2023 CBC W/ AUTOD IFF, COMPL ETE BLOOD COUNT hematocrit 38.9 % 35.0-4 5.0 normal Not Available [facility] [address], [place], [address], 02/22/2023 19:07:35 02/22/20 23 02/22/2023 CBC W/ AUTOD IFF, COMPL ETE BLOOD COUNT MCV 89.2 fL 80.0-1 00.0 normal Not Available [facility], [place], [address], 02/22/2023 19:07:35 02/22/20 23 02/22/2023 CBC W/ AUTOD IFF, COMPL ETE BLOOD COUNT MCH 29.8 pg 27.0-3 3.0 normal Not Available [facility] [address], [place], [address], 02/22/2023 19:07:35 02/22/20 23 02/22/2023 CBC W/ AUTOD IFF, COMPL ETE BLOOD COUNT MCHC 33.4 g/dL 32.0-3 6.0 normal Not Available [facility], [place], [address], 02/22/2023 19:07:35 02/22/2002/22/2023 CBC W/ AUTOD IFF, COMPL ETE BLOOD COUNT RDW 12.6 % 11.0-1 5.0 normal Not Available [facility], [place], [address], 02/22/2023 19:07:35 02/22/2002/22/2023 CBC W/ AUTOD IFF, COMPL ETE BLOOD COUNT platelet count 282 thous and/u L 140-40 0 normal Not Available [facility], [place], [address], 02/22/2023 19:07:35 02/22/2002/22/2023 CBC W/ AUTOD IFF, COMPL ETE BLOOD COUNT MPV 10.1 fL 7.5-12 .5 normal Not Available [facility] [address] [place] [address] [address], [place], [address], 02/22/2023 19:07:35 02/22/2002/22/2023 CBC W/ AUTOD IFF, COMPL ETE BLOOD COUNT absolute neutrophils 3544 cells /uL 1500-7 800 normal Not Available [facility], [place], [address], 02/22/2023 19:07:35 02/22/2002/22/2023 CBC W/ AUTOD IFF, COMPL ETE BLOOD COUNT absolute lymphocytes 2257 cells /uL 850-39 00 normal Not Available [facility], [place], [address], 02/22/2023 19:07:35 02/22/20 23 02/22/2023 CBC W/ AUTOD IFF, COMPL ETE BLOOD COUNT absolute monocytes 587 cells /uL 200-95 0 normal Not Available [facility] [address], [place], [address], 02/22/2023 19:07:35 02/22/20 23 02/22/2023 CBC W/ AUTOD IFF, COMPL ETE BLOOD COUNT absolute eosinophils 158 cells /uL 15-500 normal Not Available [facility] [address], [place], [address], 02/22/2023 19:07:35 02/22/20 23 02/22/2023 CBC W/ AUTOD IFF, COMPL ETE BLOOD COUNT absolute basophils 53 cells /uL 0-200 normal Not Available [facility], [place], [address], 02/22/2023 19:07:35 02/22/20 23 02/22/2023 CBC W/ AUTOD IFF, COMPL ETE BLOOD COUNT neutrophils 53.7 % normal Not Available [facility] [address], [place], [address], 02/22/2023 19:07:35 02/22/20 23 02/22/2023 CBC W/ AUTOD IFF, COMPL ETE BLOOD COUNT lymphocytes 34.2 % normal Not Available [facility] [address], [place], [address], 02/22/2023 19:07:35 02/22/20 23 02/22/2023 CBC W/ AUTOD IFF, COMPL ETE BLOOD COUNT monocytes 8.9 % normal Not Available [facility] [address], [place], [address], 02/22/2023 19:07:35 02/22/20 23 02/22/2023 CBC W/ AUTOD IFF, COMPL ETE BLOOD COUNT eosinophils 2.4 % normal Not Available [facility] [address], [place], [address], 02/22/2023 19:07:35 02/22/20 23 02/22/2023 CBC W/ AUTOD IFF, COMPL ETE BLOOD COUNT basophils 0.8 % normal Not Available [facility] [address] [facility] [address], [place], [address], 02/22/2023 19:07:35 02/22/20 23 02/22/2023 CK creatine kinase, total 50 U/L 29-143 normal Not Available [facility] [facility] [address], [place], [address], 02/22/2023 19:07:35 02/22/20 23 02/22/2023 CMP, COMPR EHENS AMY METAB OLIC PANEL glucose 80 mg/dL 65-99 normal Fasti ng refer ence inter jason Not Available [facility] [address] [facility] [address], [place], [address], 02/22/2023 19:07:36 02/22/20 23 02/22/2023 CMP, COMPR EHENS AMY METAB OLIC PANEL urea nitrogen (BUN) 16 mg/dL 7-25 normal Not Available [facility] [facility] [address], [place], [address], 02/22/2023 19:07:36 02/22/20 23 02/22/2023 CMP, COMPR EHENS AMY METAB OLIC PANEL creatinine 0.63 mg/dL 0.60-0 .95 normal Not Available [facility] [address] [facility] [address], [place], [address], 02/22/2023 19:07:36 02/22/20 23 02/22/2023 CMP, COMPR EHENS AMY METAB OLIC PANEL eGFR 87 mL/mi n/1.7 3m2 > or = 60 normal The eGFR is based on the CKD-E PI 2020 equat ion. To calcu late the new eGFR from a previ ous Creat inine or Cysta tin C resul t, go to https ://vero w.faye bauery.o walt/pr ofess ional s/ kdoqi /gfr% 5Fcal culat or Not Available [facility] [address], [place], [address], 02/22/2023 19:07:36 02/22/20 23 02/22/2023 CMP, COMPR EHENS AMY METAB OLIC PANEL BUN/creatini ne ratio NOT APPLIC ABLE (calc ) 6-22 Not Available [facility] [address], [place], [address], 02/22/2023 19:07:36 02/22/20 23 02/22/2023 CMP, COMPR EHENS AMY METAB OLIC PANEL sodium 140 mmol/ L 135-14 6 normal Not Available [facility] [address], [place], [address], 02/22/2023 19:07:36 02/22/20 23 02/22/2023 CMP, COMPR EHENS AMY METAB OLIC PANEL potassium 4.1 mmol/ L 3.5-5. 3 normal Not Available [facility] [address], [place], [address], 02/22/2023 19:07:36 02/22/20 23 02/22/2023 CMP, COMPR EHENS AMY METAB OLIC PANEL chloride 102 mmol/ L 98-110 normal Not Available [facility] [address], [place], [address], 02/22/2023 19:07:36 02/22/20 23 02/22/2023 CMP, COMPR EHENS AMY METAB OLIC PANEL carbon dioxide 33 mmol/ L 20-32 high Not Available [facility] [address] [facility] [address], [place], [address], 02/22/2023 19:07:36 02/22/20 23 02/22/2023 CMP, COMPR EHENS AMY METAB OLIC PANEL calcium 9.0 mg/dL 8.6-10 .4 normal Not Available [facility] [facility] [address], [place], [address], 02/22/2023 19:07:36 02/22/20 23 02/22/2023 CMP, COMPR EHENS AMY METAB OLIC PANEL protein, total 6.4 g/dL 6.1-8. 1 normal Not Available [facility] [address], [place], [address], 02/22/2023 19:07:36 02/22/20 23 02/22/2023 CMP, COMPR EHENS AMY METAB OLIC PANEL albumin 4.2 g/dL 3.6-5. 1 normal Not Available [facility] [address] [place] [address] [address], [place], [address], 02/22/2023 19:07:36 02/22/20 23 02/22/2023 CMP, COMPR EHENS AMY METAB OLIC PANEL globulin 2.2 g/dL_ (calc ) 1.9-3. 7 normal Not Available [facility] [address], [place], [address], 02/22/2023 19:07:36 02/22/20 23 02/22/2023 CMP, COMPR EHENS AMY METAB OLIC PANEL albumin/glob ulin ratio 1.9 (calc ) 1.0-2. 5 normal Not Available [facility] [address], [place], [address], 02/22/2023 19:07:36 02/22/20 23 02/22/2023 CMP, COMPR EHENS AMY METAB OLIC PANEL bilirubin, total 0.6 mg/dL 0.2-1. 2 normal Not Available [facility] [address], [place], [address], 02/22/2023 19:07:36 02/22/20 23 02/22/2023 CMP, COMPR EHENS AMY METAB OLIC PANEL alkaline phosphatase 62 U/L 37-153 normal Not Available [facility] [address], [place], [address], 02/22/2023 19:07:36 02/22/20 23 02/22/2023 CMP, COMPR EHENS AMY METAB OLIC PANEL AST 15 U/L 10-35 normal Not Available [facility] [address], [place], [address], 02/22/2023 19:07:36 02/22/20 23 02/22/2023 CMP, COMPR EHENS AMY METAB OLIC PANEL ALT 11 U/L 6-29 normal Not Available [facility] [address], [place], [address], 02/22/2023 19:07:36 02/22/20 23 02/22/2023 LIPID PANEL W/ CALCU LATED LDL cholesterol, total 198 mg/dL <200 normal Not Available [facility] [address], [place], [address], 02/22/2023 19:07:37 02/22/20 23 02/22/2023 LIPID PANEL W/ CALCU LATED LDL HDL cholesterol 63 mg/dL > or = 50 normal Not Available [facility] [address], [place], [address], 02/22/2023 19:07:37 02/22/2002/22/2023 LIPID PANEL W/ CALCU LATED LDL triglyceride s 106 mg/dL <150 normal Not Available [facility] [address] [place], [address], 02/22/2023 19:07:37 02/22/20 23 02/22/2023 LIPID PANEL [...] 9): 2061- 2068 (http ://ed ucati on.Qu jeramyRefinder by Gnowsis. com/f aq/FA Q164) Not Available [email or web address] [address] [place], [address], 02/22/2023 19:07:37 02/22/20 23 02/22/2023 LIPID PANEL W/ CALCU LATED LDL chol/HDLC ratio 3.1 (calc ) <5.0 normal Not Available [facility] [address] [place], [address], 02/22/2023 19:07:37 02/22/20 23 02/22/2023 LIPID PANEL W/ CALCU LATED LDL non HDL cholesterol 135 mg/dL _(fern c) <130 high For patie nts with diabe johann plus 1 major ASCVD risk facto r, treat ing to a non-H DL-C goal of <100 mg/dL (LDL- C of <70 mg/dL ) is consi dered a thera peuti c optio n. Not Available [facility] [address] [place] [address] [address] [facility], [place], [address], 02/22/2023 19:07:37 02/22/2002/23/2023 URINA LYSIS , COMPL ETE W/ REFLE X TO CULTU RE color YELLOW yellow normal Not Available [facility] [address] [place] [address], [address], 02/23/2023 09:58:55 02/22/20 23 02/23/2023 URINA LYSIS , COMPL ETE W/ REFLE X TO CULTU RE appearance TURBID clear abnormal Not Available [facility] [address] [place] [address], [place], [address], 02/23/2023 09:58:55 02/22/20 23 02/23/2023 URINA LYSIS , COMPL ETE W/ REFLE X TO CULTU RE specific gravity 1.023 1.001- 1.035 normal Not Available [facility] [address] [place] [address], [address], 02/23/2023 09:58:55 02/22/20 23 02/23/2023 URINA LYSIS , COMPL ETE W/ REFLE X TO CULTU RE pH < OR = 5.0 5.0-8. 0 normal Not Available [facility] [address] [place] [address], [address], 02/23/2023 09:58:55 02/22/2002/23/2023 URINA LYSIS , COMPL ETE W/ REFLE X TO CULTU RE glucose NEGATI VE negati ve normal Not Available [facility] [address] [place] [address], [place], [address], 02/23/2023 09:58:55 02/22/20 23 02/23/2023 URINA LYSIS , COMPL ETE W/ REFLE X TO CULTU RE bilirubin NEGATI VE negati ve normal Not Available [facility] [address], [place], [address], 02/23/2023 09:58:55 02/22/20 23 02/23/2023 URINA LYSIS , COMPL ETE W/ REFLE X TO CULTU RE ketones NEGATI VE negati ve normal Not Available [facility] [address] [place] [address] [address], [place], [address], 02/23/2023 09:58:55 02/22/20 23 02/23/2023 URINA LYSIS , COMPL ETE W/ REFLE X TO CULTU RE occult blood NEGATI VE negati ve normal Not Available [facility] [address] [place] [address] [address], [place], [address], 02/23/2023 09:58:55 02/22/20 23 02/23/2023 URINA LYSIS , COMPL ETE W/ REFLE X TO CULTU RE protein NEGATI VE negati ve normal Not Available [facility] [address] [place] [address] [address], [place], [address], 02/23/2023 09:58:55 02/22/20 23 02/23/2023 URINA LYSIS , COMPL ETE W/ REFLE X TO CULTU RE nitrite NEGATI VE negati ve normal Not Available [facility] [address] [place] [address] [address], [place], [address], 02/23/2023 09:58:55 02/22/20 23 02/23/2023 URINA LYSIS , COMPL ETE W/ REFLE X TO CULTU RE leukocyte esterase TRACE negati ve abnormal Not Available [facility] [address] [place] [address] [address], [place], [address], 02/23/2023 09:58:55 02/22/20 23 02/23/2023 URINA LYSIS , COMPL ETE W/ REFLE X TO CULTU RE WBC 0-5 /hpf < or = 5 normal Not Available [facility] [address] [place] [address] By, [place], [address], 02/23/2023 09:58:55 02/22/20 23 02/23/2023 URINA LYSIS , COMPL ETE W/ REFLE X TO CULTU RE RBC 0-2 /hpf < or = 2 normal Not Available [facility] [address] [place] [address] By, [place], [address], 02/23/2023 09:58:55 02/22/20 23 02/23/2023 URINA LYSIS , COMPL ETE W/ REFLE X TO CULTU RE squamous epithelial cells 10-20 /hpf < or = 5 abnormal Not Available [facility] [address] [place] [address] [place], [address], 02/23/2023 09:58:55 02/22/20 23 02/23/2023 URINA LYSIS , COMPL ETE W/ REFLE X TO CULTU RE bacteria FEW /hpf none seen abnormal Not Available [facility] [address] [place] [address], [place], [address], 02/23/2023 09:58:55 02/22/20 23 02/23/2023 URINA LYSIS , COMPL ETE W/ REFLE X TO CULTU RE amorphous sediment MODERA TE /hpf none or few abnormal Not Available [facility] [address] [place] [address] [place], [address], 02/23/2023 09:58:55 02/22/20 23 02/23/2023 URINA LYSIS , COMPL ETE W/ REFLE X TO CULTU RE hyaline cast NONE SEEN /lpf none seen normal Not Available [facility] [address] [place] [address] By, [place], [id number], 02/23/2023 09:58:55 02/22/20 23 02/23/2023 URINA LYSIS , COMPL ETE W/ REFLE X TO CULTU RE note SEE NOTE This urine was may zed for the prese nce of WBC, RBC, bacte viola, casts , and other forme d eleme nts. Only those eleme nts seen were repor shi. Not Available [email or web address] [address], [place], [address], 02/23/2023 09:58:55 02/22/2002/23/2023 REFLE XIVE URINE CULTU RE reflexive urine culture SEE NOTE CULTU RE INDIC ATED - RESUL TS TO FOLLO W Not Available [facility] [address], [place], [address], 02/23/2023 09:58:57 02/22/2002/23/2023 CULTU RE, URINE , ROUTI NE culture, urine, routine SEE NOTE CULTU RE, URINE , ROUTI NE Micro Numbe r: [id number] Test Statu s: Final Speci men [...] Cultu re Trans port Tube. Not Available [email or web address] [address], [place], [address], 02/23/2023 09:58:58 02/22/2002/21/2023 VENIP UNCTU RE results Compl ete Not Available [email or web address] [address], [place], [address], 02/21/2023 09:13:30 11/08/19 24 11/09/2023 CBC (H/H, RBC, INDIC ES, WBC, PLT) white blood cell count 6.3 thous and/u L 3.8-10 .8 normal Not Available [facility], [place], [address], 11/09/2023 12:33:32 11/08/19 24 11/09/2023 CBC (H/H, RBC, INDIC ES, WBC, PLT) red blood cell count 4.04 jh on/uL 3.80-5 .10 normal Not Available [facility], [place], [address], 11/09/2023 12:33:32 11/08/19 24 11/09/2023 CBC (H/H, RBC, INDIC ES, WBC, PLT) hemoglobin 12.1 g/dL 11.7-1 5.5 normal Not Available [facility] [address] [place], [place] [address]y [address], [place], [address], 11/09/2023 12:33:32 11/08/19 24 11/09/2023 CBC (H/H, RBC, INDIC ES, WBC, PLT) hematocrit 36.4 % 35.0-4 5.0 normal Not Available [facility] [address] [place] [address] [address], [place], [address], 11/09/2023 12:33:32 11/08/19 24 11/09/2023 CBC (H/H, RBC, INDIC ES, WBC, PLT) MCV 90.1 fL 80.0-1 00.0 normal Not Available [facility], [place], [address], 11/09/2023 12:33:32 11/08/19 24 11/09/2023 CBC (H/H, RBC, INDIC ES, WBC, PLT) MCH 30.0 pg 27.0-3 3.0 normal Not Available [facility] [address], [place], [address], 11/09/2023 12:33:32 11/08/19 24 11/09/2023 CBC (H/H, RBC, INDIC ES, WBC, PLT) MCHC 33.2 g/dL 32.0-3 6.0 normal Not Available [facility] [address] [place], [address], 11/09/2023 12:33:32 11/08/19 24 11/09/2023 CBC (H/H, RBC, INDIC ES, WBC, PLT) RDW 12.6 % 11.0-1 5.0 normal Not Available [facility] [address], [place], [address], 11/09/2023 12:33:32 11/08/19 24 11/09/2023 CBC (H/H, RBC, INDIC ES, WBC, PLT) platelet count 253 thous and/u L 140-40 0 normal Not Available [facility] [address], [place], [address], 11/09/2023 12:33:32 11/08/19 24 11/09/2023 CBC (H/H, RBC, INDIC ES, WBC, PLT) MPV 10.9 fL 7.5-12 .5 normal Not Available [facility] [address], [place], [address], 11/09/2023 12:33:32 11/08/19 24 11/09/2023 CMP, COMPR EHENS AMY METAB OLIC PANEL glucose 85 mg/dL 65-99 normal Fasti ng refer ence inter jason Not Available [facility] [address] [facility] [address], [place], [address], 11/09/2023 12:33:33 11/08/19 24 11/09/2023 CMP, COMPR EHENS AMY METAB OLIC PANEL urea nitrogen (BUN) 18 mg/dL 7-25 normal Not Available [facility] [address], [place], [address], 11/09/2023 12:33:33 11/08/19 24 11/09/2023 CMP, COMPR EHENS AMY METAB OLIC PANEL creatinine 0.66 mg/dL 0.60-0 .95 normal Not Available [facility] [address], [place], [address], 11/09/2023 12:33:33 11/08/19 24 11/09/2023 CMP, COMPR EHENS AMY METAB OLIC PANEL eGFR 85 mL/mi n/1.7 3m2 > or = 60 normal Not Available [facility] [address] [facility] [address] [place], [address], 11/09/2023 12:33:33 11/08/19 24 11/09/2023 CMP, COMPR EHENS AMY METAB OLIC PANEL BUN/creatini ne ratio SEE NOTE: (calc ) 6-22 Not Repor shi: BUN and Creat inine are withi n refer ence range . Not Available [facility] [address] [facility] [address] [place], [address], 11/09/2023 12:33:33 11/08/19 24 11/09/2023 CMP, COMPR EHENS AMY METAB OLIC PANEL sodium 139 mmol/ L 135-14 6 normal Not Available [facility] [address], [place], [address], 11/09/2023 12:33:33 11/08/19 24 11/09/2023 CMP, COMPR EHENS AMY METAB OLIC PANEL potassium 3.9 mmol/ L 3.5-5. 3 normal Not Available [facility] [address] [place], [address], 11/09/2023 12:33:33 11/08/19 24 11/09/2023 CMP, COMPR EHENS AMY METAB OLIC PANEL chloride 102 mmol/ L 98-110 normal Not Available [facility] [address], [place], [address], 11/09/2023 12:33:33 11/08/19 24 11/09/2023 CMP, COMPR EHENS AMY METAB OLIC PANEL carbon dioxide 28 mmol/ L 20-32 normal Not Available [facility] [address], [place], [address], 11/09/2023 12:33:33 11/08/19 24 11/09/2023 CMP, COMPR EHENS AMY METAB OLIC PANEL calcium 8.9 mg/dL 8.6-10 .4 normal Not Available [facility] [address], [place], [address], 11/09/2023 12:33:33 11/08/19 24 11/09/2023 CMP, COMPR EHENS AMY METAB OLIC PANEL protein, total 6.3 g/dL 6.1-8. 1 normal Not Available [facility] [address], [place], [address], 11/09/2023 12:33:33 11/08/19 24 11/09/2023 CMP, COMPR EHENS AMY METAB OLIC PANEL albumin 4.0 g/dL 3.6-5. 1 normal Not Available [facility] [address], [place], [address], 11/09/2023 12:33:33 11/08/19 24 11/09/2023 CMP, COMPR EHENS AMY METAB OLIC PANEL globulin 2.3 g/dL_ (calc ) 1.9-3. 7 normal Not Available [facility] [address], [place], [address], 11/09/2023 12:33:33 11/08/19 24 11/09/2023 CMP, COMPR EHENS AMY METAB OLIC PANEL albumin/glob ulin ratio 1.7 (calc ) 1.0-2. 5 normal Not Available [facility] [address] [facility] [address], [place], [address], 11/09/2023 12:33:33 11/08/19 24 11/09/2023 CMP, COMPR EHENS AMY METAB OLIC PANEL bilirubin, total 0.7 mg/dL 0.2-1. 2 normal Not Available [facility] [address] [facility] [address], [place], [address], 11/09/2023 12:33:33 11/08/19 24 11/09/2023 CMP, COMPR EHENS AMY METAB OLIC PANEL alkaline phosphatase 70 U/L 37-153 normal Not Available [facility] [address] [facility] [address], [place], [address], 11/09/2023 12:33:33 11/08/19 24 11/09/2023 CMP, COMPR EHENS AMY METAB OLIC PANEL AST 15 U/L 10-35 normal Not Available [facility] [address] [facility] [address], [place], [address], 11/09/2023 12:33:33 11/08/19 24 11/09/2023 CMP, COMPR EHENS AMY METAB OLIC PANEL ALT 9 U/L 6-29 normal Not Available [facility] [address] [facility] [address], [place], [address], 11/09/2023 12:33:33 11/08/19 24 11/09/2023 LIPID PANEL W/ CALCU LATED LDL cholesterol, total 176 mg/dL <200 normal Not Available [facility] [address], [place], [address], 11/09/2023 12:33:34 11/08/19 24 11/09/2023 LIPID PANEL W/ CALCU LATED LDL HDL cholesterol 56 mg/dL > or = 50 normal Not Available [facility] [address] [place], [address], 11/09/2023 12:33:34 11/08/19 24 11/09/2023 LIPID PANEL W/ CALCU LATED LDL triglyceride s 100 mg/dL <150 normal Not Available [facility] [address], [place], [address], 11/09/2023 12:33:34 11/08/19 24 11/09/2023 LIPID PANEL [...] lated using the Tracy n-Hop kins calcu latblair n, which is a valid ated novel metho d provi ding cristiana r accur acy than the Fried roseline equat ion in the estim ation of LDL-C . Tracy foley SS et al. ESTELLA. 2013; 310(1 9): 2061- 2068 (http ://ed ucati on.Qu Rosy hortonTerraPasss. com/f aq/FA Q164) Not Available Local [facility] [address], [place], [address], 11/09/2023 12:33:34 11/08/19 24 11/09/2023 LIPID PANEL W/ CALCU LATED LDL chol/HDLC ratio 3.1 (calc ) <5.0 normal Not Available [facility] [address], [place], [address], 11/09/2023 12:33:34 11/08/19 24 11/09/2023 LIPID PANEL W/ CALCU LATED LDL non HDL cholesterol 120 mg/dL _(fern c) <130 normal For patie nts with diabe johann plus 1 major ASCVD risk facto r, treat ing to a non-H DL-C goal of <100 mg/dL (LDL- C of <70 mg/dL ) is consi dered a thera peuti c optio n. Not Available [facility] [address], [place], [address], 11/09/2023 12:33:34 11/08/19 24 11/09/2023 TSH, THYRO ID STIMU LATIN G HORMO NE TSH 2.93 mIU/L 0.40-4 .50 normal Not Available [facility] [address], [place], [address], 11/09/2023 12:33:35 11/08/19 24 11/09/2023 VITAM IN D, 25-HY DROXY vitamin D,25-oh,totjulia quezadaia 28 NG/mL 30-100 low Vitam in D [...] /MS is recom elisabet d: order code 60265 (martin ents >2yrs ). See Note 1 Note 1 For addit ional infor reese cunningham refer to http: //jose manuel umaña ics.c om/fa q/FAQ 199 (This link is being provi ded for infor matio nal/ educa ofe l purpo ses only. ) Not Available [facility] [address] [facility], [place], [address], 11/09/2023 12:33:36 11/08/19 24 11/08/2023 VENIP UNCTU RE results Compl ete Not Available [facility] [address] [place] [address], [address], 11/08/2023 08:09:27 01/03/20 24 01/06/2024 URINA LYSIS , COMPL ETE W/ REFLE X TO CULTU RE color YELLOW yellow normal Not Available [facility] [address] [place] [address] [address] [facility], [place], [address], 01/06/2024 12:37:34 01/03/20 24 01/06/2024 URINA LYSIS , COMPL ETE W/ REFLE X TO CULTU RE appearance TURBID clear abnormal Not Available [facility] [address] [place] [address] [address] [place], [address], 01/06/2024 12:37:34 01/03/20 24 01/06/2024 URINA LYSIS , COMPL ETE W/ REFLE X TO CULTU RE specific gravity 1.021 1.001- 1.035 normal Not Available [facility] [address] [place] [address], [address], 01/06/2024 12:37:34 01/03/20 24 01/06/2024 URINA LYSIS , COMPL ETE W/ REFLE X TO CULTU RE pH 5.5 5.0-8. 0 normal Not Available [facility] [address] [place] [address] [address] [facility], [place], [address], 01/06/2024 12:37:34 01/03/20 24 01/06/2024 URINA LYSIS , COMPL ETE W/ REFLE X TO CULTU RE glucose NEGATI VE negati ve normal Not Available [facility] [address] [place] [address] [address], [place], [address], 01/06/2024 12:37:34 01/03/20 24 01/06/2024 URINA LYSIS , COMPL ETE W/ REFLE X TO CULTU RE bilirubin NEGATI VE negati ve normal Not Available [facility] [address] [place] [address] [address], [place], [address], 01/06/2024 12:37:34 01/03/20 24 01/06/2024 URINA LYSIS , COMPL ETE W/ REFLE X TO CULTU RE ketones TRACE negati ve abnormal Not Available [facility] [address] [place] [address] [address], [place], [address], 01/06/2024 12:37:34 01/03/20 24 01/06/2024 URINA LYSIS , COMPL ETE W/ REFLE X TO CULTU RE occult blood NEGATI VE negati ve normal Not Available [facility] [address] [place] [address] [address], [place], [address], 01/06/2024 12:37:34 01/03/20 24 01/06/2024 URINA LYSIS , COMPL ETE W/ REFLE X TO CULTU RE protein NEGATI VE negati ve normal Not Available [facility] [address] [place] [address] [address], [place], [address], 01/06/2024 12:37:34 01/03/20 24 01/06/2024 URINA LYSIS , COMPL ETE W/ REFLE X TO CULTU RE nitrite NEGATI VE negati ve normal Not Available [facility] [address] [place] [address] [address], [place], [address], 01/06/2024 12:37:34 01/03/20 24 01/06/2024 URINA LYSIS , COMPL ETE W/ REFLE X TO CULTU RE leukocyte esterase TRACE negati ve abnormal Not Available [facility] [address] [place] [address] [address], [place], [address], 01/06/2024 12:37:34 01/03/20 24 01/06/2024 URINA LYSIS , COMPL ETE W/ REFLE X TO CULTU RE WBC NONE SEEN /hpf < or = 5 normal Not Available [facility] [address] [place] [address] [address], [place], [address], 01/06/2024 12:37:34 01/03/20 24 01/06/2024 URINA LYSIS , COMPL ETE W/ REFLE X TO CULTU RE RBC 0-2 /hpf < or = 2 normal Not Available [facility] [address] [place] [address] [address], [place], [address], 01/06/2024 12:37:34 01/03/20 24 01/06/2024 URINA LYSIS , COMPL ETE W/ REFLE X TO CULTU RE squamous epithelial cells 0-5 /hpf < or = 5 Not Available [facility] [address] [place] [address] [address], [place], [address], 01/06/2024 12:37:34 01/03/20 24 01/06/2024 URINA LYSIS , COMPL ETE W/ REFLE X TO CULTU RE bacteria NONE SEEN /hpf none seen normal Not Available [facility] [address] [place] [address] [address], [place], [address], 01/06/2024 12:37:34 01/03/20 24 01/06/2024 URINA LYSIS , COMPL ETE W/ REFLE X TO CULTU RE hyaline cast NONE SEEN /lpf none seen normal Not Available [facility] [address] [place] [address] [address], [place], [address], 01/06/2024 12:37:34 03/05/01/06/2024 URINA LYSIS , COMPL ETE W/ REFLE X TO CULTU RE note SEE NOTE This urine was may zed for the prese nce of WBC, RBC, bacte viola, casts , and other forme d eleme nts. Only those eleme nts seen were repor shi. Not Available [facility] [address] [facility] [address], [place], [address], 01/06/2024 12:37:34 01/03/20 24 01/06/2024 REFLE XIVE URINE CULTU RE reflexive urine culture SEE NOTE CULTU RE INDIC ATED - RESUL TS TO FOLLO W Not Available [facility] [address] [facility] [address], [place], [address], 01/06/2024 12:37:35 01/03/20 24 01/06/2024 CULTU RE, [...] Tube, is recom elisabet d. Not Available [facility] [address], [place], [address], 01/06/2024 12:37:36 02/14/20 24 02/16/2024 A1C hemoglobin A1C 5.6 %_of_ total _HGB <5.7 normal For the purpo se of zafar jerri for the prese nce of diabe johann: <5.7% Consi stent with the absen ce of diabe johann 5.7-6 .4% Consi stent with incre ased risk for diabe johann (pred iabet es) > or =6.5% Consi stent with diabe johann This assay resul t is consi stent with a decre ased risk of diabe johann. Curre ntly, no conse nsus exist s lenchoar gigi use of hemog lobin A1c for [...] This test was perfo rmed on the [facility] bhargavi c503 platf orm. Effec tive 08/15, a sigifredo perkins in test platf orms from the [employer] t Archi tect to the [facility] bhargavi c503 may have shift ed HbA1c resul ts zainab red to histo rical resul ts. Based on labor atory valid ation testi ng condu cted at [facility] , the [facility] platf orm relat amy to the [employer] platf orm had an avera ge incre [...] is not recom elisabet d. Not Available [facility] [address], [place], [address], 02/16/2024 10:56:01 02/14/20 24 02/16/2024 VITAM IN B-12 vitamin B12 >2000 pg/mL 200-11 00 high Not Available [facility] [address], [place], [address], 02/16/2024 10:56:02 02/14/20 24 02/16/2024 TSH W/REF GARRET TO FT4 TSH w/reflex to FT4 2.42 mIU/L 0.40-4 .50 normal Not Available [facility] [address], [place], [address], 02/16/2024 10:56:03 02/14/20 24 02/16/2024 VITAM IN [...] /MS is recom elisabet d: order code 82917 (martin ents >2yrs ). See Note 1 Note 1 For addit ional mariposar reese cunningham refer to http: //jose manuel Samuels stDia gnost ics.c om/fa q/FAQ 199 (This link is being provi ded for infor ronan joaquin/ maria isabel quezada purpo ses only. ) Not Available [facility] [address], [place], [address], 02/16/2024 10:56:04 02/14/20 24 02/16/2024 CBC W/ AUTOD IFF, COMPL ETE BLOOD COUNT white blood cell count 6.3 thous and/u L 3.8-10 .8 normal Not Available [facility] [address], [place], [address], 02/16/2024 10:56:05 02/14/20 24 02/16/2024 CBC W/ AUTOD IFF, COMPL ETE BLOOD COUNT red blood cell count 4.26 jh on/uL 3.80-5 .10 normal Not Available [facility] [address], [place], [address], 02/16/2024 10:56:05 02/14/20 24 02/16/2024 CBC W/ AUTOD IFF, COMPL ETE BLOOD COUNT hemoglobin 12.7 g/dL 11.7-1 5.5 normal Not Available [facility] [address], [place], [address], 02/16/2024 10:56:05 02/14/20 24 02/16/2024 CBC W/ AUTOD IFF, COMPL ETE BLOOD COUNT hematocrit 40.4 % 35.0-4 5.0 normal Not Available [facility] [address], [place], [address], 02/16/2024 10:56:05 02/14/20 24 02/16/2024 CBC W/ AUTOD IFF, COMPL ETE BLOOD COUNT MCV 94.8 fL 80.0-1 00.0 normal Not Available [facility] [address], [place], [address], 02/16/2024 10:56:05 02/14/20 24 02/16/2024 CBC W/ AUTOD IFF, COMPL ETE BLOOD COUNT MCH 29.8 pg 27.0-3 3.0 normal Not Available [facility] [address], [place], [address], 02/16/2024 10:56:05 02/14/20 24 02/16/2024 CBC W/ AUTOD IFF, COMPL ETE BLOOD COUNT MCHC 31.4 g/dL 32.0-3 6.0 low Not Available [facility] [address], [place], [address], 02/16/2024 10:56:05 02/14/20 24 02/16/2024 CBC W/ AUTOD IFF, COMPL ETE BLOOD COUNT RDW 12.9 % 11.0-1 5.0 normal Not Available [facility] [address], [place], [address], 02/16/2024 10:56:05 02/14/20 24 02/16/2024 CBC W/ AUTOD IFF, COMPL ETE BLOOD COUNT platelet count 303 thous and/u L 140-40 0 normal Not Available [facility] [address], [place], [address], 02/16/2024 10:56:05 02/14/20 24 02/16/2024 CBC W/ AUTOD IFF, COMPL ETE BLOOD COUNT MPV 10.6 fL 7.5-12 .5 normal Not Available [facility], [place], [address], 02/16/2024 10:56:05 02/14/20 24 02/16/2024 CBC W/ AUTOD IFF, COMPL ETE BLOOD COUNT absolute neutrophils 2747 cells /uL 1500-7 800 normal Not Available [facility], [place], [address], 02/16/2024 10:56:05 02/14/20 24 02/16/2024 CBC W/ AUTOD IFF, COMPL ETE BLOOD COUNT absolute lymphocytes 2652 cells /uL 850-39 00 normal Not Available [facility] [address], [place], [address], 02/16/2024 10:56:05 02/14/20 24 02/16/2024 CBC W/ AUTOD IFF, COMPL ETE BLOOD COUNT absolute monocytes 573 cells /uL 200-95 0 normal Not Available [facility] [address], [place], [address], 02/16/2024 10:56:05 02/14/20 24 02/16/2024 CBC W/ AUTOD IFF, COMPL ETE BLOOD COUNT absolute eosinophils 258 cells /uL 15-500 normal Not Available [facility] [address], [place], [address], 02/16/2024 10:56:05 02/14/20 24 02/16/2024 CBC W/ AUTOD IFF, COMPL ETE BLOOD COUNT absolute basophils 69 cells /uL 0-200 normal Not Available [facility] [address], [place], [address], 02/16/2024 10:56:05 02/14/20 24 02/16/2024 CBC W/ AUTOD IFF, COMPL ETE BLOOD COUNT neutrophils 43.6 % normal Not Available [facility] [address], [place], [address], 02/16/2024 10:56:05 02/14/20 24 02/16/2024 CBC W/ AUTOD IFF, COMPL ETE BLOOD COUNT lymphocytes 42.1 % normal Not Available [facility] [address], [place], [address], 02/16/2024 10:56:05 02/14/20 24 02/16/2024 CBC W/ AUTOD IFF, COMPL ETE BLOOD COUNT monocytes 9.1 % normal Not Available [facility] [address], [place], [address], 02/16/2024 10:56:05 02/14/20 24 02/16/2024 CBC W/ AUTOD IFF, COMPL ETE BLOOD COUNT eosinophils 4.1 % normal Not Available [facility] [address], [place], [address], 02/16/2024 10:56:05 02/14/20 24 02/16/2024 CBC W/ AUTOD IFF, COMPL ETE BLOOD COUNT basophils 1.1 % normal Not Available [facility] [address], [place], [address], 02/16/2024 10:56:05 02/14/20 24 02/16/2024 CMP, COMPR EHENS AMY METAB OLIC PANEL glucose 87 mg/dL 65-99 normal Fasti ng refer ence inter jason Not Available [facility] [address], [place], [address], 02/16/2024 10:56:06 02/14/20 24 02/16/2024 CMP, COMPR EHENS AMY METAB OLIC PANEL urea nitrogen (BUN) 17 mg/dL 7-25 normal Not Available [facility] [address], [place], [address], 02/16/2024 10:56:06 02/14/20 24 02/16/2024 CMP, COMPR EHENS AMY METAB OLIC PANEL creatinine 0.65 mg/dL 0.60-0 .95 normal Not Available [facility] [address], [place], [address], 02/16/2024 10:56:06 02/14/20 24 02/16/2024 CMP, COMPR EHENS AMY METAB OLIC PANEL eGFR 86 mL/mi n/1.7 3m2 > or = 60 normal Not Available [facility] [address], [place], [address], 02/16/2024 10:56:06 02/14/20 24 02/16/2024 CMP, COMPR EHENS AMY METAB OLIC PANEL BUN/creatini ne ratio SEE NOTE: (calc ) 6-22 Not Repor shi: BUN and Creat inine are withi n refer ence range . Not Available [facility] [address], [place], [address], 02/16/2024 10:56:06 02/14/20 24 02/16/2024 CMP, COMPR EHENS AMY METAB OLIC PANEL sodium 141 mmol/ L 135-14 6 normal Not Available [facility] [address], [place], [address], 02/16/2024 10:56:06 02/14/20 24 02/16/2024 CMP, COMPR EHENS AMY METAB OLIC PANEL potassium 4.0 mmol/ L 3.5-5. 3 normal Not Available [facility] [address], [place], [address], 02/16/2024 10:56:06 02/14/20 24 02/16/2024 CMP, COMPR EHENS AMY METAB OLIC PANEL chloride 103 mmol/ L 98-110 normal Not Available [facility] [address], [place], [address], 02/16/2024 10:56:06 02/14/20 24 02/16/2024 CMP, COMPR EHENS AMY METAB OLIC PANEL carbon dioxide 33 mmol/ L 20-32 high Not Available [facility] [address], [place], [address], 02/16/2024 10:56:06 02/14/20 24 02/16/2024 CMP, COMPR EHENS AMY METAB OLIC PANEL calcium 9.2 mg/dL 8.6-10 .4 normal Not Available [facility] [address], [place], [address], 02/16/2024 10:56:06 02/14/20 24 02/16/2024 CMP, COMPR EHENS AMY METAB OLIC PANEL protein, total 6.4 g/dL 6.1-8. 1 normal Not Available [facility] [address] [facility] [address], [place], [address], 02/16/2024 10:56:06 02/14/20 24 02/16/2024 CMP, COMPR EHENS AMY METAB OLIC PANEL albumin 4.3 g/dL 3.6-5. 1 normal Not Available [facility] [address] [facility] [address], [place], [address], 02/16/2024 10:56:06 02/14/20 24 02/16/2024 CMP, COMPR EHENS AMY METAB OLIC PANEL globulin 2.1 g/dL_ (calc ) 1.9-3. 7 normal Not Available [facility] [address] [facility] [address] [place], [address], 02/16/2024 10:56:06 02/14/20 24 02/16/2024 CMP, COMPR EHENS AMY METAB OLIC PANEL albumin/glob ulin ratio 2.0 (calc ) 1.0-2. 5 normal Not Available [facility] [facility] [address], [place], [address], 02/16/2024 10:56:06 02/14/20 24 02/16/2024 CMP, COMPR EHENS AMY METAB OLIC PANEL bilirubin, total 0.7 mg/dL 0.2-1. 2 normal Not Available [facility] [address] [facility] [address], [place], [address], 02/16/2024 10:56:06 02/14/20 24 02/16/2024 CMP, COMPR EHENS AMY METAB OLIC PANEL alkaline phosphatase 63 U/L 37-153 normal Not Available [facility] [facility] [address], [place], [address], 02/16/2024 10:56:06 02/14/20 24 02/16/2024 CMP, COMPR EHENS AMY METAB OLIC PANEL AST 14 U/L 10-35 normal Not Available [facility] [address] [facility] [address], [place], [address], 02/16/2024 10:56:06 02/14/20 24 02/16/2024 CMP, COMPR EHENS AMY METAB OLIC PANEL ALT 9 U/L 6-29 normal Not Available [facility] [address] [facility] [address], [place], [address], 02/16/2024 10:56:06 02/14/20 24 02/16/2024 LIPID PANEL REF DLDL cholesterol, total 170 mg/dL <200 normal Not Available [facility] [address] [facility] [address] [place], [address], 02/16/2024 10:56:08 02/14/20 24 02/16/2024 LIPID PANEL REF DLDL HDL cholesterol 55 mg/dL > or = 50 normal Not Available [facility] [address] [facility] [address] [place], [address], 02/16/2024 10:56:08 02/14/20 24 02/16/2024 LIPID PANEL REF DLDL triglyceride s 126 mg/dL <150 normal Not Available [facility] [address] [facility] [address] [place], [address], 02/16/2024 10:56:08 02/14/20 24 02/16/2024 LIPID PANEL [...] 9): 2061- 2068 (http ://ed sumeetati on.Qu jeramyFernanda cliffordmytrax. com/f aq/FA Q164) Not Available [facility] [address] [facility] [address], [place], [address], 02/16/2024 10:56:08 02/14/20 24 02/16/2024 LIPID PANEL REF DLDL chol/HDLC ratio 3.1 (calc ) <5.0 normal Not Available [facility] [address] [facility] [address], [place], [address], 02/16/2024 10:56:08 02/14/20 24 02/16/2024 LIPID PANEL REF DLDL non HDL cholesterol 115 mg/dL _(fern c) <130 normal For patie nts with diabe johann plus 1 major ASCVD risk facto r, treat ing to a non-H DL-C goal of <100 mg/dL (LDL- C of <70 mg/dL ) is consi vik parker optio n. Not Available [facility] [address] [facility] [address], [place], [address], 02/16/2024 10:56:08 02/14/20 24 02/14/2024 VENIP UNCTU RE results Compl ete Not Available [facility] [address] [facility] [address], [place], [address], 02/14/2024 08:35:56 02/13/2002/12/2025 A1C hemoglobin A1C 5.2 % 4.3 - 5.6 ADA Recom elisabet d guide lines for HgbA1 C%: 5.7-6 .4% Predi abeti c < 7.0% Reaso nable glyce ford goal for non-p regna nt adult s < 8.0% Appro priat e for patie nts with hypog lycem ia or advan erika micro /macr o vascu lar compl icati ons Not Available [facility] [address] [facility] [address], [place], [address], 02/12/2025 14:29:32 02/13/20 25 02/12/2025 A1C estimated average glucose 103 mg/dL 97 - 140 Not Available [facility] [address] [facility] [address], [place], [address], 02/12/2025 14:29:32 02/13/20 25 02/12/2025 CBC W/ AUTOD IFF, COMPL ETE BLOOD COUNT WBC 4.9 K/uL 3.6 - 10.0 Not Available [facility] [address] [facility] [address], [place], [address], 02/12/2025 14:35:50 02/13/20 25 02/12/2025 CBC W/ AUTOD IFF, COMPL ETE BLOOD COUNT RBC 4.2 M/uL 3.9 - 5.0 Not Available [facility] [address] [facility] [address], [place], [address], 02/12/2025 14:35:50 02/13/20 25 02/12/2025 CBC W/ AUTOD IFF, COMPL ETE BLOOD COUNT hemoglobin 12.7 g/dL 12.0 - 15.0 Not Available [facility] [address] [facility] [address], [place], [address], 02/12/2025 14:35:50 02/13/20 25 02/12/2025 CBC W/ AUTOD IFF, COMPL ETE BLOOD COUNT hematocrit 37.7 % 35.0 - 45.0 Not Available [facility] [address] [facility] [address], [place], [address], 02/12/2025 14:35:50 02/13/20 25 02/12/2025 CBC W/ AUTOD IFF, COMPL ETE BLOOD COUNT MCV 90.9 fL 80.0 - 99.0 Not Available [facility] [address], [place], [address], 02/12/2025 14:35:50 02/13/20 25 02/12/2025 CBC W/ AUTOD IFF, COMPL ETE BLOOD COUNT MCH 30.5 pg 27.0 - 33.0 Not Available [facility] [address], [place], [address], 02/12/2025 14:35:50 02/13/20 25 02/12/2025 CBC W/ AUTOD IFF, COMPL ETE BLOOD COUNT MCHC 33.5 g/dL 32.0 - 37.5 Not Available [facility], [place], [address], 02/12/2025 14:35:50 02/13/20 25 02/12/2025 CBC W/ AUTOD IFF, COMPL ETE BLOOD COUNT RDW 13.6 % 11.0 - 15.0 Not Available [facility], [place], [address], 02/12/2025 14:35:50 02/13/20 25 02/12/2025 CBC W/ AUTOD IFF, COMPL ETE BLOOD COUNT nucleated RBC 0 % 0 - 2 Not Available [facility] [address], [place], [address], 02/12/2025 14:35:50 02/13/20 25 02/12/2025 CBC W/ AUTOD IFF, COMPL ETE BLOOD COUNT platelet 235 K/uL 140 - 440 Not Available [facility], [place], [address], 02/12/2025 14:35:50 02/13/20 25 02/12/2025 CBC W/ AUTOD IFF, COMPL ETE BLOOD COUNT MPV 8.3 fL 7.4 - 10.4 Not Available [facility] [address], [place], [address], 02/12/2025 14:35:50 02/13/20 25 02/12/2025 CBC W/ AUTOD IFF, COMPL ETE BLOOD COUNT neutrophil, percentage 42.0 % Not Available [facility] [address], [place], [address], 02/12/2025 14:35:50 02/13/20 25 02/12/2025 CBC W/ AUTOD IFF, COMPL ETE BLOOD COUNT lymphocyte, percentage 44.5 % Not Available [facility], [place], [address], 02/12/2025 14:35:50 02/13/20 25 02/12/2025 CBC W/ AUTOD IFF, COMPL ETE BLOOD COUNT monocyte, percentage 8.8 % Not Available [facility], [place], [address], 02/12/2025 14:35:50 02/13/20 25 02/12/2025 CBC W/ AUTOD IFF, COMPL ETE BLOOD COUNT eosinophil, percentage 3.5 % Not Available [facility] [address], [place], [address], 02/12/2025 14:35:50 02/13/20 25 02/12/2025 CBC W/ AUTOD IFF, COMPL ETE BLOOD COUNT basophil, percentage 1.2 % Not Available [facility] [address], [place], [address], 02/12/2025 14:35:50 02/13/20 25 02/12/2025 CBC W/ AUTOD IFF, COMPL ETE BLOOD COUNT neutrophil, absolute 2.0 K/uL 1.5 - 7.5 Not Available [facility] [address] [place], [place] [address]y [address], [place], [address], 02/12/2025 14:35:50 02/13/20 25 02/12/2025 CBC W/ AUTOD IFF, COMPL ETE BLOOD COUNT lymphocyte, absolute 2.2 K/uL 0.8 - 4.0 Not Available [facility] [address] [place], [place] [address]y [address], [place], [address], 02/12/2025 14:35:50 02/13/20 25 02/12/2025 CBC W/ AUTOD IFF, COMPL ETE BLOOD COUNT monocyte, absolute 0.4 K/uL 0.1 - 1.0 Not Available [facility] [address] [place], [place] [address]y [address], [place], [address], 02/12/2025 14:35:50 02/13/20 25 02/12/2025 CBC W/ AUTOD IFF, COMPL ETE BLOOD COUNT eosinophil, absolute 0.2 K/uL 0.1 - 1.0 Not Available [facility] [address] [place], [place] [address]y [address], [place], [address], 02/12/2025 14:35:50 02/13/20 25 02/12/2025 CBC W/ AUTOD IFF, COMPL ETE BLOOD COUNT basophil, absolute 0.1 K/uL 0.0 - 0.2 Not Available [facility] [address] [place], [place] [address]y [address], [place], [address], 02/12/2025 14:35:50 02/13/20 25 02/12/2025 URINA LYSIS , COMPL ETE W/ REFLE X TO CULTU RE color YELLOW yellow Not Available [facility] [address] [place], [place] [address]y [address], [place], [address], 02/12/2025 14:58:26 02/13/20 25 02/12/2025 URINA LYSIS , COMPL ETE W/ REFLE X TO CULTU RE appearance CLEAR clear, cloudy Not Available [facility] [address] [place], [place] [address]y [address], [place], [address], 02/12/2025 14:58:26 02/13/20 25 02/12/2025 URINA LYSIS , COMPL ETE W/ REFLE X TO CULTU RE specific gravity 1.021 1.005- 1.030 Not Available [facility] [address] [place], [place] [address]y [address], [place], [address], 02/12/2025 14:58:26 02/13/20 25 02/12/2025 URINA LYSIS , COMPL ETE W/ REFLE X TO CULTU RE pH 5.5 5.0-8. 0 Not Available [facility] [address] [place], [place] [address]y [address], [place], [address], 02/12/2025 14:58:26 02/13/20 25 02/12/2025 URINA LYSIS , COMPL ETE W/ REFLE X TO CULTU RE glucose, urine NEGATI VE mg/dL negati ve Not Available [facility] [address] [place] [address] [address] [place], [address], 02/12/2025 14:58:26 02/13/20 25 02/12/2025 URINA LYSIS , COMPL ETE W/ REFLE X TO CULTU RE bilirubin NEGATI VE mg/dL negati ve Not Available [facility] [facility] [address], [place], [address], 02/12/2025 14:58:26 02/13/20 25 02/12/2025 URINA LYSIS , COMPL ETE W/ REFLE X TO CULTU RE ketone NEGATI VE mg/dL negati ve Not Available [facility] [facility] [address], [place], [address], 02/12/2025 14:58:26 02/13/20 25 02/12/2025 URINA LYSIS , COMPL ETE W/ REFLE X TO CULTU RE urobilinogen NORMAL E.U./ dL normal Not Available [facility] [address] [place] [address] [address], [place], [address], 02/12/2025 14:58:26 02/13/20 25 02/12/2025 URINA LYSIS , COMPL ETE W/ REFLE X TO CULTU RE protein NEGATI VE mg/dL negati ve Not Available [facility] [address] [place] [address] [address] [facility], [place], [address], 02/12/2025 14:58:26 02/13/20 25 02/12/2025 URINA LYSIS , COMPL ETE W/ REFLE X TO CULTU RE nitrite NEGATI VE negati ve Not Available [facility] [address] [place] [address] [address] [facility], [place], [address], 02/12/2025 14:58:26 02/13/20 25 02/12/2025 URINA LYSIS , COMPL ETE W/ REFLE X TO CULTU RE blood, urine NEGATI VE mg/dL negati ve Not Available [facility] [address] [place] [address], [place], [address], 02/12/2025 14:58:26 02/13/20 25 02/12/2025 URINA LYSIS [...] wing crite viola is met: + Nitri ojhann > or = 75 leuko cytes > or = 6 WBC/h pf Many bacte viola and/o r any amoun t of yeast on micro scopi c. Not Available [facility] [address] [place], [place] [address]y [address], [place], [address], 02/12/2025 14:58:26 02/13/20 25 02/12/2025 URINA LYSIS , COMPL ETE W/ REFLE X TO CULTU RE WBC, urine 0-5 /uL 0-5 Not Available [facility] [address] [place], [place] [address]y [address], [place], [address], 02/12/2025 14:58:26 02/13/20 25 02/12/2025 URINA LYSIS , COMPL ETE W/ REFLE X TO CULTU RE RBC, urine 4-10 /uL 0-3 abnormal Not Available [facility] [address] [place] [address] [address], [place], [address], 02/12/2025 14:58:26 02/13/20 25 02/12/2025 URINA LYSIS , COMPL ETE W/ REFLE X TO CULTU RE mucus, urine MODERA TE none seen abnormal Not Available [facility] [address] [place], [place] [address]y [address], [place], [address], 02/12/2025 14:58:26 02/13/20 25 02/12/2025 URINA LYSIS , COMPL ETE W/ REFLE X TO CULTU RE urine squamous epithelial 0-10 0-10 Not Available [facility] [address] [place], [place] [address]y [address], [place], [address], 02/12/2025 14:58:26 02/13/20 25 02/12/2025 VITAM IN B-12 vitamin B-12 >2000 pg/mL 232 - 1245 high Not Available [facility] [address] [place] [address] [address], [place], [address], 02/12/2025 15:52:48 02/13/20 25 02/12/2025 T4, FREE free T4 1.060 NG/dL 0.930 - 1.770 Not Available [facility] [address], [place], [address], 02/12/2025 15:52:50 02/13/20 25 02/12/2025 TSH, THYRO ID STIMU LATIN G HORMO NE TSH 3.1700 uIU/m L 0.2700 - 4.2000 Not Available [facility] [address], [place], [address], 02/12/2025 15:52:54 02/13/20 25 02/12/2025 VITAM IN D, 25-HY DROXY vitamin D, 25 hydroxy 42.60 NG/mL 30.00 - 100.00 The [place] Oliva silva Found ation consi ders level s < 30 ng/mL to be insuf ficie nt or defic ient. Not Available [facility] [address], [place], [address], 02/12/2025 15:52:56 02/13/20 25 02/12/2025 CMP, COMPR EHENS AMY METAB OLIC PANEL glucose 85 mg/dL 70 - 100 Not Available [facility] [address] [facility] [address] [place], [address], 02/12/2025 16:34:17 02/13/20 25 02/12/2025 CMP, COMPR EHENS AMY METAB OLIC PANEL BUN 19 mg/dL 7 - 25 Not Available [facility] [address] [place], [address], 02/12/2025 16:34:17 02/13/20 25 02/12/2025 CMP, COMPR EHENS AMY METAB OLIC PANEL creatinine 0.6 mg/dL 0.6 - 1.3 Not Available [facility] [address] [facility] [address], [place], [address], 02/12/2025 16:34:17 02/13/20 25 02/12/2025 CMP, COMPR EHENS AMY METAB OLIC PANEL BUN/creatini ne ratio 30 calc 10 - 25 high Not Available [facility] [address], [place], [address], 02/12/2025 16:34:17 02/13/20 25 02/12/2025 CMP, COMPR EHENS AMY METAB OLIC PANEL GFR 86 mL/mi n/1.7 3m^2 >60 GFR < 60 mL/mi n for 3 or more month s may be indic ative of Oliva Spears se. The GFR is based on the CKD-E PI 2020 equat ion. Not Available [facility] [address] [facility] [address], [place], [address], 02/12/2025 16:34:17 02/13/20 25 02/12/2025 CMP, COMPR EHENS AMY METAB OLIC PANEL sodium 142 mmol/ L 135 - 145 Not Available [facility] [address] [facility] [address], [place], [address], 02/12/2025 16:34:17 02/13/20 25 02/12/2025 CMP, COMPR EHENS AMY METAB OLIC PANEL potassium 4.2 mmol/ L 3.5 - 5.5 Not Available [facility] [address], [place], [address], 02/12/2025 16:34:17 02/13/20 25 02/12/2025 CMP, COMPR EHENS AMY METAB OLIC PANEL chloride 102 mmol/ L 100 - 115 Not Available [facility] [address], [place], [address], 02/12/2025 16:34:17 02/13/20 25 02/12/2025 CMP, COMPR EHENS AMY METAB OLIC PANEL CO2 32 mmol/ L 21 - 33 Not Available [facility] [address] [facility] [address], [place], [address], 02/12/2025 16:34:17 02/13/20 25 02/12/2025 CMP, COMPR EHENS AMY METAB OLIC PANEL calcium 8.6 mg/dL 8.8 - 10.6 low Not Available [facility] [address] [facility] [address], [place], [address], 02/12/2025 16:34:17 02/13/20 25 02/12/2025 CMP, COMPR EHENS AMY METAB OLIC PANEL total protein 6.1 g/dL 6.2 - 8.6 low Not Available [facility] [address] [facility] [address], [place], [address], 02/12/2025 16:34:17 02/13/20 25 02/12/2025 CMP, COMPR EHENS AMY METAB OLIC PANEL globulin 2.2 g/dL 1.3 - 4.0 Not Available [facility] [facility] [address], [place], [address], 02/12/2025 16:34:17 02/13/20 25 02/12/2025 CMP, COMPR EHENS AMY METAB OLIC PANEL albumin 4.0 g/dL 3.5 - 5.7 Not Available [facility] [address] [facility] [address], [place], [address], 02/12/2025 16:34:17 02/13/20 25 02/12/2025 CMP, COMPR EHENS AMY METAB OLIC PANEL A/G ratio 1.8 calc 1.0 - 2.8 Not Available [facility] [facility] [address], [place], [address], 02/12/2025 16:34:17 02/13/20 25 02/12/2025 CMP, COMPR EHENS AMY METAB OLIC PANEL AST (SGOT) 15 U/L 13 - 39 Not Available [facility] [address] [facility] [address], [place], [address], 02/12/2025 16:34:17 02/13/20 25 02/12/2025 CMP, COMPR EHENS AMY METAB OLIC PANEL ALT (SGPT) 9 U/L 7 - 52 Not Available [facility] [address] [facility] [address], [place], [address], 02/12/2025 16:34:17 02/13/20 25 02/12/2025 CMP, COMPR EHENS AMY METAB OLIC PANEL alkaline phosphatase 60 U/L 20 - 128 Not Available [facility] [address] [facility] [address] [place], [address], 02/12/2025 16:34:17 02/13/20 25 02/12/2025 CMP, COMPR EHENS AMY METAB OLIC PANEL total bilirubin 0.6 mg/dL 0.3 - 1.0 Not Available [facility] [address] [facility] [address], [place], [address], 02/12/2025 16:34:17 02/13/20 25 02/12/2025 LIPID PANEL REF DLDL cholesterol 184 mg/dL <200 Expec shi resul ts for Adult s: Total Marge stero l: Risk class ifica tion < 200 mg/dL Sonia able 200-2 39 mg/dL Borde rline high >240 mg/dL High Not Available [facility] [address] [facility] [address], [place], [address], 02/12/2025 16:34:23 02/13/20 25 02/12/2025 LIPID PANEL REF DLDL triglyceride 73 mg/dL 30 - 150 Not Available [facility] [address] [facility] [address] [place], [address], 02/12/2025 16:34:23 02/13/20 25 02/12/2025 LIPID PANEL REF DLDL HDL cholestrol 69 mg/dL >=50 Not Available [facility] [address] [facility], [place], [address], 02/12/2025 16:34:23 02/13/20 25 02/12/2025 LIPID PANEL REF DLDL LDL calculated 100 mg/dL 0 - 99 high Not Available [facility] [address] [facility] [address], [place], [address], 02/12/2025 16:34:23 02/13/20 25 02/12/2025 LIPID PANEL REF DLDL chol/HDL risk ratio 3 calc < 5.0 Optim al Not Available [facility] [address] [place] [address] [address] [place], [address], 02/12/2025 16:34:23 02/13/20 25 02/12/2025 LIPID PANEL REF DLDL non-HDL cholesterol 115 mg/dL <130 Sonia able < 130 mg/dL Not Available [facility] [address] [place] [address] [address] [facility], [place], [address], 02/12/2025 16:34:23 02/13/20 25 02/12/2025 VENIP UNCTU RE results Compl ete Not Available [facility] [address] [place] [address] [address] [place], [address], 02/12/2025 10:02:00 11/16/19 24 11/16/2023 sofie BLACK venou s, lower extre mitshira, unila teral No observ ation record ed. LUIS FELIPE [facility] [address] [facility], [place], [address], 11/16/2023 17:44:55 11/16/19 24 11/16/2023 US, duple x, venou s, lower extre mity, unila teral No observ ation record ed. LUIS [email or web address] [facility] [address] [place], [place], [address], 11/16/2023 17:44:56 11/17/19 24 07/21/2023 colon oscop y proce dure (PROC ) No observ ation record ed. BARCODE Not Available 2023 08:23:10 11/17/19 24 07/21/2023 upper endos copy proce dure (EGD) (PROC ) No observ ation record ed. [facility]CODE Not Available 2023 08:53:29 01/16/20 24 12/30/2023 MAMMO , scree jerri, digit al, bilat eral No observ ation record ed. LUIS FELIPE [facility] [address], [place], [address], 01/16/2024 18:12:18 02/14/20 25 02/13/2025 MAMMO , scree jerri, digit al, bilat eral No observ ation record ed. LUIS [email or web address] [facility] [address] [place], [address], 02/13/2025 23:05:26 02/20/20 25 02/13/2025 bone densi ty No observ ation record ed. ULIS [email or web address] [facility] [address] [place], [address], 02/19/2025 23:22:59 Result Notes None recorded. Problems Name Problem SNOMED Code Status Onset Date Resolution Date Notes Provider Name and Address Organization Details Recorded Time Angina pectoris 491117264 Completed 08/26/2014 Shahla stevens [facility], [employer] 6 09:52:04 Female stress incontinenc e 90292436 Active Shahla stevens [facility], [facility] 09:52:04 Essential hypertensio n 22445578 Completed 03/08/2016 Shahla stevens [place] [facility], [facility] 6 09:52:04 Disorder of bone and articular cartilage 662709911 [facility], [facility] 6 09:52:04 Hyperlipide erica 80377298 Active Jackie Rodriguez MD [address], [place], [address], [facility], [facility] 6 21:33:09 Fatigue 64241491 Completed 08/26/2014 [facility], [facility] 6 09:52:04 Impaired fasting glycemia 352670547 Completed 08/26/2014 [facility], [facility] 6 09:52:05 Vitamin B deficiency 99953743 Completed 08/26/2014 [facility], [facility] 6 09:52:04 Disorder of thyroid gland 34127190 Active [facility], [facility] 6 09:52:04 Dysphagia 51638354 Completed 03/08/2016 [facility], [facility] 6 09:52:05 Stricture of esophagus 43650209 Completed 03/08/2016 [facility], [facility] 6 09:52:04 Gastroesoph ageal reflux disease 929997935 Active Jackie Rodriguez MD [address], [place], [address], [facility] Physician [facility], [facility] 6 21:33:09 Pure hypercholes terolemia 839011000 Completed 03/08/2016 [facility], [facility] 6 09:52:04 Benign essential hypertensio n 5085976 Completed 03/08/2016 [facility], [facility] 6 09:52:04 Urinary incontinenc e [id number] Completed 03/08/2016 Shahla Jodee null, [facility], [facility] 6 09:52:05 Fatigue [id number] Active Shahla Jodee null, [facility], [facility] 6 09:52:05 Impaired fasting glycemia [id number] Active Shahla Jodee null, [facility], [facility] 6 09:52:05 Vitamin B deficiency 85422390 Active Shahla Jodee null, [facility], [facility] 6 09:52:04 Disorder of nail [id number] Completed 03/08/2016 Shahla Jodee null, [facility], [facility] 6 09:52:04 Hypertensiv e disorder 40465474 Active Shahla Jodee null, [facility], [facility] 6 09:52:04 Venous varices [id number] Completed 03/08/2016 Shahla Jodee null, [facility] Physician [facility], [facility] 6 09:52:04 Urinary tract infectious disease [id number] Completed 03/08/2016 Shahla Jodee null, [facility] Physician [facility], [facility] 6 09:52:04 Vitamin D deficiency 49969491 Active Shahla Jodee null, [facility] Physician [facility], [facility] 6 09:52:04 Obesity [id number] Completed 08/14/2020 Anny Rodriguez MD [address], [place], [address], [facility] Physician [facility], [facility] 0 08:54:08 Decreased body mass index 5243016 Completed 08/14/2020 Anny Rodriguez MD [address], [place], [address], [facility] Physician [facility], [facility] 0 08:54:02 Murmur [id number] Active Shahla Jodee null, [facility] Physician [facility], [facility] 6 09:52:05 Dilatation of aorta 32283915 Active Jackie Rodriguez MD [address], [place], [address], [facility], [facility] 6 21:33:09 Blood in urine 40845892 Active [address], [place], [address], [facility], [facility] 8 17:04:41 Aortic aneurysm 43833621 Active [address], [place], [address], [facility], [facility] 8 17:09:00 Aneurysm of thoracic aorta 768186507 Active 2018 MONICA Farley [address], [place], [address], [facility] [employer] Physician [facility], [facility] 9 17:51:24 Problem Notes None recorded. Procedures Surgical History Date Name Laterality Status Provider Name and Address Organization Details Recorded Time 02/19 bone density study, dual photon absorptiometry completed ROSA MARIA MULLIGAN APRN [address], [place], [address], [facility] Physician [facility], [facility] 5 17:13:59 02/13 mammography completed MD [address], [place], [address], [facility] Physician [facility], [facility] 5 17:48:07 02/07 Quality Functional Assessment completed MD [address], [place], [address], [facility] Physician [facility], [facility] 5 15:39:47 02/07 Quality Medication Reviewed and Updated completed MD [address], [place], [address], [facility], [facility] 5 15:39:47 02/07 Quality BMI with follow up completed Wallace Rodriguez MD [address], [place], [address], [facility], [facility] 5 15:39:47 02/07 Quality Advanced Care Planning [facility] 5 15:24:07 02/07 Quality Incontinence Screening [facility] 15:24:07 02/07 Cerumen Disimpaction Lavage Only (PCP, WIC, Spec) completed MD Heidi [address], [place], [address], [facility], [facility] 12:09:10 02/07 Medicare AWV - Screening Schedule completed Jackie Rodriguez MD [address], [place], [address], [facility], [facility] 15:39:47 02/07 Quality Fall Risk Assessment completed Jackie Rodriguez MD [address], [place], [address], [facility], [facility] 5 15:39:47 02/07 G2211 completed MD Heidi [address], [place], [address], [facility], [facility] 5 12:06:11 02/07 Medicare AWV Subsequent completed Alida bradford [facility], [facility] 15:24:07 01/24 Cerumen Disimpaction Using instrumentation (PCP, WIC, Spec) completed [address], [place], [address], [facility], [facility] 4 11:54:35 01/15 mammography completed MD [address], [place], [address], [place] [facility], [facility] 4 17:42:50 07/26 Colonoscopy completed Anny Rodriguez MD [address], [place], [address], [place] [facility], [facility] 3 17:11:54 07/21 esophagogastroduodenoscopy completed Wallace Rodriguez MD [address], [place], [address], [facility], [facility] 5 15:54:39 03/02 Quality Functional Assessment [facility], [facility] 3 10:00:47 03/02 Quality Medication Reviewed and Updated completed Yareli Dima [facility] Physician [facility], [facility] 3 10:00:47 03/02 Quality BMI with follow up completed Elmer alvarez [facility] Physician [facility], [facility] 3 10:00:47 03/02 Quality Advanced Care Planning completed Yareli Dima [facility] Physician [facility], [facility] 3 10:00:47 03/02 Quality Incontinence Screening completed Yareli Dima [facility], [facility] 3 10:00:47 03/02 Medicare AWV - Screening Schedule completed Yareli Dima [facility] Physician [facility], [facility] 3 10:00:47 03/02 Quality Fall Risk Assessment completed Yareli Dima [facility], [facility] 3 10:00:47 03/03 Quality Functional Assessment completed Yareli Dima [facility] Physician [facility], [facility] 2 16:32:55 03/03 Quality Medication Reviewed and Updated completed Yareli Dima [facility] Physician [facility], [facility] 2 16:32:55 03/03 Quality BMI with follow up completed Elmer alvarez Dima [facility], [facility] 2 16:32:55 03/03 Quality Advanced Care Planning completed Yareli Dima [facility], [facility] 2 16:32:55 03/03 Quality Incontinence Screening completed Yareli Dima [facility], [facility] 2 16:32:55 03/03 Medicare AWV - Screening Schedule completed Yareli Dima [facility], [facility] 2 16:32:55 03/03 Quality Fall Risk Assessment completed Yareli Dima [facility], [facility] 2 16:32:55 12/21 Date of Last Mammogram completed Yareli Dima [facility], [facility] 2 16:30:13 03/02 Quality Functional Assessment completed Yareli Dima [facility], [facility] 16:05:10 03/02 Quality Medication Reviewed and Updated completed Yareli Dima [facility], [facility] 16:05:10 03/02 Quality (DM or HTN) BP Diastolic < 80 completed Yareli Dima [facility], [facility] 16:20:02 03/02 Medicare AWV Questionnaire completed Elmer alvarez Dima [facility], [facility] 16:18:52 03/02 Quality (DM or HTN ) BP Systolic < 130 completed Yareli Dima [facility], [facility] 16:19:59 03/02 Pain Screening completed Yareli Dima [facility], [facility] 16:18:42 03/02 Quality Fall Risk Assessment Low Risk completed Yareli Dima [facility], [facility] 16:05:10 03/02 Quality BMI with follow up completed Elmer alvarez Dima [place] [facility], [facility] 1 16:05:10 03/02 Quality Advanced Care Planning completed Yareli Dima [place] [facility], [facility] 1 16:05:10 03/02 Quality Incontinence Screening completed Yareli Dima [facility], [facility] 1 16:05:10 03/02 Medicare AWV - Screening Schedule completed Yareli Dima [facility], [facility] 1 16:05:10 02/10 Quality Functional Assessment completed Yareli Dima [facility], [facility] 0 08:14:18 02/10 Quality Medication Reviewed and Updated completed Yareli Dima [facility], [facility] 0 08:14:17 02/10 Medicare AWV Questionnaire completed Elmer Davisregon [facility], [facility] 0 08:14:57 02/10 Quality Fall Risk Assessment Low Risk completed Yareli Dima [facility], [facility] 0 08:14:18 02/10 Quality BMI with follow up completed Elmer alvarez Dima [facility], [facility] 0 08:14:18 02/10 Quality Advanced Care Planning completed Yareli Dima [facility], [facility] 0 08:14:18 02/10 Quality Incontinence Screening completed Yareli Dima [facility], [facility] 0 08:14:18 02/10 Medicare AWV-Screening Schedule completed Yareli Dima [facility], [facility] 0 08:14:18 02/02 Quality Functional Assessment completed Corie Zamarripa [facility], [facility] 9 15:08:10 02/02 Quality Medication Reviewed and Updated completed Corie Zamarripa [facility], [facility] 9 15:08:10 02/02 Medicare AWV Questionnaire completed Corie Kidd [facility], [facility] 9 15:13:57 02/02 Quality Fall Risk Assessment Low Risk completed Corie Zamarripa [facility], [facility] 9 15:08:10 02/02 Quality BMI with follow up completed Corie Kidd [facility], [facility] 9 15:08:10 02/02 Quality Advanced Care Planning completed Corie Zamarripa [facility], [facility] 9 15:08:10 02/02 Quality Incontinence Screening completed Corie Zamarripa [facility] 9 15:08:10 02/13 Quality Functional Assessment completed Madan Almendarez [facility] 8 12:53:26 02/13 Quality Medication Reviewed and Updated completed Madan Almendarez [facility] 8 12:53:26 02/13 Medicare AWV Questionnaire [place] [address], [address] 8 13:27:10 02/13 Quality Fall Risk Assessment Low Risk completed Madan Almendarez [facility] 8 12:53:26 02/13 Quality BMI with follow up completed Madan Almendarez [facility] 8 12:53:26 02/13 Quality Advanced Care Planning completed Madan Almendarez [facility] 8 12:53:26 02/13 Quality Incontinence Screening completed Madan Almendarez [facility] 8 12:53:26 02/11 Quality Pain Screening No Pain completed Shahla Jodee [facility] 7 07:39:07 02/11 Quality Functional Assessment completed Shahla Jodee [facility] 7 07:39:07 02/11 Quality Medication Reviewed and Updated completed [facility] Physician [facility], [facility] 7 07:39:07 02/11 Quality (DM or HTN) BP Diastolic < 80 completed [facility] Physician [facility], [facility] 7 07:39:07 02/11 Medicare AWV Questionnaire completed Wallace Rodriguez MD [address], [address], [facility], [facility] 7 08:16:15 02/11 Quality Tobacco Non- User completed [facility] Physician [facility], [facility] 7 07:39:07 02/11 Quality (DM or HTN ) BP Systolic < 130 completed [facility] Physician [facility], [facility] 7 07:39:07 02/11 Quality Fall Risk Assessment Low Risk completed [facility], [facility] 7 07:39:07 02/11 Quality BMI with follow up completed [facility], [facility] 7 07:39:07 02/11 Quality Advanced Care Planning completed [facility], [facility] 7 07:39:07 02/11 Quality Incontinence Screening completed [facility], [facility] 7 07:39:07 03/08 Quality Pain Screening No Pain completed Faye Hoyt [facility] Physician [facility], [facility] 6 12:36:34 03/08 Quality Functional Assessment completed Fayelauro Hoyt [facility], [facility] 6 12:36:34 03/08 Quality Medication Reviewed and Updated completed Faye Hoyt [facility] Physician [facility], [facility] 6 12:36:34 03/08 Quality (DM or HTN) BP Diastolic < 80 completed Faye Hoyt [facility], [facility] 6 12:36:35 03/08 Medicare AWV Questionnaire completed Wallace Rodriguez MD [address], [place], [address], [facility], [facility] 6 13:08:17 03/08 Quality Tobacco Non- User completed Fayelauro Hoyt [facility] 6 12:36:35 03/08 Quality (DM or HTN ) BP Systolic < 130 completed Fayelauro Hoyt [facility] 6 12:36:35 03/08 Quality Fall Risk Assessment Low Risk completed [facility] 6 12:36:35 03/08 Quality BMI with follow up completed Faye [facility] 6 12:36:35 03/08 Quality Advanced Care Planning completed Faye [facility] 6 12:36:35 03/08 Quality Incontinence Screening completed Faye [facility] 6 12:36:35 03/08 Screening pap smear by phys completed Corie Zamarripa [facility] 9 15:11:34 02/25 Quality Pain Screening No Pain completed Jackie Rodriguez MD [address], [place], [address], [facility] 5 20:50:08 02/25 Quality Functional Assessment completed Jackie Rodriguez MD [address], [place], [address], [facility], [facility] 5 20:50:08 02/25 Quality Medication Reviewed and Updated completed MD Heidi [address], [place], [address], [facility] 5 20:50:08 02/25 Quality (DM or HTN) BP Diastolic < 80 completed MD Heidi [address], [place], [address], [facility], [facility] 5 20:50:08 02/25 Medicare AWV Questionnaire completed MD [address], [place], [address], [facility], [facility] 5 20:51:36 02/25 Quality Tobacco Non- User completed MD [address], [place], [address], [facility], [facility] 5 20:50:08 02/25 Quality (DM or HTN ) BP Systolic < 130 completed MD [address], [place], [address], [facility], [facility] 5 20:50:08 02/25 Quality Fall Risk Assessment Low Risk completed MD [address], [place], [address], [facility], [facility] 5 20:50:08 02/25 Quality BMI with follow up completed MD [address], [place], [address], [facility], [facility] 5 20:50:08 02/25 Quality Advanced Care Planning completed MD [address], [place], [address], [facility], [facility] 5 20:50:09 02/25 Quality Incontinence Screening completed MD [address], [place], [address], [facility], [facility] 5 20:50:09 09/25 COLONOSCOPY (SURG) completed MD [address], [place], [address], [facility] Physician [facility], [facility] 5 18:07:33 02/04 Quality Pain Screening No Pain completed MD Heidi [address], [place], [address], [facility], [facility] 4 12:26:13 02/04 Quality Functional Assessment completed MD [address], [place], [address], [facility], [facility] 4 12:26:13 02/04 Quality Medication Reviewed and Updated completed MD [address], [place], [address], [facility], [facility] 4 12:26:13 02/04 Quality (DM or HTN) BP Diastolic < 80 completed MD [address], [place], [address], [facility], [facility] 4 12:26:13 02/04 Medicare AWV Questionnaire completed MD Heidi [address], [place], [address], [facility], [facility] 4 12:26:13 02/04 Quality Tobacco Non- User completed MD [address], [place], [address], [facility], [facility] 4 12:26:13 02/04 Quality (DM or HTN ) BP Systolic < 130 completed MD [address], [place], [address], [facility], [facility] 4 12:26:13 02/04 Quality Fall Risk Assessment Low Risk completed MD [address], [place], [address], [facility] Physician [facility], [facility] 4 12:26:13 02/04 Quality BMI with follow up completed Wallace Rodriguez MD [address] [facility] [address], [place], [address], [facility], [facility] 4 12:26:13 02/04 Quality Advanced Care Planning completed Jackie Rodriguez MD [address], [place], [address], [facility], [facility] 4 12:26:13 12/29 Cataract excision completed [facility] 4 10:36:50 04/30 Oral surgery completed [facility] 4 10:36:50 05/31 Hysterectomy completed [facility] 4 10:36:50 10/31 Dilation & curettage completed [facility] 4 10:36:50 03/31 Appendectomy completed [facility] 4 10:36:50 12/01 Tonsillectomy completed Shahla Ellsworth [facility] 7 06:41:12 Vascular Surgery completed Alida Ch [facility] 2 16:30:15 EGD-Upper Endoscopy completed Don Cespedes [facility] 4 13:02:49 ESOPHAGOGASTRODUODEN OSCOPY (SURG) completed [facility] 4 08:16:15 Imaging Results None recorded. Procedure Notes None recorded. Medical Equipment None Reported. Allergies Allergen ID Allergen Name Allergen Category Reaction Reaction Severity Criticality Documentation Date Start Date Code Code System Note Provider Name and Address Organization Details Recorded Time 753122 codeine medicatio n nausea severe Not available 08/30/2013 2670 RxNorm Ismerai Cespedes [facility], [facility], [facility] 4 13:04:23 [id number] Demerol medicatio n other Not available Not available 08/30/2013 62391 1 RxNorm Corinna Gaming [facility] 9 11:03:02 075357 morphine medicatio n other severe Not available 08/30/20131991 7052 RxNorm Ismerai Cespedes [facility], [facility] 4 13:04:23 177706 Product containin g penicilli n (product) medicatio n itching rash Not available Not available Not available 08/30/2013 56204 8001 SNOMED Ismerada Cespedes [facility] 4 13:02:14 [id number] meloxicam medicatio n Not available Not available [facility] 02/07/2025 93430 RxNorm Jackie Rodriguez MD [address], [place], [address], [facility], [facility] 5 15:47:58 740362 Elavil medicatio n other severe Not available 09/12/20141991 08077 RxNorm Ismerai Cespedes [facility], [facility] 4 13:04:23 120689 prednison e medicatio n other Not available Not available 11/13/2021 8640 RxNorm insom humberto and anxio Jackie Rodriguez MD [address], [place], [address], [facility], [facility] 10:43:18 Medications Name Sig Start Date [...] Available Not Available lovastatin 40 mg tablet Take 1 tablet by mouth daily. 2024 active Not Available Not Available Not Avai lable prednisone 5 mg tablet active Not Available [...] Available omeprazole 20 mg capsule,del ayed release Take 1 capsule by mouth daily. 2024 active Not Available Not Available Not Avai lable hydroxyzine HCl 25 mg tablet Take 1 [...] Available Not Available losartan 100 mg tablet Take 1 tablet by mouth daily. 2024 active Not Available Not Available Not Avai lable fluticasone propionate 50 mcg/actuati on nasal spray,suspe [...] t Available hydrochloro thiazide 12.5 mg tablet Take 1 tablet by mouth every other day. 2024 active Not Available Not Available Not Avai lable cholecalcif guilherme (vitamin D3) 1,250 mcg (50,000 [...] Available Not Available Not Available Fluzone High-Dose 6112-5821 (PF) 180 mcg/0.5 mL intramuscul ar syringe TO BE ADMINISTE RED BY PHARMACIS T FOR IMMUNIZAT ION 01/10 completed Not Available Not Available Not Available Fluzone High-Dose 3539-9189 (PF) 180 mcg/0.5 mL intramuscul ar syringe [...] Vitals Date Recorded Body height Respiratory rate Pain severity - 0-10 verbal numeric rating [Score] - Reported Body temperature Body mass index (BMI) Body weight Heart rate Oxygen saturation Oxygen saturation in Arterial blood by Pulse oximetry Systolic And Diastolic Provider Name and Address Organization Details Last Updated DateTime 4 165.1 cm 16 /min 0 97.2 [degF] 27 kg/m2 65813.9 6 g 77 /min 99 % 99 % 137/76 mm[Hg] [facility] 4 09:42:54 Date Recorded Body height Respiratory rate Pain severity - 0-10 verbal numeric rating [Score] - Reported Body mass index (BMI) Body weight Body temperature Heart rate Oxygen saturation Oxygen saturation in Arterial blood by Pulse oximetry Systolic And Diastolic Provider Name and Address Organization Details Last Updated DateTime 4 165.1 cm 16 /min 0 27 kg/m2 13956.9 6 g 98.3 [degF] 76 /min 97 % 97 % 130/80 mm[Hg] [facility] 4 08:43:10 Date Recorded Body height Respiratory rate Pain severity - 0-10 verbal numeric rating [Score] - Reported Body mass index (BMI) Body weight Body temperature Heart rate Oxygen saturation Oxygen saturation in Arterial blood by Pulse oximetry Systolic And Diastolic Provider Name and Address Organization Details Last Updated DateTime 4 165.1 cm 16 /min 0 27.7 kg/m2 70101.0 5 g 98.2 [degF] 80 /min 99 % 99 % 136/80 mm[Hg] Nataly Escobar [facility] 4 11:16:54 Date Recorded Body height Respiratory rate Body temperature Body mass index (BMI) Body weight Heart rate Oxygen saturation Oxygen saturation in Arterial blood by Pulse oximetry Pain severity - 0-10 verbal numeric rating [Score] - Reported Systolic And Diastolic Provider Name and Address Organization Details Last Updated DateTime 5 165.1 cm 16 /min 97.7 [degF] 27 kg/m2 74312.6 8 g 76 /min 97 % 97 % 3 124/74 mm[Hg] Yareli Ch [facility] 5 15:23:51 Date Recorded Body height Respiratory rate Pain severity - 0-10 verbal numeric rating [Score] - Reported Body mass index (BMI) Body weight Body temperature Oxygen saturation Oxygen saturation in Arterial blood by Pulse oximetry Heart rate Systolic And Diastolic Provider Name and Address Organization Details Last Updated DateTime 3 165.1 cm 16 /min 0 28 kg/m2 76797.5 2 g 97.6 [degF] 93 % 93 % 71 /min 138/84 mm[Hg] [facility] 3 10:11:17 Social History Question Answer Notes LastModified by Organizat ion Details LastModified Time Tobacco Smoking Status Never Smoker Kate stevens [facility] 08/30/2013 09:31:54 Do You Have An Advance Directive? Yes Information not available 01/22/2014 What Is Your Level Of Caffeine Consumption? Moderate [email or web address] Information not available 08/14/2020 How Much Tobacco Do You Chew? None Information not available 01/22/2014 What Type Of Diet Are You Following? 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 [employer] Information not available 01/22/2014 Do you or [...] 15:12:18 Daughter Scoliosis deformity of spine 20 API-27 Not available 2024 15:12:18 Daughter Fibrocystic disease of breast 20 API-27 Not available 2024 15:12:18 Sister Depressive disorder 40 API-27 Not available 2024 15:12:18 Sister Hypertensive disorder Not available 2021 16:30:12 Unspecified Relation Seizure [email or web address] Not available 11:03:17 Medical History Condition Response Cancer (location) [...] high-dose, trivalent, PF 8 completed Not Available [facility] 11/15/2023 01:11:02 Influenza, split virus, quadrivalent, PF 5 completed Zhanna stevens, [facility], [employer] 01/29/2019 15:03:16 Influenza, high-dose, trivalent, PF 9 completed Not Available [facility] 11/15/2023 01:11:02 zoster recombinant 9 completed Not Available [facility] 11/15/2023 01:11:02 zoster recombinant 9 completed Not Available [facility] 11/15/2023 01:11:02 Influenza, split virus, trivalent, preservative 9 completed Ismerada Cespedes null, [facility], [facility] 09/12/2014 13:22:23 Influenza, split virus, trivalent, preservative 7 completed Ismerai Cespedes null, [facility], [facility] 09/12/2014 13:22:23 pneumococcal, unspecified formulation 4 completed Ishowie Cespedes null, [facility], [facility] 09/12/2014 13:22:23 zoster live 2 completed Shahla Ellsworth null, [facility], [facility] 02/11/2017 06:37:48 zoster live 1 completed Shahla stevens, [facility], [facility] 02/11/2017 06:37:48 Influenza, split virus, quadrivalent, PF 4 completed Not Available [facility] 12/01/2019 02:11:14 zoster recombinant 9 completed Madan Almendarez null, [facility], [facility] 08/14/2020 07:57:55 Influenza, split virus, quadrivalent, preservative 0 completed Not Available [facility] 11/15/2023 01:11:02 COVID-19, mRNA, LNP-S, PF, 100 mcg/0.5mL dose or 50 mcg/0.25mL dose 1 completed Yareli Dima null, [facility], [facility] 03/02/2021 16:04:23 COVID-19, mRNA, LNP-S, PF, 100 mcg/0.5mL dose or 50 mcg/0.25mL dose 1 completed Yareli Dima null, [facility], [facility] 03/02/2021 16:04:23 COVID-19, mRNA, LNP-S, PF, 100 mcg/0.5mL dose or 50 mcg/0.25mL dose 1 completed Not Available [facility] 11/15/2023 01:11:02 Influenza, split virus, quadrivalent, preservative 1 completed Not Available [facility] 11/15/2023 01:11:02 COVID-19, mRNA, LNP-S, PF, 100 mcg/0.5mL dose or 50 mcg/0.25mL dose 2 completed Yareli Dima null, [facility], [facility] 03/03/2022 16:28:36 influenza, unspecified formulation 2 completed Not Available [facility] 11/15/2023 01:11:02 SARS-COV-2 (COVID-19) vaccine, UNSPECIFIED 2 completed Not Available [facility] 11/15/2023 01:11:02 Pneumococcal conjugate PCV 13 6 completed Not Available [facility] 11/15/2023 01:11:02 Influenza, high-dose, trivalent, PF 3 completed Not Available [facility] 11/17/2019 02:40:25 zoster recombinant 3 completed Not Available [facility] 11/15/2023 01:11:02 influenza, unspecified formulation 3 completed Not Available [facility] 11/15/2023 01:11:02 SARS-COV-2 (COVID-19) vaccine, UNSPECIFIED 3 completed Not Available [facility] 11/15/2023 01:11:02 Influenza, high-dose, trivalent, PF 4 completed Not Available [facility] 11/15/2023 01:11:02 Influenza, high-dose, trivalent, PF 6 completed Madan Almendarez [facility], [facility], [facility] 08/14/2020 07:57:55 zoster live 1 completed Not Available [facility] 11/15/2023 01:11:02 influenza, unspecified formulation 4 completed MD Peyman Zheng [address], [place], [address], [facility], [facility] 02/07/2025 15:51:25 SARS-COV-2 (COVID-19) vaccine, UNSPECIFIED 4 completed MD Peyman Zheng [address], [place], [address], [facility], [facility] 02/07/2025 15:51:44 Pneumococcal conjugate PCV20, polysaccharide [id number] conjugate, adjuvant, PF 5 completed MD Peyman Zheng [address], [place], [address], [facility], [facility] 02/07/2025 15:52:52 Respiratory syncytial virus (RSV) MAB, unspecified 4 completed MD Peyman Zheng [address], [place], [address], [facility], [facility] 02/07/2025 15:53:13 Influenza, split virus, quadrivalent, preservative 7 completed Not Available [facility] 11/15/2023 01:11:02 Influenza, split virus, trivalent, preservative 0 completed lisbeth Coy stevens [facility], [facility] 09/12/2014 13:22:23 Influenza, split virus, trivalent, PF 2 completed [facility] Coy stevens [facility] 09/12/2014 13:22:23 Past Encounters Encounter ID Performer Location Encounter Start Date Encounter Closed Date Diagnosis/Indication Diagnosis SNOMED-CT Code Diagnosis ICD10 Code Diagnosis Note [id number] MD CATE Zheng [facility] [address] [address] 08/31/2013 07:11:45 08/31/2013 10:12:50 Fatigue 98111145 Hyperlipidemia 11740789 Impaired f asting glycemia 664699224 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 Will use symptomati c treatment. Tylenol or advil for pain or fever unless contraindi cated. Mucinex and/or Robitussin -DM as needed for cough/liss estion. Increase fluids, rest. Use, dose, and adverse effects of medication discussed. Begin antibiotic with worsening symptoms or no improvemen t. Call or return with concerns. [id number] MONICA Romero Carmelita [facility] [address] [address] 01/10/2014 16:09:57 01/10/2014 16:29:19 Dysphagia 44599913 Small meals, no meats, soft foods only. Referred to GI. 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 Referred to GI. Gastroesop hageal reflux disease 698683597 Continue Omeprazole , add Zantac at bedtime. Call with concerns. [id number] Mariano Sewell MD [address] [address] 01/22/2014 10:13:06 01/22/2014 11:47:34 Dysphagia 95487562 Gastroesop hageal reflux disease 897307485 [id number] Jackie Rodriguez MD [facility] [address] [id number] 02/04/2014 11:23:15 02/04/2014 12:52:39 Adult health examination 257000559 Medicare Annual Wellness Visit done today. 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 606852863 Vitamin B deficiency 29593688 Disorder o f thyroid gland 74327932 [id number] Jackie Rodriguez MD [facility] [address] [address] 08/26/2014 06:56:06 08/26/2014 08:13:09 Pure hypercholesterolemia 025058408 Chronic, controlled , continue same, follow up as scheduled Fasting blood work prior to next visit in 90 days Benign ess ential hypertension 3015347 Chronic, controlled , continue same, follow up as scheduled Fasting blood work prior to next visit in 90 days Screening mammography 37601453 Screening for malignant neoplasm of colon 798507599 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 [id number] CHRISTOPH Carlson [address] [address] 09/12/2014 12:50:08 09/12/2014 13:29:11 Family history of malignant neoplasm of gastrointestinal tract 645056072 [id number] Jackie Rodriguez MD [facility] [address] [address] 02/25/2015 07:24:17 02/25/2015 08:04:51 Body mass index 30+ - obesity 919931351 weight issues discussed and informatio n on weight loss given. Needs follow up on weight control as scheduled. Education handout on diets given. Exercise counseling done. Will arrange referral for dietitian, nutritioni st, Physical/o ccupationa l therapy as needed or desired. Also will consider pharmaceut ical and supplement al interventi ons Obesity 371173276 see BM I above for details Adult heal th examination [id number] Medicare Annual Wellness Visit done today. 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 341462907 Vitamin B deficiency 59291525 Disorder o f thyroid gland 26755180 Disorder of nail 78969249 Hypertensive disorder 72275634 [id number] [facility] [address] [place] [address] 09/05/2015 07:17:19 09/05/2015 08:07:47 Active or passive immunization 521233816 Z23 Essential hypertension 08145139 I10 Screening mammography 24 008432 Z12.31 Fatigue 98395949 R53.83 Hyperlipidemia 92505512 E78.5 Impaired f asting glycemia 858098055 R73.01 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 s/p vein ligation, then injections . now back again. Urinary tr act infectious disease 72116617 N39.0 Vitamin D deficiency 347 72809 E55.9 [id number] Jackie Rodriguez MD Carmelita [facility] [address] [place] [address] 03/08/2016 12:34:11 03/08/2016 13:29:28 Adult health examination 362442490 Z00.00 Medicare Annual Wellness Visit done today. Body mass index 30+ - obesity 688727945 Z68.32 weight issues discussed and informatio n on weight loss given. Needs follow up on weight control as scheduled. Education handout on diets given. Exercise counseling done. Will arrange referral for dietitian, nutritioni st, Physical/o ccupationa l therapy as needed or desired. Also will consider pharmaceut ical and supplement al interventi ons Depression screening 171 256730 Z13.89 Obesity 676988117 E66.9 see BMI above for details Decreased body mass index 5912880 Z68.1 BMI less than 19. Review Mini Nutritiona l Screen if necessary. 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 232444832 M85.80 Screening for malignant neoplasm of cervix 936000595 Z12.4 Murmur 557193647 R01.1 Fatigue 34029702 R53.83 Hyperlipidemia 98113895 E78.5 Impaired f asting glycemia 807019027 R73.01 Vitamin B deficiency 479 76388 E53.8 Disorder o f thyroid gland 24812695 E07.9 Vitamin D deficiency 347 85682 E55.9 Hypertensive disorder 38 172138 I10 Administra tion of pneumococcal vaccine 57033676 Z23 [id number] Jackie Rodriguez MD [facility] [address] [address] 09/13/2016 09:48:20 09/13/2016 10:51:01 Body mass index 30+ - obesity 152433482 Z68.31 weight issues discussed and informatio n on weight loss given. Needs follow up on weight control as scheduled. Education handout on diets given. Exercise counseling done. Will arrange referral for dietitian, nutritioni st, Physical/o ccupationa l therapy as needed or desired. Also will consider pharmaceut ical and supplement al interventi ons Obesity 674584828 E66.9 see BMI above for details Essential hypertension 60580234 I10 Dilatation of aorta 2666 0001 I71.9 Gastroesop hageal reflux disease 999475896 K21.9 Hyperlipidemia 24826824 E78.5 [id number] MONICA Farley [facility] [address] [place] [address] 01/10/2017 09:06:20 01/10/2017 09:44:18 Urinary tract infectious disease 80584466 N39.0 Acute episode will continue to monitor Dysuria 79044653 R30.0 Acute episode will continue to monitor [id number] Jackie Rodriguez MD [facility] [address] [place] [address] 02/11/2017 07:31:51 02/11/2017 08:29:32 Adult health examination 188371537 Z00.00 Annual Wellness Visit done today Depression screening 171 311652 Z13.89 PHQ-9 depression screening done due to positive response in [facility] depression screening Follow up as scheduled. Normal bod y mass index 02095974 Z68.23 BMI on chart and recorded for quality measure documentat ion Atrophic vaginitis 35922 000 N95.2 Menopausal syndrome 1237 02301 N95.9 due in sep with mammoi Pain in left knee 870621 2926 11030 M25.562 Screening mammography 24 091785 Z12.31 due in september; Urinary incontinence 165 182918 R32 trial of Detrol [place]. Fatigue 14220062 R53.83 Hyperlipidemia 54541602 E78.5 Impaired f asting glycemia 825045528 R73.01 Vitamin B deficiency 479 39358 E53.8 Disorder o f thyroid gland 41357498 E07.9 Vitamin D deficiency 347 34605 E55.9 Urinary tr act infectious disease 21038296 N39.0 [id number] Jackie Rodriguez MD [facility] [address] [place] [address] 09/13/2017 14:32:43 09/13/2017 15:50:53 Atrophic vaginitis 93900960 N95.2 restart cream -- getting more utis. Hypertensive disorder 38 460108 I10 HTN -- currently stable. continue with low salt. encouraged exercise. continue current meds. Fatigue 52651749 R53.83 Hyperlipidemia 36793615 E78.5 high cholestero l - instructed pt to do low fat diet. pt to increase exercise routine. continue current meds. repeat in 6 months. Impaired f asting glycemia 346093402 R73.01 impaired sugars int he past -- encouraged low sugar diet and exercise - no need for meds at this time Vitamin B deficiency 479 06092 E53.8 Disorder o f thyroid gland 62750315 E07.9 abnormal thyroid levels in the past -- not currently on meds -- continue to watch full thyroid panel. Vitamin D deficiency 347 71647 E55.9 Low B12 and vitamin D levels in the past -- continue to recheck levels and advise on supplement s as needed. Gastroesop hageal reflux disease 407887259 K21.9 continue PPI, reduce caffiene, etoh. no nsaids; Urinary tr act infectious disease 08594834 N39.0 restart cream -- keep close monitoring . Screening mammography 24 756922 Z12.31 Menopausal syndrome 1237 17453 N95.9 [id number] Anny Rodriguez MD [facility] [address] [facility] [address] [place] [address] 02/09/2018 16:32:32 02/09/2018 17:15:10 Urinary incontinence 589510220 R32 Aortic aneurysm 11817390 I71.2 Urinary tr act infectious disease 19566244 N39.0 Blood in urine 41958731 R31.9 [id number] Jackie Rodriguez MD Carmelita [facility] [address] [address] 02/13/2018 12:53:01 02/13/2018 13:47:01 Adult health examination 419314654 Z00.00 Annual Wellness Visit done today Body mass index 30+ - obesity 823035952 Z68.31 weight issues discussed and informatio n on weight loss given. Needs follow up on weight control as scheduled. Education handout on diets given. Exercise counseling done. Will arrange referral for dietitian, nutritioni st, Physical/o ccupationa l therapy as needed or desired. Also will consider pharmaceut ical and supplement al interventi ons Obesity 477265435 E66.9 see BMI above for details Diet education 14269073 Z71.3 as above Depression screening 171 557887 Z13.89 PHQ-9 depression screening done due to positive response in [facility] depression screening Follow up as scheduled. Urinary tr act infectious disease 27243967 N39.0 restart cream -- keep close monitoring . 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 work on balance. repeat every 2 years. Screening mammography 24 344922 Z12.31 Fatigue 55851250 R53.83 Hyperlipidemia 82293478 E78.5 high cholestero l - instructed pt to do low fat diet. pt to increase exercise routine. continue current meds. repeat in 6 months. Impaired f asting glycemia 250845446 R73.01 impaired sugars int he past -- encouraged low sugar diet and exercise - no need for meds at this time Vitamin B deficiency 479 44848 E53.8 Disorder o f thyroid gland 78040558 E07.9 abnormal thyroid levels in the past -- not currently on meds -- continue to watch full thyroid panel. Vitamin D deficiency 347 38091 E55.9 Low B12 and vitamin D levels in the past -- continue to recheck levels and advise on supplement s as needed. [id number] Jackie Rodriguez MD [place] [address] [address] 09/20/2018 10:02:15 09/20/2018 10:45:20 Body mass index 30+ - obesity 763649084 Z68.31 weight issues discussed and informatio n on weight loss given. Needs follow up on weight control as scheduled. Education handout on diets given. Exercise counseling done. Will arrange referral for dietitian, nutritioni st, Physical/o ccupationa l therapy as needed or desired. Also will consider pharmaceut ical and supplement al interventi ons Obesity 975264829 E66.9 see BMI above for details Diet education 68513459 Z71.3 as above Irritable bowel syndrome 67441357 K58.9 trail of new med. reduce stress. Gastroesop hageal reflux disease 771457791 K21.9 continue PPI, reduce caffiene, etoh. no [...] to 10 pounds can help. Atrophic vaginitis 70942 000 N95.2 recurrent uti. pt deciding between premarin cream and suppositor ies. Fatigue 74345707 R53.83 Hyperlipidemia 56871040 E78.5 high cholestero l - instructed pt to do low fat diet. pt to increase exercise routine. continue current meds. repeat in 6 months. Impaired f asting glycemia 206279856 R73.01 impaired sugars int he past -- encouraged low sugar diet and exercise - no need for meds at this time Vitamin B deficiency 479 62913 E53.8 Disorder o f thyroid gland 24930937 E07.9 abnormal thyroid levels in the past -- not currently on meds -- continue to watch full thyroid panel. Vitamin D deficiency 347 31415 E55.9 Low B12 and vitamin D levels in the past -- continue to recheck levels and advise on supplement s as needed. Urinary tr act infectious disease 21567364 N39.0 restart cream -- keep close monitoring . [id number] MONICA Farley [facility] [address] [place] [address] 01/29/2019 14:55:16 01/30/2019 07:22:27 Urinary tract infectious disease 39762647 N39.0 Acute episode will continue to monitor Dysuria 68723556 R30.0 Acute episode will continue to monitor Aneurysm o f thoracic aorta 257846662 I71.2 chronic controlled , continue regimen as directed and monitor for disease progressio n, aggressive ly treat blood pressure and take statins as prescribed [id number] MD CATE Zheng [facility] [address] [place] [address] 02/02/2019 15:02:09 02/06/2019 09:08:51 Adult health examination 471045280 Z00.00 Annual Wellness Visit done today Depression screening 171 793186 Z13.89 PHQ-9 depression screening done due to positive response in [facility] depression screening Follow up as scheduled. Diet education 62392301 Z71.3 as above Body mass index 30+ - obesity 537547900 E66.9 Z68.30 weight issues discussed and informatio n on weight loss given. Needs follow up on weight control as scheduled. Education handout on diets given. Exercise counseling done. Will arrange referral for dietitian, nutritioni st, Physical/o ccupationa l therapy as needed or desired. Also will consider pharmaceut ical and supplement al interventi ons Obesity 769876161 E66.9 see BMI above for details Gastroesop hageal reflux disease 514658749 K21.9 continue PPI, reduce caffiene, etoh. no [...] 5 to 10 pounds can help. Backache 276731551 M54.9 Pain in lower limb 19115 006 M79.669 Knee pain 92538714 M25.5 69 Abnormal gait 49640988 R 26.9 Polyp of colon 62071812 K63.5 Aneurysm o f thoracic aorta 472801646 I71.2 Fatigue 53596273 R53.83 Hyperlipidemia 41254812 E78.5 high cholestero l - instructed pt to do low fat diet. pt to increase exercise routine. continue current meds. repeat in 6 months. Impaired f asting glycemia 619190157 R73.01 impaired sugars int he past -- encouraged low sugar diet and exercise - no need for meds at this time Vitamin B deficiency 479 05406 E53.8 Disorder o f thyroid gland 93258732 E07.9 abnormal thyroid levels in the past -- not currently on meds -- continue to watch full thyroid panel. Vitamin D deficiency 347 34381 E55.9 Low B12 and vitamin D levels in the past -- continue to recheck levels and advise on supplement s as needed. Administra tion of viral vaccine 13626753 Z23 Varicella Zoster vaccine discussed including indication s, risks and benefits. [id number] Jackie Rodriguez MD [place] [address] [address] 10/08/2019 15:55:23 10/08/2019 16:39:13 Atrophic vaginitis 03825971 N95.2 recurrent uti. pt deciding between premarin cream and suppositor ies. Renewal of prescription 551665527 Z76.0 Screening mammography 24 102597 Z12.31 Bone density finding 385 730059 M85.9 osteopenia - encouraged weight bearing exercise, encouraged calcium and vitamin D supplement ation. work on balance. repeat every 2 years. Polyp of colon 12000212 K63.5 Essential hypertension 70392857 I10 HTN -- currently stable. continue with low salt. encouraged exercise. continue current meds. Fatigue 11732745 R53.83 Hyperlipidemia 25822444 E78.5 high cholestero l - reviewed labs in detail with pt; explained the importance of keep HDL high and LDL and triglyceri de levels low. discussed [employer] n guidelines . instructed pt to do low fat diet. pt to increase exercise routine. continue current meds. pt tolerating cholestero l medication s well at this time. LIver function normal and CK levels normal. repeat labs in 6 months. Impaired f asting glycemia 191944814 R73.01 impaired sugars int he past -- encouraged low sugar diet and exercise - no need for meds at this time Vitamin B deficiency 479 70325 E53.8 Disorder o f thyroid gland 36128293 E07.9 abnormal thyroid levels in the past -- not currently on meds -- continue to watch full thyroid panel. Vitamin D deficiency 347 51487 E55.9 Low B12 and vitamin D levels in the past -- continue to recheck levels and advise on supplement s as needed. Gastroesop hageal reflux disease 272970911 K21.9 continue PPI, reduce caffiene, etoh. no [...] just 5 to 10 pounds can help. [id number] CHRISTOPH Carlson [address] [address] 10/15/2019 10:59:01 10/15/2019 16:37:27 Irritable bowel syndrome 47656612 K58.9 Would suggest daily [employer] Screening for malignant neoplasm of colon 172177183 Z12.11 I had a lengthy discussion with this patient concerning the risk and benefits of a colonoscop y at an advanced age. Patient was given opportunit y to ask questions She has decided to defer colonoscop y at this time. She would advise should she become symptomati c a colonoscop y would be indicated. [id number] CHRISTOPH Barrett [facility] [facility] [address] [place] [address] 11/20/2019 12:25:09 11/20/2019 12:53:39 Shoulder strain 811332202 S46.911A new no trauma, alternate heat, ice, tylenol for pain.send in lidocaine patches. If worsening/ persistent may need imaging and or PT. Currently declining Muscle pain 00875787 M79 .10 ne [id number] Jackie Rodriguez MD [facility] [address] [facility] [address] [place] [address] 02/11/2020 08:07:58 02/11/2020 09:56:45 Adult health examination 835228695 Z00.00 Annual Wellness Visit done today Increased body mass index 55037372 Z68.29 elevated BMI. Discussed diet and better therapeuti c lifestyle changes. Diet education 70472765 Z71.3 as above Renewal of prescription 045396230 Z76.0 Polyp of colon 00212428 K63.5 pt was seen by gastro -- deferred colonopscy -- now is thinking about getting it. told her i worried about her age -- [place]. Pain of le ft shoulder joint [id number] 2632102 M25.512 Vitamin D deficiency 347 82137 E55.9 Low B12 and vitamin D levels in the past -- continue to recheck levels and advise on supplement s as needed. Fatigue 84723878 R53.83 Hyperlipidemia 81206966 E78.5 high cholestero l - reviewed labs in detail with pt; explained the importance of keep HDL high and LDL and triglyceri de levels low. discussed [place] [employer] n guidelines . instructed pt to do low fat diet. pt to increase exercise routine. continue current meds. pt tolerating cholestero l medication s well at this time. LIver function normal and CK levels normal. repeat labs in 6 months. Impaired f asting glycemia 560449917 R73.01 impaired sugars int he past -- encouraged low sugar diet and exercise - no need for meds at this time Vitamin B deficiency 479 92942 E53.8 Disorder o f thyroid gland 52380701 E07.9 abnormal thyroid levels in the past -- not currently on meds -- continue to watch full thyroid panel. Essential hypertension 15698483 I10 HTN -- currently stable. continue with low salt. encouraged exercise. continue current meds. [id number] MD CATE Coates [facility] [address] [place] [address] 08/14/2020 07:38:42 08/14/2020 09:27:00 Polyp of colon 59602847 K63.5 pt was seen by gastro -- deferred colonopscy -- now is thinking about getting it. told her i worried about her age -- will get second opinion [place]. Vitamin D deficiency 347 62663 E55.9 Low B12 and vitamin D levels in the past -- continue to recheck levels and advise on supplement s as needed. Fatigue 45248757 R53.83 Hyperlipidemia 82893583 E78.5 high cholestero l - reviewed labs in detail with pt; explained the importance of keep HDL high and LDL and triglyceri de levels low. discussed [place] [employer] n guidelines . instructed pt to do low fat diet. pt to increase exercise routine. continue current meds. pt tolerating cholestero l medication s well at this time. LIver function normal and CK levels normal. repeat labs in 6 months. Impaired f asting glycemia 459678360 R73.01 impaired sugars int he past -- encouraged low sugar diet and exercise - no need for meds at this time Vitamin B deficiency 479 04745 E53.8 Disorder o f thyroid gland 75892116 E07.9 abnormal thyroid levels in the past -- not currently on meds -- continue to watch full thyroid panel. Essential hypertension 35375681 I10 HTN -- currently stable. continue with low salt. encouraged exercise. continue current meds. Dilatation of aorta 2666 0001 I71.2 Adult [facility] th examination 266763639 Z00.00 Routine prevention - sunscreen, seatbelts, healthy diet and exericse, labs, vaccine update and follow up. Discussed end-of-lif e issues and reviewed body mass index. 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 Hypertensive disorder 38 584064 I10 HTN -- currently stable. continue with low salt. encouraged exercise. continue current meds. Increased body mass index 57634466 Z68.29 elevated BMI. Discussed diet and better therapeuti c lifestyle changes. Diet education 27114861 Z71.3 as above Renewal of prescription 406271085 Z76.0 Vitamin D deficiency 347 48662 E55.9 Low B12 and vitamin D levels in the past -- continue to recheck levels and advise on supplement s as needed. Cobalamin deficiency 190 902677 E53.8 low vitamin B levels - encouraged b12 otc supplement . repeat in 6 months. Fatigue 95602166 R53.83 ? source of fatigue. discussed lifestyle changes to help . watch labs to rule out anemia, thyroid disease. Hyperlipidemia 93959859 E78.2 high cholestero l - reviewed labs in detail with pt; explained the importance of keep HDL high and LDL and triglyceri de levels low. discussed [place] [employer] n guidelines . instructed pt to do low fat diet. pt to increase exercise routine. continue current meds. pt tolerating cholestero l medication s well at this time. LIver function normal and CK levels normal. repeat labs in 6 months. Impaired f asting glycemia 573966910 R73.01 impaired sugars int he past -- encouraged low sugar diet and exercise - no need for meds at this time Vitamin B deficiency 479 03204 E53.8 [id number] CHRISTOPH Barrett [facility] [address] [address] 06/10/2021 12:00:13 06/10/2021 15:59:21 Contact dermatitis caused by urushiol from [employer] [facility] 056754211 L25.5 new improving Insomnia 358497587 G47.0 0 new Restlessne ss and agitation 686621882 R45.1 new [id number] Jackie Rodriguez MD [facility] [address] [facility] [address] [place] [address] 11/13/2021 10:08:08 11/13/2021 11:08:03 Disorder of thyroid gland 75510333 E07.9 abnormal thyroid levels in the past -- not currently on meds -- continue to watch full thyroid panel.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 Hypertensive disorder 38 914453 I10 HTN -- currently stable. continue with low salt. encouraged exercise. continue current meds.Chron ic and stable. Dilatation of aorta 2666 0001 I77.819 Chronic and stable. following with cardiology -- keep BPs under control. Hand pain 91411814 M79.6 41 New Complaint/ Diagnosis -- suggested wearing wrist splints -- then ortho if not better. 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 Urinary tr act infectious disease 67948068 N39.0 pt with history of recurrent utis. repeat urine with next blood draw to assure no infection at this time. discussed hygiene, encouraged plenty of water. Fatigue 04505645 R53.83 complaint of fatigue is chronic and stable. questionab le source of fatigue. discussed lifestyle changes to help. watch labs to rule out anemia. Hyperlipidemia 50242567 E78.2 chronic and stable. high cholestero l levels, pt understand s that by not having controlled cholestero l levels there is an increased risk of cardiovasc ular disease. I reviewed labs in detail with pt, I explained the importance of keeping the HDL high and LDL and triglyceri de levels low. I discussed the [place] [employer] n guidelines . I instructed pt to do low fat diet. pt is to increase exercise routine. pt is to repeat labs in 6 months time.Revie wed labs with the patient: continue lovastatin 40 mg a day.LDL 121Trig 90HDL 64 Impaired f asting glycemia 509380937 R73.01 chronic and stable. impaired sugars in the past/ I encouraged low sugar diet and exercise. No need for medication at this time. Hgba1c reviewed with pt. Vitamin B deficiency 479 38441 E53.8 chronic and stable b12 levels -- found to be low in the past. encouraged continued b12 supplement ation. labs reviewed:: B12 Vitamin D deficiency 347 78152 E55.9 chronic and stable. low vitamin D levels in the past. explained that low vitamin D levels in the past could be linked to osteopenia /osteoporo sis and cancer risk and heart disease. continue to support vitamin D supplemena tion. reviewed vitamin D labs today: Essential hypertension 96012553 I10 HTN -- Chronic and stable.con tinue with low salt. encouraged exercise. continue current meds. Atrophic vaginitis 56317 000 N95.2 explained the pathology of atrophic vaginitis. explained the risk of incontinen ce and recurrent UTIs; discussed the use of vaginal creams to help with treatment. Screening mammography 24 366631 Z12.31 Menopausal and postmenopausal disorders 746551799 N95.8 pt is post-menop ausal. pt with history of reduced bone density in the past -- needs to be repeated every 2 years. encouraged calcium and vitamin D supplement ation. encouraged plenty of weight bearing exercise -- encouraged to work on balance. 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 Increased body mass index 31347814 Z68.28 elevated BMI. Discussed diet and better therapeuti c lifestyle changes. Diet education 77254532 Z71.3 as above Hand pain 69314882 M79.6 41 Chronic and stable. seeing dr whitmore = better with splints.frey ggested wearing wrist splints -- then ortho if not better. Hypertensive disorder 38 367383 I10 HTN -- currently stable. continue with low salt. encouraged exercise. continue current meds.Chron ic and stable. continue losartan 100 mg a day labs 02/24/22tri g 147; LDL 115, HDL 52tsh 4.95; T4 1.2b12 too high.hga1c 5.6 Carpal anali laurita syndrome 27322051 G56.01 Chronic and stable. seen by ortho -- start with wrist splints --followp as needed. Dilatation of aorta 2666 0001 I77.819 Chronic and stable. keep BPs under control. continue with cholestero l managment. Urinary tr act infectious disease 80718922 N39.0 pt with history of recurrent utis. repeat urine with next blood draw to assure no infection at this time. discussed hygiene, encouraged plenty of water.no infection on current sample Fatigue 30691708 R53.83 complaint of fatigue is chronic and stable. questionab le source of fatigue. discussed lifestyle changes to help. watch labs to rule out anemia. Hyperlipidemia 81549125 E78.2 chronic and stable. high cholestero l levels, pt understand s that by not having controlled cholestero l levels there is an increased risk of cardiovasc ular disease. I reviewed labs in detail with pt, I explained the importance of keeping the HDL high and LDL and triglyceri de levels low. I discussed the [place] [employer] n guidelines . I instructed pt to do low fat diet. pt is to increase exercise routine. pt is to repeat labs in 6 months time.Revie wed labs with the patient: continue lovastatin 40 mg a day.labs 02/24/22tri g 147; LDL 115, HDL 52tsh 4.95; T4 1.2b12 too high.hga1c 5.6 Impaired f asting glycemia 003222364 R73.01 chronic and stable. impaired sugars in the past/ I encouraged low sugar diet and exercise. No need for medication at this time. Hgba1c reviewed with pt. Vitamin B deficiency 479 49455 E53.8 chronic and stable b12 levels -- found to be low in the past. encouraged continued b12 supplement ation. labs reviewed:: B12 Vitamin D deficiency 347 84121 E55.9 chronic and stable. low vitamin D levels in the past. explained that low vitamin D levels in the past could be linked to osteopenia /osteoporo sis and cancer risk and heart disease. continue to support vitamin D supplemena tion. reviewed vitamin D labs today: Essential hypertension 92609312 I10 HTN -- Chronic and stable.con tinue with low salt. encouraged exercise. continue current meds. Atrophic vaginitis 14425 000 N95.2 explained the pathology of atrophic vaginitis. explained the risk of incontinen ce and recurrent UTIs; discussed the use of vaginal creams to help with treatment. pt wants premarin cream -- only will bring forms to fill out to get free. Menopausal and postmenopausal disorders 806791202 N95.8 pt is post-menop ausal. pt with history of reduced bone density in the past -- needs to be repeated every 2 years. encouraged calcium and vitamin D supplement ation. encouraged plenty of weight bearing exercise -- encouraged to work on balance. Screening mammography 24 511778 Z12.31 continue with yearly mammograms , encouraged monthly self breast exams. 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 Atrophic vaginitis 10301 000 N95.2 explained the pathology of atrophic vaginitis. explained the risk of incontinen ce and recurrent UTIs; discussed the use of vaginal creams to help with treatment. pt wants premarin cream -- only will bring forms to fill out to get free. Essential hypertension 85852147 I10 HTN -- Chronic and stable.con tinue with low salt. encouraged exercise. continue current meds.navjot nue hctz 12.5 mg every other day Hyperlipidemia 91772512 E78.2 chronic and stable. high cholestero l levels, pt understand s that by not having controlled cholestero l levels there is an increased risk of cardiovasc ular disease. I reviewed labs in detail with pt, I explained the importance of keeping the HDL high and LDL and triglyceri de levels low. I discussed the [place] [employer] n guidelines . I instructed pt to do low fat diet. pt is to increase exercise routine. pt is to repeat labs in 6 months time.Revie wed labs with the patient: continue lovastatin 40 mg a day.labs 02/24/22tri g 147; LDL 115, HDL 52tsh 4.95; T4 1.2b12 too high.hga1c 5.6 Female str ess incontinence 56225967 N39.3 Increased body mass index 57185437 Z68.28 elevated BMI. Discussed diet and better therapeuti c lifestyle changes. Diet education 44079509 Z71.3 as above Hand pain 13245598 M79.6 41 Chronic and stable. seeing dr whitmore = better with splints.frey ggested wearing wrist splints -- then ortho if not better. Carpal anali laurita syndrome 79236030 G56.01 Chronic and stable. seen by ortho -- start with wrist splints --followp as needed. Dilatation of aorta 2666 0001 I77.819 Chronic and stable. keep BPs under control. continue with cholestero l managment. Urinary tr act infectious disease 55072954 N39.0 pt with history of recurrent utis. repeat urine with next blood draw to assure no infection at this time. discussed hygiene, encouraged plenty of water.no infection on current sample Fatigue 04770957 R53.83 complaint of fatigue is chronic and stable. questionab le source of fatigue. discussed lifestyle changes to help. watch labs to rule out anemia. Impaired f asting glycemia 215365147 R73.01 chronic and stable. impaired sugars in the past/ I encouraged low sugar diet and exercise. No need for medication at this time. Hgba1c reviewed with pt. Vitamin B deficiency 479 82337 E53.8 chronic and stable b12 levels -- found to be low in the past. encouraged continued b12 supplement ation. labs reviewed:: B12 Vitamin D deficiency 347 28389 E55.9 chronic and stable. low vitamin D levels in the past. explained that low vitamin D levels in the past could be linked to osteopenia /osteoporo sis and cancer risk and heart disease. continue to support vitamin D supplemena tion. reviewed vitamin D labs today: Menopausal and postmenopausal disorders 911656691 N95.8 pt is post-menop ausal. pt with history of reduced bone density in the past -- needs to be repeated every 2 years. encouraged calcium and vitamin D supplement ation. encouraged plenty of weight bearing exercise -- encouraged to work on balance.de xa scan 12/2021 -1.8; Screening mammography 24 650805 Z12.31 continue with yearly mammograms , encouraged monthly self breast exams. 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 - seen by hand specialist . [id number] Jackie Rodriguez MD [facility] [address] [place] [address] 03/02/2023 09:59:50 03/02/2023 10:53:49 Adult health examination 097416611 Z00.00 Annual Wellness Visit done today Increased body mass index 42887444 Z68.28 elevated BMI. Discussed diet and better therapeuti c lifestyle changes. Diet education 32052849 Z71.3 as above Female str ess incontinence 08026179 N39.3 Chronic and stable. use premarin cream. Hypertensive disorder 38 861344 I10 HTN -- currently stable. continue with low salt. encouraged exercise. continue current meds.Chron ic and stable. continue losartan 100 mg a day labs 02/21/23UA dirty -- culture negldl 114; trig 106; hdl 63bun 16, cr 0.63hgb 13.0vit D 37tsh 3.63; T4 1.0b12 >2000hgb a1c 5.5 Atrophic vaginitis 40526 000 N95.2 explained the pathology of atrophic vaginitis. explained the risk of incontinen ce and recurrent UTIs; discussed the use of vaginal creams to help with treatment. [facility] Essential hypertension 42405226 I10 HTN -- Chronic and stable.con tinue with low salt. encouraged exercise. continue current meds.navjot nue hctz 12.5 mg every other day Hyperlipidemia 98584322 E78.2 chronic and stable. high cholestero l levels, pt understand s that by not having controlled cholestero l levels there is an increased risk of cardiovasc ular disease. I reviewed labs in detail with pt, I explained the importance of keeping the HDL high and LDL and triglyceri de levels low. I discussed the [place] [employer] n guidelines . I instructed [...] T4 1.0b12 >2000hgb a1c 5.5 Hand pain 02389883 M79.6 41 Chronic and stable. seeing dr fernendez = better with splints.frey ggested wearing wrist splints -- then ortho if not better. Carpal anali laurita syndrome 06913311 G56.01 Chronic and stable. seen by ortho -- start with wrist splints --followp as needed. Dilatation of aorta 2666 0001 I77.819 Chronic and stable. keep BPs under control. continue with cholestero l managment. Fatigue 65880604 R53.83 complaint of fatigue is chronic and stable. questionab le source of fatigue. discussed lifestyle changes to help. watch labs to rule out anemia. Vitamin D deficiency 347 75205 E55.9 chronic and stable. low vitamin D [...] >2000hgb a1c 5.5 Menopausal and postmenopausal disorders 589274350 N95.8 pt is post-menop ausal. pt with history of reduced bone density in the past -- needs to be repeated every 2 years. encouraged calcium and vitamin D supplement ation. encouraged plenty of weight bearing exercise -- encouraged to work on balance.de xa scan 12/2021 -1.8; Screening mammography 24 056528 Z12.31 continue with yearly mammograms , encouraged monthly self breast exams. Irritable bowel syndrome 82413578 K58.9 Chronic and exacerbati on -- using PRN, diarrhea less [place] Gastroesop hageal reflux disease 667080448 K21.9 continue PPI, reduce caffiene, etoh. no [...] just 5 to 10 pounds can help. [id number] ROSA MARIA MULLIGAN APRN [facility] [address] [address] 11/16/2023 09:33:15 11/16/2023 10:12:36 Influenza caused by Influenza A virus 075692742 J09.X2 stable, with some fatigue, continue benzonatat e, RTO if symptoms. Localized swelling of right lower leg 1710659712 6950767 R22.41 Acute problem -- new onset edema and pain in lower extremity -- rule out DVT immediatel y. check stat dopplers. pt to go directly and then wait for further instructio ns. Advised patient not to massage the area until we know the status. Active or passive immunization 896182642 Z23 Patient will get at pharmacy Vitamin D deficiency 347 70636 E55.9 Chronic with exacerbati on. Start supplement ation below. Recheck labs in February at annual wellness. Labs 11/08/2023vi t d 28tsh 2.93hdl 56 trig 100 ldl 100gfr 85 cr 0.66 bun 18wbc 6.3 hgb 12.1 Anxiety 36652438 F41.9 Chronic uncontroll ed. Tiki sevilla patient stress due to 's memory loss. Provided patient with memory loss support group alem Mata. Patient reports her has memory loss and she is having challenges managing. Dilatation of aorta 2666 0001 I77.819 Chronic stable, continue lovastatin 40 mg tablet, continue lipid-lowe ring diet, monitor blood pressure keep within tight control. 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 Incontinen ce persists as discussed at prior appointmen t rule out UTI with recent dizziness. Acute sinusitis 71467135 J01.90 New acute problem, unstable. Patient complains [...] nasal spray) as needed Posterior rhinorrhea 758 34534 R09.82 Acute, new problem. Start fluticason e 50 mcg per actuation nasal spray, return to office if symptoms not improved. [id number] ROSA MARIA MULLIGAN APRN [facility] [address] [place] [address] 01/25/2024 10:59:05 01/25/2024 12:14:08 Pain of right knee joint 2376385842 00048 M25.561 Acute, new problem, uncontroll ed, continue meloxicam after meal only. Rest, ice/heat and keep brace on knee. Risks of NSAIDs including cardiovasc ular, GI, and renal risk reviewed with patient. Patient plans to follow up with orthopedic in [place] and [facility]. Synovial c yst of right knee 1379697863 33110 M71.21 Acute, new problem, uncontroll ed, continue meloxicam after meal only. Follow up with ortho for possible drainage of bakers cyst. Posterior rhinorrhea 758 60041 R09.82 Acute, new problem ongoing since sinusitis visit 2 weeks ago, she completed abx as ordered still w/ sinus drainage and mild sinus headache. Start fluticason e 50 mcg per actuation nasal spray, return to office if symptoms not improved. Impacted c erumen of bilateral ears 3703904129 119456 H61.23 bilateral ears cleaned in office today. [id number] Jackie Rodriguez MD [facility] [address] [place] [address] 02/07/2025 14:56:45 02/07/2025 16:30:34 Adult health examination 530644243 Z00.00 Medicare Annual Wellness Visit done today. Body mass index 25-29 - overweight 408271287 Z68.27 Weight issues discussed and informatio n on weight loss given. Needs follow up on weight control as scheduled. Chronic, Stable Increased body mass index 14127144 Z68.28 elevated BMI. Discussed diet and better therapeuti c lifestyle changes. Diet education 85329102 Z71.3 as above Female str ess incontinence 33752091 N39.3 Chronic and stable. use premarin cream. Hypertensive disorder 38 455458 I10 HTN -- currently stable. continue with low salt. encouraged exercise. continue current meds.Chron ic and stable. continue losartan 100 mg a day labs 02/14/2024 -- needs new labs -- ordered.la bs 02/21/23UA dirty -- culture negldl 114; trig 106; hdl 63bun 16, cr 0.63hgb 13.0vit D 37tsh 3.63; T4 1.0b12 >2000hgb a1c 5.5 Atrophic vaginitis 23864 000 N95.2 explained the pathology of atrophic vaginitis. explained the risk of incontinen ce and recurrent UTIs; discussed the use of vaginal creams to help with treatment. [facility] Essential hypertension 64098149 I10 HTN -- Chronic and stable.con tinue with low salt. encouraged exercise. continue current meds.navjot nue hctz 12.5 mg every other daycontinu e losartan 100 mg a day. Hyperlipidemia 28551335 E78.2 chronic and stable. high cholestero l levels, pt understand s that by not having controlled cholestero l levels there is an increased risk of cardiovasc ular disease. I reviewed labs in detail with pt, I explained the importance of keeping the HDL high and LDL and triglyceri de levels low. I discussed the [place] [employer] n guidelines . I instructed pt to do low fat diet. pt is to increase exercise routine. pt is to repeat labs in 6 months time.Revie wed labs with the patient: continue lovastatin 40 mg a day. labs 02/14/2024 -- needs new labs -- ordered.roger bs 02/21/23UA dirty -- culture negldl 114; trig 106; hdl 63bun 16, cr 0.63hgb 13.0vit D 37tsh 3.63; T4 1.0b12 >2000hgb a1c 5.5 Hand pain [id number] M79.6 41 Chronic and stable. seeing dr whitmore = better with splints.frey ggested wearing wrist splints -- then ortho if not better. 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 seen by ortho -- start with wrist splints --followp as needed. Dilatation of aorta 2666 0001 I77.819 Chronic and stable. keep BPs under control. continue with cholestero l managment. Fatigue [id number] R53.83 complaint of fatigue is chronic and stable. questionab le source of fatigue. discussed lifestyle changes to help. watch labs to rule out anemia. Vitamin D deficiency [phone] E55.9 chronic and stable. low vitamin D levels in the past. explained that low vitamin D levels in the past could be linked to osteopenia /osteoporo sis and cancer risk and heart disease. continue to support vitamin D supplemena tion. increase vitamin D 4,000 units a day. reviewed vitamin D labs today: labs 02/14/2024 -- needs new labs -- ordered.roger bs 02/21/23UA dirty -- culture negldl 114; trig 106; hdl 63bun 16, cr 0.63hgb 13.0vit D 37tsh 3.63; T4 1.0b12 >2000hgb a1c 5.5 Menopausal and postmenopausal disorders [id number] N95.8 pt is post-menop ausal. pt with history of reduced bone density in the past -- needs to be repeated every 2 years. encouraged calcium and vitamin D supplement ation. encouraged plenty of weight bearing exercise -- encouraged to work on balance.de xa scan 12/2021 -1.8; Screening mammography 24 460012 Z12.31 continue with yearly mammograms , encouraged monthly self breast exams. Irritable bowel syndrome [id number] K58.9 Chronic and exacerbati on -- using PRN, diarrhea less -pt will be seeing GI up [place]. Gastroesop hageal reflux disease [id number] K21.9 continue PPI, reduce caffiene, etoh. no nsaids;Kaylan nge your eating habits.rachel l be seeing gi up [place] -- increase omeprazole to 40 mg while [...] can help. 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 impaired sugars in the past/ I encouraged low sugar diet and exercise. No need for medication at this time. Hgba1c reviewed with pt. Vitamin B deficiency 479 24765 E53.8 chronic and stable b12 levels - found to be low in the past, but now with normal levels. encouraged continued b12 supplement ation. labs reviewed:: Urinary tr act infectious disease 57851120 N39.0 pt with history of recurrent utis. .chronic and stable. repeat urine with next blood draw to assure no infection at this time. discussed hygiene, encouraged plenty of water. 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 - have on hand. Impacted c erumen in left ear [id number] 243997 H61.22 New Complaint/ Diagnosis cleaned out today. Pain of bi lateral knee joints [id number] 79700 M25.561 M25.562 New Complaint/ Diagnosis - pt [...] Gregory Member ID Guarantor Name 11/18/2019 2 [facility]: ADVANTAGE PLAN (MEDICARE REPLACEMENT PPO) [id number] Albina Bradford Addison [id number] Albina Bradford Addison 03/29/2025 2 [facility] (MEDICARE SUPPLEMENT) Albina A Addison [id number] Albina A Addison 03/29/2025 1 [employer] (MEDICARE) Albina A Dionne [id number] Albina A Dionne 02/06/2025 1 [facility] (MEDICARE REPLACEMENT/A DVANTAGE - PPO) [id number] Albina A Dionne [id number] Albina Bradford Addison 11/18/2019 1 [facility]: HEALTH OPTIONS (PPO) [id number] Albina A Addison [id number] Albina Julia Addison Notes Date Note Type Note Provider Name [...] reported changes/additions to Medical Care Team dr. [facility], Dr Danelle Martinez, [place] [facility], [place], [place], Dr Davie Horton, [place], [place] What is the Patient's living arrangements? [...] PHQ Score Mild depression, (5). Imported from [email or web address] on 03/02/2023 pressure in chest with eating [...] incontience.osteopenia -- 12/2021 -1.8; Jackie Rodriguez MD [address], [place], [address], [facility] Physician [facility], [facility] 03/02/2023 10:52:05 4 text/html Follow upReported bypatient.Reason [...] and listed in the A/P section. ROSA MARIAWILLY MULLIGAN, SO[place] [address], [place], [address], [facility] Physician [facility], [facility] 11/16/2023 10:21:25 4 text/html Cough / ColdReported bypatient.Reason for visit:acute complaint Quality:productive Sputum Quality:yellow; quantity moderate Severity:moderate 05/09 Duration:multiple times per day Onset/Timing:abrupt;2 weeks ago [...] the telehealth visit. ROSA MARIA MULLIGAN APRN [email or web address], [place], [id number], [employer] 01/03/2024 09:13:20 4 text/html Follow upReported bypatient.Reason for visit:follow-up after emergency room visit Severity:moderate 5/10 Current status:uncontrolled Current control and compliance:compliant with regimen Current symptoms/concerns:symptom atic of condition Actions due to side effects:continued Rx Result of action:no change in side effects ROSA MARIA MULLIGAN APRN [email or web address], [place], [id number], [employer] 01/25/2024 12:43:55 5 text/html DyslipidemiaReported bypatient.Complications due [...] afford medications 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
== END 2025-05-22 10:51 | disposition home or self-care (01) ==
LOC: HO.HMCHD 10:24
PROVIDERS: PCP Physician Assistant; Visit Provider Internal Medicine
DX: I48.91 Unspecified atrial fibrillation (principal)

== ENCOUNTER → 2025-05-22 10:23 | Outpatient (BNVA) | payer MEDICARE, OTHER, SELFPAY | PROVIDERS: PCP Physician Assistant; Visit Provider Internal Medicine | DX: I48.91 Unspecified atrial fibrillation (principal) | CPT/HCPCS: 99202 ==

== ENCOUNTER 2025-05-28 11:25 | Outpatient (REF) | payer MEDICARE, OTHER, SELFPAY ==
--- OUTSIDE RECORDS SUMMARY | 2023-12-20 20:00 | XMS_ITS | Continuity of Care Document ---
Author Organization [facility] Address [facility] [place] [address] Phone Care Team Providers Care Bean Roaster Name Role Phone Clovis Edwards OD Unavailable [...] Copied on Encounter [facility], [address] [place] [address], [id number] , [place] tel: [phone] [place] January QES Presbyopia Dec- 4 Grace Clovis Oliverio. [address] [place], [place], [id number], [place]. [phone] [facility], [address] [place] [address], [id number] , [place] tel: [phone] Lorenzo Piper QES Vitreous degeneration, bilateralNonexud ative age-related macular degeneration, bilateral, intermediate dry stage Mar-0 [address] [facility] , [place], [address], [place]. tel:[phone] [facility], [address] [place] [address], [id number] , [place] tel: [phone] [facility] Location Other secondary cataract, left eyeVitreous degeneration, bilateralDry eye syndrome of bilateral lacrimal glandsNonexudati ve age-related macular degeneration, bilateral, intermediate dry stage - 1 [employer] [place], [address], [place]. tel: [phone] [facility], [place], [id number] , [place] tel: [phone] [facility] Location Vitreous degeneration, bilateralNonexud ative age-related macular degeneration, bilateral, intermediate dry stageDry eye syndrome of bilateral lacrimal glandsOther secondary cataract, left eye 9 [facility]. [facility] [place], [address], [place]. tel: [phone] [facility], [address] [place], [place], [id number] , [place] tel: [phone] [facility] Location Nonexudative age-related macular degeneration, bilateral, intermediate dry stageDry eye syndrome of bilateral lacrimal glandsOther secondary cataract, left eyeVitreous degeneration, bilateral 0 9 [employer]. [facility] [place], [address], [place]. tel: [phone] [facility], [place], [id number] , [place] tel: [phone] [facility] Location Nonexudative age-related macular degeneration, bilateral, intermediate dry stageDry eye syndrome of bilateral lacrimal glandsVitreous degeneration, bilateralOther secondary cataract, left eye Dec-0 -201 8 [employer] [place], [address], [place]. tel: [phone] [facility], [place], [id number] , [place] tel: [phone] [facility] Location Vitreous degeneration, bilateralOther secondary cataract, left eyeDry eye syndrome of bilateral lacrimal glandsNonexudati ve age-related macular degeneration, bilateral, intermediate dry stage 7 [employer]. [facility] [place], [address], [place]. [phone] [facility], [address] [place], [place], [id number] , [place] tel: [phone] [facility] Location Nonexudative age-related macular degenerationOthe r secondary cataract, left eyeVitreous degeneration, bilateralDry eye syndrome of bilateral lacrimal glands Dec-0 4-201 5 [employer] [place] [address], [facility], [place]. tel:[phone] [facility], [place] [place], [place], [id number] , [place] tel: [phone] [facility] Location Other secondary cataract, left eyeNonexudative age-related macular degenerationVitr eous degeneration, bilateral Oct-2 9-201 4 [facility]. [address] [place] [address], [facility], . tel:-[phone] [facility], [address] [place], [place], [id number] , [place] tel: [phone] [facility] Location Dry eye syndrome of right lacrimal glandVitreous degeneration, bilateralMacular Degeneration AR DryVitreous Detachment DegeneratAfter Cataract Obscuring VADry Eye SyndromePseudoph joe 1-201 4 [facility]. [address] [place] [address], [facility], . [phone] Family History Family Member Type Diagnosis Age At Onset Mother Biological Problem (finding) Fhx of diabetes me llitus Father Biological Problem (finding) Fhx of glaucoma Payers Payer name Insurance type Covered constitution party ID Authoriza tion(s) No Information Social History Type Description Quantity Date Captured Comments Sex Female Smoking Status No Information Chief Complaint And Reason For Visit No Information Reason For Referral Reason For Referral No Information History Of Present Illness Encounter Date Complaint History Of Prese nt Illness No Information Functional Status Date Functional Assessmen t No Information Instructions Date Instruction Additional Infor blaire Impression/Plan Related to Presb yopia Impression/Plan Related [...]
--- OUTSIDE RECORDS SUMMARY | 2025-05-28 12:39 | XMS_ITS | Data Portability ---
Author Organization [facility] [employer], [facility] Address [address] [place] [address] Care Team Providers Care Orthotic Aide Name Role Phone ANNY RODRIGUEZ Primary Care Provider JACKIE RODRIGUEZ Referring Provider [phone] MATTHEW ARAUJO OTHER JUAN F COOL OTHER JACKIE RODRIGUEZ Primary Care Provider [phone] Assessment Encounter Date Assessment Date Assessment LastModified by Organization Details LastModified Time 03/02/2023 03/02/2023 labs 02/21/23 UA dirty -- culture neg ldl 114; trig 106; hdl 63 bun 16, cr 0.63 hgb 13.0 vit D 37 tsh 3.63; T4 1.0 b12 >2000 hgb a1c 5.5 care information associate - seems to have dementia. labs 11/05/2022 [...] 30 2024 11:00A M ROSA MARIA MULLIGAN, [employer] Not available Not available Not available Lab venipunct ure - to be done 6 months after order date 2024 025 [facility], [address], [place], [address], 02/12/2025 10:02:00 CBC 2024 025 [facility], [address], [place], [address], 02/12/2025 14:35:50 TSH, serum or plasma 2024 025 [facility], [address], [place], [address], 02/12/2025 15:52:54 T4, free, serum 2024 025 [facility], [address], [place], [address], 02/12/2025 15:52:51 CBC 2024 025 [facility], [address], [place], [address], 03/14/2025 08:06:04 CMP, serum or plasma 2024 025 [facility], [address], [place], [address], 02/12/2025 16:34:17 lipid panel, serum 2024 025 [facility], [address], [place], [address], 02/12/2025 16:34:23 urinalysi s, complete 2024 025 [facility], [address], [place], [address], 02/12/2025 14:58:26 HbA1c (hemoglob in A1c), blood 2024 025 [facility], [address], [place], [address], 02/12/2025 14:29:32 vitamin B12, serum 2024 025 [facility], [address], [place], [address], 02/12/2025 15:52:48 vitamin D, 25-hydrox y, total, serum 2024 025 [facility], [address], [place], [address], 02/12/2025 15:52:56 urinalysi s, complete 2023 024 [facility], [address], [place], [address], 01/06/2024 13:36:47 CMP, serum or plasma - to be done 6 months after order date 2022 023 [facility], [address], [place], [address], 11/09/2023 12:33:33 lipid panel, serum - to be done 6 months after order date 2022 023 [facility], [address], [place], [address], 11/09/2023 12:33:34 TSH, serum or plasma - to be done 6 months after order date 2022 023 [facility], [address], [place], [address], 11/09/2023 12:33:36 CBC - to be done 6 months after order date 2022 023 [facility], [address], [place], [address], 11/09/2023 12:33:32 venipunct ure - to be done 6 months after order date 2022 023 [place], [address], [place], [address], 11/08/2023 08:09:27 vitamin D, 25-hydrox y, total, serum - to be done 6 months after order date 2022 023 [facility], [address], [place], [address], 11/09/2023 12:33:37 Referral orthopedi c surgeon referral 2023 024 [facility] Not available 01/25/2024 12:56:54 Procedures None recorded. Surgeries None recorded. Imaging MAMMO, screening , digital, bilateral - 3 D mammogram 2024 025 [facility]iffanie Olivarez [facility], [address], [address], [place], [address], 02/13/2025 14:06:32 bone density - 85779 Bone Density 2024 025 [facility] Tiffanie Olivarez [facility] M[facility], [address], [address], [place], [address], 02/19/2025 11:10:25 US, duplex, venous, lower extremity , unilatera l 2023 024 [facility], [address], [address], [place], [address], 11/16/2023 14:46:08 MAMMO, screening , digital, bilateral - 3 D mammogram 2022 023 [facility] (Central Sched[facility]), [address], [address], [place], [address], 01/16/2024 08:03:13 Medication Orders compounde d medicatio n 2024 025 [facility], [address] [facility], [address], [place], [address], 02/07/2025 17:41:53 valacyclo vir 1 gram tablet 2024 025 [id number], [address], [place], [address], 02/07/2025 15:59:22 meloxicam 15 mg tablet 2023 024 [id number] [address], [place], [address], 02/07/2025 15:21:29 fluticaso ne propionat e 50 mcg/actua tion nasal spray,lion pension 2023 024 LUIS [facility]EL[id number] [address] [facility] , [place], [address], 01/25/2024 11:46:49 doxycycli ne hyclate 100 mg capsule 2023 024 [id number] [address] [facility] , [place], [address], 02/07/2025 15:21:11 fluticaso ne propionat e 50 mcg/actua tion nasal spray,lion pension 2023 024 LUIS FELIPE [id number] [address] [place] [address] , [place], [address], 01/03/2024 09:08:59 cholecalc iferol (vitamin D3) 1,250 mcg (50,000 unit) capsule 2023 024 LUIS FELIPE [facility], [address] [place] [address], [address], [place], [place], [id number], 11/16/2023 10:03:13 magnesium 100 mg (as glycinate ) capsule 2022 023 ppol[facility] Not available 03/02/2023 10:38:11 Estrace 0.01% (0.1 mg/gram) vaginal cream [address] [facility], [address] [place] [address], [address], [place], [address], 02/07/2025 15:21:13 omeprazol e 40 mg capsule,d elayed release 2022 023 [facility], [address], [address], [place], [place], [id number], 05/31/2024 11:41:06 Vitamin D3 50 mcg (2,000 unit) capsule 2022 023 ksmarsh Not available 11/16/2023 10:02:57 Patient TargetsNo targets recorded. Patient Instructions Encounter Date Encounter Id Patient Instructions Last Modified By Organization Details Last Modified Time 03/02/2023 [id number] irritable bowel syndrome: care instructions ppoling Not available 03/02/2023 10:37:42 starting a weigh t loss plan: care instructions ppoling Not available 03/02/2023 10:37:42 gastroesophageal reflux disease (GERD): care instructions ppoling Not available 03/02/2023 10:37:43 11/16/2023 [id number] -Follow the treatment plan that we discussed [...] discussed. ksmarsh Not available 11/16/2023 10:17:03 01/03/2024 [id number] Acute Sinusitis: Care Instructions ksmarsh Not available [...] discussed. ksmarsh Not available 01/03/2024 09:11:02 01/25/2024 [id number] -Follow the treatment plan that we discussed [...] discussed. ksmarsh Not available 01/25/2024 12:43:06 02/07/2025 [id number] starting a weigh t loss plan: care [...] Care in Diabe johann(A DA). Not Available [facility] [address] [place], [address], 02/22/2023 19:07:30 02/22/20 23 02/22/2023 VITAM IN B-12 vitamin B12 >2000 pg/mL 200-11 00 high Not Available [facility] [address], [place], [address], 02/22/2023 19:07:31 02/22/20 23 02/22/2023 T4, FREE T4, free 1.0 NG/dL 0.8-1. 8 normal Not Available [facility] [address], [place], [address], 02/22/2023 19:07:32 02/22/20 23 02/22/2023 TSH, THYRO ID STIMU LATIN G HORMO NE TSH 3.63 mIU/L 0.40-4 .50 normal Not Available [facility] [address], [place], [address], 02/22/2023 19:07:33 02/22/20 23 02/22/2023 VITAM IN [...] /MS is recom elisabet d: order code 84236 (martin ents >2yrs ). See Note 1 Note 1 For addit ional infor reese cunningham e refer to http: //jose manuel Mastia gnost ics.c om/fa q/FAQ 199 (This link is being provi ded for infor ronan joaquin/ educsanchez quezada purpo ses only. ) Not Available [facility] [address], [place], [address], 02/22/2023 19:07:34 02/22/2002/22/2023 CBC W/ AUTOD IFF, COMPL ETE BLOOD COUNT white blood cell count 6.6 thous and/u L 3.8-10 .8 normal Not Available [facility] [address], [place], [address], 02/22/2023 19:07:35 02/22/2002/22/2023 CBC W/ AUTOD IFF, COMPL ETE BLOOD COUNT red blood cell count 4.36 jh on/uL 3.80-5 .10 normal Not Available [facility] [address], [place], [address], 02/22/2023 19:07:35 02/22/20 23 02/22/2023 CBC W/ AUTOD IFF, COMPL ETE BLOOD COUNT hemoglobin 13.0 g/dL 11.7-1 5.5 normal Not Available [facility], [place], [address], 02/22/2023 19:07:35 02/22/20 23 02/22/2023 CBC W/ AUTOD IFF, COMPL ETE BLOOD COUNT hematocrit 38.9 % 35.0-4 5.0 normal Not Available [facility] [address], [place], [address], 02/22/2023 19:07:35 02/22/20 23 02/22/2023 CBC W/ AUTOD IFF, COMPL ETE BLOOD COUNT MCV 89.2 fL 80.0-1 00.0 normal Not Available [facility], [place], [address], 02/22/2023 19:07:35 02/22/20 23 02/22/2023 CBC W/ AUTOD IFF, COMPL ETE BLOOD COUNT MCH 29.8 pg 27.0-3 3.0 normal Not Available [facility] [address], [place], [address], 02/22/2023 19:07:35 02/22/20 23 02/22/2023 CBC W/ AUTOD IFF, COMPL ETE BLOOD COUNT MCHC 33.4 g/dL 32.0-3 6.0 normal Not Available [facility], [place], [address], 02/22/2023 19:07:35 02/22/2002/22/2023 CBC W/ AUTOD IFF, COMPL ETE BLOOD COUNT RDW 12.6 % 11.0-1 5.0 normal Not Available [facility], [place], [address], 02/22/2023 19:07:35 02/22/2002/22/2023 CBC W/ AUTOD IFF, COMPL ETE BLOOD COUNT platelet count 282 thous and/u L 140-40 0 normal Not Available [facility], [place], [address], 02/22/2023 19:07:35 02/22/2002/22/2023 CBC W/ AUTOD IFF, COMPL ETE BLOOD COUNT MPV 10.1 fL 7.5-12 .5 normal Not Available [facility] [address] [place] [address] [address], [place], [address], 02/22/2023 19:07:35 02/22/2002/22/2023 CBC W/ AUTOD IFF, COMPL ETE BLOOD COUNT absolute neutrophils 3544 cells /uL 1500-7 800 normal Not Available [facility], [place], [address], 02/22/2023 19:07:35 02/22/2002/22/2023 CBC W/ AUTOD IFF, COMPL ETE BLOOD COUNT absolute lymphocytes 2257 cells /uL 850-39 00 normal Not Available [facility], [place], [address], 02/22/2023 19:07:35 02/22/20 23 02/22/2023 CBC W/ AUTOD IFF, COMPL ETE BLOOD COUNT absolute monocytes 587 cells /uL 200-95 0 normal Not Available [facility] [address], [place], [address], 02/22/2023 19:07:35 02/22/20 23 02/22/2023 CBC W/ AUTOD IFF, COMPL ETE BLOOD COUNT absolute eosinophils 158 cells /uL 15-500 normal Not Available [facility] [address], [place], [address], 02/22/2023 19:07:35 02/22/20 23 02/22/2023 CBC W/ AUTOD IFF, COMPL ETE BLOOD COUNT absolute basophils 53 cells /uL 0-200 normal Not Available [facility], [place], [address], 02/22/2023 19:07:35 02/22/20 23 02/22/2023 CBC W/ AUTOD IFF, COMPL ETE BLOOD COUNT neutrophils 53.7 % normal Not Available [facility] [address], [place], [address], 02/22/2023 19:07:35 02/22/20 23 02/22/2023 CBC W/ AUTOD IFF, COMPL ETE BLOOD COUNT lymphocytes 34.2 % normal Not Available [facility] [address], [place], [address], 02/22/2023 19:07:35 02/22/20 23 02/22/2023 CBC W/ AUTOD IFF, COMPL ETE BLOOD COUNT monocytes 8.9 % normal Not Available [facility] [address], [place], [address], 02/22/2023 19:07:35 02/22/20 23 02/22/2023 CBC W/ AUTOD IFF, COMPL ETE BLOOD COUNT eosinophils 2.4 % normal Not Available [facility] [address] [facility] [address], [place], [address], 02/22/2023 19:07:35 02/22/20 23 02/22/2023 CBC W/ AUTOD IFF, COMPL ETE BLOOD COUNT basophils 0.8 % normal Not Available [facility] [address] [facility] [address], [place], [address], 02/22/2023 19:07:35 02/22/20 23 02/22/2023 CK creatine kinase, total 50 U/L 29-143 normal Not Available [facility] [address], [place], [address], 02/22/2023 19:07:35 02/22/20 23 02/22/2023 CMP, COMPR EHENS AMY METAB OLIC PANEL glucose 80 mg/dL 65-99 normal Fasti ng refer ence inter jason Not Available [facility] [address] [facility] [address], [place], [address], 02/22/2023 19:07:36 02/22/20 23 02/22/2023 CMP, COMPR EHENS AMY METAB OLIC PANEL urea nitrogen (BUN) 16 mg/dL 7-25 normal Not Available [facility] [address], [place], [address], 02/22/2023 19:07:36 02/22/20 23 02/22/2023 CMP, COMPR EHENS AMY METAB OLIC PANEL creatinine 0.63 mg/dL 0.60-0 .95 normal Not Available [facility] [address] [facility] [address], [place], [address], 02/22/2023 19:07:36 02/22/20 23 02/22/2023 CMP, COMPR [...] [facility] [address], [place], [address], 02/22/2023 19:07:36 02/22/20 23 02/22/2023 CMP, COMPR EHENS AMY METAB OLIC PANEL BUN/creatini ne ratio NOT APPLIC ABLE (calc ) 6-22 Not Available [facility] [address] [facility] [address], [place], [address], 02/22/2023 19:07:36 02/22/20 23 02/22/2023 CMP, COMPR EHENS AMY METAB OLIC PANEL sodium 140 mmol/ L 135-14 6 normal Not Available [facility] [address] [facility] [address], [place], [address], 02/22/2023 19:07:36 02/22/20 23 02/22/2023 CMP, COMPR EHENS AMY METAB OLIC PANEL potassium 4.1 mmol/ L 3.5-5. 3 normal Not Available [facility] [address], [place], [address], 02/22/2023 19:07:36 02/22/20 23 02/22/2023 CMP, COMPR EHENS AMY METAB OLIC PANEL chloride 102 mmol/ L 98-110 normal Not Available [facility] [address], [place], [address], 02/22/2023 19:07:36 02/22/20 23 02/22/2023 CMP, COMPR EHENS AMY METAB OLIC PANEL carbon dioxide 33 mmol/ L 20-32 high Not Available [facility] [address] [facility] [address], [place], [address], 02/22/2023 19:07:36 02/22/20 23 02/22/2023 CMP, COMPR EHENS AMY METAB OLIC PANEL calcium 9.0 mg/dL 8.6-10 .4 normal Not Available [facility] [address], [place], [address], 02/22/2023 19:07:36 02/22/20 23 02/22/2023 CMP, COMPR EHENS AMY METAB OLIC PANEL protein, total 6.4 g/dL 6.1-8. 1 normal Not Available [facility] [address], [place], [address], 02/22/2023 19:07:36 02/22/20 23 02/22/2023 CMP, COMPR EHENS AMY METAB OLIC PANEL albumin 4.2 g/dL 3.6-5. 1 normal Not Available [facility] [address] [place] [address] [address], [place], [address], 02/22/2023 19:07:36 02/22/20 23 02/22/2023 CMP, COMPR EHENS AMY METAB OLIC PANEL globulin 2.2 g/dL_ (calc ) 1.9-3. 7 normal Not Available [facility] [address], [place], [address], 02/22/2023 19:07:36 02/22/20 23 02/22/2023 CMP, COMPR EHENS AMY METAB OLIC PANEL albumin/glob ulin ratio 1.9 (calc ) 1.0-2. 5 normal Not Available [facility] [address], [place], [address], 02/22/2023 19:07:36 02/22/20 23 02/22/2023 CMP, COMPR EHENS AMY METAB OLIC PANEL bilirubin, total 0.6 mg/dL 0.2-1. 2 normal Not Available [facility] [address] [facility] [address], [place], [address], 02/22/2023 19:07:36 02/22/20 23 02/22/2023 CMP, COMPR EHENS AMY METAB OLIC PANEL alkaline phosphatase 62 U/L 37-153 normal Not Available [facility] [address] [facility] [address] [address], [place], [address], 02/22/2023 19:07:36 02/22/20 23 02/22/2023 CMP, COMPR EHENS AMY METAB OLIC PANEL AST 15 U/L 10-35 normal Not Available [facility] [address] [facility] [address], [place], [address], 02/22/2023 19:07:36 02/22/20 23 02/22/2023 CMP, COMPR EHENS AMY METAB OLIC PANEL ALT 11 U/L 6-29 normal Not Available [facility] [address] [facility] [address], [place], [address], 02/22/2023 19:07:36 02/22/20 23 02/22/2023 LIPID PANEL W/ CALCU LATED LDL cholesterol, total 198 mg/dL <200 normal Not Available [facility] [address] [facility] [address] [address], [place], [address], 02/22/2023 19:07:37 02/22/20 23 02/22/2023 LIPID PANEL W/ CALCU LATED LDL HDL cholesterol 63 mg/dL > or = 50 normal Not Available [facility] [address] [facility] [address], [place], [address], 02/22/2023 19:07:37 02/22/2002/22/2023 LIPID PANEL W/ CALCU LATED LDL triglyceride s 106 mg/dL <150 normal Not Available [facility] [address] [facility] [address] [place], [address], 02/22/2023 19:07:37 02/22/20 23 02/22/2023 LIPID PANEL [...] 9): 2061- 2068 (http ://ed ucati on.Qu jeramyNeoStem. com/f aq/FA Q164) Not Available [facility] [address] [facility] [address] [place], [address], 02/22/2023 19:07:37 02/22/20 23 02/22/2023 LIPID PANEL W/ CALCU LATED LDL chol/HDLC ratio 3.1 (calc ) <5.0 normal Not Available [facility] [address] [facility] [address] [place], [address], 02/22/2023 19:07:37 02/22/20 23 02/22/2023 LIPID PANEL W/ CALCU LATED LDL non HDL cholesterol 135 mg/dL _(fern c) <130 high For patie nts with diabe johann plus 1 major ASCVD risk facto r, treat ing to a non-H DL-C goal of <100 mg/dL (LDL- C of <70 mg/dL ) is consi dered a thera peuti c optio n. Not Available [facility] [address] [place] [address] [address] [facility], [place], [address], 02/22/2023 19:07:37 02/22/2002/23/2023 URINA LYSIS , COMPL ETE W/ REFLE X TO CULTU RE color YELLOW yellow normal Not Available [facility] [address] [place] [address], [address], 02/23/2023 09:58:55 02/22/20 23 02/23/2023 URINA LYSIS , COMPL ETE W/ REFLE X TO CULTU RE appearance TURBID clear abnormal Not Available [facility] [address] [place] [address], [place], [address], 02/23/2023 09:58:55 02/22/20 23 02/23/2023 URINA LYSIS , COMPL ETE W/ REFLE X TO CULTU RE specific gravity 1.023 1.001- 1.035 normal Not Available [facility] [address] [place] [address], [address], 02/23/2023 09:58:55 02/22/20 23 02/23/2023 URINA LYSIS , COMPL ETE W/ REFLE X TO CULTU RE pH < OR = 5.0 5.0-8. 0 normal Not Available [facility] [address] [place] [address], [address], 02/23/2023 09:58:55 02/22/2002/23/2023 URINA LYSIS , COMPL ETE W/ REFLE X TO CULTU RE glucose NEGATI VE negati ve normal Not Available [facility] [address] [place] [address], [place], [address], 02/23/2023 09:58:55 02/22/20 23 02/23/2023 URINA LYSIS , COMPL ETE W/ REFLE X TO CULTU RE bilirubin NEGATI VE negati ve normal Not Available [facility] [address], [place], [address], 02/23/2023 09:58:55 02/22/20 23 02/23/2023 URINA LYSIS , COMPL ETE W/ REFLE X TO CULTU RE ketones NEGATI VE negati ve normal Not Available [facility] [address] [place] [address] [address], [place], [address], 02/23/2023 09:58:55 02/22/20 23 02/23/2023 URINA LYSIS , COMPL ETE W/ REFLE X TO CULTU RE occult blood NEGATI VE negati ve normal Not Available [facility] [address] [place] [address] [address], [place], [address], 02/23/2023 09:58:55 02/22/20 23 02/23/2023 URINA LYSIS , COMPL ETE W/ REFLE X TO CULTU RE protein NEGATI VE negati ve normal Not Available [facility] [address] [place] [address] [address], [place], [address], 02/23/2023 09:58:55 02/22/20 23 02/23/2023 URINA LYSIS , COMPL ETE W/ REFLE X TO CULTU RE nitrite NEGATI VE negati ve normal Not Available [facility] [address] [place] [address] [address], [place], [address], 02/23/2023 09:58:55 02/22/20 23 02/23/2023 URINA LYSIS , COMPL ETE W/ REFLE X TO CULTU RE leukocyte esterase TRACE negati ve abnormal Not Available [facility] [address] [place] [address] [address], [place], [address], 02/23/2023 09:58:55 02/22/20 23 02/23/2023 URINA LYSIS , COMPL ETE W/ REFLE X TO CULTU RE WBC 0-5 /hpf < or = 5 normal Not Available [facility] [address] [place] [address] [address], [place], [address], 02/23/2023 09:58:55 02/22/20 23 02/23/2023 URINA LYSIS , COMPL ETE W/ REFLE X TO CULTU RE RBC 0-2 /hpf < or = 2 normal Not Available [facility] [address] [place] [address] By, [place], [address], 02/23/2023 09:58:55 02/22/20 23 02/23/2023 URINA LYSIS , COMPL ETE W/ REFLE X TO CULTU RE squamous epithelial cells 10-20 /hpf < or = 5 abnormal Not Available [facility] [address] [place] [address] [place], [address], 02/23/2023 09:58:55 02/22/20 23 02/23/2023 URINA LYSIS , COMPL ETE W/ REFLE X TO CULTU RE bacteria FEW /hpf none seen abnormal Not Available [facility] [address] [place] [address], [place], [address], 02/23/2023 09:58:55 02/22/20 23 02/23/2023 URINA LYSIS , COMPL ETE W/ REFLE X TO CULTU RE amorphous sediment MODERA TE /hpf none or few abnormal Not Available [facility] [address] [place] [address] [place], [address], 02/23/2023 09:58:55 02/22/20 23 02/23/2023 URINA LYSIS , COMPL ETE W/ REFLE X TO CULTU RE hyaline cast NONE SEEN /lpf none seen normal Not Available [facility] [address] [place] [address] By, [place], [address], 02/23/2023 09:58:55 02/22/20 23 02/23/2023 URINA LYSIS , COMPL ETE W/ REFLE X TO CULTU RE note SEE NOTE This urine was may zed for the prese nce of WBC, RBC, bacte viola, casts , and other forme d eleme nts. Only those eleme nts seen were repor shi. Not Available [facility] [address] [facility] [address], [place], [address], 02/23/2023 09:58:55 02/22/2002/23/2023 REFLE XIVE URINE CULTU RE reflexive urine culture SEE NOTE CULTU RE INDIC ATED - RESUL TS TO FOLLO W Not Available [facility] [address], [place], [address], 02/23/2023 09:58:57 02/22/2002/23/2023 CULTU RE, URINE , ROUTI NE culture, urine, routine SEE NOTE CULTU RE, URINE , ROUTI NE Micro Numbe r: [id number] Test Statu s: Final Speci men [...] Cultu re Trans port Tube. Not Available [facility] [address], [place], [address], 02/23/2023 09:58:58 02/22/2002/21/2023 VENIP UNCTU RE results Compl ete Not Available [facility] Services [address] [facility] [address], [place], [address], 02/21/2023 09:13:30 11/08/19 24 11/09/2023 CBC (H/H, RBC, INDIC ES, WBC, PLT) white blood cell count 6.3 thous and/u L 3.8-10 .8 normal Not Available [facility] [address], [place], [address], 11/09/2023 12:33:32 11/08/19 24 11/09/2023 CBC (H/H, RBC, INDIC ES, WBC, PLT) red blood cell count 4.04 jh on/uL 3.80-5 .10 normal Not Available [facility] [address], [place], [address], 11/09/2023 12:33:32 11/08/19 24 11/09/2023 CBC (H/H, RBC, INDIC ES, WBC, PLT) hemoglobin 12.1 g/dL 11.7-1 5.5 normal Not Available [facility] [address] [place], [place] [address]y [address], [place], [address], 11/09/2023 12:33:32 11/08/19 24 11/09/2023 CBC (H/H, RBC, INDIC ES, WBC, PLT) hematocrit 36.4 % 35.0-4 5.0 normal Not Available [facility] [address] [place] [address] [address], [place], [address], 11/09/2023 12:33:32 11/08/19 24 11/09/2023 CBC (H/H, RBC, INDIC ES, WBC, PLT) MCV 90.1 fL 80.0-1 00.0 normal Not Available [facility] [address], [place], [address], 11/09/2023 12:33:32 11/08/19 24 11/09/2023 CBC (H/H, RBC, INDIC ES, WBC, PLT) MCH 30.0 pg 27.0-3 3.0 normal Not Available [facility] [address] [facility] [address], [place], [address], 11/09/2023 12:33:32 11/08/19 24 11/09/2023 CBC (H/H, RBC, INDIC ES, WBC, PLT) MCHC 33.2 g/dL 32.0-3 6.0 normal Not Available [facility] [address] [place], [address], 11/09/2023 12:33:32 11/08/19 24 11/09/2023 CBC (H/H, RBC, INDIC ES, WBC, PLT) RDW 12.6 % 11.0-1 5.0 normal Not Available [facility] [address], [place], [address], 11/09/2023 12:33:32 11/08/19 24 11/09/2023 CBC (H/H, RBC, INDIC ES, WBC, PLT) platelet count 253 thous and/u L 140-40 0 normal Not Available [facility] [address], [place], [address], 11/09/2023 12:33:32 11/08/19 24 11/09/2023 CBC (H/H, RBC, INDIC ES, WBC, PLT) MPV 10.9 fL 7.5-12 .5 normal Not Available [facility] [address], [place], [address], 11/09/2023 12:33:32 11/08/19 24 11/09/2023 CMP, COMPR EHENS AMY METAB OLIC PANEL glucose 85 mg/dL 65-99 normal Fasti ng refer ence inter jason Not Available [facility] [address] [facility] [address], [place], [address], 11/09/2023 12:33:33 11/08/19 24 11/09/2023 CMP, COMPR EHENS AMY METAB OLIC PANEL urea nitrogen (BUN) 18 mg/dL 7-25 normal Not Available [facility] [address] [facility] [address], [place], [address], 11/09/2023 12:33:33 11/08/19 24 11/09/2023 CMP, COMPR EHENS AMY METAB OLIC PANEL creatinine 0.66 mg/dL 0.60-0 .95 normal Not Available [facility] [address] [facility] [address], [place], [address], 11/09/2023 12:33:33 11/08/19 24 11/09/2023 CMP, COMPR EHENS AMY METAB OLIC PANEL eGFR 85 mL/mi n/1.7 3m2 > or = 60 normal Not Available [facility] [address] [facility] [address] [place], [address], 11/09/2023 12:33:33 11/08/19 24 11/09/2023 CMP, COMPR EHENS AMY METAB OLIC PANEL BUN/creatini ne ratio SEE NOTE: (calc ) 6-22 Not Repor shi: BUN and Creat inine are withi n refer ence range . Not Available [facility] [address] [facility] [address] [place], [address], 11/09/2023 12:33:33 11/08/19 24 11/09/2023 CMP, COMPR EHENS AMY METAB OLIC PANEL sodium 139 mmol/ L 135-14 6 normal Not Available [facility] [address] [facility] [address], [place], [address], 11/09/2023 12:33:33 11/08/19 24 11/09/2023 CMP, COMPR EHENS AMY METAB OLIC PANEL potassium 3.9 mmol/ L 3.5-5. 3 normal Not Available [facility] [address] [facility] [address] [place], [address], 11/09/2023 12:33:33 11/08/19 24 11/09/2023 CMP, COMPR EHENS AMY METAB OLIC PANEL chloride 102 mmol/ L 98-110 normal Not Available [facility] [address] [facility] [address], [place], [address], 11/09/2023 12:33:33 11/08/19 24 11/09/2023 CMP, COMPR EHENS AMY METAB OLIC PANEL carbon dioxide 28 mmol/ L 20-32 normal Not Available [facility] [address] [facility] [address], [place], [address], 11/09/2023 12:33:33 11/08/19 24 11/09/2023 CMP, COMPR EHENS AMY METAB OLIC PANEL calcium 8.9 mg/dL 8.6-10 .4 normal Not Available [facility] [address] [facility] [address], [place], [address], 11/09/2023 12:33:33 11/08/19 24 11/09/2023 CMP, COMPR EHENS AMY METAB OLIC PANEL protein, total 6.3 g/dL 6.1-8. 1 normal Not Available [facility] [address] [facility] [address], [place], [address], 11/09/2023 12:33:33 11/08/19 24 11/09/2023 CMP, COMPR EHENS AMY METAB OLIC PANEL albumin 4.0 g/dL 3.6-5. 1 normal Not Available [facility] [address] [facility] [address], [place], [address], 11/09/2023 12:33:33 11/08/19 24 11/09/2023 CMP, COMPR EHENS AMY METAB OLIC PANEL globulin 2.3 g/dL_ (calc ) 1.9-3. 7 normal Not Available [facility] [address] [facility] [address], [place], [address], 11/09/2023 12:33:33 11/08/19 24 11/09/2023 CMP, COMPR EHENS AMY METAB OLIC PANEL albumin/glob ulin ratio 1.7 (calc ) 1.0-2. 5 normal Not Available [facility] [address] [facility] [address], [place], [address], 11/09/2023 12:33:33 11/08/19 24 11/09/2023 CMP, COMPR EHENS AMY METAB OLIC PANEL bilirubin, total 0.7 mg/dL 0.2-1. 2 normal Not Available [facility] [address] [facility] [address], [place], [address], 11/09/2023 12:33:33 11/08/19 24 11/09/2023 CMP, COMPR EHENS AMY METAB OLIC PANEL alkaline phosphatase 70 U/L 37-153 normal Not Available [facility] [address] [facility] [address], [place], [address], 11/09/2023 12:33:33 11/08/19 24 11/09/2023 CMP, COMPR EHENS AMY METAB OLIC PANEL AST 15 U/L 10-35 normal Not Available [facility] [address] [facility] [address], [place], [address], 11/09/2023 12:33:33 11/08/19 24 11/09/2023 CMP, COMPR EHENS AMY METAB OLIC PANEL ALT 9 U/L 6-29 normal Not Available [facility] [address] [facility] [address], [place], [address], 11/09/2023 12:33:33 11/08/19 24 11/09/2023 LIPID PANEL W/ CALCU LATED LDL cholesterol, total 176 mg/dL <200 normal Not Available [facility] [address], [place], [address], 11/09/2023 12:33:34 11/08/19 24 11/09/2023 LIPID PANEL W/ CALCU LATED LDL HDL cholesterol 56 mg/dL > or = 50 normal Not Available [facility] [address] [facility] [address] [place], [address], 11/09/2023 12:33:34 11/08/19 24 11/09/2023 LIPID PANEL W/ CALCU LATED LDL triglyceride s 100 mg/dL <150 normal Not Available [facility] [address] [facility] [address], [place], [address], 11/09/2023 12:33:34 11/08/19 24 11/09/2023 LIPID PANEL [...] LDL-C . Tracy foley SS et al. ETSELLA. 2013; 310(1 9): 2061- 2068 (http ://ed ucati on.Qu Rosy hortonOneToks. com/f aq/FA Q164) Not Available [facility] [address], [place], [address], 11/09/2023 12:33:34 11/08/19 24 11/09/2023 LIPID PANEL W/ CALCU LATED LDL chol/HDLC ratio 3.1 (calc ) <5.0 normal Not Available [facility] [address] [facility] [address], [place], [address], 11/09/2023 12:33:34 11/08/19 24 11/09/2023 LIPID PANEL W/ CALCU LATED LDL non HDL cholesterol 120 mg/dL _(fern c) <130 normal For patie nts with diabe johann plus 1 major ASCVD risk facto r, treat ing to a non-H DL-C goal of <100 mg/dL (LDL- C of <70 mg/dL ) is consi dered a thera peuti c optio n. Not Available [facility] [address], [place], [address], 11/09/2023 12:33:34 11/08/19 24 11/09/2023 TSH, THYRO ID STIMU LATIN G HORMO NE TSH 2.93 mIU/L 0.40-4 .50 normal Not Available [facility] [address], [place], [address], 11/09/2023 12:33:35 11/08/19 24 11/09/2023 VITAM IN D, 25-HY DROXY vitamin D,25-oh,totsanchez quezadaia 28 NG/mL 30-100 low Vitam in [...] /MS is recom elisabet d: order code 19583 (martin ents >2yrs ). See Note 1 Note 1 For addit ional infor reese cunningham refer to http: //jose manuel umaña ics.c om/fa q/FAQ 199 (This link is being provi ded for infor matio nal/ educa ofe l purpo ses only. ) Not Available [facility] [address] [facility], [place], [address], 11/09/2023 12:33:36 11/08/19 24 11/08/2023 VENIP UNCTU RE results Compl ete Not Available [facility] [address] [place] [address], [address], 11/08/2023 08:09:27 01/03/20 24 01/06/2024 URINA LYSIS , COMPL ETE W/ REFLE X TO CULTU RE color YELLOW yellow normal Not Available [facility] [address] [place] [address] [address] [facility], [place], [address], 01/06/2024 12:37:34 01/03/20 24 01/06/2024 URINA LYSIS , COMPL ETE W/ REFLE X TO CULTU RE appearance TURBID clear abnormal Not Available [facility] [address] [place] [address] [address] [place], [address], 01/06/2024 12:37:34 01/03/20 24 01/06/2024 URINA LYSIS , COMPL ETE W/ REFLE X TO CULTU RE specific gravity 1.021 1.001- 1.035 normal Not Available [facility] [address] [place] [address], [address], 01/06/2024 12:37:34 01/03/20 24 01/06/2024 URINA LYSIS , COMPL ETE W/ REFLE X TO CULTU RE pH 5.5 5.0-8. 0 normal Not Available [facility] [address] [place] [address] [address] [facility], [place], [address], 01/06/2024 12:37:34 01/03/20 24 01/06/2024 URINA LYSIS , COMPL ETE W/ REFLE X TO CULTU RE glucose NEGATI VE negati ve normal Not Available [facility] [address] [place] [address] [address], [place], [address], 01/06/2024 12:37:34 01/03/20 24 01/06/2024 URINA LYSIS , COMPL ETE W/ REFLE X TO CULTU RE bilirubin NEGATI VE negati ve normal Not Available [facility] [address] [place] [address] [address], [place], [address], 01/06/2024 12:37:34 01/03/20 24 01/06/2024 URINA LYSIS , COMPL ETE W/ REFLE X TO CULTU RE ketones TRACE negati ve abnormal Not Available [facility] [address] [place] [address] [address], [place], [address], 01/06/2024 12:37:34 01/03/20 24 01/06/2024 URINA LYSIS , COMPL ETE W/ REFLE X TO CULTU RE occult blood NEGATI VE negati ve normal Not Available [facility] [address] [place] [address] [address], [place], [address], 01/06/2024 12:37:34 01/03/20 24 01/06/2024 URINA LYSIS , COMPL ETE W/ REFLE X TO CULTU RE protein NEGATI VE negati ve normal Not Available [facility] [address] [place] [address] [address], [place], [address], 01/06/2024 12:37:34 01/03/20 24 01/06/2024 URINA LYSIS , COMPL ETE W/ REFLE X TO CULTU RE nitrite NEGATI VE negati ve normal Not Available [facility] [address] [place] [address] [address], [place], [address], 01/06/2024 12:37:34 01/03/20 24 01/06/2024 URINA LYSIS , COMPL ETE W/ REFLE X TO CULTU RE leukocyte esterase TRACE negati ve abnormal Not Available [facility] [address] [place] [address] [address], [place], [address], 01/06/2024 12:37:34 01/03/20 24 01/06/2024 URINA LYSIS , COMPL ETE W/ REFLE X TO CULTU RE WBC NONE SEEN /hpf < or = 5 normal Not Available [facility] [address] [place] [address] [address], [place], [address], 01/06/2024 12:37:34 01/03/20 24 01/06/2024 URINA LYSIS , COMPL ETE W/ REFLE X TO CULTU RE RBC 0-2 /hpf < or = 2 normal Not Available [facility] [address] [place] [address] [address], [place], [address], 01/06/2024 12:37:34 01/03/20 24 01/06/2024 URINA LYSIS , COMPL ETE W/ REFLE X TO CULTU RE squamous epithelial cells 0-5 /hpf < or = 5 Not Available [facility] [address] [place] [address] [address], [place], [address], 01/06/2024 12:37:34 01/03/20 24 01/06/2024 URINA LYSIS , COMPL ETE W/ REFLE X TO CULTU RE bacteria NONE SEEN /hpf none seen normal Not Available [facility] [address] [place] [address] [address], [place], [address], 01/06/2024 12:37:34 01/03/20 24 01/06/2024 URINA LYSIS , COMPL ETE W/ REFLE X TO CULTU RE hyaline cast NONE SEEN /lpf none seen normal Not Available [facility] [address] [place] [address] [address], [place], [address], 01/06/2024 12:37:34 03/05/01/06/2024 URINA LYSIS , COMPL ETE W/ REFLE X TO CULTU RE note SEE NOTE This urine was may zed for the prese nce of WBC, RBC, bacte viola, casts , and other forme d eleme nts. Only those eleme nts seen were repor shi. Not Available [facility] [address] [facility] [address], [place], [address], 01/06/2024 12:37:34 01/03/20 24 01/06/2024 REFLE XIVE URINE CULTU RE reflexive urine culture SEE NOTE CULTU RE INDIC ATED - RESUL TS TO FOLLO W Not Available [facility] [address] [facility] [address], [place], [address], 01/06/2024 12:37:35 01/03/20 24 01/06/2024 CULTU RE, [...] Tube, is recom elisabet d. Not Available [facility] [address] [facility] [address], [place], [address], 01/06/2024 12:37:36 02/14/20 24 02/16/2024 A1C hemoglobin [...] This test was perfo rmed on the [employer] [facility] c503 platf orm. Effec tive 08/15, a sigifredo perkins in test platf orms from the [facility] to the [employer] [facility] c503 may have shift ed HbA1c resul ts zainab red to histo rical resul ts. Based on labor atory valid ation testi ng condu cted at [facility] , the [employer] platf orm relat amy to the [email or web address] platf orm had an avera ge incre [...] is not recom elisabet d. Not Available [facility] [address], [place], [address], 02/16/2024 10:56:01 02/14/20 24 02/16/2024 VITAM IN B-12 vitamin B12 >2000 pg/mL 200-11 00 high Not Available [facility] [address], [place], [address], 02/16/2024 10:56:02 02/14/20 24 02/16/2024 TSH W/REF GARRET TO FT4 TSH w/reflex to FT4 2.42 mIU/L 0.40-4 .50 normal Not Available [facility] [address], [place], [address], 02/16/2024 10:56:03 02/14/20 24 02/16/2024 VITAM IN [...] /MS is recom elisabet d: order code 10116 (martin ents >2yrs ). See Note 1 Note 1 For addit ional mariposar reese cunningham refer to http: //jose manuel Samuels stDia gnost ics.c om/fa q/FAQ 199 (This link is being provi ded for infor ronan joaquin/ maria isabel quezada purpo ses only. ) Not Available [facility] [address], [place], [address], 02/16/2024 10:56:04 02/14/20 24 02/16/2024 CBC W/ AUTOD IFF, COMPL ETE BLOOD COUNT white blood cell count 6.3 thous and/u L 3.8-10 .8 normal Not Available [facility] [address], [place], [address], 02/16/2024 10:56:05 02/14/20 24 02/16/2024 CBC W/ AUTOD IFF, COMPL ETE BLOOD COUNT red blood cell count 4.26 jh on/uL 3.80-5 .10 normal Not Available [facility] [address], [place], [address], 02/16/2024 10:56:05 02/14/20 24 02/16/2024 CBC W/ AUTOD IFF, COMPL ETE BLOOD COUNT hemoglobin 12.7 g/dL 11.7-1 5.5 normal Not Available [facility] [address], [place], [address], 02/16/2024 10:56:05 02/14/20 24 02/16/2024 CBC W/ AUTOD IFF, COMPL ETE BLOOD COUNT hematocrit 40.4 % 35.0-4 5.0 normal Not Available [facility] [address], [place], [address], 02/16/2024 10:56:05 02/14/20 24 02/16/2024 CBC W/ AUTOD IFF, COMPL ETE BLOOD COUNT MCV 94.8 fL 80.0-1 00.0 normal Not Available [facility] [address], [place], [address], 02/16/2024 10:56:05 02/14/20 24 02/16/2024 CBC W/ AUTOD IFF, COMPL ETE BLOOD COUNT MCH 29.8 pg 27.0-3 3.0 normal Not Available [facility] [address], [place], [address], 02/16/2024 10:56:05 02/14/20 24 02/16/2024 CBC W/ AUTOD IFF, COMPL ETE BLOOD COUNT MCHC 31.4 g/dL 32.0-3 6.0 low Not Available [facility] [address], [place], [address], 02/16/2024 10:56:05 02/14/20 24 02/16/2024 CBC W/ AUTOD IFF, COMPL ETE BLOOD COUNT RDW 12.9 % 11.0-1 5.0 normal Not Available [facility] [address], [place], [address], 02/16/2024 10:56:05 02/14/20 24 02/16/2024 CBC W/ AUTOD IFF, COMPL ETE BLOOD COUNT platelet count 303 thous and/u L 140-40 0 normal Not Available [facility] [address], [place], [address], 02/16/2024 10:56:05 02/14/20 24 02/16/2024 CBC W/ AUTOD IFF, COMPL ETE BLOOD COUNT MPV 10.6 fL 7.5-12 .5 normal Not Available [facility] [address], [place], [address], 02/16/2024 10:56:05 02/14/20 24 02/16/2024 CBC W/ AUTOD IFF, COMPL ETE BLOOD COUNT absolute neutrophils 2747 cells /uL 1500-7 800 normal Not Available [facility] [address], [place], [address], 02/16/2024 10:56:05 02/14/20 24 02/16/2024 CBC W/ AUTOD IFF, COMPL ETE BLOOD COUNT absolute lymphocytes 2652 cells /uL 850-39 00 normal Not Available [facility] [address], [place], [address], 02/16/2024 10:56:05 02/14/20 24 02/16/2024 CBC W/ AUTOD IFF, COMPL ETE BLOOD COUNT absolute monocytes 573 cells /uL 200-95 0 normal Not Available [facility] [address], [place], [address], 02/16/2024 10:56:05 02/14/20 24 02/16/2024 CBC W/ AUTOD IFF, COMPL ETE BLOOD COUNT absolute eosinophils 258 cells /uL 15-500 normal Not Available [facility] [address], [place], [address], 02/16/2024 10:56:05 02/14/20 24 02/16/2024 CBC W/ AUTOD IFF, COMPL ETE BLOOD COUNT absolute basophils 69 cells /uL 0-200 normal Not Available [facility] [address], [place], [address], 02/16/2024 10:56:05 02/14/20 24 02/16/2024 CBC W/ AUTOD IFF, COMPL ETE BLOOD COUNT neutrophils 43.6 % normal Not Available [facility] [address], [place], [address], 02/16/2024 10:56:05 02/14/20 24 02/16/2024 CBC W/ AUTOD IFF, COMPL ETE BLOOD COUNT lymphocytes 42.1 % normal Not Available [facility] [address], [place], [address], 02/16/2024 10:56:05 02/14/20 24 02/16/2024 CBC W/ AUTOD IFF, COMPL ETE BLOOD COUNT monocytes 9.1 % normal Not Available [facility] [address], [place], [address], 02/16/2024 10:56:05 02/14/20 24 02/16/2024 CBC W/ AUTOD IFF, COMPL ETE BLOOD COUNT eosinophils 4.1 % normal Not Available [facility] [address], [place], [address], 02/16/2024 10:56:05 02/14/20 24 02/16/2024 CBC W/ AUTOD IFF, COMPL ETE BLOOD COUNT basophils 1.1 % normal Not Available [facility] [address] [facility] [address], [place], [address], 02/16/2024 10:56:05 02/14/20 24 02/16/2024 CMP, COMPR EHENS AMY METAB OLIC PANEL glucose 87 mg/dL 65-99 normal Fasti ng refer ence inter jason Not Available [facility] [address] [facility] [address], [place], [address], 02/16/2024 10:56:06 02/14/20 24 02/16/2024 CMP, COMPR EHENS AMY METAB OLIC PANEL urea nitrogen (BUN) 17 mg/dL 7-25 normal Not Available [facility] [address] [facility] [address], [place], [address], 02/16/2024 10:56:06 02/14/20 24 02/16/2024 CMP, COMPR EHENS AMY METAB OLIC PANEL creatinine 0.65 mg/dL 0.60-0 .95 normal Not Available [facility] [address] [facility] [address], [place], [address], 02/16/2024 10:56:06 02/14/20 24 02/16/2024 CMP, COMPR EHENS AMY METAB OLIC PANEL eGFR 86 mL/mi n/1.7 3m2 > or = 60 normal Not Available [facility] [address] [facility] [address], [place], [address], 02/16/2024 10:56:06 02/14/20 24 02/16/2024 CMP, COMPR EHENS AMY METAB OLIC PANEL BUN/creatini ne ratio SEE NOTE: (calc ) 6-22 Not Repor shi: BUN and Creat inine are withi n refer ence range . Not Available [facility] [address] [facility] [address], [place], [address], 02/16/2024 10:56:06 02/14/20 24 02/16/2024 CMP, COMPR EHENS AMY METAB OLIC PANEL sodium 141 mmol/ L 135-14 6 normal Not Available [facility] [address] [facility] [address], [place], [address], 02/16/2024 10:56:06 02/14/20 24 02/16/2024 CMP, COMPR EHENS AMY METAB OLIC PANEL potassium 4.0 mmol/ L 3.5-5. 3 normal Not Available [facility] [address] [facility] [address], [place], [address], 02/16/2024 10:56:06 02/14/20 24 02/16/2024 CMP, COMPR EHENS AMY METAB OLIC PANEL chloride 103 mmol/ L 98-110 normal Not Available [facility] [address] [facility] [address], [place], [address], 02/16/2024 10:56:06 02/14/20 24 02/16/2024 CMP, COMPR EHENS AMY METAB OLIC PANEL carbon dioxide 33 mmol/ L 20-32 high Not Available [facility] [address] [facility] [address], [place], [address], 02/16/2024 10:56:06 02/14/20 24 02/16/2024 CMP, COMPR EHENS AMY METAB OLIC PANEL calcium 9.2 mg/dL 8.6-10 .4 normal Not Available [facility] [address] [facility] [address], [place], [address], 02/16/2024 10:56:06 02/14/20 24 02/16/2024 CMP, COMPR EHENS AMY METAB OLIC PANEL protein, total 6.4 g/dL 6.1-8. 1 normal Not Available [facility] [address] [facility] [address], [place], [address], 02/16/2024 10:56:06 02/14/20 24 02/16/2024 CMP, COMPR EHENS AMY METAB OLIC PANEL albumin 4.3 g/dL 3.6-5. 1 normal Not Available [facility] [address] [facility] [address], [place], [address], 02/16/2024 10:56:06 02/14/20 24 02/16/2024 CMP, COMPR EHENS AMY METAB OLIC PANEL globulin 2.1 g/dL_ (calc ) 1.9-3. 7 normal Not Available [facility] [address] [facility] [address] [place], [address], 02/16/2024 10:56:06 02/14/20 24 02/16/2024 CMP, COMPR EHENS AMY METAB OLIC PANEL albumin/glob ulin ratio 2.0 (calc ) 1.0-2. 5 normal Not Available [facility] [address], [place], [address], 02/16/2024 10:56:06 02/14/20 24 02/16/2024 CMP, COMPR EHENS AMY METAB OLIC PANEL bilirubin, total 0.7 mg/dL 0.2-1. 2 normal Not Available [facility] [address] [facility] [address], [place], [address], 02/16/2024 10:56:06 02/14/20 24 02/16/2024 CMP, COMPR EHENS AMY METAB OLIC PANEL alkaline phosphatase 63 U/L 37-153 normal Not Available [facility] [address], [place], [address], 02/16/2024 10:56:06 02/14/20 24 02/16/2024 CMP, COMPR EHENS AMY METAB OLIC PANEL AST 14 U/L 10-35 normal Not Available [facility] [address] [facility] [address], [place], [address], 02/16/2024 10:56:06 02/14/20 24 02/16/2024 CMP, COMPR EHENS AMY METAB OLIC PANEL ALT 9 U/L 6-29 normal Not Available [facility] [address] [facility] [address], [place], [address], 02/16/2024 10:56:06 02/14/20 24 02/16/2024 LIPID PANEL REF DLDL cholesterol, total 170 mg/dL <200 normal Not Available [facility] [address] [facility] [address] [place], [address], 02/16/2024 10:56:08 02/14/20 24 02/16/2024 LIPID PANEL REF DLDL HDL cholesterol 55 mg/dL > or = 50 normal Not Available [facility] [address] [facility] [address] [place], [address], 02/16/2024 10:56:08 02/14/20 24 02/16/2024 LIPID PANEL REF DLDL triglyceride s 126 mg/dL <150 normal Not Available [facility] [address] [facility] [address] [place], [address], 02/16/2024 10:56:08 02/14/20 24 02/16/2024 LIPID PANEL [...] 2061- 2068 (http ://ed sumeetati on.Qu jeramyFernanda cliffordMicrobio Ph[employer]. com/f aq/FA Q164) Not Available [facility] [address] [facility] [address], [place], [address], 02/16/2024 10:56:08 02/14/20 24 02/16/2024 LIPID PANEL REF DLDL chol/HDLC ratio 3.1 (calc ) <5.0 normal Not Available [facility] [address] [facility] [address], [place], [address], 02/16/2024 10:56:08 02/14/20 24 02/16/2024 LIPID PANEL REF DLDL non HDL cholesterol 115 mg/dL _(fern c) <130 normal For patie nts with diabe johann plus 1 major ASCVD risk facto r, treat ing to a non-H DL-C goal of <100 mg/dL (LDL- C of <70 mg/dL ) is consi vik parker optio n. Not Available [facility] [address] [facility] [address], [place], [address], 02/16/2024 10:56:08 02/14/20 24 02/14/2024 VENIP UNCTU RE results Compl ete Not Available [facility] [address] [facility] [address], [place], [address], 02/14/2024 08:35:56 02/13/2002/12/2025 A1C hemoglobin A1C 5.2 % 4.3 - 5.6 ADA Recom elisabet d guide lines for HgbA1 C%: 5.7-6 .4% Predi abeti c < 7.0% Reaso nable glyce ford goal for non-p regna nt adult s < 8.0% Appro priat e for patie nts with hypog lycem ia or advan erika micro /macr o vascu lar compl icati ons Not Available [facility] [address] [facility] [address], [place], [address], 02/12/2025 14:29:32 02/13/20 25 02/12/2025 A1C estimated average glucose 103 mg/dL 97 - 140 Not Available [facility] [address] [facility] [address], [place], [address], 02/12/2025 14:29:32 02/13/20 25 02/12/2025 CBC W/ AUTOD IFF, COMPL ETE BLOOD COUNT WBC 4.9 K/uL 3.6 - 10.0 Not Available [facility] [address] [facility] [address], [place], [address], 02/12/2025 14:35:50 02/13/20 25 02/12/2025 CBC W/ AUTOD IFF, COMPL ETE BLOOD COUNT RBC 4.2 M/uL 3.9 - 5.0 Not Available [facility] [address] [facility] [address], [place], [address], 02/12/2025 14:35:50 02/13/20 25 02/12/2025 CBC W/ AUTOD IFF, COMPL ETE BLOOD COUNT hemoglobin 12.7 g/dL 12.0 - 15.0 Not Available [facility] [address] [facility] [address], [place], [address], 02/12/2025 14:35:50 02/13/20 25 02/12/2025 CBC W/ AUTOD IFF, COMPL ETE BLOOD COUNT hematocrit 37.7 % 35.0 - 45.0 Not Available [facility] [address] [facility] [address], [place], [address], 02/12/2025 14:35:50 02/13/20 25 02/12/2025 CBC W/ AUTOD IFF, COMPL ETE BLOOD COUNT MCV 90.9 fL 80.0 - 99.0 Not Available [facility] [address], [place], [address], 02/12/2025 14:35:50 02/13/20 25 02/12/2025 CBC W/ AUTOD IFF, COMPL ETE BLOOD COUNT MCH 30.5 pg 27.0 - 33.0 Not Available [facility] [address], [place], [address], 02/12/2025 14:35:50 02/13/20 25 02/12/2025 CBC W/ AUTOD IFF, COMPL ETE BLOOD COUNT MCHC 33.5 g/dL 32.0 - 37.5 Not Available [facility], [place], [address], 02/12/2025 14:35:50 02/13/20 25 02/12/2025 CBC W/ AUTOD IFF, COMPL ETE BLOOD COUNT RDW 13.6 % 11.0 - 15.0 Not Available [facility], [place], [address], 02/12/2025 14:35:50 02/13/20 25 02/12/2025 CBC W/ AUTOD IFF, COMPL ETE BLOOD COUNT nucleated RBC 0 % 0 - 2 Not Available [facility] [address], [place], [address], 02/12/2025 14:35:50 02/13/20 25 02/12/2025 CBC W/ AUTOD IFF, COMPL ETE BLOOD COUNT platelet 235 K/uL 140 - 440 Not Available [facility], [place], [address], 02/12/2025 14:35:50 02/13/20 25 02/12/2025 CBC W/ AUTOD IFF, COMPL ETE BLOOD COUNT MPV 8.3 fL 7.4 - 10.4 Not Available [facility] [address], [place], [address], 02/12/2025 14:35:50 02/13/20 25 02/12/2025 CBC W/ AUTOD IFF, COMPL ETE BLOOD COUNT neutrophil, percentage 42.0 % Not Available [facility] [address], [place], [address], 02/12/2025 14:35:50 02/13/20 25 02/12/2025 CBC W/ AUTOD IFF, COMPL ETE BLOOD COUNT lymphocyte, percentage 44.5 % Not Available [facility], [place], [address], 02/12/2025 14:35:50 02/13/20 25 02/12/2025 CBC W/ AUTOD IFF, COMPL ETE BLOOD COUNT monocyte, percentage 8.8 % Not Available [facility], [place], [address], 02/12/2025 14:35:50 02/13/20 25 02/12/2025 CBC W/ AUTOD IFF, COMPL ETE BLOOD COUNT eosinophil, percentage 3.5 % Not Available [facility] [address], [place], [address], 02/12/2025 14:35:50 02/13/20 25 02/12/2025 CBC W/ AUTOD IFF, COMPL ETE BLOOD COUNT basophil, percentage 1.2 % Not Available [facility] [address], [place], [address], 02/12/2025 14:35:50 02/13/20 25 02/12/2025 CBC W/ AUTOD IFF, COMPL ETE BLOOD COUNT neutrophil, absolute 2.0 K/uL 1.5 - 7.5 Not Available [facility] [address] [place], [place] [address]y [address], [place], [address], 02/12/2025 14:35:50 02/13/20 25 02/12/2025 CBC W/ AUTOD IFF, COMPL ETE BLOOD COUNT lymphocyte, absolute 2.2 K/uL 0.8 - 4.0 Not Available [facility] [address] [place], [place] [address]y [address], [place], [address], 02/12/2025 14:35:50 02/13/20 25 02/12/2025 CBC W/ AUTOD IFF, COMPL ETE BLOOD COUNT monocyte, absolute 0.4 K/uL 0.1 - 1.0 Not Available [facility] [address] [place], [place] [address]y [address], [place], [address], 02/12/2025 14:35:50 02/13/20 25 02/12/2025 CBC W/ AUTOD IFF, COMPL ETE BLOOD COUNT eosinophil, absolute 0.2 K/uL 0.1 - 1.0 Not Available [facility] [address] [place], [place] [address]y [address], [place], [address], 02/12/2025 14:35:50 02/13/20 25 02/12/2025 CBC W/ AUTOD IFF, COMPL ETE BLOOD COUNT basophil, absolute 0.1 K/uL 0.0 - 0.2 Not Available [facility] [address] [place], [place] [address]y [address], [place], [address], 02/12/2025 14:35:50 02/13/20 25 02/12/2025 URINA LYSIS , COMPL ETE W/ REFLE X TO CULTU RE color YELLOW yellow Not Available [facility] [address] [place], [place] [address]y [address], [place], [address], 02/12/2025 14:58:26 02/13/20 25 02/12/2025 URINA LYSIS , COMPL ETE W/ REFLE X TO CULTU RE appearance CLEAR clear, cloudy Not Available [facility] [address] [place], [place] [address]y [address], [place], [address], 02/12/2025 14:58:26 02/13/20 25 02/12/2025 URINA LYSIS , COMPL ETE W/ REFLE X TO CULTU RE specific gravity 1.021 1.005- 1.030 Not Available [facility] [address] [place], [place] [address]y [address], [place], [address], 02/12/2025 14:58:26 02/13/20 25 02/12/2025 URINA LYSIS , COMPL ETE W/ REFLE X TO CULTU RE pH 5.5 5.0-8. 0 Not Available [facility] [address] [place], [place] [address]y [address], [place], [address], 02/12/2025 14:58:26 02/13/20 25 02/12/2025 URINA LYSIS , COMPL ETE W/ REFLE X TO CULTU RE glucose, urine NEGATI VE mg/dL negati ve Not Available [facility] [address] [place] [address] [address] [place], [address], 02/12/2025 14:58:26 02/13/20 25 02/12/2025 URINA LYSIS , COMPL ETE W/ REFLE X TO CULTU RE bilirubin NEGATI VE mg/dL negati ve Not Available [facility] [address], [place], [address], 02/12/2025 14:58:26 02/13/20 25 02/12/2025 URINA LYSIS , COMPL ETE W/ REFLE X TO CULTU RE ketone NEGATI VE mg/dL negati ve Not Available [facility] [address], [place], [address], 02/12/2025 14:58:26 02/13/20 25 02/12/2025 URINA LYSIS , COMPL ETE W/ REFLE X TO CULTU RE urobilinogen NORMAL E.U./ dL normal Not Available [facility] [address] [place] [address] [address], [place], [address], 02/12/2025 14:58:26 02/13/20 25 02/12/2025 URINA LYSIS , COMPL ETE W/ REFLE X TO CULTU RE protein NEGATI VE mg/dL negati ve Not Available [facility] [address] [place] [address] [address] [facility], [place], [address], 02/12/2025 14:58:26 02/13/20 25 02/12/2025 URINA LYSIS , COMPL ETE W/ REFLE X TO CULTU RE nitrite NEGATI VE negati ve Not Available [facility] [address] [place] [address] [address] [facility], [place], [address], 02/12/2025 14:58:26 02/13/20 25 02/12/2025 URINA LYSIS , COMPL ETE W/ REFLE X TO CULTU RE blood, urine NEGATI VE mg/dL negati ve Not Available [facility] [address] [place] [address], [place], [address], 02/12/2025 14:58:26 02/13/20 25 02/12/2025 URINA LYSIS , COMPL ETE W/ REFLE X TO CULTU RE leukocytes NEGATI VE emagan/u L negati ve A micro scopi c [...] yeast on micro scopi c. Not Available [facility] [address] [place], [place] [address]y [address], [place], [address], 02/12/2025 14:58:26 02/13/20 25 02/12/2025 URINA LYSIS , COMPL ETE W/ REFLE X TO CULTU RE WBC, urine 0-5 /uL 0-5 Not Available [facility] [address] [place], [place] [address]y [address], [place], [address], 02/12/2025 14:58:26 02/13/20 25 02/12/2025 URINA LYSIS , COMPL ETE W/ REFLE X TO CULTU RE RBC, urine 4-10 /uL 0-3 abnormal Not Available [facility] [address] [place] [address] [address], [place], [address], 02/12/2025 14:58:26 02/13/20 25 02/12/2025 URINA LYSIS , COMPL ETE W/ REFLE X TO CULTU RE mucus, urine MODERA TE none seen abnormal Not Available [facility] [address] [place], [place] [address]y [address], [place], [address], 02/12/2025 14:58:26 02/13/20 25 02/12/2025 URINA LYSIS , COMPL ETE W/ REFLE X TO CULTU RE urine squamous epithelial 0-10 0-10 Not Available [facility] [address] [place], [place] [address]y [address], [place], [address], 02/12/2025 14:58:26 02/13/20 25 02/12/2025 VITAM IN B-12 vitamin B-12 >2000 pg/mL 232 - 1245 high Not Available [facility] [address] [place] [address] [address], [place], [address], 02/12/2025 15:52:48 02/13/20 25 02/12/2025 T4, FREE free T4 1.060 NG/dL 0.930 - 1.770 Not Available [facility] [address], [place], [address], 02/12/2025 15:52:50 02/13/20 25 02/12/2025 TSH, THYRO ID STIMU LATIN G HORMO NE TSH 3.1700 uIU/m L 0.2700 - 4.2000 Not Available [facility] [address], [place], [address], 02/12/2025 15:52:54 02/13/20 25 02/12/2025 VITAM IN D, 25-HY DROXY vitamin D, 25 hydroxy 42.60 NG/mL 30.00 - 100.00 The [place] Oliva silva Found ation consi ders level s < 30 ng/mL to be insuf ficie nt or defic ient. Not Available [facility] [address], [place], [address], 02/12/2025 15:52:56 02/13/20 25 02/12/2025 CMP, COMPR EHENS AMY METAB OLIC PANEL glucose 85 mg/dL 70 - 100 Not Available [facility] [address] [facility] [address] [place], [address], 02/12/2025 16:34:17 02/13/20 25 02/12/2025 CMP, COMPR EHENS AMY METAB OLIC PANEL BUN 19 mg/dL 7 - 25 Not Available [facility] [address] [place], [address], 02/12/2025 16:34:17 02/13/20 25 02/12/2025 CMP, COMPR EHENS AMY METAB OLIC PANEL creatinine 0.6 mg/dL 0.6 - 1.3 Not Available [facility] [address] [facility] [address], [place], [address], 02/12/2025 16:34:17 02/13/20 25 02/12/2025 CMP, COMPR EHENS AMY METAB OLIC PANEL BUN/creatini ne ratio 30 calc 10 - 25 high Not Available [facility] [address], [place], [address], 02/12/2025 16:34:17 02/13/20 25 02/12/2025 CMP, COMPR EHENS AMY METAB OLIC PANEL GFR 86 mL/mi n/1.7 3m^2 >60 GFR < 60 mL/mi n for 3 or more month s may be indic ative of Oliva Spears se. The GFR is based on the CKD-E PI 2020 equat ion. Not Available [facility] [address] [facility] [address], [place], [address], 02/12/2025 16:34:17 02/13/20 25 02/12/2025 CMP, COMPR EHENS AMY METAB OLIC PANEL sodium 142 mmol/ L 135 - 145 Not Available [facility] [address] [facility] [address], [place], [address], 02/12/2025 16:34:17 02/13/20 25 02/12/2025 CMP, COMPR EHENS AMY METAB OLIC PANEL potassium 4.2 mmol/ L 3.5 - 5.5 Not Available [facility] [address], [place], [address], 02/12/2025 16:34:17 02/13/20 25 02/12/2025 CMP, COMPR EHENS AMY METAB OLIC PANEL chloride 102 mmol/ L 100 - 115 Not Available [facility] [address], [place], [address], 02/12/2025 16:34:17 02/13/20 25 02/12/2025 CMP, COMPR EHENS AMY METAB OLIC PANEL CO2 32 mmol/ L 21 - 33 Not Available [facility] [address] [facility] [address], [place], [address], 02/12/2025 16:34:17 02/13/20 25 02/12/2025 CMP, COMPR EHENS AMY METAB OLIC PANEL calcium 8.6 mg/dL 8.8 - 10.6 low Not Available [facility] [address] [facility] [address], [place], [address], 02/12/2025 16:34:17 02/13/20 25 02/12/2025 CMP, COMPR EHENS AMY METAB OLIC PANEL total protein 6.1 g/dL 6.2 - 8.6 low Not Available [facility] [address] [facility] [address], [place], [address], 02/12/2025 16:34:17 02/13/20 25 02/12/2025 CMP, COMPR EHENS AMY METAB OLIC PANEL globulin 2.2 g/dL 1.3 - 4.0 Not Available [facility] [address], [place], [address], 02/12/2025 16:34:17 02/13/20 25 02/12/2025 CMP, COMPR EHENS AMY METAB OLIC PANEL albumin 4.0 g/dL 3.5 - 5.7 Not Available [facility] [address] [facility] [address], [place], [address], 02/12/2025 16:34:17 02/13/20 25 02/12/2025 CMP, COMPR EHENS AMY METAB OLIC PANEL A/G ratio 1.8 calc 1.0 - 2.8 Not Available [facility] [address], [place], [address], 02/12/2025 16:34:17 02/13/20 25 02/12/2025 CMP, COMPR EHENS AMY METAB OLIC PANEL AST (SGOT) 15 U/L 13 - 39 Not Available [facility] [address] [facility] [address], [place], [address], 02/12/2025 16:34:17 02/13/20 25 02/12/2025 CMP, COMPR EHENS AMY METAB OLIC PANEL ALT (SGPT) 9 U/L 7 - 52 Not Available [facility] [address] [facility] [address], [place], [address], 02/12/2025 16:34:17 02/13/20 25 02/12/2025 CMP, COMPR EHENS AMY METAB OLIC PANEL alkaline phosphatase 60 U/L 20 - 128 Not Available [facility] [address] [facility] [address] [place], [address], 02/12/2025 16:34:17 02/13/20 25 02/12/2025 CMP, COMPR EHENS AMY METAB OLIC PANEL total bilirubin 0.6 mg/dL 0.3 - 1.0 Not Available [facility] [address] [facility] [address], [place], [address], 02/12/2025 16:34:17 02/13/20 25 02/12/2025 LIPID PANEL REF DLDL cholesterol 184 mg/dL <200 Expec shi resul ts for Adult s: Total Marge stero l: Risk class ifica tion < 200 mg/dL Sonia able 200-2 39 mg/dL Borde rline high >240 mg/dL High Not Available [facility] [address] [facility] [address], [place], [address], 02/12/2025 16:34:23 02/13/20 25 02/12/2025 LIPID PANEL REF DLDL triglyceride 73 mg/dL 30 - 150 Not Available [facility] [address] [facility] [address] [place], [address], 02/12/2025 16:34:23 02/13/20 25 02/12/2025 LIPID PANEL REF DLDL HDL cholestrol 69 mg/dL >=50 Not Available [facility] [address] [facility], [place], [address], 02/12/2025 16:34:23 02/13/20 25 02/12/2025 LIPID PANEL REF DLDL LDL calculated 100 mg/dL 0 - 99 high Not Available [facility] [address] [facility] [address], [place], [address], 02/12/2025 16:34:23 02/13/20 25 02/12/2025 LIPID PANEL REF DLDL chol/HDL risk ratio 3 calc < 5.0 Optim al Not Available [facility] [address] [place] [address] [address] [place], [address], 02/12/2025 16:34:23 02/13/20 25 02/12/2025 LIPID PANEL REF DLDL non-HDL cholesterol 115 mg/dL <130 Sonia able < 130 mg/dL Not Available [facility] [address] [place] [address] [address] [facility], [place], [address], 02/12/2025 16:34:23 02/13/20 25 02/12/2025 VENIP UNCTU RE results Compl ete Not Available [facility] [address] [place] [address] [address] [place], [address], 02/12/2025 10:02:00 11/16/19 24 11/16/2023 sofie BLACK venou s, lower extre mitshira, unila teral No observ ation record ed. LUIS FELIPE [facility] [address] [facility], [place], [address], 11/16/2023 17:44:55 11/16/19 24 11/16/2023 US, duple x, venou s, lower extre mity, unila teral No observ ation record ed. [facility] [address] [place], [place], [address], 11/16/2023 17:44:56 11/17/19 24 07/21/2023 colon oscop y proce dure (PROC ) No observ ation record ed. BARCODE Not Available 2023 08:23:10 11/17/19 24 07/21/2023 upper endos copy proce dure (EGD) (PROC ) No observ ation record ed. [facility] Not Available 2023 08:53:29 01/16/20 24 12/30/2023 MAMMO , scree jerri, digit al, bilat eral No observ ation record ed. LUIS FELIPE [facility] [place] [address], [place], [address], 01/16/2024 18:12:18 02/14/20 25 02/13/2025 MAMMO , scree jerri, digit al, bilat eral No observ ation record ed. [facility] [address] [place], [address], 02/13/2025 23:05:26 02/20/20 25 02/13/2025 bone densi ty No observ ation record ed. [facility] [address] [place], [address], 02/19/2025 23:22:59 Result Notes None recorded. Problems Name Problem SNOMED Code Status Onset Date Resolution Date Notes Provider Name and Address Organization Details Recorded Time Angina pectoris 282378014 Completed 08/26/2014 Shahla stevens [facility], [employer] [facility] 6 09:52:04 Female stress incontinenc e 10808105 Active Shahla stevens [facility], [facility] 09:52:04 Essential hypertensio n 46771742 Completed 03/08/2016 Shahla stevens [place] [facility] [place], [facility] 6 09:52:04 Disorder of bone and articular cartilage 326155317 [facility], [facility] 6 09:52:04 Hyperlipide erica 79126355 Active Jackie Rodriguez MD [address], [place], [address], [facility], [facility] 6 21:33:09 Fatigue 71102346 Completed [facility]/26[facility]2014 [facility] [place], [facility] 6 09:52:04 Impaired fasting glycemia 087336571 Completed 08/26/2014 [facility], [facility] 6 09:52:05 Vitamin B deficiency 60447679 Completed 08/26/2014 [facility], [facility] 6 09:52:04 Disorder of thyroid gland 29806537 Active [facility] [place], [facility] 6 09:52:04 Dysphagia 04121844 Completed 03/08/2016 [facility] Physician [facility] [place], [facility] 6 09:52:05 Stricture of esophagus 15430257 Completed 03/08/2016 [facility], [facility] 6 09:52:04 Gastroesoph ageal reflux disease 544533942 Active Jackie Rodriguez MD [address], [place], [address], [facility] Physician [facility], [facility] 6 21:33:09 Pure hypercholes terolemia 249748751 Completed 03/08/2016 [facility], [facility] 6 09:52:04 Benign essential hypertensio n 7950288 Completed 03/08/2016 [facility], [facility] 6 09:52:04 Urinary incontinenc e 616974439 Completed 03/08/2016 Shahla Jodee null, [facility], [facility] 6 09:52:05 Fatigue 43066442 Active Shahla Jodee null, [facility], [facility] 6 09:52:05 Impaired fasting glycemia 278120186 Active Shahla Jodee null, [facility], [facility] 6 09:52:05 Vitamin B deficiency 78150194 Active Shahla Jodee null, [facility], [facility] 6 09:52:04 Disorder of nail 09927261 Completed 03/08/2016 Shahla Jodee null, [facility] Physician [facility], [facility] 6 09:52:04 Hypertensiv e disorder 81838874 Active Shahla Jodee null, [facility] Physician [facility], [facility] 6 09:52:04 Venous varices 141261115 Completed 03/08/2016 Shahla Jodee null, [facility] Physician [facility], [facility] 6 09:52:04 Urinary tract infectious disease 40114383 Completed 03/08/2016 Shahla Jodee null, [facility] Physician [facility], [facility] 6 09:52:04 Vitamin D deficiency 58156140 Active Shahla Jodee null, [facility], [facility] 6 09:52:04 Obesity [id number] Completed 08/14/2020 Anny Rodriguez MD [address], [place], [address], [facility] Physician [facility], [facility] 0 08:54:08 Decreased body mass index [id number] Completed 08/14/2020 Anny Rodriguez MD [address], [place], [address], [facility] Physician [facility], [facility] 0 08:54:02 Murmur [id number] Active Shahla Jodee null, [facility] Physician [facility], [facility] 6 09:52:05 Dilatation of aorta [id number] Active Jackie Rodriguez MD [address], [place], [address], [facility], [facility] 6 21:33:09 Blood in urine [id number] Active [address], [place], [address], [facility], [facility] 8 17:04:41 Aortic aneurysm [id number] Active [address], [place], [address], [facility], [facility] 8 17:09:00 Aneurysm of thoracic aorta [id number] Active 2018 MONICA Farley [address], [place], [address], [facility] Physician [facility], [facility] 9 17:51:24 Problem Notes None recorded. Procedures Surgical History Date Name Laterality Status Provider Name and Address Organization Details Recorded Time 02/19 bone density study, dual photon absorptiometry completed ROSA MARIA MULLIGAN APRN [address], [place], [address], [facility] Physician [facility], [facility] 5 17:13:59 02/13 mammography completed MD [address], [place], [address], [facility] Physician [facility], [facility] 5 17:48:07 02/07 Quality Functional Assessment completed MD [address], [place], [address], [facility] Physician [facility], [facility] 5 15:39:47 02/07 Quality Medication Reviewed and Updated completed MD [address], [place], [address], [facility], [facility] 5 15:39:47 02/07 Quality BMI with follow up completed Wallace Rodriguez MD [address], [place], [address], [facility], [facility] 5 15:39:47 02/07 Quality Advanced Care Planning completed [facility], [facility] 5 15:24:07 02/07 Quality Incontinence Screening completed [facility], [facility] 15:24:07 02/07 Cerumen Disimpaction Lavage Only (PCP, WIC, Spec) completed MD Heidi [address], [place], [address], [facility], [facility] 12:09:10 02/07 Medicare AWV - Screening Schedule completed Jackie Rodriguez MD [address], [place], [address], [facility], [facility] 15:39:47 02/07 Quality Fall Risk Assessment completed Jackie Rodriguez MD [address], [place], [address], [facility], [facility] 5 15:39:47 02/07 [id number] completed MD Heidi [address], [place], [address], [facility], [facility] 5 12:06:11 02/07 Medicare AWV Subsequent completed Alida bradford [facility], [facility] 15:24:07 01/24 Cerumen Disimpaction Using instrumentation (PCP, WIC, Spec) completed [address], [place], [address], [facility], [facility] 4 11:54:35 01/15 mammography completed MD [address], [place], [address], [place] [facility], [facility] 4 17:42:50 07/26 Colonoscopy completed Anny Rodriguez MD [address], [place], [address], [facility], [facility] 3 17:11:54 07/21 esophagogastroduodenoscopy completed Wallace Rodriguez MD [address], [place], [address], [facility], [facility] 5 15:54:39 03/02 Quality Functional Assessment completed [facility], [facility] 3 10:00:47 03/02 Quality Medication Reviewed and Updated completed Yareli Dima [facility] Physician [facility], [facility] 3 10:00:47 03/02 Quality BMI with follow up completed Elmer alvarez [facility] Physician [facility], [facility] 3 10:00:47 03/02 Quality Advanced Care Planning completed Yareli Dima [facility] Physician [facility], [facility] 3 10:00:47 03/02 Quality Incontinence Screening completed Yareli Dima [facility], [facility] 3 10:00:47 03/02 Medicare AWV - Screening Schedule completed Yareli Dima [facility] Physician [facility], [facility] 3 10:00:47 03/02 Quality Fall Risk Assessment completed Yareli Dima [facility], [facility] 3 10:00:47 03/03 Quality Functional Assessment completed Yareli Dima [facility] Physician [facility], [facility] 2 16:32:55 03/03 Quality Medication Reviewed and Updated completed Yareli Dima [facility] Physician [facility], [facility] 2 16:32:55 03/03 Quality BMI with follow up completed Elmer alvarez Dima [facility], [facility] 2 16:32:55 03/03 Quality Advanced Care Planning completed Yareli Dima [facility], [facility] 2 16:32:55 03/03 Quality Incontinence Screening completed Yareli Dima [facility], [facility] 2 16:32:55 03/03 Medicare AWV - Screening Schedule completed Yareli Dima [facility], [facility] 2 16:32:55 03/03 Quality Fall Risk Assessment completed Yareli Dima [facility], [facility] 2 16:32:55 12/21 Date of Last Mammogram completed Yareli Dima [facility], [facility] 2 16:30:13 03/02 Quality Functional Assessment completed Yareli Dima [facility], [facility] 16:05:10 03/02 Quality Medication Reviewed and Updated completed Yareli Dima [facility], [facility] 16:05:10 03/02 Quality (DM or HTN) BP Diastolic < 80 completed Yareli Dima [facility], [facility] 16:20:02 03/02 Medicare AWV Questionnaire completed Elmer alvarez Dima [facility], [facility] 16:18:52 03/02 Quality (DM or HTN ) BP Systolic < 130 completed Yareli Dima [facility], [facility] 16:19:59 03/02 Pain Screening completed Yareli Dima [facility], [facility] 16:18:42 03/02 Quality Fall Risk Assessment Low Risk completed Yareli Dima [facility], [facility] 16:05:10 03/02 Quality BMI with follow up completed Elmer alvarez Dima [place] [facility], [facility] 1 16:05:10 03/02 Quality Advanced Care Planning completed Yareli Dima [place] [facility], [facility] 1 16:05:10 03/02 Quality Incontinence Screening completed Yareli Dima [facility], [facility] 1 16:05:10 03/02 Medicare AWV - Screening Schedule completed Yareli Dima [facility], [facility] 1 16:05:10 02/10 Quality Functional Assessment completed Yareli Dima [facility], [facility] 0 08:14:18 02/10 Quality Medication Reviewed and Updated completed Yareli Dima [facility], [facility] 0 08:14:17 02/10 Medicare AWV Questionnaire completed Elmer Davisregon [facility], [facility] 0 08:14:57 02/10 Quality Fall Risk Assessment Low Risk completed Yareli Dima [facility], [facility] 0 08:14:18 02/10 Quality BMI with follow up completed Elmer alvarez Dima [facility], [facility] 0 08:14:18 02/10 Quality Advanced Care Planning completed Yareli Dima [facility], [facility] 0 08:14:18 02/10 Quality Incontinence Screening completed Yareli Dima [facility], [facility] 0 08:14:18 02/10 Medicare AWV-Screening Schedule completed Yareli Dima [facility], [facility] 0 08:14:18 02/02 Quality Functional Assessment completed Corie Zamarripa [facility], [facility] 9 15:08:10 02/02 Quality Medication Reviewed and Updated completed Corie Zamarripa [facility], [facility] 9 15:08:10 02/02 Medicare AWV Questionnaire completed Corie Kidd [facility], [facility] 9 15:13:57 02/02 Quality Fall Risk Assessment Low Risk completed Corie Zamarripa [facility], [facility] 9 15:08:10 02/02 Quality BMI with follow up completed Corie Kidd [facility], [facility] 9 15:08:10 02/02 Quality Advanced Care Planning completed Corie Zamarripa [facility], [facility] 9 15:08:10 02/02 Quality Incontinence Screening completed Corie Zamarripa [facility] 9 15:08:10 02/13 Quality Functional Assessment completed Madan Almendarez [facility] 8 12:53:26 02/13 Quality Medication Reviewed and Updated completed Maadn Almendarez [facility] 8 12:53:26 02/13 Medicare AWV Questionnaire [place] Wallace [place] [address], [address] 8 13:27:10 02/13 Quality Fall Risk Assessment Low Risk completed Madan Almendarez [facility] 8 12:53:26 02/13 Quality BMI with follow up completed Madan Almendarez [facility] 8 12:53:26 02/13 Quality Advanced Care Planning completed Madan Almendarez [facility] 8 12:53:26 02/13 Quality Incontinence Screening completed Madan Almendarez [facility] 8 12:53:26 02/11 Quality Pain Screening No Pain completed Shahla Jodee [facility] 7 07:39:07 02/11 Quality Functional Assessment completed Shahla Jodee [facility] 7 07:39:07 02/11 Quality Medication Reviewed and Updated completed [facility] Physician [facility], [facility] 7 07:39:07 02/11 Quality (DM or HTN) BP Diastolic < 80 completed [facility] Physician [facility], [facility] 7 07:39:07 02/11 Medicare AWV Questionnaire completed Wallace Rodriguez MD [address], [address], [facility], [facility] 7 08:16:15 02/11 Quality Tobacco Non- User completed [facility] Physician [facility], [facility] 7 07:39:07 02/11 Quality (DM or HTN ) BP Systolic < 130 completed [facility] Physician [facility], [facility] 7 07:39:07 02/11 Quality Fall Risk Assessment Low Risk completed [facility], [facility] 7 07:39:07 02/11 Quality BMI with follow up completed [facility], [facility] 7 07:39:07 02/11 Quality Advanced Care Planning completed [facility], [facility] 7 07:39:07 02/11 Quality Incontinence Screening completed [facility], [facility] 7 07:39:07 03/08 Quality Pain Screening No Pain completed Faye Hoyt [facility] Physician [facility], [facility] 6 12:36:34 03/08 Quality Functional Assessment completed Fayelauro Hoyt [facility], [facility] 6 12:36:34 03/08 Quality Medication Reviewed and Updated completed Faye Hoyt [facility] Physician [facility], [facility] 6 12:36:34 03/08 Quality (DM or HTN) BP Diastolic < 80 completed Faye Hoyt [facility], [facility] 6 12:36:35 03/08 Medicare AWV Questionnaire completed Wallace Rodrigeuz MD [address], [place], [address], [facility], [facility] 6 13:08:17 03/08 Quality Tobacco Non- User completed Fayelauro Hoyt [facility] 6 12:36:35 03/08 Quality (DM or HTN ) BP Systolic < 130 completed Fayelauro Hoyt [facility] 6 12:36:35 03/08 Quality Fall Risk Assessment Low Risk completed [facility] 6 12:36:35 03/08 Quality BMI with follow up completed Faye [facility] 6 12:36:35 03/08 Quality Advanced Care Planning completed Faye [facility] 6 12:36:35 03/08 Quality Incontinence Screening completed Faye [facility] 6 12:36:35 03/08 Screening pap smear by phys completed Corie Zamarripa [facility] 9 15:11:34 02/25 Quality Pain Screening No Pain completed Jackie Rodriguez MD [address], [place], [address], [facility] 5 20:50:08 02/25 Quality Functional Assessment completed Jackie Rodriguez MD [address], [place], [address], [facility], [facility] 5 20:50:08 02/25 Quality Medication Reviewed and Updated completed MD Heidi [address], [place], [address], [facility] 5 20:50:08 02/25 Quality (DM or HTN) BP Diastolic < 80 completed MD Heidi [address], [place], [address], [facility], [facility] 5 20:50:08 02/25 Medicare AWV Questionnaire completed MD [address], [place], [address], [facility], [facility] 5 20:51:36 02/25 Quality Tobacco Non- User completed MD [address], [place], [address], [facility], [facility] 5 20:50:08 02/25 Quality (DM or HTN ) BP Systolic < 130 completed [address], [place], [address], [facility], [facility] 5 20:50:08 02/25 Quality Fall Risk Assessment Low Risk completed MD [address], [place], [address], [facility], [facility] 5 20:50:08 02/25 Quality BMI with follow up completed MD [address], [place], [address], [facility], [facility] 5 20:50:08 02/25 Quality Advanced Care Planning completed MD [address], [place], [address], [facility], [facility] 5 20:50:09 02/25 Quality Incontinence Screening completed MD [address], [place], [address], [facility], [facility] 5 20:50:09 09/25 COLONOSCOPY (SURG) completed MD [address], [place], [address], [facility] Physician [facility], [facility] 5 18:07:33 02/04 Quality Pain Screening No Pain completed MD Heidi [address], [place], [address], [facility], [facility] 4 12:26:13 02/04 Quality Functional Assessment completed MD [address], [place], [address], [facility], [facility] 4 12:26:13 02/04 Quality Medication Reviewed and Updated completed MD [address], [place], [address], [facility], [facility] 4 12:26:13 02/04 Quality (DM or HTN) BP Diastolic < 80 completed MD [address], [place], [address], [facility], [facility] 4 12:26:13 02/04 Medicare AWV Questionnaire completed MD Heidi [address], [place], [address], [facility], [facility] 4 12:26:13 02/04 Quality Tobacco Non- User completed MD [address], [place], [address], [facility], [facility] 4 12:26:13 02/04 Quality (DM or HTN ) BP Systolic < 130 completed MD [address], [place], [address], [facility], [facility] 4 12:26:13 02/04 Quality Fall Risk Assessment Low Risk completed MD [address], [place], [address], [facility] Physician [facility], [facility] 4 12:26:13 02/04 Quality BMI with follow up completed Wallace Rodriguez MD [address] [facility] [address], [place], [address], [facility], [facility] 4 12:26:13 02/04 Quality Advanced Care Planning completed Jackie Rodriguez MD [address], [place], [address], [facility], [facility] 4 12:26:13 12/29 Cataract excision completed [facility] 4 10:36:50 04/30 Oral surgery completed [facility] 4 10:36:50 05/31 Hysterectomy completed [facility] 4 10:36:50 10/31 Dilation & curettage completed [facility] 4 10:36:50 03/31 Appendectomy completed [facility] 4 10:36:50 12/01 Tonsillectomy completed Shahla Ellsworth [facility] 7 06:41:12 Vascular Surgery completed Alida Ch [facility] 2 16:30:15 EGD-Upper Endoscopy completed Don Cespedes [facility] 4 13:02:49 ESOPHAGOGASTRODUODEN OSCOPY (SURG) completed [facility] 4 08:16:15 Imaging Results None recorded. Procedure Notes None recorded. Medical Equipment None Reported. Allergies Allergen ID Allergen Name Allergen Category Reaction Reaction Severity Criticality Documentation Date Start Date Code Code System Note Provider Name and Address Organization Details Recorded Time 764710 codeine medicatio n nausea severe Not available 08/30/2013 2670 RxNorm Ismerai Cespedes [facility], [facility], [facility] 4 13:04:23 405990 Demerol medicatio n other Not available Not available 08/30/2013 43324 1 RxNorm Corinna Gaming [facility] 9 11:03:02 496674 morphine medicatio n other severe Not available 08/30/20131991 7052 RxNorm Ismerai Cespedes [facility], [facility] 4 13:04:23 543231 Product containin g penicilli n (product) medicatio n itching rash Not available Not available Not available 08/30/2013 22179 8001 SNOMED Ismerada Cespedes [facility] 4 13:02:14 5387530 meloxicam medicatio n Not available Not available [facility] 02/07/2025 89072 RxNorm Jackie Rodriguez MD [address], [place], [address], [facility], [facility] 5 15:47:58 460515 Elavil medicatio n other severe Not available 09/12/20141991 90214 RxNorm Ismerai Cespedes [facility], [facility] 4 13:04:23 503692 prednison e medicatio n other Not available Not available 11/13/2021 8640 RxNorm insom humberto and anxio Jackie Rodriguez MD [address], [place], [address], [facility], [facility] 10:43:18 Medications Name Sig Start Date [...] Available Not Available Not Available Fluzone High-Dose 6381-7764 (PF) 180 mcg/0.5 mL intramuscul ar syringe TO BE ADMINISTE RED BY PHARMACIS T FOR IMMUNIZAT ION 01/10 completed Not Available Not Available Not Available Fluzone High-Dose 5192-7308 (PF) 180 mcg/0.5 mL intramuscul ar syringe [...] 16 /min 0 97.2 [degF] 27 kg/m2 15486.9 6 g 77 /min 99 % 99 % 137/76 mm[Hg] [facility] 4 09:42:54 Date Recorded Body height Respiratory rate Pain severity - 0-10 verbal numeric rating [Score] - Reported Body mass index (BMI) Body weight Body temperature Heart rate Oxygen saturation Oxygen saturation in Arterial blood by Pulse oximetry Systolic And Diastolic Provider Name and Address Organization Details Last Updated DateTime 4 165.1 cm 16 /min 0 27 kg/m2 13796.9 6 g 98.3 [degF] 76 /min 97 % 97 % 130/80 mm[Hg] Nataly [facility]obar [facility] 4 08:43:10 Date Recorded Body height Respiratory rate Pain severity - 0-10 verbal numeric rating [Score] - Reported Body mass index (BMI) Body weight Body temperature Heart rate Oxygen saturation Oxygen saturation in Arterial blood by Pulse oximetry Systolic And Diastolic Provider Name and Address Organization Details Last Updated DateTime 4 165.1 cm 16 /min 0 27.7 kg/m2 85727.0 5 g 98.2 [degF] 80 /min 99 % 99 % 136/80 mm[Hg] Nataly Escobar [facility] 4 11:16:54 Date Recorded Body height Respiratory rate Body temperature Body mass index (BMI) Body weight Heart rate Oxygen saturation Oxygen saturation in Arterial blood by Pulse oximetry Pain severity - 0-10 verbal numeric rating [Score] - Reported Systolic And Diastolic Provider Name and Address Organization Details Last Updated DateTime 5 165.1 cm 16 /min 97.7 [degF] 27 kg/m2 91135.6 8 g 76 /min 97 % 97 % 3 124/74 mm[Hg] Yareli Ch [facility] 5 15:23:51 Date Recorded Body height Respiratory rate Pain severity - 0-10 verbal numeric rating [Score] - Reported Body mass index (BMI) Body weight Body temperature Oxygen saturation Oxygen saturation in Arterial blood by Pulse oximetry Heart rate Systolic And Diastolic Provider Name and Address Organization Details Last Updated DateTime 3 165.1 cm 16 /min 0 28 kg/m2 20228.5 2 g 97.6 [degF] 93 % 93 % 71 /min 138/84 mm[Hg] [facility]areli Ch [facility] 3 10:11:17 Social History Question Answer Notes LastModified by Organizat ion Details LastModified Time Tobacco Smoking Status Never Smoker Kate stevens [facility] 08/30/2013 09:31:54 Do You Have An Advance Directive? Yes Information not available 01/22/2014 What Is Your Level Of Caffeine Consumption? Moderate Information not available 08/14/2020 How Much Tobacco Do You Chew? None Information not available 01/22/2014 What Type Of Diet Are You Following? 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 [employer] Information not available 01/22/2014 Do you or [...] high-dose, trivalent, PF 8 completed Not Available [facility] 11/15/2023 01:11:02 Influenza, split virus, quadrivalent, PF 5 completed Zhanna stevens, [facility], [employer] 01/29/2019 15:03:16 Influenza, high-dose, trivalent, PF 9 completed Not Available Critical access hospital 11/15/2023 01:11:02 zoster recombinant 9 completed Not Available Critical access hospital 11/15/2023 01:11:02 zoster recombinant 9 completed Not Available Critical access hospital 11/15/2023 01:11:02 Influenza, split virus, trivalent, preservative 9 completed Ismerada Cespedes null, [facility], [facility] 09/12/2014 13:22:23 Influenza, split virus, trivalent, preservative 7 completed Ismerai Cespedes null, [facility], [facility] 09/12/2014 13:22:23 pneumococcal, unspecified formulation 4 completed Ishowie Cespedes null, [facility], [facility] 09/12/2014 13:22:23 zoster live 2 completed Shahla Ellsworth null, [facility], [facility] 02/11/2017 06:37:48 zoster live 1 completed Shahla stevens, [facility], [facility] 02/11/2017 06:37:48 Influenza, split virus, quadrivalent, PF 4 completed Not Available Critical access hospital 12/01/2019 02:11:14 zoster recombinant 9 completed Madan Almendarez null, [facility], [facility] 08/14/2020 07:57:55 Influenza, split virus, quadrivalent, preservative 0 completed Not Available Critical access hospital 11/15/2023 01:11:02 COVID-19, mRNA, LNP-S, PF, 100 mcg/0.5mL dose or 50 mcg/0.25mL dose 1 completed Yareli Dima null, [facility], [facility] 03/02/2021 16:04:23 COVID-19, mRNA, LNP-S, PF, 100 mcg/0.5mL dose or 50 mcg/0.25mL dose 1 completed Yareli Dima null, [facility], [facility] 03/02/2021 16:04:23 COVID-19, mRNA, LNP-S, PF, 100 mcg/0.5mL dose or 50 mcg/0.25mL dose 1 completed Not Available Critical access hospital 11/15/2023 01:11:02 Influenza, split virus, quadrivalent, preservative 1 completed Not Available Critical access hospital 11/15/2023 01:11:02 COVID-19, mRNA, LNP-S, PF, 100 mcg/0.5mL dose or 50 mcg/0.25mL dose 2 completed Yareli Dima null, [facility], [facility] 03/03/2022 16:28:36 influenza, unspecified formulation 2 completed Not Available Critical access hospital 11/15/2023 01:11:02 SARS-COV-2 (COVID-19) vaccine, UNSPECIFIED 2 completed Not Available Critical access hospital 11/15/2023 01:11:02 Pneumococcal conjugate PCV 13 6 completed Not Available Critical access hospital 11/15/2023 01:11:02 Influenza, high-dose, trivalent, PF 3 completed Not Available Critical access hospital 11/17/2019 02:40:25 zoster recombinant 3 completed Not Available [facility] 11/15/2023 01:11:02 influenza, unspecified formulation 3 completed Not Available Critical access hospital 11/15/2023 01:11:02 SARS-COV-2 (COVID-19) vaccine, UNSPECIFIED 3 completed Not Available [facility] 11/15/2023 01:11:02 Influenza, high-dose, trivalent, PF 4 completed Not Available Critical access hospital 11/15/2023 01:11:02 Influenza, high-dose, trivalent, PF 6 completed Madan Almendarez [facility], [facility], [facility] 08/14/2020 07:57:55 zoster live 1 completed Not Available Critical access hospital 11/15/2023 01:11:02 influenza, unspecified formulation 4 completed MD Peyman Zheng [address], [place], [address], [facility], [facility] 02/07/2025 15:51:25 SARS-COV-2 (COVID-19) vaccine, UNSPECIFIED 4 completed MD Peyman Zheng [address], [place], [address], [facility], [facility] 02/07/2025 15:51:44 Pneumococcal conjugate PCV20, polysaccharide STZ348 conjugate, adjuvant, PF 5 completed MD Peyman Zheng [address], [place], [address], [facility], [facility] 02/07/2025 15:52:52 Respiratory syncytial virus (RSV) MAB, unspecified 4 completed MD Peyman Zheng [address], [place], [address], [facility], [facility] 02/07/2025 15:53:13 Influenza, split virus, quadrivalent, preservative 7 completed Not Available [facility] 11/15/2023 01:11:02 Influenza, split virus, trivalent, preservative 0 completed lisbeth Coy stevens [facility], [facility] 09/12/2014 13:22:23 Influenza, split virus, trivalent, PF 2 completed [facility] Coy stevens [facility] 09/12/2014 13:22:23 Past Encounters Encounter ID Performer Location Encounter Start Date Encounter Closed Date Diagnosis/Indication Diagnosis SNOMED-CT Code Diagnosis ICD10 Code Diagnosis Note [id number] MD CATE Zheng [facility] [address] [address] 08/31/2013 07:11:45 08/31/2013 10:12:50 Fatigue 22120992 Hyperlipidemia 35341865 Impaired f asting glycemia 230241339 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 Will use symptomati c treatment. Tylenol or advil for pain or fever unless contraindi cated. Mucinex and/or Robitussin -DM as needed for cough/liss estion. Increase fluids, rest. Use, dose, and adverse effects of medication discussed. Begin antibiotic with worsening symptoms or no improvemen t. Call or return with concerns. [id number] MONICA Romero Carmelita [facility] [address] [address] 01/10/2014 16:09:57 01/10/2014 16:29:19 Dysphagia 45539730 Small meals, no meats, soft foods only. Referred to GI. 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 Referred to GI. Gastroesop hageal reflux disease 497488593 Continue Omeprazole , add Zantac at bedtime. Call with concerns. [id number] Mariano Sewell MD [address] [address] 01/22/2014 10:13:06 01/22/2014 11:47:34 Dysphagia 70930289 Gastroesop hageal reflux disease 871354275 [id number] Jackie Rodriguez MD [facility] [address] [address] 02/04/2014 11:23:15 02/04/2014 12:52:39 Adult health examination [id number] Medicare Annual Wellness Visit done today. 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 190868424 Vitamin B deficiency 28451007 Disorder o f thyroid gland 07433142 [id number] Jackie Rodriguez MD [facility] [address] [address] 08/26/2014 06:56:06 08/26/2014 08:13:09 Pure hypercholesterolemia 690278886 Chronic, controlled , continue same, follow up as scheduled Fasting blood work prior to next visit in 90 days Benign ess ential hypertension 8549835 Chronic, controlled , continue same, follow up as scheduled Fasting blood work prior to next visit in 90 days Screening mammography 90029018 Screening for malignant neoplasm of colon 222000355 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 [id number] CHRISTOPH Carlson [address] [address] 09/12/2014 12:50:08 09/12/2014 13:29:11 Family history of malignant neoplasm of gastrointestinal tract 406042689 [id number] Jackie Rodriguez MD [facility] [address] [address] 02/25/2015 07:24:17 02/25/2015 08:04:51 Body mass index 30+ - obesity 025998781 weight issues discussed and informatio n on weight loss given. Needs follow up on weight control as scheduled. Education handout on diets given. Exercise counseling done. Will arrange referral for dietitian, nutritioni st, Physical/o ccupationa l therapy as needed or desired. Also will consider pharmaceut ical and supplement al interventi ons Obesity 088882417 see BM I above for details Adult heal th examination 993563259 Medicare Annual Wellness Visit done today. 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 156761812 Vitamin B deficiency 87716520 Disorder o f thyroid gland 81316555 Disorder of nail 82976711 Hypertensive disorder 19832429 [id number] Jackie Rodriguez MD [facility] [address] [place] [address] 09/05/2015 07:17:19 09/05/2015 08:07:47 Active or passive immunization 392273322 Z23 Essential hypertension 53691377 I10 Screening mammography 24 830399 Z12.31 Fatigue 82328885 R53.83 Hyperlipidemia 71458872 E78.5 Impaired f asting glycemia 619420953 R73.01 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 s/p vein ligation, then injections . now back again. Urinary tr act infectious disease 43560378 N39.0 Vitamin D deficiency 347 10407 E55.9 [id number] Jackie Rodriguez MD Carmelita [facility] [address] [place] [address] 03/08/2016 12:34:11 03/08/2016 13:29:28 Adult health examination 771033927 Z00.00 Medicare Annual Wellness Visit done today. Body mass index 30+ - obesity 619319659 Z68.32 weight issues discussed and informatio n on weight loss given. Needs follow up on weight control as scheduled. Education handout on diets given. Exercise counseling done. Will arrange referral for dietitian, nutritioni st, Physical/o ccupationa l therapy as needed or desired. Also will consider pharmaceut ical and supplement al interventi ons Depression screening 171 935094 Z13.89 Obesity 118243839 E66.9 see BMI above for details Decreased body mass index 1344887 Z68.1 BMI less than 19. Review Mini Nutritiona l Screen if necessary. 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 169822626 M85.80 Screening for malignant neoplasm of cervix 897072819 Z12.4 Murmur 757250817 R01.1 Fatigue 20898847 R53.83 Hyperlipidemia 45231555 E78.5 Impaired f asting glycemia 726484313 R73.01 Vitamin B deficiency 479 92638 E53.8 Disorder o f thyroid gland 55187957 E07.9 Vitamin D deficiency 347 57234 E55.9 Hypertensive disorder 38 490463 I10 Administra tion of pneumococcal vaccine 28268555 Z23 [id number] Jackie Rodriguez MD [facility] [address] [address] 09/13/2016 09:48:20 09/13/2016 10:51:01 Body mass index 30+ - obesity 058567949 Z68.31 weight issues discussed and informatio n on weight loss given. Needs follow up on weight control as scheduled. Education handout on diets given. Exercise counseling done. Will arrange referral for dietitian, nutritioni st, Physical/o ccupationa l therapy as needed or desired. Also will consider pharmaceut ical and supplement al interventi ons Obesity 730009552 E66.9 see BMI above for details Essential hypertension 93889239 I10 Dilatation of aorta 2666 0001 I71.9 Gastroesop hageal reflux disease 694175088 K21.9 Hyperlipidemia 14400718 E78.5 [id number] MONICA Farley [facility] [address] [place] [address] 01/10/2017 09:06:20 01/10/2017 09:44:18 Urinary tract infectious disease 70143974 N39.0 Acute episode will continue to monitor Dysuria 40203743 R30.0 Acute episode will continue to monitor [id number] Jackie Rodriguez MD [facility] [address] [place] [address] 02/11/2017 07:31:51 02/11/2017 08:29:32 Adult health examination 784862699 Z00.00 Annual Wellness Visit done today Depression screening 171 572212 Z13.89 PHQ-9 depression screening done due to positive response in [facility] depression screening Follow up as scheduled. Normal bod y mass index 49368838 Z68.23 BMI on chart and recorded for quality measure documentat ion Atrophic vaginitis 26108 000 N95.2 Menopausal syndrome 1237 17823 N95.9 due in sep with mammoi Pain in left knee 909471 4044 75111 M25.562 Screening mammography 24 082946 Z12.31 due in september; Urinary incontinence 165 787956 R32 trial of Detrol [place]. Fatigue 72024529 R53.83 Hyperlipidemia 32313969 E78.5 Impaired f asting glycemia 263027767 R73.01 Vitamin B deficiency 479 04047 E53.8 Disorder o f thyroid gland 99703417 E07.9 Vitamin D deficiency 347 36235 E55.9 Urinary tr act infectious disease 29977954 N39.0 [id number] Jackie Rodriguez MD [facility] [address] [place] [address] 09/13/2017 14:32:43 09/13/2017 15:50:53 Atrophic vaginitis 93274880 N95.2 restart cream -- getting more utis. Hypertensive disorder 38 837681 I10 HTN -- currently stable. continue with low salt. encouraged exercise. continue current meds. Fatigue 03298799 R53.83 Hyperlipidemia 93467380 E78.5 high cholestero l - instructed pt to do low fat diet. pt to increase exercise routine. continue current meds. repeat in 6 months. Impaired f asting glycemia 186940249 R73.01 impaired sugars int he past -- encouraged low sugar diet and exercise - no need for meds at this time Vitamin B deficiency 479 31191 E53.8 Disorder o f thyroid gland 52157987 E07.9 abnormal thyroid levels in the past -- not currently on meds -- continue to watch full thyroid panel. Vitamin D deficiency 347 39509 E55.9 Low B12 and vitamin D levels in the past -- continue to recheck levels and advise on supplement s as needed. Gastroesop hageal reflux disease 996802471 K21.9 continue PPI, reduce caffiene, etoh. no nsaids; Urinary tr act infectious disease 40033932 N39.0 restart cream -- keep close monitoring . Screening mammography 24 330266 Z12.31 Menopausal syndrome 1237 40155 N95.9 [id number] Anny Rodriguez MD [facility] [address] [facility] [address] [place] [address] 02/09/2018 16:32:32 02/09/2018 17:15:10 Urinary incontinence 220313100 R32 Aortic aneurysm 24143582 I71.2 Urinary tr act infectious disease 29655539 N39.0 Blood in urine 90778066 R31.9 [id number] Jackie Rodriguez MD Carmelita [facility] [address] [address] 02/13/2018 12:53:01 02/13/2018 13:47:01 Adult health examination 999738143 Z00.00 Annual Wellness Visit done today Body mass index 30+ - obesity 912718158 Z68.31 weight issues discussed and informatio n on weight loss given. Needs follow up on weight control as scheduled. Education handout on diets given. Exercise counseling done. Will arrange referral for dietitian, nutritioni st, Physical/o ccupationa l therapy as needed or desired. Also will consider pharmaceut ical and supplement al interventi ons Obesity 046980111 E66.9 see BMI above for details Diet education 07687897 Z71.3 as above Depression screening 171 584789 Z13.89 PHQ-9 depression screening done due to positive response in [facility] depression screening Follow up as scheduled. Urinary tr act infectious disease 71722405 N39.0 restart cream -- keep close monitoring . 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 work on balance. repeat every 2 years. Screening mammography 24 850529 Z12.31 Fatigue 85612379 R53.83 Hyperlipidemia 55926506 E78.5 high cholestero l - instructed pt to do low fat diet. pt to increase exercise routine. continue current meds. repeat in 6 months. Impaired f asting glycemia 741443987 R73.01 impaired sugars int he past -- encouraged low sugar diet and exercise - no need for meds at this time Vitamin B deficiency 479 87910 E53.8 Disorder o f thyroid gland 31491398 E07.9 abnormal thyroid levels in the past -- not currently on meds -- continue to watch full thyroid panel. Vitamin D deficiency 347 05722 E55.9 Low B12 and vitamin D levels in the past -- continue to recheck levels and advise on supplement s as needed. [id number] Jackie Rodriguez MD [place] [address] [address] 09/20/2018 10:02:15 09/20/2018 10:45:20 Body mass index 30+ - obesity 628438041 Z68.31 weight issues discussed and informatio n on weight loss given. Needs follow up on weight control as scheduled. Education handout on diets given. Exercise counseling done. Will arrange referral for dietitian, nutritioni st, Physical/o ccupationa l therapy as needed or desired. Also will consider pharmaceut ical and supplement al interventi ons Obesity 795349890 E66.9 see BMI above for details Diet education 09754436 Z71.3 as above Irritable bowel syndrome 33073596 K58.9 trail of new med. reduce stress. Gastroesop hageal reflux disease 419579824 K21.9 continue PPI, reduce caffiene, etoh. no [...] to 10 pounds can help. Atrophic vaginitis 98587 000 N95.2 recurrent uti. pt deciding between premarin cream and suppositor ies. Fatigue 98257380 R53.83 Hyperlipidemia 14042304 E78.5 high cholestero l - instructed pt to do low fat diet. pt to increase exercise routine. continue current meds. repeat in 6 months. Impaired f asting glycemia 014299968 R73.01 impaired sugars int he past -- encouraged low sugar diet and exercise - no need for meds at this time Vitamin B deficiency 479 25072 E53.8 Disorder o f thyroid gland 61903319 E07.9 abnormal thyroid levels in the past -- not currently on meds -- continue to watch full thyroid panel. Vitamin D deficiency 347 29224 E55.9 Low B12 and vitamin D levels in the past -- continue to recheck levels and advise on supplement s as needed. Urinary tr act infectious disease 06086366 N39.0 restart cream -- keep close monitoring . [id number] MONICA Farley [facility] [address] [place] [address] 01/29/2019 14:55:16 01/30/2019 07:22:27 Urinary tract infectious disease 63670037 N39.0 Acute episode will continue to monitor Dysuria 99092505 R30.0 Acute episode will continue to monitor Aneurysm o f thoracic aorta 627336816 I71.2 chronic controlled , continue regimen as directed and monitor for disease progressio n, aggressive ly treat blood pressure and take statins as prescribed [id number] MD CATE Zheng [facility] [address] [place] [address] 02/02/2019 15:02:09 02/06/2019 09:08:51 Adult health examination 158740475 Z00.00 Annual Wellness Visit done today Depression screening 171 794036 Z13.89 PHQ-9 depression screening done due to positive response in [facility] depression screening Follow up as scheduled. Diet education 18522492 Z71.3 as above Body mass index 30+ - obesity 395742268 E66.9 Z68.30 weight issues discussed and informatio n on weight loss given. Needs follow up on weight control as scheduled. Education handout on diets given. Exercise counseling done. Will arrange referral for dietitian, nutritioni st, Physical/o ccupationa l therapy as needed or desired. Also will consider pharmaceut ical and supplement al interventi ons Obesity 022762933 E66.9 see BMI above for details Gastroesop hageal reflux disease 387928086 K21.9 continue PPI, reduce caffiene, etoh. no [...] 5 to 10 pounds can help. Backache 479716560 M54.9 Pain in lower limb 87323 006 M79.669 Knee pain 04552875 M25.5 69 Abnormal gait 05157974 R 26.9 Polyp of colon 93721046 K63.5 Aneurysm o f thoracic aorta 396171437 I71.2 Fatigue 04877856 R53.83 Hyperlipidemia 14413113 E78.5 high cholestero l - instructed pt to do low fat diet. pt to increase exercise routine. continue current meds. repeat in 6 months. Impaired f asting glycemia 876886870 R73.01 impaired sugars int he past -- encouraged low sugar diet and exercise - no need for meds at this time Vitamin B deficiency 479 06033 E53.8 Disorder o f thyroid gland 72860433 E07.9 abnormal thyroid levels in the past -- not currently on meds -- continue to watch full thyroid panel. Vitamin D deficiency 347 77802 E55.9 Low B12 and vitamin D levels in the past -- continue to recheck levels and advise on supplement s as needed. Administra tion of viral vaccine 80449848 Z23 Varicella Zoster vaccine discussed including indication s, risks and benefits. [id number] Jackie Rodriguez MD [place] [address] [address] 10/08/2019 15:55:23 10/08/2019 16:39:13 Atrophic vaginitis 38329605 N95.2 recurrent uti. pt deciding between premarin cream and suppositor ies. Renewal of prescription 624684103 Z76.0 Screening mammography 24 918544 Z12.31 Bone density finding 385 030611 M85.9 osteopenia - encouraged weight bearing exercise, encouraged calcium and vitamin D supplement ation. work on balance. repeat every 2 years. Polyp of colon 67791443 K63.5 Essential hypertension 42416370 I10 HTN -- currently stable. continue with low salt. encouraged exercise. continue current meds. Fatigue 51353224 R53.83 Hyperlipidemia 90858225 E78.5 high cholestero l - reviewed labs in detail with pt; explained the importance of keep HDL high and LDL and triglyceri de levels low. discussed [employer] n guidelines . instructed pt to do low fat diet. pt to increase exercise routine. continue current meds. pt tolerating cholestero l medication s well at this time. LIver function normal and CK levels normal. repeat labs in 6 months. Impaired f asting glycemia 197765719 R73.01 impaired sugars int he past -- encouraged low sugar diet and exercise - no need for meds at this time Vitamin B deficiency 479 30615 E53.8 Disorder o f thyroid gland 75136355 E07.9 abnormal thyroid levels in the past -- not currently on meds -- continue to watch full thyroid panel. Vitamin D deficiency 347 64496 E55.9 Low B12 and vitamin D levels in the past -- continue to recheck levels and advise on supplement s as needed. Gastroesop hageal reflux disease 455287944 K21.9 continue PPI, reduce caffiene, etoh. no [...] just 5 to 10 pounds can help. [id number] CHRISTOPH Carlson [address] [address] 10/15/2019 10:59:01 10/15/2019 16:37:27 Irritable bowel syndrome 92088890 K58.9 Would suggest daily [employer] Screening for malignant neoplasm of colon 834854129 Z12.11 I had a lengthy discussion with this patient concerning the risk and benefits of a colonoscop y at an advanced age. Patient was given opportunit y to ask questions She has decided to defer colonoscop y at this time. She would advise should she become symptomati c a colonoscop y would be indicated. [id number] CHRISTOPH Barrett [facility] [address] [place] [address] 11/20/2019 12:25:09 11/20/2019 12:53:39 Shoulder strain 120264268 S46.911A new no trauma, alternate heat, ice, tylenol for pain.send in lidocaine patches. If worsening/ persistent may need imaging and or PT. Currently declining Muscle pain 27043317 M79 .10 ne [id number] Jackie Rodriguez MD [facility] [address] [facility] [address] [place] [address] 02/11/2020 08:07:58 02/11/2020 09:56:45 Adult health examination 322527981 Z00.00 Annual Wellness Visit done today Increased body mass index 56755289 Z68.29 elevated BMI. Discussed diet and better therapeuti c lifestyle changes. Diet education 74113474 Z71.3 as above Renewal of prescription [id number] Z76.0 Polyp of colon 12695812 K63.5 pt was seen by gastro -- deferred colonopscy -- now is thinking about getting it. told her i worried about her age -- [place]. Pain of le ft shoulder joint [id number] 2448647 M25.512 Vitamin D deficiency 347 49818 E55.9 Low B12 and vitamin D levels in the past -- continue to recheck levels and advise on supplement s as needed. Fatigue 91474538 R53.83 Hyperlipidemia 84482482 E78.5 high cholestero l - reviewed labs in detail with pt; explained the importance of keep HDL high and LDL and triglyceri de levels low. discussed [place] [employer] n guidelines . instructed pt to do low fat diet. pt to increase exercise routine. continue current meds. pt tolerating cholestero l medication s well at this time. LIver function normal and CK levels normal. repeat labs in 6 months. Impaired f asting glycemia 932191655 R73.01 impaired sugars int he past -- encouraged low sugar diet and exercise - no need for meds at this time Vitamin B deficiency 479 37477 E53.8 Disorder o f thyroid gland 04040044 E07.9 abnormal thyroid levels in the past -- not currently on meds -- continue to watch full thyroid panel. Essential hypertension 54646319 I10 HTN -- currently stable. continue with low salt. encouraged exercise. continue current meds. [id number] MD CATE Coates [facility] [address] [place] [address] 08/14/2020 07:38:42 08/14/2020 09:27:00 Polyp of colon 19201626 K63.5 pt was seen by gastro -- deferred colonopscy -- now is thinking about getting it. told her i worried about her age -- will get second opinion [place]. Vitamin D deficiency 347 18391 E55.9 Low B12 and vitamin D levels in the past -- continue to recheck levels and advise on supplement s as needed. Fatigue 93562862 R53.83 Hyperlipidemia 32294164 E78.5 high cholestero l - reviewed labs in detail with pt; explained the importance of keep HDL high and LDL and triglyceri de levels low. discussed [place] [employer] n guidelines . instructed pt to do low fat diet. pt to increase exercise routine. continue current meds. pt tolerating cholestero l medication s well at this time. LIver function normal and CK levels normal. repeat labs in 6 months. Impaired f asting glycemia 051505955 R73.01 impaired sugars int he past -- encouraged low sugar diet and exercise - no need for meds at this time Vitamin B deficiency 479 08862 E53.8 Disorder o f thyroid gland 49664493 E07.9 abnormal thyroid levels in the past -- not currently on meds -- continue to watch full thyroid panel. Essential hypertension 20744196 I10 HTN -- currently stable. continue with low salt. encouraged exercise. continue current meds. Dilatation of aorta 2666 0001 I71.2 [facility] 439677655 Z00.00 Routine prevention - sunscreen, seatbelts, healthy diet and exericse, labs, vaccine update and follow up. Discussed end-of-lif e issues and reviewed body mass index. 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 Hypertensive disorder 38 701518 I10 HTN -- currently stable. continue with low salt. encouraged exercise. continue current meds. Increased body mass index 95052715 Z68.29 elevated BMI. Discussed diet and better therapeuti c lifestyle changes. Diet education 65373945 Z71.3 as above Renewal of prescription 316583044 Z76.0 Vitamin D deficiency 347 06729 E55.9 Low B12 and vitamin D levels in the past -- continue to recheck levels and advise on supplement s as needed. Cobalamin deficiency 190 147636 E53.8 low vitamin B levels - encouraged b12 otc supplement . repeat in 6 months. Fatigue 01811710 R53.83 ? source of fatigue. discussed lifestyle changes to help . watch labs to rule out anemia, thyroid disease. Hyperlipidemia 35609516 E78.2 high cholestero l - reviewed labs in detail with pt; explained the importance of keep HDL high and LDL and triglyceri de levels low. discussed [place] [employer] guidelines . instructed pt to do low fat diet. pt to increase exercise routine. continue current meds. pt tolerating cholestero l medication s well at this time. LIver function normal and CK levels normal. repeat labs in 6 months. Impaired f asting glycemia 715129845 R73.01 impaired sugars int he past -- encouraged low sugar diet and exercise - no need for meds at this time Vitamin B deficiency 479 44397 E53.8 [id number] CHRISTOPH Barrett [facility] [address] [address] 06/10/2021 12:00:13 06/10/2021 15:59:21 Contact dermatitis caused by urushiol from [employer] [facility] 046674148 L25.5 new improving Insomnia 097050646 G47.0 0 new Restlessne ss and agitation 997097128 R45.1 new [id number] Jackie Rodriguez MD [facility] [address] 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 Hypertensive disorder 38 171659 I10 HTN -- currently stable. continue with low salt. encouraged exercise. continue current meds.Chron ic and stable. Dilatation of aorta 2666 0001 I77.819 Chronic and stable. following with cardiology -- keep BPs under control. Hand pain 21912008 M79.6 41 New Complaint/ Diagnosis -- suggested wearing wrist splints -- then ortho if not better. 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 Urinary tr act infectious disease 63179850 N39.0 pt with history of recurrent utis. repeat urine with next blood draw to assure no infection at this time. discussed hygiene, encouraged plenty of water. Fatigue 94966932 R53.83 complaint of fatigue is chronic and stable. questionab le source of fatigue. discussed lifestyle changes to help. watch labs to rule out anemia. Hyperlipidemia 85826978 E78.2 chronic and stable. high cholestero l levels, pt understand s that by not having controlled cholestero l levels there is an increased risk of cardiovasc ular disease. I reviewed labs in detail with pt, I explained the importance of keeping the HDL high and LDL and triglyceri de levels low. I discussed the [place] [employer] guidelines . I instructed pt to do low fat diet. pt is to increase exercise routine. pt is to repeat labs in 6 months time.Revie wed labs with the patient: continue lovastatin 40 mg a day.LDL 121Trig 90HDL 64 Impaired f asting glycemia 812859166 R73.01 chronic and stable. impaired sugars in the past/ I encouraged low sugar diet and exercise. No need for medication at this time. Hgba1c reviewed with pt. Vitamin B deficiency 479 98472 E53.8 chronic and stable b12 levels -- found to be low in the past. encouraged continued b12 supplement ation. labs reviewed:: B12 Vitamin D deficiency 347 57815 E55.9 chronic and stable. low vitamin D levels in the past. explained that low vitamin D levels in the past could be linked to osteopenia /osteoporo sis and cancer risk and heart disease. continue to support vitamin D supplemena tion. reviewed vitamin D labs today: Essential hypertension 17925923 I10 HTN -- Chronic and stable.con tinue with low salt. encouraged exercise. continue current meds. Atrophic vaginitis 64279 000 N95.2 explained the pathology of atrophic vaginitis. explained the risk of incontinen ce and recurrent UTIs; discussed the use of vaginal creams to help with treatment. Screening mammography 24 339695 Z12.31 Menopausal and postmenopausal disorders 584590297 N95.8 pt is post-menop ausal. pt with history of reduced bone density in the past -- needs to be repeated every 2 years. encouraged calcium and vitamin D supplement ation. encouraged plenty of weight bearing exercise -- encouraged to work on balance. 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 Increased body mass index 93125099 Z68.28 elevated BMI. Discussed diet and better therapeuti c lifestyle changes. Diet education 84604414 Z71.3 as above Hand pain 66964966 M79.6 41 Chronic and stable. seeing dr whitmore = better with splints.fery ggested wearing wrist splints -- then ortho if not better. Hypertensive disorder 38 234607 I10 HTN -- currently stable. continue with low salt. encouraged exercise. continue current meds.Chron ic and stable. continue losartan 100 mg a day labs 02/24/22tri g 147; LDL 115, HDL 52tsh 4.95; T4 1.2b12 too high.hga1c 5.6 Carpal anali laurita syndrome 24080548 G56.01 Chronic and stable. seen by ortho -- start with wrist splints --followp as needed. Dilatation of aorta 2666 0001 I77.819 Chronic and stable. keep BPs under control. continue with cholestero l managment. Urinary tr act infectious disease 68286277 N39.0 pt with history of recurrent utis. repeat urine with next blood draw to assure no infection at this time. discussed hygiene, encouraged plenty of water.no infection on current sample Fatigue 52022507 R53.83 complaint of fatigue is chronic and stable. questionab le source of fatigue. discussed lifestyle changes to help. watch labs to rule out anemia. Hyperlipidemia 22024622 E78.2 chronic and stable. high cholestero l levels, pt understand s that by not having controlled cholestero l levels there is an increased risk of cardiovasc ular disease. I reviewed labs in detail with pt, I explained the importance of keeping the HDL high and LDL and triglyceri de levels low. I discussed the [place] [employer] n guidelines . I instructed pt to do low fat diet. pt is to increase exercise routine. pt is to repeat labs in 6 months time.Revie wed labs with the patient: continue lovastatin 40 mg a day.labs 02/24/22tri g 147; LDL 115, HDL 52tsh 4.95; T4 1.2b12 too high.hga1c 5.6 Impaired f asting glycemia 737566774 R73.01 chronic and stable. impaired sugars in the past/ I encouraged low sugar diet and exercise. No need for medication at this time. Hgba1c reviewed with pt. Vitamin B deficiency 479 51603 E53.8 chronic and stable b12 levels -- found to be low in the past. encouraged continued b12 supplement ation. labs reviewed:: B12 Vitamin D deficiency 347 35496 E55.9 chronic and stable. low vitamin D levels in the past. explained that low vitamin D levels in the past could be linked to osteopenia /osteoporo sis and cancer risk and heart disease. continue to support vitamin D supplemena tion. reviewed vitamin D labs today: Essential hypertension 62617858 I10 HTN -- Chronic and stable.con tinue with low salt. encouraged exercise. continue current meds. Atrophic vaginitis 23919 000 N95.2 explained the pathology of atrophic vaginitis. explained the risk of incontinen ce and recurrent UTIs; discussed the use of vaginal creams to help with treatment. pt wants premarin cream -- only will bring forms to fill out to get free. Menopausal and postmenopausal disorders 591364189 N95.8 pt is post-menop ausal. pt with history of reduced bone density in the past -- needs to be repeated every 2 years. encouraged calcium and vitamin D supplement ation. encouraged plenty of weight bearing exercise -- encouraged to work on balance. Screening mammography 24 832610 Z12.31 continue with yearly mammograms , encouraged monthly self breast exams. 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 Atrophic vaginitis 57831 000 N95.2 explained the pathology of atrophic vaginitis. explained the risk of incontinen ce and recurrent UTIs; discussed the use of vaginal creams to help with treatment. pt wants premarin cream -- only will bring forms to fill out to get free. Essential hypertension 06784555 I10 HTN -- Chronic and stable.con tinue with low salt. encouraged exercise. continue current meds.navjot nue hctz 12.5 mg every other day Hyperlipidemia 89819184 E78.2 chronic and stable. high cholestero l levels, pt understand s that by not having controlled cholestero l levels there is an increased risk of cardiovasc ular disease. I reviewed labs in detail with pt, I explained the importance of keeping the HDL high and LDL and triglyceri de levels low. I discussed the [place] [employer] n guidelines . I instructed pt to do low fat diet. pt is to increase exercise routine. pt is to repeat labs in 6 months time.Revie wed labs with the patient: continue lovastatin 40 mg a day.labs 02/24/22tri g 147; LDL 115, HDL 52tsh 4.95; T4 1.2b12 too high.hga1c 5.6 Female str ess incontinence 11431213 N39.3 Increased body mass index 07447651 Z68.28 elevated BMI. Discussed diet and better therapeuti c lifestyle changes. Diet education 30129568 Z71.3 as above Hand pain 24568018 M79.6 41 Chronic and stable. seeing dr whitmore = better with splints.frey ggested wearing wrist splints -- then ortho if not better. Carpal anali laurita syndrome 17988083 G56.01 Chronic and stable. seen by ortho -- start with wrist splints --followp as needed. Dilatation of aorta 2666 0001 I77.819 Chronic and stable. keep BPs under control. continue with cholestero l managment. Urinary tr act infectious disease 35120108 N39.0 pt with history of recurrent utis. repeat urine with next blood draw to assure no infection at this time. discussed hygiene, encouraged plenty of water.no infection on current sample Fatigue 24832169 R53.83 complaint of fatigue is chronic and stable. questionab le source of fatigue. discussed lifestyle changes to help. watch labs to rule out anemia. Impaired f asting glycemia 059728746 R73.01 chronic and stable. impaired sugars in the past/ I encouraged low sugar diet and exercise. No need for medication at this time. Hgba1c reviewed with pt. Vitamin B deficiency 479 52780 E53.8 chronic and stable b12 levels -- found to be low in the past. encouraged continued b12 supplement ation. labs reviewed:: B12 Vitamin D deficiency 347 99781 E55.9 chronic and stable. low vitamin D levels in the past. explained that low vitamin D levels in the past could be linked to osteopenia /osteoporo sis and cancer risk and heart disease. continue to support vitamin D supplemena tion. reviewed vitamin D labs today: Menopausal and postmenopausal disorders 771553073 N95.8 pt is post-menop ausal. pt with history of reduced bone density in the past -- needs to be repeated every 2 years. encouraged calcium and vitamin D supplement ation. encouraged plenty of weight bearing exercise -- encouraged to work on balance.de xa scan 12/2021 -1.8; Screening mammography 24 191395 Z12.31 continue with yearly mammograms , encouraged monthly self breast exams. 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 - seen by hand specialist . [id number] Jackie Rodriguez MD [facility] [address] [place] [address] 03/02/2023 09:59:50 03/02/2023 10:53:49 Adult health examination 873459392 Z00.00 Annual Wellness Visit done today Increased body mass index 40366932 Z68.28 elevated BMI. Discussed diet and better therapeuti c lifestyle changes. Diet education 46385891 Z71.3 as above Female str ess incontinence 74473452 N39.3 Chronic and stable. use premarin cream. Hypertensive disorder 38 241726 I10 HTN -- currently stable. continue with low salt. encouraged exercise. continue current meds.Chron ic and stable. continue losartan 100 mg a day labs 02/21/23UA dirty -- culture negldl 114; trig 106; hdl 63bun 16, cr 0.63hgb 13.0vit D 37tsh 3.63; T4 1.0b12 >2000hgb a1c 5.5 Atrophic vaginitis 47256 000 N95.2 explained the pathology of atrophic vaginitis. explained the risk of incontinen ce and recurrent UTIs; discussed the use of vaginal creams to help with treatment. [facility] Essential hypertension 30458771 I10 HTN -- Chronic and stable.con tinue with low salt. encouraged exercise. continue current meds.navjot nue hctz 12.5 mg every other day Hyperlipidemia 93801657 E78.2 chronic and stable. high cholestero l levels, pt understand s that by not having controlled cholestero l levels there is an increased risk of cardiovasc ular disease. I reviewed labs in detail with pt, I explained the importance of keeping the HDL high and LDL and triglyceri de levels low. I discussed the [place] [employer] n guidelines . I instructed [...] T4 1.0b12 >2000hgb a1c 5.5 Hand pain 57634073 M79.6 41 Chronic and stable. seeing dr fernendez = better with splints.frey ggested wearing wrist splints -- then ortho if not better. Carpal anali laurita syndrome 56811677 G56.01 Chronic and stable. seen by ortho -- start with wrist splints --followp as needed. Dilatation of aorta 2666 0001 I77.819 Chronic and stable. keep BPs under control. continue with cholestero l managment. Fatigue 17289217 R53.83 complaint of fatigue is chronic and stable. questionab le source of fatigue. discussed lifestyle changes to help. watch labs to rule out anemia. Vitamin D deficiency 347 13276 E55.9 chronic and stable. low vitamin D [...] >2000hgb a1c 5.5 Menopausal and postmenopausal disorders 915263551 N95.8 pt is post-menop ausal. pt with history of reduced bone density in the past -- needs to be repeated every 2 years. encouraged calcium and vitamin D supplement ation. encouraged plenty of weight bearing exercise -- encouraged to work on balance.de xa scan 12/2021 -1.8; Screening mammography 24 247959 Z12.31 continue with yearly mammograms , encouraged monthly self breast exams. Irritable bowel syndrome 10970565 K58.9 Chronic and exacerbati on -- using PRN, diarrhea less [place] Gastroesop hageal reflux disease 717863497 K21.9 continue PPI, reduce caffiene, etoh. no [...] just 5 to 10 pounds can help. [id number] ROSA MARIA MULLIGAN APRN [facility] [address] [address] 11/16/2023 09:33:15 11/16/2023 10:12:36 Influenza caused by Influenza A virus 560049162 J09.X2 stable, with some fatigue, continue benzonatat e, RTO if symptoms. Localized swelling of right lower leg 1784294032 4604456 R22.41 Acute problem -- new onset edema and pain in lower extremity -- rule out DVT immediatel y. check stat dopplers. pt to go directly and then wait for further instructio ns. Advised patient not to massage the area until we know the status. Active or passive immunization 812516891 Z23 Patient will get at pharmacy Vitamin D deficiency 347 50926 E55.9 Chronic with exacerbati on. Start supplement ation below. Recheck labs in February at annual wellness. Labs 11/08/2023vi t d 28tsh 2.93hdl 56 trig 100 ldl 100gfr 85 cr 0.66 bun 18wbc 6.3 hgb 12.1 Anxiety 37955108 F41.9 Chronic uncontroll ed. Tiki sevilla patient stress due to 's memory loss. Provided patient with memory loss support group alem Mata. Patient reports her has memory loss and she is having challenges managing. Dilatation of aorta 2666 0001 I77.819 Chronic stable, continue lovastatin 40 mg tablet, continue lipid-lowe ring diet, monitor blood pressure keep within tight control. 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 Incontinen ce persists as discussed at prior appointmen t rule out UTI with recent dizziness. Acute sinusitis 15792192 J01.90 New acute problem, unstable. Patient complains [...] nasal spray) as needed Posterior rhinorrhea 758 84384 R09.82 Acute, new problem. Start fluticason e 50 mcg per actuation nasal spray, return to office if symptoms not improved. [id number] ROSA MARIA MULLIGAN APRN [facility] [address] [place] [address] 01/25/2024 10:59:05 01/25/2024 12:14:08 Pain of right knee joint 3565851864 81890 M25.561 Acute, new problem, uncontroll ed, continue meloxicam after meal only. Rest, ice/heat and keep brace on knee. Risks of NSAIDs including cardiovasc ular, GI, and renal risk reviewed with patient. Patient plans to follow up with orthopedic in [place] and [facility]. Synovial c yst of right knee 4095358746 14962 M71.21 Acute, new problem, uncontroll ed, continue meloxicam after meal only. Follow up with ortho for possible drainage of bakers cyst. Posterior rhinorrhea 758 07896 R09.82 Acute, new problem ongoing since sinusitis visit 2 weeks ago, she completed abx as ordered still w/ sinus drainage and mild sinus headache. Start fluticason e 50 mcg per actuation nasal spray, return to office if symptoms not improved. Impacted c erumen of bilateral ears 0121666030 821182 H61.23 bilateral ears cleaned in office today. [id number] Jackie Rodriguez MD [facility] [address] [place] [address] 02/07/2025 14:56:45 02/07/2025 16:30:34 Adult health examination 411836315 Z00.00 Medicare Annual Wellness Visit done today. Body mass index 25-29 - overweight 459200305 Z68.27 Weight issues discussed and informatio n on weight loss given. Needs follow up on weight control as scheduled. Chronic, Stable Increased body mass index 08415200 Z68.28 elevated BMI. Discussed diet and better therapeuti c lifestyle changes. Diet education 62769550 Z71.3 as above Female str ess incontinence 41475036 N39.3 Chronic and stable. use premarin cream. Hypertensive disorder 38 899397 I10 HTN -- currently stable. continue with low salt. encouraged exercise. continue current meds.Chron ic and stable. continue losartan 100 mg a day labs 02/14/2024 -- needs new labs -- ordered.la bs 02/21/23UA dirty -- culture negldl 114; trig 106; hdl 63bun 16, cr 0.63hgb 13.0vit D 37tsh 3.63; T4 1.0b12 >2000hgb a1c 5.5 Atrophic vaginitis 22478 000 N95.2 explained the pathology of atrophic vaginitis. explained the risk of incontinen ce and recurrent UTIs; discussed the use of vaginal creams to help with treatment. [facility]. Essential hypertension 86963008 I10 HTN -- Chronic and stable.con tinue with low salt. encouraged exercise. continue current meds.navjot nue hctz 12.5 mg every other daycontinu e losartan 100 mg a day. Hyperlipidemia 01598319 E78.2 chronic and stable. high cholestero l levels, pt understand s that by not having controlled cholestero l levels there is an increased risk of cardiovasc ular disease. I reviewed labs in detail with pt, I explained the importance of keeping the HDL high and LDL and triglyceri de levels low. I discussed the [place] [employer] n guidelines . I instructed [...] T4 1.0b12 >2000hgb a1c 5.5 Hand pain 25612771 M79.6 41 Chronic and stable. seeing dr whitmore = better with splints.frey ggested wearing wrist splints -- then ortho if not better. Carpal anali laurita syndrome 35528005 G56.01 Chronic and stable. seen by ortho -- start with wrist splints --followp as needed. Dilatation of aorta 2666 0001 I77.819 Chronic and stable. keep BPs under control. continue with cholestero l managment. Fatigue 69420095 R53.83 complaint of fatigue is chronic and stable. questionab le source of fatigue. discussed lifestyle changes to help. watch labs to rule out anemia. Vitamin D deficiency [id number] E55.9 chronic and stable. low vitamin D [...] >2000hgb a1c 5.5 Menopausal and postmenopausal disorders [id number] N95.8 pt is post-menop ausal. pt with history of reduced bone density in the past -- needs to be repeated every 2 years. encouraged calcium and vitamin D supplement ation. encouraged plenty of weight bearing exercise -- encouraged to work on balance.de xa scan 12/2021 -1.8; Screening mammography [id number] Z12.31 continue with yearly mammograms , encouraged monthly self breast exams. Irritable bowel syndrome [id number] K58.9 Chronic and exacerbati on -- using PRN, diarrhea less -pt will be seeing GI [place]. Gastroesop hageal reflux disease [id number] K21.9 continue PPI, reduce caffiene, etoh. no nsaids;Kaylan nge your eating habits.rachel l be seeing gi [place] -- increase omeprazole to 40 mg while [...] can help. Disorder o f thyroid gland [id number] E07.9 abnormal thyroid levels in the past -- not currently on meds -- continue to watch full thyroid panel.Phone Operator baldemar and stable. 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 impaired sugars in the past/ I encouraged low sugar diet and exercise. No need for medication at this time. Hgba1c reviewed with pt. Vitamin B deficiency [phone] 63233 E53.8 chronic and stable b12 levels - found to be low in the past, but now with normal levels. encouraged continued b12 supplement ation. labs reviewed:: Urinary tr act infectious disease [id number] N39.0 pt with history of recurrent utis. .chronic and stable. repeat urine with next blood draw to assure no infection at this time. discussed hygiene, encouraged plenty of water. 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 - have on hand. Impacted c erumen in left ear [id number] 836013 H61.22 New Complaint/ Diagnosis cleaned out today. Pain of bi lateral knee joints [id number] 41262 M25.561 M25.562 New Complaint/ Diagnosis - pt [...] Gregory Member ID Guarantor Name 11/18/2019 2 [facility]: ADVANTAGE PLAN (MEDICARE REPLACEMENT PPO) [id number] Albina Truong [id number] [facility] 03/29/2025 2 [facility] (MEDICARE SUPPLEMENT) Albina Shieldsidan [id number] Albina [address] [facility] 03/29/2025 1 [place] Albina Shieldsidan [id number] Albina Bradford [place] 02/06/2025 1 [facility] (MEDICARE REPLACEMENT/A DVANTAGE - PPO) [id number] Albina Bradford Dionne [id number] Albina [address] [facility] 11/18/2019 1 [facility]: HEALTH OPTIONS (PPO) [id number] [facility] [id number] Albina Shieldsidan OBGyn Episode No OBEpisode recorded.
--- OUTSIDE RECORDS SUMMARY | 2025-05-28 12:40 | XMS_ITS | Clinical Summary ---
Author Organization Patient Business Ser [facility] Address [address] [place] [address] Care Team Providers Care Veneer Gluer Name Role Phone Camryn Hawk Primary Care Provider [phone] Encounters Date Type Department Care Team Description 05/15/2025 Telephone Gastroenterology - [address] [place] [phone] Estelle Bay MD consut appointment from Last [...] [address] [place] [phone] Concetta Hebert PA [address] [place] [phone] Health Maintenance Due Date Last Done Comments [...] age to complete this topic Insurance MEDICARE [facility] Care Teams Veneer Gluer Relationship Specialty Start Date End Date Camryn Hawk PA [address] [place] [address] PCP - General Physician Aerotriangulation Specialist 05/15/25
--- OUTSIDE RECORDS SUMMARY | 2025-05-28 12:40 | XMS_ITS | Patient Health Record ---
Author Organization [facility] Address [address] [place] [address] Care Team Providers Care Solid Waste Facility Operator Name Role Phone NONE, NONE Primary Care Provider Darron Granger Jr Unavailable Reason For Referral No Information Plan Of Treatment No Information
[2025-05-28 13:30] LABS: Hematocrit 39.0 % (37.0-47.0); Hemoglobin 12.8 g/dl (12.0-16.0); Mean Corpuscular HGB Conc 32.8 g/dl (31.0-35.0); Mean Corpuscular Hemoglobin 29.8 pg (27.0-33.0); Mean Corpuscular Volume 90.7 fL (80.0-98.0); NRBC Abs Auto 0.000 X10*3/uL (0.0-0.012); NRBC Pct Auto 0.0 /100WBC (0.0-0.2); Platelet Count 266 X10*3/uL (160-400); Red Blood Count 4.30 X10*6/uL (4.20-5.50); White Blood Count 5.3 X10*3/uL (4.8-10.8)
[2025-05-28 13:33] LABS: Appearance Urine Cloudy; Glucose Urine UA Negative (Negative); PH 7.5 (5.0-9.0); Specific Gravity - Urine 1.020 (1.005-1.025); UMIC TRIGGER UA YES
[2025-05-28 13:51] LABS: Alanine Aminotransferase 10 U/L (0-31); Albumin Level 4.1 g/dL (3.5-5.0); Alkaline Phosphatase 66 U/L (39-117); Anion Gap 9 (12-20); Aspartate Amino Transferase 20 U/L (5-31); Blood Urea Nitrogen 11 mg/dL (9-16); Calcium 8.7 mg/dL (8.4-10.2); Carbon Dioxide 31 mmol/L (22-29); Chloride 107 mmol/L (96-108); Cholesterol 185 mg/dL (<200); Estimated Glomerular Filt Rate > 60; HDL Cholesterol 55 mg/dL (>40); Potassium 3.6 mmol/L (3.3-5.1); Sodium 143 mmol/L (135-145); Total Protein 6.4 g/dL (6.5-8.0); Triglycerides 87 mg/dL (<150)
[2025-05-28 14:10] LABS: Thyroid Stimulating Hormone 1.85 uIU/mL (0.32-4.0)
== END 2025-05-28 11:26 | disposition home or self-care (01) ==
LOC: HO.HMGCLDS 11:25
PROVIDERS: PCP Physician Assistant; Visit Provider Internal Medicine
DX: I48.91 Unspecified atrial fibrillation (principal)
CPT/HCPCS: 36415; 80048; 80061; 80076; 81001; 84443; 85027

== ENCOUNTER 2025-06-03 10:42 | Outpatient (AMB) | payer MEDICARE, OTHER, SELFPAY ==
--- NOTE | 2025-06-03 10:45 | A.OFFPC_ITS ---
Vital Signs 06/03/25 10:48 06/03/25 10:51 Height 5 ft 5 in Weight 154 lb BMI 25.6 BP 118/62 Blood Pressure Location Lt brachial Position Sitting Respiration 16 Pulse 79 Pulse Source Pulse Oximeter Temp 97.1 F Temp Source Temporal Artery Scan Pulse Oximetry (%) 96 Oxygen Delivery Method Room Air Intake Visit Reasons: 2 wk f/u Services Manager Required: No Accompanied by: Self / Same As Patient Allergies amitriptyline (From Elavil) Allergy (Verified 06/03/25 10:46) Agitated meperidine (Demerol) Allergy (Verified 06/03/25 10:46) Anaphylaxis morphine Allergy (Verified 06/03/25 10:46) Hallucinations Penicillins Allergy (Verified 06/03/25 10:46) Rash prednisone Adverse Reaction (Mild, Verified 06/03/25 10:46) Anxiety Tobacco use date assessed: 05/22/25 Dental Screening Dental Screen Date: 05/22/25 [facility] Medical History (Updated 05/22/25 @ 10:32 by Yoseph Gonzáles MD) Atrial fibrillation IBS (irritable bowel syndrome) Osteopenia History of colon polyps GERD (gastroesophageal reflux disease) Hyperlipidemia Hypertension SI (sacroiliac) joint dysfunction Family History (Updated 05/22/25 @ 10:35 by Loulou Coppola MA) Mother No problems noted. Father No problems noted. Social History Housing: House Patient Tobacco Use Status: Never used Tobacco e-Cigarette/Vaping Use: Never Used service: No Current occupational status: retired Cognitive needs: No Hearing needs: Yes (bilateral hearing aids) Vision needs: Yes (reading glasses) Questionnaire Thrive Questionnaire Date Thrive assessed: 05/22/25 AUDIT C Alcohol Use Questionnaire (AUDIT-C) 1. How often do you have a drink containing alcohol?: Monthly or less 2. How many drinks containing alcohol do you have on a typical day when you are drinking?: 1 or 2 Total Score: 1 DWAIN-7 AMB Questionnaire DWAIN-7 Date DWAIN - 7 assessed: 05/22/25 Source: Developed by Drs. Juan Jackson, Vanessa Melendez, King Sierra and colleagues, with an educational ricky from [employer]. Physical exam (Primary Care) Vital Signs: Last Vital Signs Temp 97.1 F 06/03/25 10:51 Pulse 79 06/03/25 10:51 Resp 16 06/03/25 10:51 BP 118/62 06/03/25 10:51 Pulse Ox 96 06/03/25 10:51 Oxygen Delivery Method Room Air 06/03/25 10:51 BMI result Body Mass Index 25.6 Tobacco/Smoking Status: Tobacco use Status Tobacco use date assessed 05/22/25 06/03/25 10:48 Patient Tobacco Use Status Never used Tobacco 06/03/25 10:48 e-Cigarette/Vaping Use Never Used 06/03/25 10:48 Thrive Assessment: Date of Thrive Assessment Date Thrive assessed 05/22/25 06/03/25 10:48 Coding Level of Care Code Est Pt Level 3 (61339) Complex EM visit Add On G2211 Diagnoses IBS (irritable bowel syndrome) K58.9 Assessment & Plan Assessment & Plan (1) IBS (irritable bowel syndrome): Code(s): K58.9 - Irritable bowel syndrome, unspecified Category: Medical Plan: History of Present Illness - The patient is an 89-year-old female presenting with follow-up for fecal incontinence. - Fecal incontinence was previously addressed with Lomotil, which the patient used as needed, and the condition has resolved. - The patient reports urinary incontinence, managed with pads and waterproof underwear, and a urine test showed E. coli presence, though the sample was not sterile. - She has resumed normal diet and activities, reports bereavement affecting mood, and is in the process of moving. - The patient denies any current stomach pain or other gastrointestinal symptoms. Social History - The patient is a , her having in December, which has impacted her emotional well-being. - She is in the process of moving, which is contributing to her low energy levels. - The patient resides in [place] but has not returned frequently since her 's passing. Review of Systems - Gastrointestinal: Denies current stomach pain or other gastrointestinal symptoms. - Genitourinary: Reports urinary incontinence, denies other genitourinary symptoms. Physical Exam General: Cooperative and healthy appearing Nutritional Appearance: Well nourished Orientation/consciousness: Patient oriented x3 Limitations: No limitations Head: Normal to inspection General: Appearance normal, both eyes and all related structures Neck: Normal visual inspection Chest: Normal palpation of entire chest wall Respiratory: N ormal respiratory effort Neurology: Patient oriented x3, experiencing low mood due to recent bereavement and life changes. Results - Labs: Presence of E. coli in urine sample, though not collected under sterile conditions. - Labs: Elevated cholesterol levels noted in blood work. Plan 1. Fecal Incontinence - Discontinue Lomotil unless symptoms recur; can be used prophylactically before social events. 2. Urinary Incontinence - Management with pads and waterproof underwear continues. 3. Hypercholesterolemia - Elevated cholesterol noted; no specific management plan discussed. 4. Presence Of E. Coli In Urine - E. coli presence noted in urine; no treatment plan due to non-sterile collection. Discussion Notes The patient was advised to discontinue Lomotil unless symptoms of fecal incontinence recur. It was suggested that Lomotil could be used prophylactically before social events if the patient feels apprehensive. No specific management plan was discussed for the elevated cholesterol or the presence of E. coli in the urine due to the non-sterile collection of the sample. The patient was encouraged to continue using pads and waterproof underwear for urinary incontinence management. Patient Instructions - Discontinue Lomotil unless symptoms of fecal incontinence recur. - Use Lomotil prophylactically before social events if needed. - Continue using pads and waterproof underwear for urinary incontinence.
[2025-06-03 10:48] VITALS: BMI 25.6
[2025-06-03 10:51] VITALS: BP 118/62; PULSE 79; RESP 16; TEMP 36.2; O2SAT 96
--- OUTSIDE RECORDS SUMMARY | 2025-06-03 11:35 | XMS_ITS | Clinical Summary ---
Author Organization Patient Business Ser [facility] Address [address] [place] [address] Care Team Providers Care Health Informatics Specialist Name Role Phone Camryn Hawk Primary Care Provider [phone] Encounters Date Type Department Care Team Description 05/15/2025 Telephone Gastroenterology - [address] [facility] [address] [facility] [address] [place] [phone] Estelle Bay MD consut appointment from Last [...] [address] [place] [phone] Concetta Hebert PA [address] [place] [phone] Health Maintenance Due Date Last Done Comments [...] age to complete this topic Insurance MEDICARE [facility] Care Teams Health Informatics Specialist Relationship Specialty Start Date End Date Camryn Hawk PA [address] [place] [phone] PCP - General Physician Certified Surgical Assistant 05/15/25
--- OUTSIDE RECORDS SUMMARY | 2025-06-03 11:35 | XMS_ITS | Patient Health Record ---
Author Organization [facility] Address [address] [place] [phone] Care Team Providers Care High School Admissions Representative Name Role Phone NONE, NONE Primary Care Provider Darron Granger Jr Unavailable [phone] Reason For Referral No Information Plan Of Treatment No Information
== END 2025-06-03 11:15 | disposition home or self-care (01) ==
LOC: HO.HMCHD 10:43
PROVIDERS: PCP Physician Assistant; Visit Provider Internal Medicine
DX: K58.9 Irritable bowel syndrome, unspecified (principal)

== ENCOUNTER → 2025-06-03 10:42 | Outpatient (BNVA) | payer MEDICARE, OTHER, SELFPAY | PROVIDERS: PCP Physician Assistant; Visit Provider Internal Medicine | DX: K58.9 Irritable bowel syndrome, unspecified (principal) | CPT/HCPCS: 99212 ==